=== PATIENT | female | born 1955 | race Caucasian/White ===

== ENCOUNTER 2019-10-01 15:53 | Emergency (ER) | payer BC, SELFPAY ==
[2019-10-01 15:59] VITALS: BMI 26.2
--- NOTE | 2019-10-01 16:13 | ECG_ITS ---
Measurements Intervals [place] Rate: 68 P: 61 DC: 158 QRS: 52 QRSD: 82 T: 77 QT: 375 QTc: 400 SINUS RHYTHM Compared to ECG 09/24/2015 01:10:27 Sinus bradycardia no longer present Electronically Signed On 10-01-2019 19:28:34 TELEPHONE DIRECTORY DISTRIBUTOR DRIVER by Devan Walker M.D. [id number]
[2019-10-01 16:44] LABS: Troponin(5th) Baseline 6 ng/mL (0-10)
== END 2019-10-01 21:19 | disposition left against medical advice (07) ==
LOC: ER 16:30
PROVIDERS: Family Medicine; Emergency Provider Emergency Medicine; Family Provider Family Medicine; PCP Nurse Practitioner Family
DX: Z53.21 Procedure and treatment not carried out due to patient leaving prior to being seen by health care provider (principal)
CPT/HCPCS: 36415; 84484; 93005; 99281

== ENCOUNTER 2020-05-05 07:42 | Outpatient (CLI) | payer MEDICARE, SELFPAY ==
--- NOTE | 2020-05-05 07:57 | CT_ITS ---
WS: [id number] CT CHEST, ABDOMEN, AND PELVIS TECHNIQUE: Contrast-enhanced CT of the chest, abdomen, and pelvis with coronal and sagittal reformatt ed images. CLINICAL INFORMATION: ruq abdominal pain, lung nodule COMPARISON: CT chest . CT abdomen pelvis . CT chest September 29, 2016 and DLP: 1740.[address] scans at [facility] use at least one of these dose optimization techniques: automat ed exposure control; mA and/or kV adjustment per patient size (includes targeted exams where dose is matched to clinical indication); or iterative reconstruction. CT CHEST: Moderate chronic emphysematous changes. No acute pulmonary infiltrates. No consolidation or pleural f luid. Tiny 3 mm pulmonary nodules in the right upper lobe laterally are unchanged. Noncalcified subpl eural opacity right lower lobe medially measuring 3 mm is unchanged. Normal caliber thoracic aorta. Coronary calcification. No mediastinal or hilar lymphadenopathy. No ax illary lymphadenopathy. Hypertrophic changes thoracic spine. CT ABDOMEN AND PELVIS: Prior postoperative changes cholecystectomy. Normal liver. Portal vein and splenic vein are patent. N ormal spleen. Adrenal glands are normal. Normal renal parenchymal enhancement. Small right renal cyst . No hydronephrosis. Normal GE junction. Normal caliber small and large bowel. No evidence of small o r large bowel obstruction. Normal appendix. No abdominal or pelvic lymphadenopathy. Mild disc bulging with disc space narrowing worse L4-L5 and L5-S1. No axillary lymphadenopathy. CT/CT chest abd pel w con* IMPRESSION: 1. A few Noncalcified 3 mm pulmonary nodules unchanged. 2. No mediastinal or hilar lymphadenopathy. 3. No acute pulmonary infiltrates. 4. Prior cholecystectomy. 5. No acute findings in the abdomen or pelvis. 6. No abdominal or pelvic lymphadenopathy.
[2020-05-05] MEDS: iohexol 300 mg/mL 50 mL Btl PO (09:10)
[2020-05-05] MEDS: iohexol 300 mg/mL 100 mL Btl IV (10:20)
== END 2020-05-05 07:43 | disposition home or self-care (01) ==
PROVIDERS: Family Provider Family Medicine; PCP Nurse Practitioner Family
DX: R10.11 Right upper quadrant pain (principal); Z72.0 Tobacco use; R91.8 Other nonspecific abnormal finding of lung field
CPT/HCPCS: 71260; 74177; Q9967

== ENCOUNTER 2020-06-10 14:19 | Outpatient (CLI) | payer MEDICARE, SELFPAY ==
--- NOTE | 2020-06-10 14:33 | XR_ITS ---
WS: [id number] LUMBAR SPINE: 3 VIEWS TECHNIQUE: AP, lateral and L5-S1 spot. HISTORY: LUMBAGO WITH SCIATICA LEFT SIDE COMPARISON: 12/13/2018 Mild increase in lumbar lordosis. Mild anterior wedging of L2. Moderate disc space narrowing at L3-4, L4-5 and L5-S1. Diffuse osteopenia. SI joints are symmetric bilaterally. No soft tissue abnormalities. Moderate calcification in the abdominal aorta. XR/XR lumbar spine 2-3V* [id number] IMPRESSION: 1. Stable anterior compression fracture of L1 with no progression. 2. Moderate degenerative disc space narrowing and desiccation from L3-4 to L5- S1.
== END 2020-06-10 14:20 | disposition home or self-care (01) ==
LOC: RADWPI 14:27
PROVIDERS: Family Provider Family Medicine; PCP Nurse Practitioner Family
DX: S32.010A Wedge compression fracture of first lumbar vertebra, initial encounter for closed fracture (principal); X58.XXXA Exposure to other specified factors, initial encounter
CPT/HCPCS: 72100

== ENCOUNTER 2020-10-08 14:11 | Outpatient (CLI) | payer MEDICARE, SELFPAY ==
--- NOTE | 2020-10-08 14:16 | CT_ITS ---
WS: [id number] LDCT LUNG CANCER SCREENING HISTORY: NICOTINE DEPENDENCE, CIGARETTES TECHNIQUE: Axial imaging performed from the apices to 1 cm below the costophrenic angles. Coronal and sagittal reformats are submitted with axial MIP series. All CT scans at [facility] use at least one of these dose optimization techniques: automated exposure control; mA and/or kV adjustment per patient size (includes targeted exams where dose is matched to clinical indication); or iterativ e reconstruction. DLP: 51.81 mGy.cm DIvol: 1.58 mGy COMPARISON: 05/05/2020 Diagnostic quality: Satisfactory Lung Nodules: Noncalcified 4 mm nodule RIGHT upper lobe, image 46 of series 3. There is a small clust er of nodules around this dominant nodule which are similar to 05/05/2020. There are additional smalle r micronodules. There are also a few scattered granulomata. Mild thickening and haziness in the perip sahara of both lungs from chronic emphysema. Lungs: Emphysema and hyperinflation. Prior granulomatous disease. Heart: Normal size heart. Moderate atherosclerotic disease within the [place] coronary arteries. Other findings: Mild atherosclerosis aorta. Prior cholecystectomy. CT/CT lung screening [id number] IMPRESSION: LUNG-RADS: 2-Benign Appearance or Behavior FOLLOW UP: 12 Month: Continue annual screening with LDCT OTHER FINDINGS (S MODIFIER): None.
--- NOTE | 2020-10-08 14:57 | XR_ITS ---
WS: [id number] SCREENING DEXA SCAN [employer] CLINICAL INFORMATION: OSTEOPOROSIS, HX OF TRAUMATIC VERTEBRAL FRACTURE COMPARISON: 08 27,015 FINDINGS: The L1-L4 bone mineral density measures 1.137 g/cm2. This corresponds to a T score score of -0.4 and Z score of 1.3. Left femoral neck bone mineral density measures 0.693 g/cm2. This corresponds to a T score of -2.5 an d Z score of -1.2. Right femoral neck bone mineral density measures 0.695 g/cm2. This corresponds to a T score -2.5of an d Z score of -1.2. Mean femoral neck bone mineral density measures 0.694 g/cm2. This corresponds to a T score of -2.5 an d Z score of -1.2. XR/XR DEXA axial skeleton* 79235 IMPRESSION: Osteoporosis. Spurious elevation of the bone mineral density of the lumbar spine due to endpl ate sclerosis. Patient's FRAX calculated 10 year probability for major osteoporotic fracture i s 37.2 % and osteoporotic hip fracture is 5.4%.
== END 2020-10-08 14:12 | disposition home or self-care (01) ==
LOC: RAD 14:13
PROVIDERS: PCP Family Medicine; Visit Provider Family Medicine
DX: Z12.2 Encounter for screening for malignant neoplasm of respiratory organs (principal); M81.0 Age-related osteoporosis without current pathological fracture; Z87.81 Personal history of (healed) traumatic fracture; I70.0 Atherosclerosis of aorta; Z90.49 Acquired absence of other specified parts of digestive tract
CPT/HCPCS: 71271; 77080

== ENCOUNTER 2020-11-20 08:05 | Outpatient (CLI) | payer MEDICARE, SELFPAY ==
[2020-11-20 08:25] VITALS: BMI 23.6
--- NOTE | 2020-11-20 08:29 | ECG_ITS ---
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 Interpretive Statements NAME OF STUDY: LEXISCAN SESTAMIBI STRESS TEST INDICATION: Chest Pain PROCEDURE: At the baseline, the blood pressure was 165/68 mmHg, oxygen saturation 98 with a heart rate of 54 beats per minute. The electrocardiogram showed sinus bradycardia, normal axis with nonspecific ST depression. The Lexiscan was infused over a period of 20 seconds. A total of 0.4 milligrams of Lexiscan was infused. The stress phase was continued for a total of 5 minutes. Heart rate at the end of the stress phase was 59 bpm, oxygen saturation 98% with a blood pressure of 162/71 mmHg. The EKG at the peak infusion revealed sinus bradycardia with no significant ST-T wave change. Sestamibi was injected 20 seconds after the Lexiscan infusion. Blood pressure at the end of the recovery phase was 158/70 mmHg, oxygen saturation 98% with a heart rate of 61 beats per minute. CONCLUSION: 1. No significant EKG changes with the LexiScan infusion. 2. No LexiScan induced chest pain or cardiac arrhythmia. 3. Normal blood pressure and heart rate response. 4. Sestamibi/sestamibi perfusion scan pending; see separate report. Electronically Signed On 11-24-2020 12:53:08 STITCHER STANDARD MACHINE by Ivelisse Montgomery M.D. [id number]
--- NOTE | 2020-11-20 08:30 | NMCV_ITS ---
NM epifanio perf SPECT r/s* [id number] Pam Ordonez Age: 65 Gender: F : 1955 Exam Date: 11/20/2020 09:05 Ordering Phys: Ivelisse Montgmoery MD ([email or web address]) Technologist: BUCKY Agosto Exam Location: [facility] Indications: Chest pain STRESS TEST Please see separate stress test report in [facility] for full findings IMAGE PROTOCOL Rest/Stress 1 Lexiscan Day Radiopharmaceutical Dose (mCi) Administration Site Administered by Rest: Tc-99m 10.5 IV Yeimi Skinny, SKI PATROLLER Sestamibi Stress:Tc-99m 32.6 IV Yeimi Skinny, SKI PATROLLER Sestamibi Rest: 11/20/2020 60 Discovery 630 Stress: 11/20/2020 45 Discovery 630 0.4mg Lexiscan. Images obtained in supine and prone position. SPECT RESULTS Technical Quality: Good Raw Data Analysis: Subdiaphragmatic activity Image Corrections: No attenuation or motion correction applied Summed Stress Score: 1 Summed Rest Score: 1 Summed Difference Score: 1 PERFUSION FINDINGS Small size perfusion abnormality of mild severity of apical inferior and apical del cid on rest and stress images. FUNCTIONAL RESULTS (calculated via Gated SPECT) Stress Image LV EF (%): 67 Stress EDV (mL):94 TID: 0.98 Stress ESV (mL):31 FUNCTIONAL FINDINGS: The left ventricle is normal in size. Transient Ischemia Dilatation of 0.98. There is normal left ventricular systolic function. The left ventricular ejection fraction is normal with a value of 67%. There is normal left ventricular wall thickening and no regional wall motion abnormality. Normal end-diastolic and end-systolic volumes. IMPRESSIONS 1. Myocardial perfusion imaging is normal. 2. Overall left ventricular systolic function is normal without regional wall motion abnormalities. 3. The left ventricular ejection fraction is normal with a value of 67%. 4. No coronary ischemia based on the study. Ivelisse Montgomery MD (Electronically Signed) Final Date: 20 November 2020 18:07 S
[2020-11-20 09:41] VITALS: BP 162/72; PULSE 63
[2020-11-20] MEDS: regadenoson 0.4 Mg/5 ml Syringe IVP (09:41)
== END 2020-11-20 08:06 | disposition home or self-care (01) ==
LOC: CDL 08:06
PROVIDERS: PCP Family Medicine; Visit Provider Internal Medicine Cardiovascular Disease
DX: R07.9 Chest pain, unspecified (principal); I25.10 Atherosclerotic heart disease of native coronary artery without angina pectoris
CPT/HCPCS: 78452; A9500; J2785

== ENCOUNTER 2020-12-05 12:54 | Outpatient (CLI) | payer MEDICARE, SELFPAY ==
--- NOTE | 2020-12-05 13:01 | MM_ITS ---
WS: [id number] BILATERAL DIGITAL SCREENING MAMMOGRAPHY WITH CAD CLINICAL INFORMATION: SCREENING HISTORY: Screening mammogram. No current complaints. COMPARISON: TECHNIQUE: Bilateral CC and MLO views. FINDINGS: Scattered fibroglandular densities bilaterally. No suspicious focal mass, asymmetry, calcifications, or architectural distortion. No evidence of malignancy. Punctate and lucent centered calcifications. MM/[place] [id number] IMPRESSION: BI-RADS: 2-Benign FOLLOW UP: 1 Year Follow-up Recommend return to annual screening mammography.
== END 2020-12-05 12:55 | disposition home or self-care (01) ==
LOC: RADSHAW 12:58
PROVIDERS: PCP Family Medicine; Visit Provider Family Medicine
DX: Z12.31 Encounter for screening mammogram for malignant neoplasm of breast (principal)
CPT/HCPCS: 77067

== ENCOUNTER 2021-03-31 09:12 | Outpatient (CLI) | payer MEDICARE, SELFPAY ==
--- NOTE | 2021-03-31 09:30 | MR_ITS ---
WS: [id number] MRI LUMBAR SPINE NONCONTRAST HISTORY: PARESTHESIA, BILATERAL LEGS; BACK PAIN, chronic back pain. COMPARISON: 12/04/2015 TECHNIQUE: Sagittal and axial multisequence imaging is submitted. Quality is compromised by motion. Increase in lumbar lordosis. Mild anterior wedging of L2. Degenerative disc disease throughout the jailene mbar spine. Most significant narrowing at L5-S1. No acute fracture or marrow edema. Conus terminates normally at L1-2 disc level. L1-L2: Mild annular disc bulging and facet arthritis. Mild bilateral foraminal stenosis. L2-L3: Moderate diffuse annular disc bulging and moderate facet joint arthritis. Mild central, bilate ral subarticular recess and foraminal stenosis. Slightly greater stenosis on the RIGHT. Moderate prog ression since the prior study. L3-L4: Diffuse annular disc bulging with mild ligamentum flavum disease and facet arthritis. Mild chapo tral, bilateral subarticular recess and RIGHT foraminal stenosis. Mild progression since the prior st udy. L4-L5: Diffuse asymmetric disc bulging greatest to the LEFT. Asymmetric ligamentum flavum hypertrophy , greater on the LEFT. Mild central stenosis. Moderate LEFT subarticular recess with moderate to dominguez re LEFT foraminal stenosis. Significant contact on the L4 and L5 nerve roots. Moderate progression of disease since the prior study. L5-S1: Diffuse annular disc bulging. There is a focal central disc protrusion with annular fissure di sc contacts the ventral thecal sac. No displacement of the nerve roots. Mild bilateral foraminal sten osis. Mild progression since the prior study. Moderate LEFT and mild RIGHT facet joint arthritis. MR/MR lumbar spine wo con* [id number] IMPRESSION: 1. Moderate progression of degenerative changes throughout the lumbar spine si nce 2016. 2. Moderate to severe LEFT foraminal stenosis at L4-5 with contact by disc and osteophyte upon the L4 and L5 nerve roots. Additional moderate LEFT subarticul ar recess stenosis. 3. Focal central disc protrusion with annular fissure L5-S1 contacts but does not displace the thecal sac at L5-S1. Mild foraminal stenosis. 4. Moderate LEFT facet joint arthritis at L5-S1. 5. Mild central, bilateral subarticular recess and foraminal stenosis at L2-3. 6. Mild central, bilateral subarticular recess and RIGHT foraminal stenosis at L3-4.
== END 2021-03-31 09:13 | disposition home or self-care (01) ==
PROVIDERS: PCP Family Medicine; Visit Provider Family Medicine
DX: R20.2 Paresthesia of skin (principal); M48.061 Spinal stenosis, lumbar region without neurogenic claudication; M47.817 Spondylosis without myelopathy or radiculopathy, lumbosacral region; M51.27 Other intervertebral disc displacement, lumbosacral region
CPT/HCPCS: 72148

== ENCOUNTER → 2021-04-07 15:11 | Outpatient (BNVA) | payer MEDICARE, SELFPAY | PROVIDERS: PCP Family Medicine; Referring Provider Family Medicine; Visit Provider Orthopaedic Surgery | DX: M47.896 Other spondylosis, lumbar region (principal); M54.5 Low back pain | CPT/HCPCS: 72110 ==

== ENCOUNTER → 2021-04-16 11:44 | Outpatient (BNVA) | payer MEDICARE, SELFPAY | PROVIDERS: PCP Family Medicine; Visit Provider Orthopaedic Surgery | DX: Z01.812 Encounter for preprocedural laboratory examination (principal); Z20.822 Contact with and (suspected) exposure to COVID-19 | CPT/HCPCS: 87635 ==

== ENCOUNTER → 2021-04-17 | Day surgery (SDC) | payer MEDICARE, SELFPAY ==
[2021-04-17 10:19] VITALS: BMI 23.4
--- NOTE | 2021-04-17 10:28 | ECG_ITS ---
[facility] Test Date: 2021-04-17 Pat Name: Pam Ordonez Department: Room: Gender: Female [employer]p [employer]: : 1955 Requested By: Enrique Kolb Order Number: [id number] Reading MD: MALDONADO KIRK Measurements Intervals [place] Rate: 61 P: 56 SC: 160 QRS: 44 QRSD: 79 T: 66 QT: 410 QTc: 413 Interpretive Statements SINUS RHYTHM Compared to ECG 10/01/2019 15:59:58 No significant changes Electronically Signed On 04-18-2021 20:32:24 CDT by MALDONADO KIRK [id number]
--- NOTE | 2021-04-17 11:41 | ANES.PREANE2 ---
Pre-Anesthetic Assessment Pre-Anesthetic Assessment: Height/Weight: Height 1.55 m Weight 56.245 kg Preop Diagnosis: Lumbar stenosis Proposed Procedure: Operation Date: 04/20/21 07:00 Proposed Procedures p MIS decompression L3/4 97255 L4/5 54543 L5/S1 72994 M48.062(Not Applicable) - Enrique Ross, DO Was Beta Christian taken within 24 hours: Yes Was Clonidine taken within 24 hours: N/A Social: Social History: Tobacco and No alcohol Exam: Pre-Anes Outpt Exam: alert, oriented x 3 and regular rate & rhythm Airway: Submandibular: WNL Cervical ROM: WNL MP: 2 Dentition: False Pulmonary: Pulmonary: COPD CV/HEM: CV/HEM: CAD (Stent) and HTN Metabolic: Metabolic: Hyperlipidemia Musc/skel: Musc/skel: Lower Back Pain Anesthetic Plan: ASA status: 3 Anesthesia: General Other: Problems with PONV and delayed awakening-?TIVA Risk of > 500 ml blood loss (7ml/kg in children): No PFSH Anesthesia PFSH: Medical History (Updated 04/17/21 @ 10:25 by Inga Chowdhury) ASHD (arteriosclerotic heart disease) Carotid stenosis, non-symptomatic COPD (chronic obstructive pulmonary disease) Dyslipidemia HTN (hypertension) Subclavian artery stenosis Surgical History (Updated 04/17/21 @ 10:25 by Inga Chowdhury) History of cholecystectomy Family History Mother CAD (coronary artery disease) Social History Smoking and tobacco status: current some day smoker (1 PACK A DAY) Quit status (tobacco): considering quitting Second hand smoke exposure: No Smoking risk assessment/counseling performed?: No Alcohol intake: never Data Anesthesia Cardiac Studies: No Data to Display
== END ==
PROVIDERS: PCP Family Medicine; Visit Provider Orthopaedic Surgery
DX: Z01.818 Encounter for other preprocedural examination (principal)
CPT/HCPCS: 93005

== ENCOUNTER → 2021-05-06 11:58 | Outpatient (BNVA) | payer MEDICARE, SELFPAY | PROVIDERS: PCP Family Medicine; Visit Provider Orthopaedic Surgery | DX: Z01.812 Encounter for preprocedural laboratory examination (principal); Z20.822 Contact with and (suspected) exposure to COVID-19 | CPT/HCPCS: 87635 ==

== ENCOUNTER 2021-05-11 07:29 | Day surgery (SDC) | payer MEDICARE, SELFPAY ==
[2021-05-08 11:40] VITALS: BMI 23.4
[2021-05-11] VITALS (9 sets, daily range): BP systolic 99–135; BP diastolic 55–68; PULSE 62–77; RESP 14–20; TEMP 36.1–36.7; O2SAT 93–100
--- NOTE | 2021-05-11 | SCC_ITS ---
Procedure Done: 1. Bilateral L3/4 laminectomy with partail facetectomies 2.Bilateral L4/5 laminectomy with partail facetectomies 3.Bilateral L5/S1 laminectomy with partail facetectomies 38.0 seconds of fluoroscopic guidance, for a cumulative dose of 7.76 mGy, was provided to Dr. Ross by the radiology department. C-arm images of the lumbar spine were saved for the patient's permanent record. [facility]
--- NOTE | 2021-05-11 | XR_ITS ---
WS: [id number] Exam: XR lumbar spine 1V [id number] Date/Time of Exam: 05/11/2021 12:00 AM Reason For Exam: lumbar decompression A series of 5 anterior-posterior C-arm intraoperative images of the lower lumbar spine are submitted for evaluation. Images depict a surgical port superimposing the L4 and L5 vertebral bodies on multiple images. No oth er significant finding on this limited study.
[2021-05-11] MEDS: sodium chloride 0.9% 1,000 ML 30 ML IV (07:54)
--- NOTE | 2021-05-11 08:35 | PM.HP ---
Providers/Chief Complaint Primary Care Provider: Raj Lakhani MD Chief Complaint: lumbar decompression History of Present Illness Pam Ordonez is a 65 year old female lower back pain. HPI: [] who complains of low back pain Onset: going on for years Duration: constant Characteristics: dull ache Severity: 4/10 Location: lower back Radiating symptoms: across the hips, and down the legs Aggravating factors: standing for long periods, bending over Alleviating factors: unsure hasn't tried anything Neuro deficits: patient states she has numbness, tingling, weakness patient denies incontinence of bowel/bladder, saddle anesthesia. Prior tx: had injects at the surgery center more than 10 years ago Associated symptoms: Denies abdominal pain, chills, fever(s), nausea or vomiting Review of Systems Narrative: General ROS: negative for weight changes, fever ENT ROS: negative for nasal congestion, drainage or bleeding, sore throat, dysphagia or ear pain Eyes: PERRL Hematological and Lymphatic ROS: negative for swollen glands or abnormal bleeding Endocrine ROS: negative for polyuria/polydpsia or new changes in weight Respiratory ROS: negative for cough, shortness of breath, or wheezing Cardiovascular ROS: negative for chest pain or dyspnea on exertion Gastrointestinal ROS: negative for reflux, abdominal pain, change in bowel habits, or black or bloody stools Musculoskeletal ROS: negative for back pain, neck pain, or joint pain or swelling except for current problem Neurological ROS: negative for TIA or stoke symptoms Skin: no rashes Medications/Allergies Home Medications Medication Instructions Recorded Confirmed Last Taken Type alendronate 70 mg tablet 70 mg PO .WEEKLY tab 10/03/19 05/11/21 05/10/21 08:00 History cholecalciferol (vitamin D3) 25 2,000 unit PO ONCE cap 10/03/19 05/11/21 05/10/21 History mcg (1,000 unit) capsule cyclobenzaprine 10 mg tablet 10 mg PO TID PRN 10/03/19 05/11/21 05/10/21 History atorvastatin 40 mg tablet 40 mg PO DAILY 10/21/20 05/11/21 05/10/21 History fluoxetine 40 mg capsule 40 mg PO DAILY 10/21/20 05/11/21 05/11/21 History 0530 gabapentin 300 mg capsule 300 mg PO TID cap 10/21/20 05/11/21 05/10/21 History nitroglycerin 0.4 mg sublingual 0.4 mg SUBLINGUAL Q5M PRN #25 tab 10/21/20 05/08/21 Unknown Rx tablet vitamin B complex 1 tab PO DAILY 10/21/20 05/11/21 05/10/21 History metoprolol succinate 25 mg 12.5 mg PO DAILY #45 tab 11/14/20 05/11/21 05/11/21 Rx tablet,extended release 24 hr 0530 aspirin 81 mg tablet,delayed 81 mg PO DAILY 11/26/20 05/11/21 05/06/21 History release biotin 1 tab PO DAILY 11/26/20 05/11/21 05/10/21 History amlodipine 10 mg tablet 10 mg PO DAILY #90 tab 12/11/20 05/11/21 05/10/21 Rx 0800 Allergies Allergy/AdvReac Type Severity Reaction Status Date / Time codeine Allergy Unknown Verified 05/08/21 11:36 Sulfa (Sulfonamide Allergy ADR-Nausea Verified 05/11/21 07:37 Antibiotics) tramadol [From Ultram] Allergy Unknown Verified 05/08/21 11:36 PFSH Acute PFSH: Medical History ASHD (arteriosclerotic heart disease) Carotid stenosis, non-symptomatic COPD (chronic obstructive pulmonary disease) Dyslipidemia HTN (hypertension) Subclavian artery stenosis Surgical History History of cholecystectomy Family History Mother CAD (coronary artery disease) Social History Smoking and tobacco status: current some day smoker (1 PACK A DAY) Quit status (tobacco): considering quitting Second hand smoke exposure: No Smoking risk assessment/counseling performed?: No Alcohol intake: never Vitals/I&O/Wt Last Vital Signs Temp 98.1 F 05/11/21 07:41 Pulse 65 05/11/21 07:41 Resp 18 05/11/21 07:41 BP 123/55 05/11/21 07:41 Pulse Ox 100 05/11/21 07:41 Physical Exam Narrative: EXAM NARRATIVE: CONSTITUTIONAL: The patient is a normal appearing [] in no apparent distress. GENERAL: Patient in no acute distress. CARDIAC: Regular rate and rhythm. CHEST: Normal inspiratory effort, normal respiratory rate. ABDOMEN: Soft and nontender. SKIN: Clear, warm and intact. NEURO?PSYCH: The patient is alert and oriented to person, place and time. Sensorv /SILT Motor StrengthShoulder abduction C5 5/5Wrist extension C6 5/5Elbow extension C7 5/5Hand Assistant Clinical Director C8 5/5Finger abduction T15/5 Radial/ Ulnar/ Median n intact LowerSensory (SILT)Motor StrengthHin flexion L2/3Ant/inner thigh 5/5Hip adduction L2/3 5/5Knee extension L4 Lat thigh, 5/5Toe dorsiflexion L5 5/5Ankle dorsiflexion L5/ [id number] flexion S1 5/5 DTRBleeps 2+Triceps 2+Brachioradialis 2+Patellar 2+Achilles 2+ MUSCULOSKELETAL: [] UPPEREXTREMITIES: The patient had full active ROM in fingers, wrist, elbow, and shoulder. The patient demonstrated ability to fully flex/extend/abduct/adduct fingers, make ok sign, cross 2nd/3rd digits, extend 1st digit fully.. Radial pulse 2+, CR<2 seconds. LOWER EXTREMITIES: Pt has full, active ROM of toes, ankle, knee, and hip. Dorsalis pedis/posterior tibialis pulses 2+, CR<2 seconds. SPINE: Skin warm, dry, intact. 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
--- NOTE | 2021-05-11 08:55 | P.ANESUD_ITS ---
Pre-Anesthetic Update Pre-Anesthetic Assessment: Date of Surgery/Procedure: 05/11/21 Preop Dianne gnosis: lumbar stenosis Proposed Procedure: Operation Date: 05/11/21 08:50 Proposed Procedures p MIS Spine Decompression 24785 [id number] L3/4 L4/5 L5/S1(Not Applicable) - Enrique Ross, DO Any changes to Pre-Anesthetic Assessment?: No Last Intake: Intake Last Liquid Date 05/10/21 Last Liquid Time 08:30 Last Solid Date 05/10/21 Last Solid Time 16:00 Vitals: Temperature 98.1 F 05/11/21 07:41 Temperature Source Temporal Artery S can 05/11/21 07:41 Pulse Rate 65 05/11/21 07:41 Respiratory Rate 18 05/11/21 07:41 Blood Pressure 123/55 05/11/21 07:41 Blood Pressure Daphnie n 77 05/11/21 07:41 Pulse Oximetry 100 05/11/21 07:41 Oxygen Delivery Me thod 05/11/21 07:47 Exam: Pre-Anes Outpt Exam: alert, oriented x 3, clear to auscultation bilaterally and regular rate & rhythm Cardiac Studies: No Data to Display
--- NOTE | 2021-05-11 11:38 | PM.OP ---
Operative Report Date of procedure: May 11, 2021 Pre-op Diagnosis: lumbar stenosis Post-op diagnosis: same Procedure Done: 1. Bilateral L3/4 laminectomy with partail facetectomies 2.Bilateral L4/5 laminectomy with partail facetectomies 3.Bilateral L5/S1 laminectomy with partail facetectomies Surgeon: Enrique Ross Anesthesia: General Estimated blood loss (mL): 5 Condition: stable Disposition: PACU Procedure: 1. Bilateral L3/4 laminectomy with partail facetectomies 2. Bilateral L4/5 laminectomy with partail facetectomies 3. Bilateral L5/S1 laminectomy with partail facetectomies Patient is brought to the operative suite. After undergoing anesthesia they are placed in the supine position. All areas of impingement are well padded. Patient is then prepped and draped in the normal sterile fashion. A skin incision is made over the L3/4 level. This is confirmed under c-arm guidance. A series of dilators are passed and the tubular retractor is docked on the L3 lamina. A bovie is used to clear the soft tissue off the lamina and the L 3/4 facet joint. A high speed sarai is then used to perform the laminectomy and take down the medial aspect of the L 3/4 facet joint. A kerrison rongeure was then used to take down the remaining lamina and smooth the edged of the laminectomy up to the point where the ligamentum flavum attaches. Attention was then brought to the medial aspect of the facet joint. The remaining medial aspect of the superior and inferior aspect of the facet joint were taken down with the kerrison from the pedicle of L3 to L 4. The facet joint had significant hypertrophy. Attention was then brought to the Ligamentum Flavum. The ligament was taken down from the lamina of L3 to L4 and out medially to the remaining facet joint. The ligament was thick. The dura was then exposed. The dura was in good repair. The L3 nerve was then traced with a curette out the L3/4 foramen and found to be adequately decompressed. The L4 nerve was traced with a curette around the L4 pedicle. The lateral recess was opened with a kerrison helping to further decompress the L4 nerve. The tubular retractor was then tilted to the contralateral side. The bovie was used to take down the soft tissue on the spinous process. The high speed sarai was used to take down the spinous process and then the contralateral lamina of L3. The kerrison rongeur was used to take down the remaining lamina to the point where the ligamentum flavum attached and the ligamentum flavum was taken down from L3 to L4. The kerrison rongeur was then used to reach across and take down the medial aspect of the contralateral L3/4 facet joint.The currete was used to trace the contralateral L3 nerve out the L3/4 foramen to make sure it was decompressed adequatesly and the L4 was traced around the L4 pedicle. The lateral recess was opened further with the kerrison to ensure the L4 is adequately decompressed. Wound is then irrigated copiously with saline and surgiflo is used to stop any bleeding. The tubular retractor is removed A skin incision is made over the L4/5 level. This is confirmed under c-arm guidance. A series of dilators are passed and the tubular retractor is docked on the L4 lamina. A bovie is used to clear the soft tissue off the lamina and the L 4/5 facet joint. A high speed sarai is then used to perform the laminectomy and take down the medial aspect of the L 4/5 facet joint. A kerrison rongeure was then used to take down the remaining lamina and smooth the edged of the laminectomy up to the point where the ligamentum flavum attaches. Attention was then brought to the medial aspect of the facet joint. The remaining medial aspect of the superior and inferior aspect of the facet joint were taken down with the kerrison from the pedicle of L4 to L 5. The facet joint had significant hypertrophy. Attention was then brought to the Ligamentum Flavum. The ligament was taken down from the lamina of L4 to L5 and out medially to the remaining facet joint. The ligament was thick. The dura was then exposed. The dura was in good repair. The L4 nerve was then traced with a curette out the L4/5 foramen and found to be adequately decompressed. The L5 nerve was traced with a curette around the L5 pedicle. The lateral recess was opened with a kerrison helping to further decompress the L5 nerve. The tubular retractor was then tilted to the contralateral side. The bovie was used to take down the soft tissue on the spinous process. The high speed sarai was used to take down the spinous process and then the contralateral lamina of L4. The kerrison rongeur was used to take down the remaining lamina to the point where the ligamentum flavum attached and the ligamentum flavum was taken down from L4 to L5. The kerrison rongeur was then used to reach across and take down the medial aspect of the contralateral L4/5 facet joint.The currete was used to trace the contralateral L4 nerve out the L4/5 foramen to make sure it was decompressed adequatesly and the L5 was traced around the L5 pedicle. The lateral recess was opened further with the kerrison to ensure the L5 is adequately decompressed. Wound is then irrigated copiously with saline and surgiflo is used to stop any bleeding. The tubular retractor is removed A skin incision is made over the L5/S1 level. This is confirmed under c-arm guidance. A series of dilators are passed and the tubular retractor is docked on the L5 lamina. A bovie is used to clear the soft tissue off the lamina and the L 5/S1 facet joint. A high speed sarai is then used to perform the laminectomy and take down the medial aspect of the L 5/S1 facet joint. A kerrison rongeure was then used to take down the remaining lamina and smooth the edged of the laminectomy up to the point where the ligamentum flavum attaches. Attention was then brought to the medial aspect of the facet joint. The remaining medial aspect of the superior and inferior aspect of the facet joint were taken down with the kerrison from the pedicle of L5 to S1. The facet joint had significant hypertrophy. Attention was then brought to the Ligamentum Flavum. The ligament was taken down from the lamina of L5 to S1 and out medially to the remaining facet joint. The ligament was thick. The dura was then exposed. The dura was in good repair. The L5 nerve was then traced with a curette out the L5/S1 foramen and found to be adequately decompressed. The S1 nerve was traced with a curette around the S1 pedicle. The lateral recess was opened with a kerrison helping to further decompress the S1 nerve. The tubular retractor was then tilted to the contralateral side. The bovie was used to take down the soft tissue on the spinous process. The high speed sarai was used to take down the spinous process and then the contralateral lamina of L5. The kerrison rongeur was used to take down the remaining lamina to the point where the ligamentum flavum attached and the ligamentum flavum was taken down from L5 to S1. The kerrison rongeur was then used to reach across and take down the medial aspect of the contralateral L5/S1 facet joint.The currete was used to trace the contralateral L5 nerve out the L5/S1 foramen to make sure it was decompressed adequatesly and the S1 was traced around the S1 pedicle. The lateral recess was opened further with the kerrison to ensure the L[] is adequately decompressed. Wound is then irrigated copiously with saline and surgiflo is used to stop any bleeding. The tubular retractor is removed and the wound is closed with vicryl and monocryl suture. Glue is then used to protect the wound. A sterile dressing is then placed. Patient was then placed in the supine position and transferred to the PACU in stable condition.
--- NOTE | 2021-05-11 15:40 | ANE.PACU2 ---
Inpatient post-anesthesia follow up: Airway intact: Yes Vital signs: Temperature 97.2 F Pulse Rate 65 Respiratory Rate 16 Blood Pressure 99/61 Pulse Oximetry 93 Oxygen Delivery Me thod Room Air Oxygen Flow Rate 8 Fraction of Inspir ed Oxygen Hydration adequate: Yes Nausea and vomiting: No Pain level: 3 Mental status: Baseline
== END 2021-05-11 12:13 | disposition home or self-care (01) ==
PROVIDERS: PCP Family Medicine; Visit Provider Orthopaedic Surgery
PROC: (CPT 63005; principal; 2021-05-11 08:40)
DX: M48.062 Spinal stenosis, lumbar region with neurogenic claudication (principal); Z79.82 Long term (current) use of aspirin; J44.9 Chronic obstructive pulmonary disease, unspecified; E78.5 Hyperlipidemia, unspecified; I10 Essential (primary) hypertension; F17.210 Nicotine dependence, cigarettes, uncomplicated
CPT/HCPCS: 63047; 63048 ×2; 72020; 76000; J0690; J1100; J1170; J2370; J2405; J2704; J2710; J3010; J3490; J7030

== ENCOUNTER 2021-08-28 11:58 | Outpatient (CLI) | payer MEDICARE, SELFPAY ==
--- NOTE | 2021-08-28 12:04 | XR_ITS ---
WS: [id number] Exam: XR chest 2V* [id number] Date/Time of Exam: 08/28/2021 12:09 PM Reason For Exam: HEMOPTYSIS Comparison 06/29/2018. The lungs are fully inflated and clear. Normal heart size. The mediastinum is not widened. Coronary a rtery stenting is noted. Spondylosis of the dorsal spine. The lungs are hyperinflated which may indic ate COPD. Bony structures are intact. XR/XR chest 2V* [id number] IMPRESSION: 1. No acute cardiopulmonary finding. 2. Pulmonary hyperinflation which may indicate obstructive lung disease.
== END 2021-08-28 11:59 | disposition home or self-care (01) ==
PROVIDERS: PCP Family Medicine; Visit Provider Family Medicine
DX: R04.2 Hemoptysis (principal)
CPT/HCPCS: 71046

== ENCOUNTER 2021-09-28 11:00 | Outpatient (CLI) | payer MEDICARE, SELFPAY | END 2021-09-28 11:01 | disposition home or self-care (01) | LOC: SLEEP 09-29 16:10 | PROVIDERS: PCP Family Medicine; Visit Provider Family Medicine | DX: R04.2 Hemoptysis (principal) | CPT/HCPCS: 94762 ==

== ENCOUNTER → 2021-10-06 15:16 | Outpatient (BNVA) | payer MEDICARE, SELFPAY | PROVIDERS: PCP Family Medicine; Visit Provider Physician Assistant | DX: Z47.89 Encounter for other orthopedic aftercare (principal); S32.029S Unspecified fracture of second lumbar vertebra, sequela; X58.XXXS Exposure to other specified factors, sequela; M47.816 Spondylosis without myelopathy or radiculopathy, lumbar region | CPT/HCPCS: 72110 ==

== ENCOUNTER 2021-10-14 11:35 | Outpatient (CLI) | payer MEDICARE, SELFPAY ==
--- NOTE | 2021-10-14 11:41 | CT_ITS ---
WS: [id number] LDCT LUNG CANCER SCREENING TECHNIQUE: Noncontrast CT of the chest with coronal and sagittal reformatted images. CLINICAL INFORMATION: HX OF TOBACCO USE COMPARISON: October 08, 2020 DLP: 72.4 DIvol: 1.[address] scans at [facility] use at least one of these dose optimization techniques: automat ed exposure control; mA and/or kV adjustment per patient size (includes targeted exams where dose is matched to clinical indication); or iterative reconstruction. FINDINGS: 4 mm and 3 mm nodules right upper lobe unchanged from the prior examinations. A few surroun ding micronodules unchanged. Calcified granuloma right lower lobe. Hyperinflation with chronic emphysematous changes. Normal caliber thoracic aorta. Aortic calcificatio n. Coronary calcification. No mediastinal or hilar lymphadenopathy. Calcified right hilar and subcari nal lymph nodes. No axillary lymphadenopathy. Adrenal glands are normal. Cholecystectomy clips. Hypertrophic changes thoracic spine. CT/CT lung screening [id number] IMPRESSION: LUNG-RADS: 2-Benign Appearance or Behavior FOLLOW UP: 12 Month: Continue annual screening with LDCT
== END 2021-10-14 11:36 | disposition home or self-care (01) ==
LOC: RAD 11:38
PROVIDERS: PCP Family Medicine; Visit Provider Family Medicine
DX: Z12.2 Encounter for screening for malignant neoplasm of respiratory organs (principal); Z87.891 Personal history of nicotine dependence
CPT/HCPCS: 71271

== ENCOUNTER 2021-10-28 12:31 | Outpatient (RCR) | payer MEDICARE, SELFPAY | END 2021-11-16 23:59 | disposition home or self-care (01) | LOC: SPT 12:31 | PROVIDERS: PCP Family Medicine; Referring Provider Orthopaedic Surgery; Visit Provider Orthopaedic Surgery | DX: M48.062 Spinal stenosis, lumbar region with neurogenic claudication (principal) | CPT/HCPCS: 97110; 97162 ==

== ENCOUNTER → 2021-11-24 15:42 | Outpatient (BNVA) | payer MEDICARE, SELFPAY | PROVIDERS: PCP Family Medicine; Visit Provider Physician Assistant | DX: Z47.89 Encounter for other orthopedic aftercare (principal); S32.020D Wedge compression fracture of second lumbar vertebra, subsequent encounter for fracture with routine healing; X58.XXXD Exposure to other specified factors, subsequent encounter; M47.816 Spondylosis without myelopathy or radiculopathy, lumbar region; M47.817 Spondylosis without myelopathy or radiculopathy, lumbosacral region | CPT/HCPCS: 72110 ==

== ENCOUNTER → 2021-12-24 10:31 | Outpatient (BNVA) | payer MEDICARE, SELFPAY | PROVIDERS: PCP Family Medicine; Visit Provider Physician Assistant | DX: M84.48XA Pathological fracture, other site, initial encounter for fracture (principal); M79.604 Pain in right leg; M79.605 Pain in left leg | CPT/HCPCS: 72110; 99214; 99999 ==

== ENCOUNTER 2021-12-31 13:40 | Outpatient (CLI) | payer MEDICARE, SELFPAY ==
--- NOTE | 2021-12-31 13:49 | MR_ITS ---
WS: [id number] MRI LUMBAR SPINE WITH CONTRAST TECHNIQUE: Sagittal T1, T2 and STIR imaging. Axial T1 and T2 imaging. Post gadolinium imaging was obt ained. CLINICAL INFORMATION: M54.50 - Low back pain, unspecified COMPARISON: MRI March 31, 2021 FINDINGS: Mild lumbar curve. No acute compression. Disc space narrowing worse L4-L5 and L5-S1. Prior postoperat froilan changes LEFT hemilaminectomy L3-L4, L4-L5, and L5-S1 L1-L2: Mild annular bulging. Mild facet arthropathy. Spinal canal and foramen are patent. L2-L3: Mild annular bulging with narrowing of the subarticular recess bilaterally. Mild central canal stenosis. Mild facet arthropathy. Mild bilateral foraminal narrowing with small bilateral foraminal protrusions L3-L4: Mild disc bulging with slight effacement of ventral thecal sac. LEFT hemilaminectomy with deco mpression of the thecal sac. Mild facet arthropathy. Mild bilateral foraminal narrowing. L4-L5: Prior postoperative changes LEFT hemilaminectomy. Mild central canal stenosis with slight impi ngement traversing LEFT greater than RIGHT L5 nerve roots appears improved. LEFT foraminotomy with no rmal postoperative enhancement. Mild facet arthropathy. L5-S1: Mild disc osteophyte complex with endplate ridging. Mild bilateral foraminal narrowing. Mild f acet arthropathy. Impingement on the LEFT S1 nerve root appears improved. Visualized pelvic bony structures: Normal. Paravertebral soft tissues: Normal. MR/MR lumbar spine wo/w con [id number] IMPRESSION: 1. Mild lumbar curve. No acute compression. No high-grade central canal stenos is. 2. Interval postoperative changes LEFT hemilaminectomies LEFT L3-L4 L4-L5 and L5-S1. 3. Mild central canal stenosis L4-L5 with slight impingement LEFT subarticular recess appears improved. Interval LEFT foraminotomy with postoperative enhance ment. Mild residual narrowing of the LEFT L4-L5 neural foramen. 4. Mild central canal stenosis stenosis L2-L3 with mild bilateral foraminal na rrowing with small bilateral foraminal protrusions. 5. Mild bilateral L3-L4 foraminal narrowing.
[2021-12-31] MEDS: gadobenate dimeglumine 20 mL vial IV (14:43)
== END 2021-12-31 13:41 | disposition home or self-care (01) ==
PROVIDERS: PCP Family Medicine; Visit Provider Physician Assistant
DX: M48.061 Spinal stenosis, lumbar region without neurogenic claudication (principal)
CPT/HCPCS: 72158; A9579

== ENCOUNTER → 2022-01-05 10:39 | Outpatient (BNVA) | payer MEDICARE, SELFPAY | PROVIDERS: PCP Family Medicine; Visit Provider Physician Assistant | DX: M51.37 Other intervertebral disc degeneration, lumbosacral region (principal); M48.062 Spinal stenosis, lumbar region with neurogenic claudication | CPT/HCPCS: 99214; 99999 ==

== ENCOUNTER → 2022-01-15 11:12 | Outpatient (BNVA) | payer MEDICARE, SELFPAY | PROVIDERS: PCP Family Medicine; Visit Provider Internal Medicine Cardiovascular Disease | DX: R07.9 Chest pain, unspecified (principal); Z01.810 Encounter for preprocedural cardiovascular examination; I25.10 Atherosclerotic heart disease of native coronary artery without angina pectoris; E78.5 Hyperlipidemia, unspecified; I65.23 Occlusion and stenosis of bilateral carotid arteries; J44.9 Chronic obstructive pulmonary disease, unspecified | CPT/HCPCS: 93005; 99214 ==

== ENCOUNTER 2022-03-29 09:00 | Inpatient (IN) | payer MEDICARE, SELFPAY ==
[2022-03-26 13:52] VITALS: BMI 23.0
[2022-03-29] VITALS (76 sets, daily range): BP systolic 67–135; BP diastolic 37–81; PULSE 54–73; RESP 13–28; TEMP 36.1–36.7; O2SAT 82–100; BMI 23.0
--- NOTE | 2022-03-29 | SCC_ITS ---
Procedure done: 1. L3- S1 instrumentation 2. Lumbopelvic instrumentation 3. L3 - pelvis fusion 4. revision L3/4 laminectomy with partial facetectomy 5. revision L4/5 Laminectomy with partial facetectomy 6. revison L5/S1 laminectomy with partial facetectomy 7. use of computer navigation/ stereotactic for spine 8. bone marrow aspirated from iliac crest on the right 19. use of allograft 10. Use of autograft 14 seconds of fluoroscopic guidance, for a cumulative dose of 21.0 mGy, was provided to Dr. Ross by the radiology department. C-arm images of the lumbar spine were saved for the patient's permanent record. [facility]
--- NOTE | 2022-03-29 | XR_ITS ---
WS: [id number] C-ARM RADIOGRAPHS LUMBAR SPINE; 4 IMAGES HISTORY: l4-pelvis fusion COMPARISON: None available. Intraoperative imaging during lumbosacral posterior fusion. Large laminectomy defects at the L4-5 lev el. XR/XR lumbar spine 2-3V* [id number] IMPRESSION: Intraoperative imaging during extensive posterior lumbosacral fusion.
--- NOTE | 2022-03-29 09:02 | PM.HP ---
Providers/Chief Complaint Primary Care Provider: Raj Lakhani MD Chief Complaint: l4-pel fus &decom w/cage l5/s1 [id number] History of Present Illness Pam Ordonez is a 66 year old female he underwent a lumbar decompression in April 2021 and she had significant improvement of her leg pain following that procedure.? Her pain in her legs is progressively intensified and now she reports about 50% low back pain 50% bilateral leg pain.? She reports frequent falling she feels her legs give out.? Patient states she continues to have pain and numbness to the lower back and down both legs.? She can only walk a short distance because of the weakness that she is experiencing.? She denies any fever chills or drainage from her incisional site.? She follows up after an MRI scan.? She has been through injections and physical therapy without any long-term relief in the past.? She is wanted to discuss more definitive treatment. An extensive review of the patient's past medical history, surgical history, allergies, medications, family history, social history, and review of systems was completed Review of Systems General: Reports: 10 or more systems reviewed and unremarkable except in HPI and below Const: Denies: fever(s) or chills Card: Denies: chest pain or dyspnea on exertion Resp: Denies: dyspnea or productive cough GI: Denies: abdominal pain, nausea or vomiting : Denies: difficulty voiding Musc: Reports: back pain, extremity pain and limited range of motion Skin/Breast: Denies: changes in skin color or dry skin Neuro: Reports: numbness in extremities, weakness in extremities and sensory changes Psych: Denies: anxiety Lalo/Lymph: Denies: easy bruising or easy bleeding Medications/Allergies Home Medications Medication Instructions Recorded Confirmed Last Taken Type alendronate 70 mg tablet 70 mg PO .WEEKLY tab 10/03/19 03/26/22 03/21/22 History cholecalciferol (vitamin D3) 25 2,000 unit PO ONCE cap 10/03/19 03/26/22 03/26/22 History mcg (1,000 unit) capsule atorvastatin 40 mg tablet (Lipitor) 40 mg PO DAILY 10/21/20 03/26/22 03/25/22 20:00 History fluoxetine 40 mg capsule 40 mg PO DAILY 10/21/20 03/26/22 03/26/22 History gabapentin 300 mg capsule 300 mg PO TID cap 10/21/20 03/26/22 03/26/22 History nitroglycerin 0.4 mg sublingual 0.4 mg SUBLINGUAL Q5M PRN #25 tab 10/21/20 03/26/22 Unknown Rx tablet (Nitrostat) aspirin 81 mg tablet,delayed 81 mg PO DAILY 11/26/20 03/26/22 03/25/22 History release biotin 1 tab PO DAILY 11/26/20 03/26/22 03/26/22 History amlodipine 10 mg tablet 10 mg PO DAILY #90 tab 12/11/20 03/26/22 03/26/22 07:00 Rx cyclobenzaprine 10 mg tablet 10 mg PO TID PRN #30 tab 06/16/21 03/26/22 03/25/22 20:00 Rx metoprolol succinate 25 mg 12.5 mg PO DAILY #45 tab 08/27/21 03/26/22 03/26/22 07:00 Rx tablet,extended release 24 hr isosorbide mononitrate 30 mg 30 mg PO DAILY 01/15/22 03/26/22 03/26/22 History tablet,extended release 24 hr Allergies Allergy/AdvReac Type Severity Reaction Status Date / Time hydrocodone Allergy Intermediate Altered Verified 01/05/22 10:42 mental status codeine Allergy Unknown Verified 01/05/22 10:42 Sulfa (Sulfonamide Allergy ADR-Nausea Verified 01/05/22 10:42 Antibiotics) tramadol [From Ultram] Allergy Unknown Verified 01/05/22 10:42 PFSH Acute PFSH: Medical History (Updated 01/17/22 @ 19:03 by Ivelisse Montgomery MD) ASHD (arteriosclerotic heart disease) Carotid stenosis, non-symptomatic COPD (chronic obstructive pulmonary disease) Dyslipidemia History of tumor HTN (hypertension) Subclavian artery stenosis Surgical History (Updated 01/17/22 @ 19:02 by Ivelisse Montgomery MD) History of History of cholecystectomy Family History Mother CAD (coronary artery disease) Social History Smoking and tobacco status: never smoked Quit status (tobacco): considering quitting Second hand smoke exposure: No Smoking risk assessment/counseling performed?: No Alcohol intake: never Physical Exam Narrative: CONSTITUTIONAL: The patient is a normal appearing [] in no apparent distress. GENERAL: Patient in no acute distress. CARDIAC: Regular rate and rhythm. CHEST: Normal inspiratory effort, normal respiratory rate. ABDOMEN: Soft and nontender. SKIN: Clear, warm and intact. NEURO?PSYCH: The patient is alert and oriented to person, place and time. Sensorv /SILT Motor StrengthShoulder abduction C5 5/5Wrist extension C6 5/5Elbow extension C7 5/5Hand Pad Extraction Tender C8 5/5Finger abduction T15/5 Radial/ Ulnar/ Median n intact LowerSensory (SILT)Motor StrengthHin flexion L2/3Ant/inner thigh 5/5Hip adduction L2/3 5/5Knee extension L4 Lat thigh, 5/5Toe dorsiflexion L5 5/5Ankle dorsiflexion L5/ D11Sdsjhnu flexion S1 5/5 DTRBleeps 2+Triceps 2+Brachioradialis 2+Patellar 2+Achilles 2+ MUSCULOSKELETAL: [] UPPEREXTREMITIES: The patient had full active ROM in fingers, wrist, elbow, and shoulder. The patient demonstrated ability to fully flex/extend/abduct/adduct fingers, make ok sign, cross 2nd/3rd digits, extend 1st digit fully.. Radial pulse 2+, CR<2 seconds. LOWER EXTREMITIES: Pt has full, active ROM of toes, ankle, knee, and hip. Dorsalis pedis/posterior tibialis pulses 2+, CR<2 seconds. SPINE: Skin warm, dry, intact. A&P Assessment and plan (1) Spinal stenosis, lumbar region, with neurogenic claudication: Status: Acute Attestations Medical Necessity Statement*: failed conservative tx Coding Level of Care Code Acute Director Of Social Services for g Fwd Diagnoses Spinal stenosis, lumbar region, with neurogenic claudication M48.062
--- NOTE | 2022-03-29 09:23 | ANES.PREANE2 ---
Pre-Anesthetic Assessment Height/Weight: Height 1.55 m Weight 55.338 kg Temp Pulse Resp BP Pulse Ox 97.3 F L 60 16 110/63 98 03/29/22 09:09 03/29/22 09:09 03/29/22 09:09 03/29/22 09:09 03/29/22 09:09 Preop Diagnosis: Lumbar stenosis w/Neurogenic claudicationn and DDD Lummbar spine Operation Date: 03/29/22 11:20 Proposed Procedures p Lumbar Laminectomy L4-PELVIS FUSION & DECOMPRESION W/CAGE L4-S1 [id number]/M48.062(Not Applicable) - Enrique Ross, DO Familial anesthetic complications: none Was Beta Christian taken within 24 hours: Yes Was Clonidine taken within 24 hours: N/A Last intake: 03/28/22 Social Tobacco Exam alert, oriented x 3, clear to auscultation bilaterally and regular rate & rhythm Airway Submandibular: within normal limits Cervical ROM: within normal limits Mallampati: Class II Dentition: false Pulmonary Chronic Obstructive Pulmonary Disease CV/HEM Coronary Artery Disease, Hypertension and Peripheral Vascular Disease (Carotid stenosis ) METS > 4 Stress test 11/2020 ONCLUSION: 1. No significant EKG changes with the LexiScan infusion. 2. No LexiScan induced chest pain or cardiac arrhythmia. 3. Normal blood pressure and heart rate response. 4. Sestamibi/sestamibi perfusion scan pending; see separate report. Electronically Signed On 11-24-2020 12:53:08 RESEARCH ASSISTANT by Ivelisse Montgomery M.D. [email or web address] Nuc Med study 12/07 IMPRESSIONS ?1. Myocardial perfusion imaging is normal. ?2. Overall left ventricular systolic function is normal without regional wall ?motion abnormalities. ?3. The left ventricular ejection fraction is normal with a value of 67%. ?4.? No coronary ischemia based on the study. None reported Hepatic None reported GI Gastroesophageal Reflux Disease Well controlled Metabolic None reported Musc/skel Lower Back Pain and Osteoarthritis/DJD Neuropsych Denies hx of stroke Anesthetic Plan ASA status: 3 Anesthesia: Anesthesia Evaluation and General Other: We discussed risk and benefits of general anesthesia including PONV, sore throat (sometimes severe), corneal abrasion, positioning and peripheral nerve injuries, life threatening allergic reaction, post operative ICU admission requiring prolonged intubation, aspiration, stroke, heart attack, , and rare incidences of recall. Patient consents to proceed with general anesthesia. GETA, arterial line Medications/Allergies Home Medications Medication Instructions Recorded Confirmed Last Taken Type alendronate 70 mg tablet (Fosamax) 70 mg PO .WEEKLY tab 10/03/19 03/26/22 03/28/22 History cholecalciferol (vitamin D3) 25 2,000 unit PO ONCE cap 10/03/19 03/26/22 03/28/22 20:00 History mcg (1,000 unit) capsule atorvastatin 40 mg tablet (Lipitor) 40 mg PO DAILY 10/21/20 03/29/22 03/28/22 20:00 History fluoxetine 40 mg capsule 40 mg PO DAILY 10/21/20 03/26/22 03/29/22 07:00 History gabapentin 300 mg capsule 300 mg PO TID cap 10/21/20 03/26/22 03/29/22 07:00 History nitroglycerin 0.4 mg sublingual 0.4 mg SUBLINGUAL Q5M PRN #25 tab 10/21/20 03/26/22 Unknown Rx tablet (Nitrostat) aspirin 81 mg tablet,delayed 81 mg PO DAILY 11/26/20 03/26/22 03/26/22 History release biotin 1 tab PO DAILY 11/26/20 03/29/22 03/29/22 06:00 History amlodipine 10 mg tablet 10 mg PO DAILY #90 tab 12/11/20 03/26/22 03/28/22 Rx cyclobenzaprine 10 mg tablet 10 mg PO TID PRN #30 tab 06/16/21 03/26/22 03/28/22 20:00 Rx metoprolol succinate 25 mg 12.5 mg PO DAILY #45 tab 08/27/21 03/26/22 03/29/22 07:00 Rx tablet,extended release 24 hr isosorbide mononitrate 30 mg 30 mg PO DAILY 01/15/22 03/26/22 03/29/22 07:00 History tablet,extended release 24 hr Allergies Allergy/AdvReac Type Severity Reaction Status Date / Time hydrocodone Allergy Intermediate Altered Verified 01/05/22 10:42 mental status codeine Allergy Unknown Verified 01/05/22 10:42 Sulfa (Sulfonamide Allergy ADR-Nausea Verified 01/05/22 10:42 Antibiotics) tramadol [From Ultram] Allergy Unknown Verified 01/05/22 10:42 [facility] Anesthesia Medical History ASHD (arteriosclerotic heart disease) Carotid stenosis, non-symptomatic COPD (chronic obstructive pulmonary disease) Dyslipidemia History of tumor HTN (hypertension) Subclavian artery stenosis Surgical History History of History of cholecystectomy Family History Mother CAD (coronary artery disease) Social History Smoking and tobacco status: never smoked Quit status (tobacco): considering quitting Second hand smoke exposure: No Smoking risk assessment/counseling performed?: No Alcohol intake: never Data Anesthesia Cardiac Studies: Sestamibi Stress Test (Cardiology) 11/20/20
[2022-03-29] MEDS: sodium chloride 0.9% 1,000 ML 30 ML IV ×2 (09:35→16:49)
[2022-03-29] MEDS: scopolamine 1.5 Patch 1 PATCH TRANSDERMA (09:35)
[2022-03-29] MEDS: ceFAZolin 2,000 MG in sodium chloride 0.9% (plus) 50 ML 100 MG IV ×2 (09:43→18:27)
[2022-03-29] MEDS: heparin, porcine 1,000 unit/mL INJ 10 mL 10000 UNIT IRRIGATION (10:30)
[2022-03-29] MEDS: vancomycin 1,000 MG SDV 1000 MG XX (10:30)
--- NOTE | 2022-03-29 13:51 | P.OP_ITS ---
Operative Report Date of procedure: March 29, 2022 Pre-op diagnosis: Preop Diagnosis Lumbar stenosis w/Neurogenic claudicationn and DDD Lummbar spine Post-op diagnosis: same Procedure done: 1. L3- S1 instrumentation 2. Lumbopelvic instrumentation 3. L3 - pelvis fusion 4. revision L3/4 laminectomy with partial facetectomy 5. revision L4/5 Laminectomy with partial facetectomy 6. revison L5/S1 laminectomy with partial facetectomy 7. use of computer navigation/ stereotactic for spine 8. bone marrow aspirated from iliac crest on the right 19. use of allograft 10. Use of autograft Surgeon: Enrique Ross Experience Specialist: Jean Mojica Procedure: 1. L3- S1 instrumentation 2. Lumbopelvic instrumentation 3. L3 - pelvis fusion 4. revision L3/4 laminectomy with partial facetectomy 5. revision L4/5 Laminectomy with partial facetectomy 6. revision L5/S1 laminectomy with partial facetectomy 7. use of computer navigation/ stereotactic for spine 8. bone marrow aspirated from iliac crest on the right 19. use of allograft 10. Use of autograft Patient is brought to the operative suite.? After undergoing anesthesia, the patient had neuro monitoring attached.? Patient was then placed in the prone position on the Cristobal table.? All areas of impingement were well-padded.? Patient was then prepped and draped in the normal sterile fashion.? Skin incision was then made over the L3 down to the sacrum.? Subperiosteal dissection was made out to the transverse processes of L3 and L5 as well as the sacral ala.? And dissection was made past the S1 foramen. The NuORDER bone marrow aspirate kit was used to aspirate bone marrow aspirate.? This was done by using the sharp probe to open up the bone.? Aspiration was performed and then the blunt probe was then used to dissect down to through the bone tunnel.? An aspirating well drawn back a millimeter approximately 20 cc of bone marrow aspirate was used.? Admixed with the allog raft and autograft bone that will be used. Was brought to placing the fiducial for the computer navigation.? 2 pins were placed into the right iliac wing.? These pins will later be removed at the end of the case.? The fiducial was turndown C-arm was brought in and information from serum was then loaded the computer in order to facilitate placing screws under computer navigation. The technique for placing the pedicle screws was to use a drill followed by the gearshift probe linked to computer navigation? Followed by the ball probe to feel the superior inferior medial lateral del cid of the pedicles.? Then placement of the screws under computer navigation.? Was done at each pedicle.? Screws were placed at L3 bilaterally, L4 bilaterally, L5 bilaterally, and into S1 bilaterally. Extension was placed on placing the iliac screws.? This was done using the sacral ala iliac technique.? This was done also under computer navigation.? The gearshift was passed through the sacrum through the ala and into the iliac wing across the iliosacral joint.? This was done bilaterally.? Gearshift was linked to the computer navigation.? Pedicle feeler was then used to make sure that the gearshift was in the columns of the iliac wings.? Next a tap was used again under computer navigation and then the 80 mm 8.5 screws were placed bilaterally.? And these were placed into the iliac wings. Attention was brought to performing the laminectomy of L3.? This was done using the high-speed bur Kerrisons and curettes.? Once the lamina was removed and then attention was brought to performing a partial facetectomy on the contralateral side.? This was done again using the high-speed bur curettes and Kerrisons.? The ligamentum flavum was taken down bilaterally where it could be however there was significant amount of scar tissue From L3 to L4.? Attention was then brought to the facet on the ipsilateral side.? The facet was taken down.? The L4 nerve was decompressed as it passed around the L4 pedicle.? Attention was brought to performing the laminectomy of L4.? This was done using the high-speed bur Kerrisons and curettes.? Once the lamina was removed and then attention was brought to performing a partial facetectomy on the contralateral side.? This was done again using the high-speed bur curettes and Kerrisons.? The ligamentum flavum was taken down bilaterally where it could be however there was significant amount of scar tissue From L4 to L5.? Attention was then brought to the facet on the ipsilateral side.? The facet was taken down.? The L5 nerve was decompressed as it passed around the L5 pedicle.? Attention was brought to performing the laminectomy of L5.? This was done using the high-speed bur Kerrisons and curettes.? Once the lamina was removed and then attention was brought to performing a partial facetectomy on the contralateral side.? This was done again using the high-speed bur curettes and Kerrisons.? The ligamentum flavum was taken down bilaterally where it could be however there was significant amount of scar tissue From L5 to S1.? Attention was then brought to the facet on the ipsilateral side.? The facet was taken down.? The S1 nerve was decompressed as it passed around the S1 pedicle.? Attention was then brought to attaching the rods to the screws placed in the L3 down to S1 as well as to the iliac screws.? Caps were torqued into position. Locking the construct in place. Wound was copiously irrigated and then attention was brought to decorticating the facets and transverse processes laterally.? Bone that was taken down from the lamina was used along with osteoamp fibers and sponges were packed into the lateral gutters along the facet joints.? This was done bilaterally. Wound was then closed in a layered fashion starting with the thoracolumbar fasci a.? 0-vicryl was used the sub cutaneous tissue was closed with 2-0 vicryl and skin with 4-0 monocryl.? Glue was then used to seal the skin and a steril dressing was applied.? Patient was then placed in the supine position. The endotracheal tube was removed and patient was transferred to the PACU in stable condition.
--- NOTE | 2022-03-29 13:54 | SUR.PHASEI ---
Pt ready to transfer to the floor at 1350. I was told the nurse was busy and couldn't take the call.
--- NOTE | 2022-03-29 14:36 | PM.MISC ---
Miscellaneous Note Purpose of Documentation: Arterial catheter inadvertently removed by patient Note: Arterial catheter inadvertently removed by patient in recoery. Pressure held, no hematoma, pressure dressing applied. MAP of 55 mmHg. Patient alert, oriented, knows day, date, place, situation. ~2 liters intraop. Additional albumin ordered in recovery.
--- NOTE | 2022-03-29 14:39 | SUR.PHASEI ---
ART line removed, intact, pressure held for 5 min, pressure dressing applied, Lt wrist
[2022-03-29] MEDS: albumin 12.5 GM/250 ML VIAL IV ×2 (14:43→15:30)
[2022-03-29] MEDS: fentaNYL 50 mcg/mL INJ 2mL IVP ×2 (14:57→16:47)
--- NOTE | 2022-03-29 15:21 | PM.MISC ---
Miscellaneous Note Purpose of Documentation: Hypotension Note: Patient continues to have soft BPs. Modest increase in MAP from 55 to 58 with 250 cc albumin. Will administer another 250 cc of albumin and reassess. Continues to have normal mentation oriented to date, day, president, situation, place.
[2022-03-29] MEDS: HYDROmorphone 1 mg/mL INJ 1 mL 0.2 MG IVP (15:34)
--- NOTE | 2022-03-29 16:10 | P.ANESPOST_ITS ---
Inpatient post-anesthesia follow up: Airway intact: Yes Vital signs: Temperature 97 F Pulse Rate 63 Respiratory Rate 20 Blood Pressure 92/43 Pulse Oximetry 97 Oxygen Delivery Me thod Nasal Cannula Oxygen Flow Rate 3 Fraction of Inspir ed Oxygen Hydration adequate: Yes Nausea and vomiting: No Pain level: 6 Mental status: Baseline Additional Comments: Patient received 2 liters crystalloid in OR and 500 cc albumin 5% in PACU. Alert and oriented to date, day, self, situation, president. Maps ranging 55 to 65 mmHg. I suspect residual vasoplegia from anesthetic. However given normal mentation decided to hold on further intervention with pressors. In order to closely monitor patient and ensure pain medications to not lead to unobserved hypotension AMS I requested admission to ICU. Discussed with Doctor Vandana and classified copy control clerk Beth. Hospitalist assignment pending.
[2022-03-29] MEDS: ketorolac 30 mg/mL INJ IVP (16:15)
--- NOTE | 2022-03-29 16:33 | P.CONIM_ITS ---
Providers/Reason For Consult Consulting Physician/Specialty*: Dr. Sethi/internal medicine Reason for Consult*: Hypotension Requesting Physician: Dr. Teran Attending Physician: Enriuqe Ross DO Primary Care Provider: Raj Lakhani MD History of Present Illness History of Present Illness Pam Ordonez is a 66 year old female with PMH of hypertension, dyslipidemia, COPD, tobacco abuse, mild AI, h/o CAD s/p YAHAIRA to left PDA (01/2013), former smoker, carotid stenosis (<15% JASWINDER and 16-40% stenosis of LICA) and 50% right s ubclavian stenosis noted on MRI. She is admitted under orthopedic service today and underwent L3-S1 laminectomy. Blood loss of 550 cc during the OR. Patient had 100 cc of blood in the Hemovac No baseline labs present. Patient was transitioned to ICU care because of low blood pressures postoperati vely. Hospital service was consulted for persistent low blood pressures. Patient was examined in the ICU. Family at bedside. States her pain was better controlled after getting IV morphine and she actually took a nap. Denies any nausea, vomiting, headache. States she took all her antihypertensives earlier at home prior to the surgery. Currently she is on Levophed of 4 with mean arterial pressure of 70. States she checks her blood pressure at home and usually numbers are less than 140/90 mmHg. Review of Systems General: Reports: 10 or more systems reviewed and unremarkable except in HPI and below Const: Denies: fever(s), chills, body aches, change in appetite, change in weight, malaise, night sweats, diaphoresis, change in sleep pattern, daytime sleepiness or snoring Eyes: Denies: change in vision, blurry vision, photophobia, eye discomfort or eye discharge ENMT: Denies: throat pain, enlarged tonsils, hoarseness, mouth pain, oral sores, dry mouth, tinnitus, nasal congestion or post nasal drip Card: Denies: chest pain, palpitations, irregular heart rhythm, edema, swelling of feet/ankles, lightheadedness, syncope, pre-syncope, dyspnea on exertion, orthopnea, leg pain with exertion or acrocyanosis Resp: Denies: dyspnea, productive cough, non-productive cough, wheezing, stridor, pain on inspiration, change in phlegm color, hemoptysis or chest con gestion GI: Denies: abdominal pain, nausea, vomiting, hematemesis, coffee ground emesis, dysphagia, heartburn, diarrhea, constipation, bloating, GI cramping, change in bowel habits, pain on defecation, hematochezia or melena : Denies: flank pain, dysuria, urinary frequency, urinary urgency, urinary hesitancy, nocturia or hematuria Musc: Denies: neck pain, back pain, extremity pain, joint pain, joint swell ing, joint redness, joint stiffness or limited range of motion Neuro: Denies: headache(s), numbness in extremities, weakness in extremities, sensory changes, lack of coordination, difficulty walking, frequent falls, dizziness, vertigo, confusion, Slurred speech present, difficulty communicating thoughts or seizure-like activity Psych: Denies: anxiety, depression, mood swings, panic attacks, hopelessness or irritability Endo: Denies: polyuria, polydipsia, tired all the time, cold intolerance, excessive sweating, flushing or heat intolerance Lalo/Lymph: Denies: easy bruising or easy bleeding All/Imm: Denies: tongue swelling, facial swelling or acute wheezing Medications/Allergies Home Medications Medication Instructions Recorded Confirmed Last Taken Type alendronate 70 mg tablet (Fosamax) 70 mg PO .WEEKLY tab 10/03/19 03/26/22 03/28/22 History cholecalciferol (vitamin D3) 25 2,000 unit PO ONCE cap 10/03/19 03/26/22 03/28/22 20:00 History mcg (1,000 unit) capsule atorvastatin 40 mg tablet (Lipitor) 40 mg PO DAILY 10/21/20 03/29/22 03/28/22 20:00 History fluoxetine 40 mg capsule 40 mg PO DAILY 10/21/20 03/26/22 03/29/22 07:00 History gabapentin 300 mg capsule 300 mg PO TID cap 10/21/20 03/26/22 03/29/22 07:00 History nitroglycerin 0.4 mg sublingual 0.4 mg SUBLINGUAL Q5M PRN #25 tab 10/21/20 03/26/22 Unknown Rx tablet (Nitrostat) aspirin 81 mg tablet,delayed 81 mg PO DAILY 11/26/20 03/26/22 03/26/22 History release biotin 1 tab PO DAILY 11/26/20 03/29/22 03/29/22 06:00 History amlodipine 10 mg tablet 10 mg PO DAILY #90 tab 12/11/20 03/26/22 03/28/22 Rx cyclobenzaprine 10 mg tablet 10 mg PO TID PRN #30 tab 06/16/21 03/26/22 03/28/22 20:00 Rx metoprolol succinate 25 mg 12.5 mg PO DAILY #45 tab 08/27/21 03/26/22 03/29/22 07:00 Rx tablet,extended release 24 hr isosorbide mononitrate 30 mg 30 mg PO DAILY 01/15/22 03/26/22 03/29/22 07:00 History tablet,extended release 24 hr Bone Growth Stimulator [id number] #1 ea 03/29/22 Unknown Rx Allergies Allergy/AdvReac Type Severity Reaction Status Date / Time hydrocodone Allergy Intermediate Altered Verified 01/05/22 10:42 mental status codeine Allergy Unknown Verified 01/05/22 10:42 Sulfa (Sulfonamide Allergy ADR-Nausea Verified 01/05/22 10:42 Antibiotics) tramadol [From Ultram] Allergy Unknown Verified 01/05/22 10:42 Current Medications Generic Name Dose Route Start Last Admin Trade Name Freq PRN Reason Stop Dose Admin Ketorolac Tromethamine 30 mg 03/29/22 13:20 03/29/22 16:15 Ketorolac 30 Mg/Ml Inj IVP 30 mg Q6H PRN Administration BREAKTHROUGH PAIN PFSH Acute PFSH: Medical History (Updated 03/29/22 @ 16:40 by Fede Sethi MD) Aortic heart valve narrowing with insufficiency ASHD (arteriosclerotic heart disease) Carotid stenosis, non-symptomatic COPD (chronic obstructive pulmonary disease) Dyslipidemia History of tumor HTN (hypertension) Hx of chest pain Subclavian artery stenosis Surgical History History of History of cholecystectomy Family History Mother CAD (coronary artery disease) Social History Smoking and tobacco status: never smoked Quit status (tobacco): considering quitting Second hand smoke exposure: No Smoking risk assessment/counseling performed?: No Alcohol intake: never Vitals/I&O/Wt Last Vital Signs Temp 97 F L 03/29/22 13:24 Pulse 63 03/29/22 15:51 Resp 20 H 03/29/22 15:51 BP 80/48 03/29/22 15:51 Pulse Ox 97 03/29/22 15:51 03/29/22 03/29/22 03/29/22 06:59 14:59 22:59 Intake Total 650 / 650 Output Total 750 / 750 Balance -100 / -100 Physical Exam Narrative: General: No acute distress, AO x3, laying comfortably in bed, surgical drain present HEENT: PERRLA, pupils bilaterally equal and reactive Chest: Normal vesicular breath sounds, no added sounds, equal good air entry bilaterally CVS: S1-S2 regular, no murmurs, no tachycardia, no gallops, no rubs Abdomen: Soft, nontender, no organomegaly, bowel sounds present Neuro: No focal deficits, no facial deformity, AO x3, Urinary Catheter Management: Zambrano: Cath Placed During This Visit: yes Urinary Catheter Date of Insertion: 03/29/22 Urinary Catheter Time of Insertion: 10:10 Data : 03/29/22 18:07 03/29/22 18:07 A&P Assessment and plan (1) Encounter for postoperative care: Check stat CBC, CMP, INR. Monitor hemoglobin and hematocrit. Status: Acute (2) Postoperative shock: Monitor for blood loss. Type and screen. Keep mean artery pressure over 65. Hold off on home antihypertensives for now. Levophed to be weaned off keeping mean artery pressure 65. Status: Acute (3) Status post laminectomy: Physical therapy, perioperative antibiotics, anticoagulation, diet as per s urgical team. Status: Acute (4) Carotid stenosis, non-symptomatic: Status: Acute Qualifiers: Laterality: bilateral Qualified Code(s): I65.23 - Occlusion and stenosis of bilateral carotid arteries (5) COPD (chronic obstructive pulmonary disease): Status: Acute (6) ASHD (arteriosclerotic heart disease): Post PCI to PDA in 2012. Follows up with cardiology as an outpatient. Lexiscan from 2020 showed normal myocardial perfusion. EF of 67%. Status: Acute Plan Analgesia: [place] 5 mg 1 tablet every 4 hours as needed, tramadol 50 mg every 8 hours as needed, gabapentin home dose 300 mg 3 times daily Glycemic control: Not needed Nutrition: As per primary team CODE STATUS: Full code PUD prophylaxis: Protonix DVT prophylaxis: As per primary team Discharge planning: As per primary team Continue care at ICU level Consult Attestations Medical Necessity Statement: Requires further hospitalization for postoperative shock, status postlaminectomy Critical Care Time: The high probability of a clinically significant, sudden or life threatening deterioration of the patient's [cardiac system(s) required my full and direct attention, intervention and personal management. The critical care time is as shown. This time is in addition to time spent performing any reported procedures but includes the following: [x] Data and vital sign review and interpretation [x] Patient assessment, examination and intervention [x] Documentation [x] Medication orders and management Critical Care Time (min): 60 Coding Level of Care Code Acute Mechanical Service Technician for Venancio Fwtomas Diagnoses Encounter for postoperative care Z48.89 Postoperative shock T81.10XA Status post laminectomy Z98.890 Carotid stenosis, non-symptomatic I65.23 Laterality: bilateral COPD (chronic obstructive pulmonary disease) J44.9 ASHD (arteriosclerotic heart disease) I25.10
[2022-03-29] MEDS: lactated ringers 1,000 ML 90 ML IV (16:50)
[2022-03-29] MEDS: morphine 4 mg/mL SDV 1 mL 2 MG IVP ×2 (17:05→20:42)
--- NOTE | 2022-03-29 17:38 | PC.NURSE ---
Pt to unit Pt brought to unit via bed by pacu nurse Starr. Pt complaining of pain 9/10 to back. Wound checked with pacu nurse; drainage noted to gauze and circled, hemovac in place, then abdominal binder over. Pt is alert and oriented. Zambrano is in place and draining. Pt's MAP 56 upon arrival with third liter bolus infusing. Pt O2 sat at 89% placed on 2L/NC, O2 up to 94. Pt given toradol IV while orders for levophed were obtained. Orders rec'd for levophed. Levophed started at 4mg/hr. BP recheck at 5min, MAP 70. Pt still reporting pain 8/10, IV morphine 2mg given. 10 min later, pt is sleeping, MAP now 75, sats in mid 90's, pt's Aston at bedside.
[2022-03-29 18:23] LABS: Basophils % 0.2 %; Eosinophils % 0.1 %; Hematocrit 30.9 % (37.0-47.0); Hemoglobin 9.8 g/dL (11.5-15.3); Lymphocytes # 0.7 10^3/uL (0.8-4.8); Lymphocytes % 4.1 %; Mean Corpuscular HGB Conc 31.7 g/dL (30.0-36.0); Mean Corpuscular Hemoglobin 30.4 pg (28.0-34.0); Mean Platelet Volume 10.9 fL (7.4-10.4); Monocytes # 0.2 10^3/uL (0.2-0.9); Monocytes % 0.9 %; Neutrophils # 15.97 10^3/uL (1.8-7.7); Nucleated Red Blood Cells % 0 %; Platelet Count 263 10^3/cmm (130-400); Red Blood Count 3.22 10^6/uL (4.1-5.3); Red Cell Distribution Width 13.8 % (12.1-15.1)
[2022-03-29 18:52] LABS: Alanine Aminotransferase 21 U/L (0-33); Albumin Level 4.2 g/dL (3.5-5.2); Alkaline Phosphatase 89 IU/L (35-105); Anion Gap 17.1 (5-19); Aspartate Amino Transferase 32 U/L (0-32); Blood Urea Nitrogen 9 mg/dL (8-23); Calcium 7.9 mg/dL (8.5-10.5); Carbon Dioxide 19 mmol/L (22-29); Chloride 109 mmol/L (98-107); Glomerular Filtration Rate 100.6 mL/min (90-130); Glucose 156 mg/dL (65-115); Osmolality Calculated 294 mOsm/kg (285-295); Potassium 4.1 mmol/L (3.5-5.1); Sodium 141 mmol/L (136-145); Total Bilirubin 0.3 mg/dL (0.15-1.2); Total Protein 6.2 g/dL (6.6-8.7)
[2022-03-29 20:27] LABS: INR 1.16 (0.8-1.2)
[2022-03-29] MEDS: gabapentin 300 mg Capsule PO (20:49)
[2022-03-30] VITALS (69 sets, daily range): BP systolic 94–147; BP diastolic 41–71; PULSE 63–78; RESP 15–32; TEMP 36.6–36.8; O2SAT 87–99
[2022-03-30] MEDS: ceFAZolin 2,000 MG in sodium chloride 0.9% (plus) 50 ML 100 MG IV ×2 (00:29→08:25)
[2022-03-30] MEDS: lactated ringers 1,000 ML 90 ML IV ×2 (03:06→18:47)
--- NOTE | 2022-03-30 04:51 | PC.NURSE ---
Pt's oxygen requirements have needed to be increased throughout the shift. Pt started at 2L NC and is now at 4L NC. Pt does not wear oxygen home. All other VSS. Will continue to monitor
[2022-03-30] MEDS: morphine 4 mg/mL SDV 1 mL 2 MG IVP (05:59)
--- NOTE | 2022-03-30 07:46 | PC.NURSE ---
Pt confused Pt pulled both of her IVs out and said that she doesn't remember doing that and she feels confused. pt was oriented to name and but thought she was at the hospital in [place]. She proceeded to say I like the black pictures on your gloves and other statements that did not make sense and describe things that were not in the room.
--- NOTE | 2022-03-30 07:51 | P.PN_ITS ---
Subjective Subjective: POD 1 Patient resting comfortably. Reports mild back pain. Leg pain has improved significantly. Denies any chest pain, shortness of breath, headaches. Vitals/I&O/Wt Last Vital Signs Temp 98.2 F 03/30/22 04:00 Pulse 74 03/30/22 06:27 Resp 31 H 03/30/22 06:00 BP 134/56 03/30/22 06:00 Pulse Ox 95 03/30/22 06:00 03/29/22 03/30/22 03/30/22 22:59 06:59 14:59 Intake Total 2247 / 2897 1326.268 / 4223.268 Output Total 780 / 1530 1315 / 2845 750 / 750 Balance 1467 / 1367 11.268 / 1378.268 -750 / -750 Weight last 48 hrs Weight 122 lb Physical Exam Narrative: Patient presents alert but confused to place. Good general appearance normal mood and affect. Mild tenderness around the incisional site with the incision appear to be clean and dry. No signs of erythema or drainage. Hemovac drain intact. No signs of infection. Patient denies any fevers or chills. 5/5 motor strength both lower extremities with negative straight leg raise bilaterally. Calves are supple no medial thigh tenderness. Pulses are 2+ at the dorsalis pedis and posterior tibial region. Good capillary refill throughout normal sensation light touch both lower extremities. Urinary Catheter Management: Zambrano: Cath Placed During This Visit: yes Reason for Continuing Indwelling Catheter: Accurate Measurement of Urinary Output in Critically Ill Patients Urinary Catheter Date of Insertion: 03/29/22 Urinary Catheter Time of Insertion: 10:10 Data : 03/29/22 18:07 03/29/22 18:07 A&P Assessment and plan (1) Status post lumbar spinal fusion: Communicated with the nurse to hold narcotics to help reduce the altered mental status. Tylenol only for pain until you are able to establish a baseline. We will hold the Hemovac and take it to gravity. Patient is able to open up the abdominal binder. Physical therapy to work with mobilization. Continue incentive spirometry for pulmonary toilet. Status: Acute Attestations Medical Necessity Statement*: defer to medical team Coding Level of Care Code Acute Maple Syrup Maker for Venancio Fwd Diagnoses Status post lumbar spinal fusion Z98.1
[2022-03-30] MEDS: docusate sodium 100 mg Capsule PO (08:14)
[2022-03-30] MEDS: aspirin 81 mg EC Tablet PO (08:14)
[2022-03-30] MEDS: fluoxetine 20 mg Capsule 40 MG PO (08:14)
[2022-03-30] MEDS: gabapentin 300 mg Capsule PO ×3 (08:14→21:06)
[2022-03-30] MEDS: atorvastatin 40 mg Tablet PO (08:15)
[2022-03-30] MEDS: ketorolac 30 mg/mL INJ IVP ×2 (08:33→14:41)
[2022-03-30 09:47] LABS: Basophils % 0.2 %; Eosinophils % 0.1 %; Hematocrit 25.5 % (37.0-47.0); Hemoglobin 8.5 g/dL (11.5-15.3); Lymphocytes # 2.4 10^3/uL (0.8-4.8); Lymphocytes % 17.3 %; Mean Corpuscular Hemoglobin 30.2 pg (28.0-34.0); Mean Platelet Volume 10.9 fL (7.4-10.4); Monocytes # 0.8 10^3/uL (0.2-0.9); Monocytes % 5.3 %; Neutrophils # 10.73 10^3/uL (1.8-7.7); Neutrophils % 76.6 %; Nucleated Red Blood Cells % 0 %; Platelet Count 207 10^3/cmm (130-400); Red Blood Count 2.81 10^6/uL (4.1-5.3); Red Cell Distribution Width 13.9 % (12.1-15.1)
[2022-03-30 09:50] LABS: Mean Corpuscular Volume 90.7 fl (81-99)
[2022-03-30 09:51] LABS: Mean Corpuscular HGB Conc 33.3 g/dL (30.0-36.0)
--- NOTE | 2022-03-30 11:47 | PC.NURSE ---
pt confused pt is alert and oriented to name, , day of week, president although Pt stated she changed the time on the wall clock above the sink and has been gargling salt water.
[2022-03-30] MEDS: cetylpyridinium Lozenge 1 EACH MUCOUS MEM (13:33)
--- NOTE | 2022-03-30 14:32 | P.PN_ITS ---
Subjective Subjective: Overnight patient had reported episodes of confusion and agitation. Today morning patient is awake and alert. Able to have complete conversation. Drain output of 320 cc. Blood pressure is better. Levophed turned off. Patient worked well with physical therapist but did have episode of hypoxia and low blood pressure. Currently on 4 L of oxygen supplementation saturating 98%. Vitals/I&O/Wt Last Vital Signs Temp 98.2 F 03/30/22 04:00 Pulse 70 03/30/22 14:00 Resp 21 H 03/30/22 14:00 BP 119/60 03/30/22 14:00 Pulse Ox 98 03/30/22 12:49 03/29/22 03/30/22 03/30/22 22:59 06:59 14:59 Intake Total 2247 / 2897 1654.768 / 4551.768 801.5 / 801.5 Output Total 780 / 1530 1315 / 2845 1950 / 1950 Balance 1467 / 1367 339.768 / 1706.768 -1148.5 / -1148.5 Weight last 48 hrs Weight 55.338 kg Physical Exam Narrative: General: No acute distress, AO x3, laying comfortably in bed, surgical drain present HEENT: PERRLA, pupils bilaterally equal and reactive Chest: Normal vesicular breath sounds, no added sounds, equal good air entry bilaterally CVS: S1-S2 regular, no murmurs, no tachycardia, no gallops, no rubs Abdomen: Soft, nontender, no organomegaly, bowel sounds present Neuro: No focal deficits, no facial deformity, AO x3, Urinary Catheter Management: Zambrano: Cath Placed During This Visit: yes Reason for Continuing Indwelling Catheter: Accurate Measurement of Urinary Output in Critically Ill Patients Urinary Catheter Date of Insertion: 03/29/22 Urinary Catheter Time of Insertion: 10:10 Data : 03/30/22 09:39 03/29/22 18:07 A&P Assessment and plan (1) Encounter for postoperative care: Monitor hemoglobin and hematocrit. Repeat hemoglobin in evening. Will transfuse if less than 8. Monitor for difficulty in breathing or difficulty swallowing. If patient has either we will check CT neck. Status: Acute (2) Postoperative shock: Most likely secondary to operative blood loss. Keep mean artery pressure over 65. Hold off on home antihypertensives for now. Levophed to be weaned off keeping mean artery pressure 65. Status: Acute (3) Postoperative anemia due to acute blood loss: Hemoglobin down to 8.5 today. Check iron panel. Start on IV iron accordingly. Repeat hemoglobin in evening. If below 8 will transfuse. Status: Acute (4) Status post laminectomy: Physical therapy, perioperative antibiotics, anticoagulation, diet as per surgical team. Status: Acute (5) COPD (chronic obstructive pulmonary disease): No acute exacerbation. Advair, Spiriva. Status: Acute (6) ASHD (arteriosclerotic heart disease): Post PCI to PDA in 2012. Follows up with cardiology as an outpatient. Lexiscan from 2020 showed normal myocardial perfusion. EF of 67%. Status: Acute (7) Status post lumbar spinal fusion: Status: Acute (8) Carotid stenosis, non-symptomatic: Status: Acute Qualifiers: Laterality: bilateral Qualified Code(s): I65.23 - Occlusion and stenosis of bilateral carotid arteries Plan Altered mental status/confusion: Resolved. Most likely secondary to narcotics. Frequent reorientation. Analgesia: Try to avoid narcotics. Toradol, Tylenol as needed. Glycemic control: Not needed Nutrition: As per primary team CODE STATUS: Full code PUD prophylaxis: Protonix DVT prophylaxis: As per primary team Discharge planning: As per primary team Can be transferred to floor depending on primary team. Attestations Medical Necessity Statement*: As per primary team. Monitor hemoglobin and vitals. Time Spent in Patient Care: Greater than 35 minutes Coding Level of Care Code Acute Security Patrol Officer for Chg Fwd Diagnoses Encounter for postoperative care Z48.89 Postoperative shock T81.10XA Status post laminectomy Z98.890 Carotid stenosis, non-symptomatic I65.23 Laterality: bilateral COPD (chronic obstructive pulmonary disease) J44.9 ASHD (arteriosclerotic heart disease) I25.10 Postoperative anemia due to acute blood loss D62 Status post lumbar spinal fusion Z98.1
--- NOTE | 2022-03-30 15:13 | PC.NURSE ---
Oxygen requirements At 0700 pt was on 3L NC O2 in the high 90s. Turned O2 down to 2.5 L @1100, 2L @1300, 1.5 L @1400. Pt is currently on 1.5L NC and O2 is at 94%
[2022-03-30] MEDS: acetaminophen 325 mg Tablet 650 MG PO (18:22)
--- NOTE | 2022-03-30 18:29 | PC.NURSE ---
Shift Summary Pt has been alert and oriented to self, location, and day of week but has had moments of confusion throughout the shift. Pt has been to the chair three times and walked once with PT and once with RN. Oxygen is down to 0.5L NC and O2 is currently 91% but drops to the high 80's when removed. Pts Aston has been at the bedside on and off throughout the shift and has made comments on her confusion and has been involved with her care.
[2022-03-30 18:47] LABS: Iron 18 ug/dL (37-145); Percent Saturation 8.5 % (20-50); Total Iron Binding Capacity 210 mcg/dl; Unsaturated Iron Binding 192 ug/dL (112-347)
[2022-03-30] MEDS: cyclobenzaprine 10 mg Tablet PO (18:47)
--- NOTE | 2022-03-30 21:11 | PC.NURSE ---
Patient's confusion has increased dramatically since shift change. Pt has tried to get out of bed three times (bed alarm reset each time), and is having severe hallucinations. Pt believes that she needs to go help her son and fight a fire that is in the room. Pt also believes that she has been cleaning throughout the night. At times pt is AetO to self and at other times to self and place. Pt is easy to reorient at times but then quickly goes back to being confused. Pt has removed her IV again. Pt is confused about the telemetry equipment attached to her and continues to try to removed it. Call was placed to Dr. Beauchamp by Apryl, pharmacist in charge owner, for this nurse. TORB to make pt a 1:1 with sitter and try this route first prior to using medicinal treatment. At this time, this nurse is sitting with pt to assist in reorientation and keep pt safe.
--- NOTE | 2022-03-30 22:32 | PC.NURSE ---
Pt continues to be confused and is becoming aggravated/angry at times when being redirected. Pt continues to be a 1:1 and is having visual hallucinations.
[2022-03-31] VITALS (21 sets, daily range): BP systolic 95–151; BP diastolic 47–91; PULSE 73–88; RESP 16–31; TEMP 36.2–38; O2SAT 87–97
[2022-03-31] MEDS: acetaminophen 325 mg Tablet 650 MG PO ×5 (00:14→22:38)
--- NOTE | 2022-03-31 00:43 | PC.NURSE ---
Pt is now becoming angry and hostile with staff. Pt is threatening to walk out of the hospital. Pt continues to have delusions and hallucinations. Pt is unaware of the situation taking place and it is becoming more difficult to orient pt and keep her in the bed. Call placed to hospitalist for medication - awaiting orders at this time
[2022-03-31] MEDS: haloperidol inj 5 mg/mL INJ 1 mL 1 MG IM (00:55)
[2022-03-31 04:42] LABS: Basophils % 0.2 %; Eosinophils # 0.1 10^3/uL (0.0-0.8); Eosinophils % 0.7 %; Hematocrit 25.4 % (37.0-47.0); Hemoglobin 8.5 g/dL (11.5-15.3); Lymphocytes # 2.2 10^3/uL (0.8-4.8); Lymphocytes % 20.8 %; Mean Corpuscular HGB Conc 33.5 g/dL (30.0-36.0); Mean Corpuscular Hemoglobin 30.4 pg (28.0-34.0); Mean Corpuscular Volume 90.7 fl (81-99); Monocytes # 0.7 10^3/uL (0.2-0.9); Monocytes % 6.5 %; Neutrophils # 7.55 10^3/uL (1.8-7.7); Neutrophils % 71.5 %; Nucleated Red Blood Cells % 0 %; Platelet Count 192 10^3/cmm (130-400); Red Cell Distribution Width 14.1 % (12.1-15.1); White Blood Count 10.6 10^3/uL (4.0-10.0)
[2022-03-31 04:56] LABS: Alanine Aminotransferase 19 U/L (0-33); Albumin Level 3.5 g/dL (3.5-5.2); Alkaline Phosphatase 85 IU/L (35-105); Anion Gap 12.8 (5-19); Aspartate Amino Transferase 43 U/L (0-32); Blood Urea Nitrogen 7 mg/dL (8-23); Calcium 8.3 mg/dL (8.5-10.5); Carbon Dioxide 25 mmol/L (22-29); Chloride 106 mmol/L (98-107); Glomerular Filtration Rate 100.6 mL/min (90-130); Glucose 96 mg/dL (65-115); Osmolality Calculated 288 mOsm/kg (285-295); Potassium 3.8 mmol/L (3.5-5.1); Sodium 140 mmol/L (136-145); Total Bilirubin 0.4 mg/dL (0.15-1.2); Total Protein 5.5 g/dL (6.6-8.7)
[2022-03-31] MEDS: lactated ringers 1,000 ML 90 ML IV ×2 (05:53→15:29)
--- NOTE | 2022-03-31 06:53 | PM.PN ---
Documented by User: Jean Mojica PA-C 03/31/22 06:57 Subjective Subjective: POD 2 Patient is alert answering questions appropriately this morning. She does report lightheadedness and dizziness when she is sitting up in a chair. Patient reporting leg pain is much improved. Nursing staff reported extreme confusion and hallucinations through the night. Vitals/I&O/Wt Last Vital Signs Temp 97.2 F L 03/31/22 04:00 Pulse 79 03/31/22 06:00 Resp 26 H 03/31/22 05:00 BP 141/69 03/31/22 06:00 Pulse Ox 95 03/31/22 06:00 03/30/22 03/30/22 03/31/22 14:59 22:59 06:59 Intake Total 801.5 / 801.5 640 / 1441.5 999 / 2440.5 Output Total 1950 / 1950 1020 / 2970 870 / 3840 Balance -1148.5 / -1148.5 -380 / -1528.5 129 / -1399.5 Weight last 48 hrs Weight 137 lb 11.2 oz Weight 122 lb Physical Exam Narrative: Patient presents alert and oriented this a.m. With a good general appearance normal mood and affect. Normal coordination normal stability. Mild tenderness around the incisional site with the incision appear to be healing nicely. Hemovac drain was discontinued. No signs of erythema or drainage. No signs of infection. Patient denies any fevers or chills. 5/5 motor strength both lower extremities with negative straight leg raise bilaterally. Calves are supple no medial thigh tenderness. Pulses are 2+ at the dorsalis pedis and posterior tibial region. Good capillary refill throughout normal sensation light touch both lower extremities. Urinary Catheter Management: Zambrano: Cath Placed During This Visit: yes Reason for Continuing Indwelling Catheter: Accurate Measurement of Urinary Output in Critically Ill Patients Urinary Catheter Date of Insertion: 03/29/22 Urinary Catheter Time of Insertion: 10:10 Data : 03/31/22 04:31 03/31/22 04:31 A&P Assessment and plan (1) Status post lumbar spinal fusion: Patient answering questions appropriately this morning although the nursing staff reported extreme confusion, sundowning and hallucination. Hemovac drain was discontinued. Encourage physical therapy to mobilize. Patient has not been tachycardic although does report dizziness and lightheadedness. We will watch closely may need 1 unit of blood transfused if symptoms continue. Status: Acute (2) Postoperative anemia due to acute blood loss: Status: Acute Attestations Medical Necessity Statement*: defer to medicine Coding Level of Care Code Acute Centerless Grinder Operator for Chg Fwd Diagnoses Status post lumbar spinal fusion Z98.1 Postoperative anemia due to acute blood loss D62 Documented by User: Enrique Ross DO 03/31/22 08:37 Physical Exam Urinary Catheter Management: Zambrano: Cath Placed During This Visit: yes Data : 03/31/22 04:31 03/31/22 04:31 A&P Assessment and plan (1) Status post lumbar spinal fusion: Patient answering questions appropriately this morning although the nursing staff reported extreme confusion, sundowning and hallucination. Hemovac drain was discontinued. Encourage physical therapy to mobilize. Patient has not been tachycardic although does report dizziness and lightheadedness. We will watch closely may need 1 unit of blood transfused if symptoms continue. OK to transfer to the floor if ok with hospitalist Status: Acute (2) Postoperative anemia due to acute blood loss: Status: Acute Coding Level of Care Code Acute Centerless Grinder Operator for Chg Fwd Diagnoses Status post lumbar spinal fusion Z98.1 Postoperative anemia due to acute blood loss D62
--- NOTE | 2022-03-31 07:24 | XRR_ITS ---
PROCEDURE INFORMATION: Exam: XR Chest Exam date and time: 03/31/2022 7:31 AM Age: 66 years old Clinical indication: Shortness of breath; Prior surgery; Surgery date: 3-7 days post-operative; Surgery type: Ls pine 03/29. Stents; Additional info: Post operative TECHNIQUE: Imaging protocol: Radiologic exam of the chest. Views: 1 view. COMPARISON: CR XR chest 2V* [id number] 08/28/2021 12:12 PM FINDINGS: Lungs: No focal airspace disease. Pleural spaces: Unremarkable. No pleural effusion. No pneumothorax. Heart/Mediastinum: Cardiomediastinal silhouette is within normal limits. Bones/joints: Unremarkable. XR/XR chest 1V portable [id number] IMPRESSION: No acute cardiopulmonary abnormality.
[2022-03-31 08:33] LABS: Procalcitonin 0.06 ng/mL (0-0.5)
[2022-03-31] MEDS: gabapentin 300 mg Capsule PO ×3 (08:34→20:22)
[2022-03-31] MEDS: atorvastatin 40 mg Tablet PO (08:34)
[2022-03-31] MEDS: aspirin 81 mg EC Tablet PO (08:34)
[2022-03-31] MEDS: fluoxetine 20 mg Capsule 40 MG PO (08:34)
[2022-03-31] MEDS: docusate sodium 100 mg Capsule PO ×2 (08:34→18:15)
--- NOTE | 2022-03-31 08:43 | USCV_ITS ---
José Luis Pam Age: 66 Gender: F : 1955 Exam Date: 03/31/2022 10:21 Ordering Phys: Fede Sethi MD Technologist: Sha Mckeon Exam Location: [facility] – [place] Indication: bed stasis R/O DVT PROCEDURES: The venous duplex Doppler examination of both lower extremities was performed in the standard fashion. The following venous structures were evaluated: common femoral vein, profunda vein, proximal portion of the greater saphenous vein, superficial femoral vein, and the popliteal vein. In addition, the posterior tibial and peroneal trunk were evaluated. FINDINGS: Normal 2-D Doppler and augmentation and compressibility throughout the lower extremity venous structures. Additional imaging through the proximal calf veins also reveals no thrombus. Limited evaluation of the greater saphenous vein is patent with no thrombus. CONCLUSIONS No DVT bilateral lower extremities. Dr. Renee Gentile DO (Electronically Signed) Final Date: 31 March 2022 12:43 S
[2022-03-31] MEDS: ketorolac 30 mg/mL INJ IVP (09:43)
--- NOTE | 2022-03-31 10:22 | PC.NURSE ---
Urine specimen given to Katja in lab.
[2022-03-31 10:33] LABS: Add Urine Microscopic? NO; Charge for UA Resulting for Rev
--- NOTE | 2022-03-31 10:34 | PC.CHAP ---
Pastoral Care Encounter/Spiritual Assessment Type of Contact [] Declined production supervisor off shift visit [] Patient/Family/Request visit [] Outpatient visit [] Follow-up visit [] Physician referral [] Code/Alert [x] Routine visit [] Staff referral [] Actively dying [] Patient sleeping [] Family support [] [] Out of room [] Palliative care [] [] Receiving care in room [] Pre-surgical visit [] Trauma [] Long length of stay [x] ICU visit [x] Other: sitter Relational/Emotional Strength [] Patient feels connected with others/family/visitors/staff [] Distress [] Loneliness/isolation [] Abandonment Spirituality of Patient [] Person of Tena [] Attends Tenriism of their Tena [] Believes in Prayer [] Reads Bible or Orthodoxy materials [] There are Spiritual issues to be addressed Change Analyst Interventions [x] Prayer [] Active listening [] Non-anxious presence [] Spiritual/emotional support [] Crisis/trauma care [] Spiritual counseling [] Bereavement support [] Provided bereavement packet [] Provided Bible/devotional materials [] Provided toy/stuffed animal, coloring book to patient or family member [] Provided Communion [] Anointing/Tomales [] Salvation [x] Completed spiritual assessment [] Other: Impact on Illness or Injury [] Angry [] Fearful [] Anxious [] Often cries [] Exhaustion [] Unable to work [] Unable to attend religious [] Unable to walk/stand [] Unable to read [] Unable to drive [] Unable to eat/drink [] Unable to sleep [] Unable to be with family [] Patient intubated [] Other: Summary Time spent with patient
[2022-03-31 10:42] LABS: Bilirubin Urine Neg (Negative); Blood Urine Neg (Negative); Glucose Urine UA Norm (Normal); Ketones Urine Negative (Negative); Leukocyte Esterase Urine Negative (Negative); Nitrate Urine Negative (Negative); Protein Urine Neg (Negative); Urine Appearance Clear (CLEAR); Urine Color Yellow (Yellow); Urobilinogen Urine Norm (Negative); pH Urine 7 (5-7)
--- NOTE | 2022-03-31 13:13 | P.PN_ITS ---
Subjective Subjective: No acute events overnight. Denies any N/v, headache. Did have episodes of confusion overnight. As per patient she had'nt slept overnight since in hospital. But slept better after haldol and feeling better. Sitter at bedside. She does report lightheadedness and dizziness when she is sitting up in a chair. Patient reporting leg pain is much improved. Nursing staff reported extreme confusion and hallucinations through the night. Surgical drain removed. Vitals/I&O/Wt Last Vital Signs Temp 98.3 F 03/31/22 07:00 Pulse 77 03/31/22 11:00 Resp 25 H 03/31/22 11:00 BP 139/63 03/31/22 11:00 Pulse Ox 93 03/31/22 11:00 03/30/22 03/31/22 03/31/22 22:59 06:59 14:59 Intake Total 640 / 1441.5 999 / 2440.5 60 / 60 Output Total 1020 / 2970 870 / 3840 1550 / 1550 Balance -380 / -1528.5 129 / -1399.5 -1490 / -1490 Weight last 48 hrs Weight 62.46 kg Weight 55.338 kg Physical Exam Narrative: General: No acute distress, AO x3, laying comfortably in bed, surgical drain removed today. HEENT: PERRLA, pupils bilaterally equal and reactive Chest: Normal vesicular breath sounds, no added sounds, equal good air entry bilaterally CVS: S1-S2 regular, no murmurs, no tachycardia, no gallops, no rubs Abdomen: Soft, nontender, no organomegaly, bowel sounds present Neuro: No focal deficits, no facial deformity, AO x3, Urinary Catheter Management: Zambrano: Cath Placed During This Visit: yes Reason for Continuing Indwelling Catheter: Accurate Measurement of Urinary Output in Critically Ill Patients Urinary Catheter Date of Insertion: 03/29/22 Urinary Catheter Time of Insertion: 10:10 Data : 03/31/22 04:31 03/31/22 04:31 A&P Assessment and plan (1) Encounter for postoperative care: Monitor hemoglobin and hematocrit. Stable for now. Repeat hemoglobin in evening. Will transfuse if less than 8. Status: Acute (2) Postoperative shock: Blood pressure better. Most likely secondary to operative blood loss. Keep mean artery pressure over 65. Will start home antihypertensive gradually if ortho negative. Status: Acute (3) Postoperative anemia due to acute blood loss: Hemoglobin Stable. Iron panel appreciated. Start on IV iron 200 mg QD x 5 days Status: Acute (4) Status post laminectomy: Physical therapy, perioperative antibiotics, anticoagulation, diet as per surgical team. Status: Acute (5) COPD (chronic obstructive pulmonary disease): No acute exacerbation. Advair, Spiriva. Status: Acute (6) ASHD (arteriosclerotic heart disease): Post PCI to PDA in 2012. Follows up with cardiology as an outpatient. Lexiscan from 2020 showed normal myocardial perfusion. EF of 67%. Status: Acute (7) Status post lumbar spinal fusion: Status: Acute (8) Carotid stenosis, non-symptomatic: Status: Acute Qualifiers: Laterality: bilateral Qualified Code(s): I65.23 - Occlusion and stenosis of bilateral carotid arteries Plan Altered mental status/confusion: Resolved. Most likely secondary to narcotics along with sundowning. Frequent reorientation. Analgesia: Try to avoid narcotics. Toradol, Tylenol as needed. Glycemic control: Not needed Nutrition: As per primary team CODE STATUS: Full code PUD prophylaxis: Protonix DVT prophylaxis: As per primary team Discharge planning: As per primary team Can be transferred to floor depending on primary team. Plan for day: Hold antihypertensive. Check orthostatic. Monitor CBC QD. Avoid narcotics and morphine. C/w IV fluids. OOBTC. PT Care discussed with RN and family at bedside. Attestations Medical Necessity Statement*: As per primary team Time Spent in Patient Care: Greater than 35 minutes Coding Level of Care Code Acute Dairy Manufacturing Technologist for Anneg Fwd Diagnoses Encounter for postoperative care Z48.89 Postoperative shock T81.10XA Postoperative anemia due to acute blood loss D62 Status post laminectomy Z98.890 COPD (chronic obstructive pulmonary disease) J44.9 ASHD (arteriosclerotic heart disease) I25.10 Status post lumbar spinal fusion Z98.1 Carotid stenosis, non-symptomatic I65.23 Laterality: bilateral
--- NOTE | 2022-03-31 13:45 | PC.NURSE ---
Report called to Mayuri. Waiting for iron from pharmacy and ICU nurse to come back to unit before pt able to be transferred.
[2022-03-31] MEDS: iron sucrose 200 MG in sodium chloride 0.9% (100 ml) 100 ML 220 MG IV (14:11)
--- NOTE | 2022-03-31 15:30 | PC.NURSE ---
Patient transferred up from ICU approx. 1400. Patient has clear lung sounds, bowel sounds and is alert and oriented x4. Patient had first dose of iron and has LR running.
[2022-04-01] VITALS: BP 126/72; PULSE 81; RESP 19; TEMP 37.5; O2SAT 90
[2022-04-01] MEDS: lactated ringers 1,000 ML 90 ML IV (01:54)
[2022-04-01 02:13] VITALS: BP 111/56; PULSE 79; RESP 17; TEMP 37.1; O2SAT 93
[2022-04-01] MEDS: acetaminophen 325 mg Tablet 650 MG PO ×3 (02:22→10:37)
[2022-04-01 02:55] LABS: Basophils % 0.3 %; Eosinophils # 0.1 10^3/uL (0.0-0.8); Eosinophils % 1.1 %; Hematocrit 26.3 % (37.0-47.0); Hemoglobin 8.8 g/dL (11.5-15.3); Lymphocytes # 1.9 10^3/uL (0.8-4.8); Mean Corpuscular HGB Conc 33.5 g/dL (30.0-36.0); Mean Corpuscular Volume 89.8 fl (81-99); Mean Platelet Volume 11.3 fL (7.4-10.4); Monocytes # 0.6 10^3/uL (0.2-0.9); Monocytes % 5.7 %; Neutrophils # 8.53 10^3/uL (1.8-7.7); Neutrophils % 75.6 %; Nucleated Red Blood Cells % 0 %; Platelet Count 201 10^3/cmm (130-400); Red Blood Count 2.93 10^6/uL (4.1-5.3); Red Cell Distribution Width 13.7 % (12.1-15.1); White Blood Count 11.3 10^3/uL (4.0-10.0)
[2022-04-01 03:16] LABS: Alanine Aminotransferase 18 U/L (0-33); Albumin Level 3.2 g/dL (3.5-5.2); Alkaline Phosphatase 91 IU/L (35-105); Aspartate Amino Transferase 39 U/L (0-32); Blood Urea Nitrogen 7 mg/dL (8-23); Calcium 8.3 mg/dL (8.5-10.5); Carbon Dioxide 23 mmol/L (22-29); Chloride 105 mmol/L (98-107); Globulin 2.6 g/dL (1.3-4.6); Glomerular Filtration Rate 124.2 mL/min (90-130); Glucose 103 mg/dL (65-115); Osmolality Calculated 286 mOsm/kg (285-295); Sodium 139 mmol/L (136-145); Total Bilirubin 0.7 mg/dL (0.15-1.2); Total Protein 5.8 g/dL (6.6-8.7)
[2022-04-01 03:19] LABS: Anion Gap 14.5 (5-19); Potassium 3.5 mmol/L (3.5-5.1)
--- NOTE | 2022-04-01 03:33 | PC.NURSE ---
IV IV leaking at site. Discontinued and pt would like to wait and see if she gets to go home today. No IV meds due until Iron infusion scheduled for the afternoon
[2022-04-01 06:00] VITALS: PULSE 78
--- NOTE | 2022-04-01 07:55 | P.PN_ITS ---
Subjective Subjective: POD 3 Patient sitting at the bedside anxious to go home. She denies any confusion through the night. States her back and leg pain has resolved. Denies any chest pain, shortness of breath or headaches. Vitals/I&O/Wt Last Vital Signs Temp 98.7 F 04/01/22 02:13 Pulse 78 04/01/22 06:00 Resp 17 04/01/22 02:13 BP 111/56 04/01/22 02:13 Pulse Ox 93 04/01/22 02:13 03/31/22 04/01/22 04/01/22 22:59 06:59 14:59 Intake Total 1274 / 1334 1477.5 / 2811.5 Output Total 800 / 4100 Balance 1274 / -1966 677.5 / -1288.5 Weight last 48 hrs Weight 123 lb 1.6 oz Weight 137 lb 11.2 oz Physical Exam Narrative: Patient presents alert and oriented x3 with a good general appearance normal mood and affect. Normal coordination normal stability. Mild tenderness around the incisional site with the incision appear to be in dry. No signs of erythema or drainage. No signs of infection. Patient denies any fe vers or chills. 5/5 motor strength both lower extremities with negative straight leg raise bilaterally. Calves are supple no medial thigh tenderness. Pulses are 2+ at the dorsalis pedis and posterior tibial region. Good capillary refill throughout normal sensation light touch both lower extremities. Urinary Catheter Management: Zambrano: Cath Placed During This Visit: yes Reason for Continuing Indwelling Catheter: Accurate Measurement of Urinary Output in Critically Ill Patients Urinary Catheter Date of Insertion: 03/29/22 Urinary Catheter Time of Insertion: 10:10 Data : 04/01/22 02:24 04/01/22 02:24 A&P Assessment and plan (1) Postoperative anemia due to acute blood loss: Discussed with the nurse discharge Ms. Ordonez as long as she is medically stable and cleared by medical team. She lost her IV through the night we will switch her to an iron orally. Discussed with the patient to continue walking program with no bending lifting or twisting. Discussed with the nurse to change her lumbar dressing with a Silverlon application. We will see Ms. Ordonez back in the office in 1 week's time for a wound check. She will call if she is having questions or concerns. Status: Acute (2) Status post lumbar spinal fusion: Status: Acute Attestations Medical Necessity Statement*: home today Coding Level of Care Code Acute Molding And Trim Installer for Chg Fwd Diagnoses Postoperative anemia due to acute blood loss D62 Status post lumbar spinal fusion Z98.1
[2022-04-01 08:21] VITALS: BP 127/49; PULSE 78; RESP 18; TEMP 36.6; O2SAT 90
[2022-04-01 09:12] VITALS: PULSE 78; RESP 16; O2SAT 92
[2022-04-01] MEDS: gabapentin 300 mg Capsule PO (09:12)
[2022-04-01] MEDS: docusate sodium 100 mg Capsule PO (09:12)
[2022-04-01] MEDS: fluoxetine 20 mg Capsule 40 MG PO (09:12)
[2022-04-01] MEDS: aspirin 81 mg EC Tablet PO (09:13)
[2022-04-01] MEDS: atorvastatin 40 mg Tablet PO (09:13)
[2022-04-01] MEDS: iron complex forte Capsule 1 EACH PO (09:13)
--- NOTE | 2022-04-01 09:20 | P.PN_ITS ---
Subjective Subjective: No acute events overnight. Patient doing better. Blood pressure well controlled. Denies any dizziness. Hemoglobin has remained stable. Seen with at bedside. Patient has been discharged by primary team. Vitals/I&O/Wt Last Vital Signs Temp 97.8 F 04/01/22 08:21 Pulse 78 04/01/22 09:12 Resp 16 04/01/22 09:12 BP 127/49 04/01/22 08:21 Pulse Ox 92 04/01/22 09:12 03/31/22 04/01/22 04/01/22 22:59 06:59 14:59 Intake Total 1274 / 1334 1477.5 / 2811.5 120 / 120 Output Total 800 / 4100 Balance 1274 / -1966 677.5 / -1288.5 120 / 120 Weight last 48 hrs Weight 55.837 kg Weight 62.46 kg Physical Exam Narrative: General: No acute distress, AO x3, laying comfortably in bed, surgical drain removed today. HEENT: PERRLA, pupils bilaterally equal and reactive Chest: Normal vesicular breath sounds, no added sounds, equal good air entry bilaterally CVS: S1-S2 regular, no murmurs, no tachycardia, no gallops, no rubs Abdomen: Soft, nontender, no organomegaly, bowel sounds present Neuro: No focal deficits, no facial deformity, AO x3, Urinary Catheter Management: Zambrano: Cath Placed During This Visit: yes Reason for Continuing Indwelling Catheter: Accurate Measurement of Urinary Output in Critically Ill Patients Urinary Catheter Date of Insertion: 03/29/22 Urinary Catheter Time of Insertion: 10:10 Data : 04/01/22 02:24 04/01/22 02:24 A&P Assessment and plan (1) Encounter for postoperative care: Monitor hemoglobin and hematocrit. Stable for now. Repeat hemoglobin in evening. Will transfuse if less than 8. Status: Acute (2) Postoperative shock: Blood pressure better. Most likely secondary to operative blood loss. Keep mean artery pressure over 65. Will start home antihypertensive gradually if ortho negative. Status: Acute (3) Postoperative anemia due to acute blood loss: Hemoglobin Stable. Iron panel appreciated. Start on IV iron 200 mg QD x 5 days Status: Acute (4) Status post laminectomy: Physical therapy, perioperative antibiotics, anticoagulation, diet as per surgical team. Status: Acute (5) COPD (chronic obstructive pulmonary disease): No acute exacerbation. Collette Rosas. Status: Acute (6) ASHD (arteriosclerotic heart disease): Post PCI to PDA in 2012. Follows up with cardiology as an outpatient. Lexiscan from 2020 showed normal myocardial perfusion. EF of 67%. Status: Acute (7) Status post lumbar spinal fusion: Status: Acute (8) Carotid stenosis, non-symptomatic: Status: Acute Qualifiers: Laterality: bilateral Qualified Code(s): I65.23 - Occlusion and stenosis of bilateral carotid arteries Plan Altered mental status/confusion: Resolved. Most likely secondary to narcotics along with sundowning. Frequent reorientation. Analgesia: Try to avoid narcotics. Toradol, Tylenol as needed. Glycemic control: Not needed Nutrition: As per primary team CODE STATUS: Full code PUD prophylaxis: Protonix DVT prophylaxis: As per primary team Plan for day: Patient is ready to be discharged from medicine standpoint as well. Blood pressure better. Patient should be discharged on amlodipine 5 mg, home dose of metoprolol. Patient is advised not to take Imdur for now. Patient is advised to check her blood pressure daily and maintain a blood pressure diary and follow-up with her primary care provider within next 2 weeks for further adjustment of antihypertensives. She is also advise to restart Imdur if systolic blood pressure persistently remains over 140 mmHg. Plan discussed in detail with patient and patient's at bedside. All the questions were answered. Care discussed with RN and family at bedside. Attestations Medical Necessity Statement*: As per primary team. Time Spent in Patient Care: Greater than 35 minutes Coding Level of Care Code Acute Business Banking Representative for g Fwd Diagnoses Encounter for postoperative care Z48.89 Postoperative shock T81.10XA Postoperative anemia due to acute blood loss D62 Status post laminectomy Z98.890 COPD (chronic obstructive pulmonary disease) J44.9 ASHD (arteriosclerotic heart disease) I25.10 Status post lumbar spinal fusion Z98.1 Carotid stenosis, non-symptomatic I65.23 Laterality: bilateral
--- NOTE | 2022-04-01 09:29 | PC.SOCIAL ---
Pg 2 IMM. Explained to pt Pg 2 IMM. No questions voiced. Provided pt a copy. Initialed, dated, & timed a copy & placed in chart.
--- NOTE | 2022-04-01 11:26 | PC.NURSE ---
Discussed follow up appointments, medications and activity as well as signs and symptoms of infection with patient and spouse. Verbalized understanding.
[2022-04-01 11:44] VITALS: PULSE 78; RESP 16; O2SAT 92
--- NOTE | 2022-04-03 10:13 | PM.DCS ---
Discharge Providers Date of Admission: 03/29/22 09:00 Date of Discharge: April 01, 2022 Attending Provider at Admission: Enrique Ross DO Attending Provider at Discharge: Enrique Ross DO Primary Care Provider: Raj Lakhani MD Diagnoses at Discharge Discharge Diagnosis (1) Encounter for postoperative care: Status: Acute (2) Postoperative shock: Status: Resolved (3) Postoperative anemia due to acute blood loss: Status: Acute (4) Status post laminectomy: (5) COPD (chronic obstructive pulmonary disease): Status: Acute (6) ASHD (arteriosclerotic heart disease): (7) Status post lumbar spinal fusion: Status: Acute (8) Carotid stenosis, non-symptomatic: Status: Acute Qualifiers: Laterality: bilateral Qualified Code(s): I65.23 - Occlusion and stenosis of bilateral carotid arteries Reason for Visit Reason for Visit: l4-pel fus &decom w/cage l5/s1 [id number] Hospital Course Hospital Course Placed in ICU postoperatively had some postop confusion. Physical Exam Urinary Catheter Management: Zambrano: Cath Placed During This Visit: yes Reason for Continuing Indwelling Catheter: Accurate Measurement of Urinary Output in Critically Ill Patients Urinary Catheter Date of Insertion: 03/29/22 Urinary Catheter Time of Insertion: 10:10 Discharge Data Studies Completed and Pending Completed Studies During Hospitalization Category Date Time Status XR chest 1V portable [id number] Routine Exams 03/31/22 07:24 Completed XR lumbar spine 2-3V* [id number] Routine Exams 03/29/22 [place] [id number] Urgent Ultrasound 03/31/22 08:43 Completed Radiology Impressions Lumbar Spine X-Ray 03/29/22 00:00 IMPRESSION: Intraoperative imaging during extensive posterior lumbosacral fusion. Chest X-Ray 03/31/22 07:24 IMPRESSION: No acute cardiopulmonary abnormality. Laboratory Results WBC 11.3 10^3/uL (4.0-10.0) H 04/01/22 02:24 RBC 2.93 10^6/uL (4.1-5.3) L 04/01/22 02:24 Hgb 8.8 g/dL (11.5-15.3) L 04/01/22 02:24 Hct 26.3 % (37.0-47.0) L 04/01/22 02:24 MCV 89.8 fl (81-99) 04/01/22 02:24 MCH 30.0 pg (28.0-34.0) 04/01/22 02:24 MCHC 33.5 g/dL (30.0-36.0) 04/01/22 02:24 RDW 13.7 % (12.1-15.1) 04/01/22 02:24 Plt Count 201 10^3/cmm (130-400) 04/01/22 02:24 MPV 11.3 fL (7.4-10.4) H 04/01/22 02:24 Neut % (Auto) 75.6 % 04/01/22 02:24 Lymph % (Auto) 17.0 % 04/01/22 02:24 [place] % (Auto) 5.7 % 04/01/22 02:24 Eos % (Auto) 1.1 % 04/01/22 02:24 Baso % (Auto) 0.3 % 04/01/22 02:24 Neut # (Auto) 8.53 10^3/uL (1.8-7.7) H 04/01/22 02:24 Lymph # (Auto) 1.9 10^3/uL (0.8-4.8) 04/01/22 02:24 [place] # (Auto) 0.6 10^3/uL (0.2-0.9) 04/01/22 02:24 Eos # (Auto) 0.1 10^3/uL (0.0-0.8) 04/01/22 02:24 Baso # (Auto) 0.0 10^3/uL (0.0-0.1) 04/01/22 02:24 Nucleated RBC % (auto) 0 % 04/01/22 02:24 Nucleated RBCs # 0.0 /100WBC 04/01/22 02:24 PT 15.10 SECONDS (12.1-14.9) H 03/29/22 18:07 INR 1.16 (0.8-1.2) 03/29/22 18:07 D-Dimer 1.30 ug/mIFEU (0-0.59) H 03/31/22 07:38 Sodium 139 mmol/L (136-145) 04/01/22 02:24 Potassium 3.5 mmol/L (3.5-5.1) 04/01/22 02:24 Chloride 105 mmol/L (98-107) 04/01/22 02:24 Carbon Dioxide 23 mmol/L (22-29) 04/01/22 02:24 Anion Gap 14.5 (5-19) 04/01/22 02:24 BUN 7 mg/dL (8-23) L 04/01/22 02:24 Creatinine 0.5 mg/dL (0.5-0.9) 04/01/22 02:24 GFR Calculation 124.2 mL/min (90-130) 04/01/22 02:24 Glucose 103 mg/dL (65-115) 04/01/22 02:24 Calculated Osmolality 286 mOsm/kg (285-295) 04/01/22 02:24 Calcium 8.3 mg/dL (8.5-10.5) L 04/01/22 02:24 Iron 18 ug/dL (37-145) L 03/30/22 18:14 TIBC 210 mcg/dl 03/30/22 18:14 % Saturation 8.5 % (20-50) L 03/30/22 18:14 Unsat Iron Binding 192 ug/dL (112-347) 03/30/22 18:14 Total Bilirubin 0.7 mg/dL (0.15-1.2) 04/01/22 02:24 Direct Bilirubin 0.20 mg/dL (0.00-0.30) 03/29/22 18:07 AST 39 U/L (0-32) H 04/01/22 02:24 ALT 18 U/L (0-33) 04/01/22 02:24 Alkaline Phosphatase 91 IU/L (35-105) 04/01/22 02:24 Total Protein 5.8 g/dL (6.6-8.7) L 04/01/22 02:24 Albumin 3.2 g/dL (3.5-5.2) L 04/01/22 02:24 Globulin 2.6 g/dL (1.3-4.6) 04/01/22 02:24 Procalcitonin 0.06 ng/mL (0-0.5) 03/31/22 04:31 Urine Color Yellow (Yellow) 03/31/22 10:00 Urine Appearance Clear (CLEAR) 03/31/22 10:00 Urine pH 7 (5-7) 03/31/22 10:00 Ur Specific [place] 1.000 (1.005-1.030) L 03/31/22 10:00 Urine Protein Neg (Negative) 03/31/22 10:00 Urine Glucose (UA) Norm (Normal) 03/31/22 10:00 Urine Ketones Negative (Negative) 03/31/22 10:00 Urine Blood Neg (Negative) 03/31/22 10:00 Urine Nitrate Negative (Negative) 03/31/22 10:00 Urine Bilirubin Neg (Negative) 03/31/22 10:00 Urine Urobilinogen Norm mg/dL (Negative) 03/31/22 10:00 Ur Leukocyte Esterase Negative (Negative) 03/31/22 10:00 Blood Type A Positive 03/29/22 09:30 Rho(D) Type Positive 03/29/22 09:30 Antibody Screen Negative 03/29/22 09:30 Vitals Last Vital Signs Temp 97.8 F 04/01/22 08:21 Pulse 78 04/01/22 11:44 Resp 16 04/01/22 11:44 BP 127/49 04/01/22 08:21 Pulse Ox 92 04/01/22 11:44 Discharge Plan Discharge Patient Disposition: Home Condition: Stable Prescriptions: New acetaminophen 325 mg Tablet 650 mg PO Q4H PRN (Reason: pain) Qty: 60 0RF Ferrex 150 Forte 150-25-1 mg-mcg-mg Capsule 1 cap PO BIDWM Qty: 60 0RF Continued alendronate [Fosamax] 70 mg tablet 70 mg PO .WEEKLY 0RF cholecalciferol (vitamin D3) 1,000 unit capsule 2,000 unit PO ONCE 0RF gabapentin 300 mg capsule 300 mg PO TID 0RF Rx Instructions: 2 at AM, 1 at NOON, 1 at PM fluoxetine 40 mg capsule 40 mg PO DAILY 0RF atorvastatin [Lipitor] 40 mg tablet 40 mg PO DAILY 0RF nitroglycerin [Nitrostat] 0.4 mg tablet, sublingual 0.4 mg SUBLINGUAL Q5M PRN (Reason: chest pain) Qty: 25 3RF aspirin 81 mg tablet,delayed release (DR/EC) 81 mg PO DAILY 0RF biotin 1 tab PO DAILY 0RF cyclobenzaprine 10 mg tablet 10 mg PO TID PRN (Reason: muscle spasm) Qty: 30 0RF Rx Instructions: take 1 tab tid prn muscle spasms metoprolol succinate 25 mg tablet extended release 24 hr 12.5 mg PO DAILY Qty: 45 3RF (DME) Bone Growth Stimulator E0748 See Rx Instructions .Route .MEDSUPPLY Qty: 1 0RF Rx Instructions: As directed Changed amlodipine 10 mg tablet 5 mg PO DAILY Qty: 90 2RF Discontinued isosorbide mononitrate 30 mg tablet extended release 24 hr 30 mg PO DAILY 0RF Discharge Orders: Discharge Order (Routine); Ordered 04/01/22 Ordered By: Jean Mojica Referrals: [facility] [Outside] Enrique Ross DO [Physician] - 04/08/22 9:45 am Raj Lakhani MD [Primary Care Provider] - 7-10 days Discharge Diet: Advance as tolerated Discharge Activity: Increase activity as tolerated Patient Instructions: Vitamin B/Iron/Vitamin C (By mouth), Anterior Posterior Spinal Fusion (DC), Opioid Safety Activity Restrictions/Additional Instructions: For now do not take Imdur. Dose of amlodipine has been decreased to 5 mg daily. Take metoprolol as before. Check your blood pressure daily at home and maintain a blood pressure diary and follow-up with her primary care provider within next 1 week for further adjustment of antihypertensives. Thank you for choosing [facility] for your care! The following is a list of instructions, from your provider, to follow upon your discharge to ensure you have the optimal recovery from your recent injury or surgery. Follow-up care is a porras part of your treatment and safety. Be sure to make and go to all appointments and call your doctor if you are having problems. If you do not already have a follow-up appointment made, call Dr. Ross's] office in the next 1-3 days to make follow up appointment for 1 weeks at [phone]. It is also a good idea to know your test results and keep a list of the medicines you take. Medications will be prescribed for you at your provider's discretion. These medications are to be used as instructed; if they are taken more often that prescribed they will not be refilled early and in most cases will not be refilled at all. > When a refill is needed, you should contact sorin esqueda 2-3 business days before your prescription runs out. Medications will NOT be refilled by men's furnishings salesperson providers after hours! > Many pain medications contain Tylenol (Acetaminophen). Do not consume more than 4,000 mg of Tylenol per day in total with any combination of medications. > Pain medications can cause constipation. Please use an over the counter stool softener as directed, while taking pain medications. Consult your local pharmacist with questions or recommendations on stool softeners. If constipation persists, contact our office or your primary care provider. > While under our care, you are not to receive pain medications or other controlled substances from any other provider unless our office is notified and approves. Any attempts to do so will result in refusal to prescribe any further pain medications and possible dismissal from our practice. ? Walking is essential for the healing process after surgery. We would like you to slowly advance your walking. This should be done on relatively flat clear ground (inside or out) or can be done on a treadmill. Remember this goal does not have to happen all at once, slowly increase your distance and duration. This can be broken into more more than one walk per day as tolerated. Patients who walk as directed after surgery rarely require Physical Therapy. In the unlikely event this issue arises your provider will direct hospital staff to make the appropriate arrangements. ? No lifting over 5 pounds {a gallon of milk) or bending/twisting until further notice. Each of these activities places an unnecessary amount of stress onto the body and can impede the delicate healing process. > Instead of bending at the waist, keep your back straight and bend at the knees. > Instead of twisting your torso, keep your back straight and turn your entire body with your feet. ? You may sleep in any position which makes you comfortable. Many patients find comfort sleeping in a reclining chair. It is not abnormal to have difficulty sleeping for the first several weeks following your surgery. We recommend trying Benadry! or Tylenol PM as directed to help with your sleeping difficulties. Both medications are over the counter and available without prescription. ? NO SMOKING!!! Smoking dramatically increases the probability of developing postoperative wound infections. ? Common complaints after lumbar and/or thoracic spine surgery include, but are not limited to: numbness and/or tingling in the legs, pain around the incision and surrounding tissues, muscle spasms, or stiffness of the middle to low back. Contact our office if these symptoms persist or if an acute change occurs. ? No driving for the first 3-5days, and not while taking narcotics until seen at your follow-up appointment and cleared. There are no restrictions for riding on short trips, however if you take a longer trip, arrangements should be made to make regular stops to get out of the vehicle and stretch . ? Swelling is an unfortunate event that will take place with any surgery and is the primary source of your postoperative discomfort. While walking and regular approved activities helps control inflammation, there are additional steps you can take to minimize swelling. > Place ice over the surgical site and surrounding tissue for twenty minutes, followed by applying a low/medium heat (heating pad) for an additional twenty minutes every 1-2 hours as needed for painrelief. > You may use of over the counter anti-inflammatory medications (Ibuprofen, Motrin, Aleve, Advil, etc) as directed on the package label. These types of medicines will significantly reduce the amount of discomfort you experience after surgery from swelling. It should be noted that if you have and allergy to any of these medications, or a history of ulcers or kidney disease you should consult you primary care provider prior to starting these medications. Discharge Attestations Time Spent in Discharge Care*: less than 30 min Quality Metrics Clinical Quality Measures [ No reported AMI, CVA or VTE this stay] Coding Level of Care Code Acute [facility] note Diagnoses Encounter for postoperative care Z48.89 Postoperative shock T81.10XA Postoperative anemia due to acute blood loss D62 Status post laminectomy Z98.890 COPD (chronic obstructive pulmonary disease) J44.9 ASHD (arteriosclerotic heart disease) I25.10 Status post lumbar spinal fusion Z98.1 Carotid stenosis, non-symptomatic I65.23 Laterality: bilateral
== END 2022-04-01 11:45 | disposition home health service (06) | DRG 454 ==
LOC: MEDSURG 13:36 → ICU 15:55 → MEDSURG 03-31 14:31
PROVIDERS: Anesthesiology; Student in an Organized Health Care Education/Training Program; Admitting Provider Orthopaedic Surgery; PCP Family Medicine; Visit Provider Orthopaedic Surgery
PROC: 0SG1071 Fusion of 2 or more Lumbar Vertebral Joints with Autologous Tissue Substitute, Posterior Approach, Posterior Column, Open Approach (ICD-10-PCS; CPT 22612; principal; 2022-03-29 11:20)
DX: M48.062 Spinal stenosis, lumbar region with neurogenic claudication (principal); D62 Acute posthemorrhagic anemia; T81.10XA Postprocedural shock unspecified, initial encounter; F05 Delirium due to known physiological condition; R29.6 Repeated falls; I25.10 Atherosclerotic heart disease of native coronary artery without angina pectoris; Z95.5 Presence of coronary angioplasty implant and graft; I65.23 Occlusion and stenosis of bilateral carotid arteries; J44.9 Chronic obstructive pulmonary disease, unspecified; E78.5 Hyperlipidemia, unspecified; I10 Essential (primary) hypertension; Z87.891 Personal history of nicotine dependence; I95.81 Postprocedural hypotension; Z98.1 Arthrodesis status; Z79.82 Long term (current) use of aspirin; R41.82 Altered mental status, unspecified; T40.605A Adverse effect of unspecified narcotics, initial encounter
CPT/HCPCS: 36415; 51702; 71045; 72100; 76000; 80048; 80053; 80076; 81003; 83540; 83550; 84145; 85014; 85018; 85025; 85378; 85610; 86850; 86900; 93970; 94640; 96372; 97116; 97161; 97530; A4570; C1713; J1100; J1170; J1630; J1644; J1756; J1885; J2270; J2370; J2405; J2704; J3010; J3370; J3490; J7030; P9041

== ENCOUNTER → 2022-04-08 09:44 | Outpatient (BNVA) | payer MEDICARE, SELFPAY | PROVIDERS: PCP Family Medicine; Visit Provider Orthopaedic Surgery | DX: Z47.89 Encounter for other orthopedic aftercare (principal); Z98.890 Other specified postprocedural states | CPT/HCPCS: 99024 ==

== ENCOUNTER → 2022-04-15 12:52 | Outpatient (BNVA) | payer MEDICARE, SELFPAY | PROVIDERS: PCP Family Medicine; Visit Provider Physician Assistant | DX: Z98.1 Arthrodesis status (principal); Z47.89 Encounter for other orthopedic aftercare | CPT/HCPCS: 72100; 99024 ==

== ENCOUNTER → 2022-05-11 13:17 | Outpatient (BNVA) | payer MEDICARE, SELFPAY | PROVIDERS: PCP Family Medicine; Visit Provider Physician Assistant | DX: Z47.89 Encounter for other orthopedic aftercare (principal); Z98.1 Arthrodesis status | CPT/HCPCS: 72100; 99024 ==

== ENCOUNTER 2022-05-17 10:58 | Outpatient (CLI) | payer MEDICARE, SELFPAY ==
--- NOTE | 2022-05-17 11:04 | MM_ITS ---
WS: [id number] VIEWS: MLO and CC views both breasts. 3D digital tomosynthesis is also included in this exam. Comparison made with prior exam of 02/14/2013, 05/27/2015, 09/29/2016, 04/27/2018, 12/05/2020.. Findings: There was no sign of mass, architectural distortion or suspicious calcification in either breast. Sc attered fibroglandular densities MM/[place] [id number] Impression: BI-RADS: 2-Benign FOLLOW-UP: 1 Year Follow-up This mammogram was also analyzed by the Computer Aided Detection System R2 Imag e Social Sciences Instructor.
== END 2022-05-17 10:59 | disposition home or self-care (01) ==
LOC: RAD 10:59
PROVIDERS: PCP Family Medicine; Visit Provider Family Medicine
DX: Z12.31 Encounter for screening mammogram for malignant neoplasm of breast (principal)
CPT/HCPCS: 77063; 77067

== ENCOUNTER → 2022-07-15 15:49 | Outpatient (BNVA) | payer MEDICARE, SELFPAY | PROVIDERS: PCP Family Medicine; Visit Provider Physician Assistant | DX: Z98.1 Arthrodesis status (principal); Z47.89 Encounter for other orthopedic aftercare | CPT/HCPCS: 72100; 99213 ==

== ENCOUNTER → 2022-09-21 15:10 | Outpatient (BNVA) | payer MEDICARE, SELFPAY | PROVIDERS: PCP Family Medicine; Visit Provider Physician Assistant | DX: Z98.1 Arthrodesis status; Z47.89 Encounter for other orthopedic aftercare | CPT/HCPCS: 72100; 99213 ==

== ENCOUNTER 2022-10-01 09:49 | Outpatient (CLI) | payer MEDICARE, MEDICAID, SELFPAY ==
--- NOTE | 2022-10-01 14:15 | CT_ITS ---
WS: [id number] LDCT LUNG CANCER SCREENING TECHNIQUE: Noncontrast CT of the chest with coronal and sagittal reformatted images. CLINICAL INFORMATION: cancer screeni COMPARISON: CT October 14, 2021 DLP: 81.17 mGy.cm DIvol: Mean CTDIvol: 1.60 (mGy) All CT scans at [facility] use at least one of these dose optimization techniques: automat ed exposure control; mA and/or kV adjustment per patient size (includes targeted exams where dose is matched to clinical indication); or iterative reconstruction. FINDINGS: A few tiny subcentimeter nodules right upper lobe unchanged from the prior examinations. A few surrou nding micronodules unchanged. Small subpleural nodule RIGHT lower lobe measuring 5 mm. This is unchan ged. 6 mm fibrotic opacity LEFT lower lobe along the diaphragm unchanged. Calcified granuloma right lower lobe.No mediastinal or hilar lymphadenopathy. Hyperinflation with chronic emphysematous changes. Normal caliber thoracic aorta. Aortic calcificatio n. Coronary calcification. Calcified right hilar and subcarinal lymph nodes. No axillary lymphadenopa thy. Adrenal glands are normal. Cholecystectomy clips. Hypertrophic changes thoracic spine. CT/CT lung screening [id number] IMPRESSION: LUNG-RADS: 2-Benign Appearance or Behavior FOLLOW UP: 12 Month: Continue annual screening with LDCT
== END 2022-10-01 09:50 | disposition home or self-care (01) ==
LOC: RAD 09:51
PROVIDERS: PCP Family Medicine; Visit Provider Family Medicine
DX: Z12.2 Encounter for screening for malignant neoplasm of respiratory organs (principal); F17.219 Nicotine dependence, cigarettes, with unspecified nicotine-induced disorders
CPT/HCPCS: 71271

== ENCOUNTER 2023-01-11 09:16 | Emergency (ER) | payer MEDICARE, MEDICAID, SELFPAY ==
[2023-01-11] VITALS (35 sets, daily range): BP systolic 142–181; BP diastolic 50–79; PULSE 67–79; RESP 16–39; TEMP 36.4; O2SAT 92–100
--- NOTE | 2023-01-11 09:45 | PC.PHAR ---
pt states she takes care of her own medications-pt states the dr irvind her imdur er 30mg daily (rx filled 10/18/22 90d/s) and amlodipine 10mg daily (rx filled 10/03/22 90d/s) about a week or two weeks ago-
--- NOTE | 2023-01-11 09:48 | ECG_ITS ---
[facility] Test Date: 2023-01-11 Pat Name: Pam Ordonez Department: Room: Gender: Female Education Intern: : 1955 Requested By: Nacho Chan Order Number: [id number] Tena MD: Grover Harley M.D. Measurements Intervals [place] Rate: 72 P: 58 HI: 155 QRS: 67 QRSD: 81 T: 73 QT: 418 QTc: 458 Interpretive Statements SINUS RHYTHM MINIMAL VOLTAGE CRITERIA FOR LVH, CONSIDER NORMAL VARIANT [MEETS CRITERIA IN ONE OF: R(aVL), S(V1), R(V5), R(V5/V6)+S(V1)] Compared to ECG 04/17/2021 10:49:52 No significant changes Electronically Signed On 01-11-2023 20:41:32 CDT by Grover Harley M.D. [id number] f
--- NOTE | 2023-01-11 10:11 | XR_ITS ---
WS: [id number] Exam: XR ribs LT mn 3V w CXR1V [id number] Date/Time of Exam: 01/11/2023 10:14 AM Reason For Exam: fall l rib pain No acute left rib fracture noted. The left lung is fully inflated and clear. No pleural or pulmonary reactive changes. The lungs are bilaterally clear. Normal cardiomediastinal silhouette for technique. XR/XR ribs LT mn 3V w CXR1V [id number] IMPRESSION: 1. No acute cardiopulmonary finding. 2. No acute left rib fracture or pneumothorax.
[2023-01-11] MEDS: ketorolac 30 mg/mL INJ IM (10:20)
--- NOTE | 2023-01-11 10:25 | ED_ITS ---
HPI - Fall General: Chief Complaint: Fall Stated Complaint: Chest Pains Time Seen by Provider: 01/11/23 09:31 Source: patient Mode of arrival: ambulatory History of Present Illness: 67-year-old female tripped while carrying some groceries landed on her chest on the grocery she has some pain in the left lower ribs worse with inspiration and palpation no hemoptysis. This occurred about 36 to 40 hours ago. Has not improved so she sought out care in the emergency room. She has not seen anyone else for this. MD complaint: fall Onset (ago): minute(s) Fall from: standing Fall witnessed: no Place fall occurred: home Loss of consciousness: None Associated symptoms-after fall: Denies abdominal pain, chest pain, confusion, difficulty walking, headache(s), hematuria, lightheadedness, neck pain, numbness, short of breath or weakness Review of Systems Const: Denies: fever(s), chills, body aches, change in appetite, fatigue or malaise ENMT: Denies: throat pain, ear or mastoid pain, nasal discharge or nasal congestion Card: Denies: chest pain or lightheadedness Resp: Denies: dyspnea, productive cough or non-productive cough GI: Denies: abdominal pain : Denies: hematuria Musc: Denies: neck pain Skin/Breast: Denies: rash or pruritus Neuro: Denies: headache(s), difficulty walking or confusion PFSH ED PFSH: Medical History Aortic heart valve narrowing with insufficiency ASHD (arteriosclerotic heart disease) Carotid stenosis, non-symptomatic COPD (chronic obstructive pulmonary disease) Dyslipidemia History of tumor HTN (hypertension) Hx of chest pain Postoperative anemia due to acute blood loss Subclavian artery stenosis Surgical History History of History of cholecystectomy Status post laminectomy Family History Mother CAD (coronary artery disease) Sister Chronic kidney disease (CKD) Brother Chronic kidney disease (CKD) Other Hypertension Lung disease Denies family history of Diabetes Clotting disorder Dementia Hyperlipidemia Psychiatric illness Anesthesia complication Bleeding disorder Cancer Stroke Social History (Reviewed 01/11/23 @ 12:10 by LIN Power Smoking and tobacco status: current every day smoker cigarettes [ Other cigarette details: current 1/2 PPD, previously 2PPD x 50yrs, 100 PY] Quit status (tobacco): considering quitting Second hand smoke exposure: No Alcohol intake: never Desire information about alcohol rehabilitation?: No Substance/Drug Use: never Desire information about substance/drug rehabilitation?: No Lives independently: Yes Marital status: Number of children: 4 Current occupational status: disabled Current gender identity: Female Physical Exam Const: GENERAL APPEARANCE: cooperative and comfortable ORIENTATION/CONSCIOUSNESS: Yes awake, Yes oriented to person, Yes oriented to place and Yes oriented to time HENMT: COMMON NORMALS: normocephalic, atraumatic and hearing grossly normal bilaterally HEAD & SCALP: normocephalic and atraumatic Chest: OTHER: Tender in the left anterior axillary line on the ribs. No crepitus no subcutaneous air Resp: COMMON NORMALS: normal respiratory effort, No retractions, No use of accessory muscles and clear to auscultation bilaterally AUSCULTATION: clear to auscultation bilaterally Cardio: COMMON NORMALS: regular rate, regular rhythm and No murmurs present (Cardio) RATE: regular rate RHYTHM: regular rhythm GI: COMMON NORMALS: Soft to palpation and No hepatosplenomegaly present AUSCULTATION: Yes normoactive bowel sounds PALPATION: Yes Soft to palpation, No Tenderness to palpation present (GI), No Guarding due to palpation present (GI) and Yes No hepatosplenomegaly present Extremity: COMMON NORMALS: normal to inspection, capillary refill normal, no clubbing, cyanosis or edema, no calf tenderness and no pedal edema Neuro: SENSORIUM/ORIENTATION: Yes oriented to person, Yes oriented to place and Yes oriented to time Skin: COMMON NORMALS: no rashes or lesions noted GENERAL SKIN EXAM: no rashes or lesions noted Course 2 Vital Signs: Vital signs: Vital Signs Temperature 97.6 F 01/11/23 09:17 Pulse Rate 72 01/11/23 11:42 Respiratory Rate 16 01/11/23 09:17 Blood Pressure 142/76 01/11/23 11:42 Pulse Oximetry 95 01/11/23 11:42 Oxygen Delivery Me thod Room Air 01/11/23 11:42 MDM - Fall Medical Decision Making Left rib tenderness with contusion but no overlying ecchymosis noted no fracture noted on x-ray. She has improvement with ketorolac. Use diclofenac as needed ice or heat follow-up with primary care return if has further problems. Medical Records I reviewed the patient's medical records. Lab Data I reviewed the patient's lab results. Radiology Impressions Ribs X-Ray 01/11/23 10:11 IMPRESSION: 1. No acute cardiopulmonary finding. 2. No acute left rib fracture or pneumothorax. Discharge Plan Discharge Patient Disposition: Home Clinical Impression: Contusion of rib on left side Condition: Stable Prescriptions: New diclofenac sodium 75 mg tablet,delayed release (DR/EC) 75 mg PO Q12H PRN (Reason: pain) Qty: 20 0RF No Action aspirin 81 mg tablet,delayed release (DR/EC) 81 mg PO QAM (DME) Bone Growth Stimulator E0748 See Rx Instructions .Route .MEDSUPPLY Qty: 1 0RF Rx Instructions: As directed gabapentin 300 mg capsule See Rx Instructions .ROUTE .COMPLEX Qty: 360 3RF Dose Instruction: TAKE ONE CAPSULE BY MOUTH EVERY MORNING AND AT NOON AND 2 CAPSULES AT BEDTIME Rx Instructions: TAKE ONE CAPSULE BY MOUTH EVERY MORNING AND AT NOON AND 2 CAPSULES AT BEDTIME cyclobenzaprine 10 mg tablet 10 mg PO TID PRN (Reason: muscle spasm) Qty: 30 0RF duloxetine [Cymbalta] 20 mg capsule,delayed release(DR/EC) 20 mg PO BID Qty: 60 0RF alendronate 35 mg tablet 35 mg PO Q7D Rx Instructions: on tuesday Nitrostat 0.4 mg Tablet, Sublingual 0.4 mg SUBLINGUAL Q5M PRN (Reason: Chest Pain) Rx Instructions: do not exceed 3 doses per episode biotin 2,500 mcg Capsule 2,500 mcg PO DAILY atorvastatin 80 mg tablet 80 mg PO BEDTIME Zyrtec 10 mg tablet 10 mg PO DAILY PRN (Reason: Allergy Symptoms) metoprolol succinate 25 mg tablet extended release 24 hr 12.5 mg PO QAM fluoxetine 20 mg capsule 60 mg PO QAM Flonase Allergy Relief 50 mcg/actuation spray,suspension 2 spray intranasal DAILY PRN (Reason: Allergy Symptoms) Rx Instructions: administer into each nostril Calcium + D 600 mg-5 mcg (200 unit) Tablet 1 tab PO QAM acetaminophen 325 mg Tablet 650 mg PO Q4H PRN (Reason: pain) Qty: 60 0RF Discharge Orders: Discharge ED (Routine); Ordered 01/11/23 Ordered By: Nacho Maldonado Referrals: Alejandro Child MD [Primary Care Provider] - Discharge Diet: Usual diet Discharge Activity: Resume usual activity Patient Instructions: Opioid Safety, Pain Management Activity Restrictions/Additional Instructions: You are seen today after a fall x-rays your ribs did not show any fractures. Pain is likely from bruising to where you hit them when you fell you can use the diclofenac as needed as well as ice or heat follow-up as needed Coding Level of Care Code ED [employer] for Venancio Alex
== END 2023-01-11 12:30 | disposition home or self-care (01) ==
PROVIDERS: Emergency Provider Family Medicine; PCP Family Medicine
DX: S20.212A Contusion of left front wall of thorax, initial encounter (principal); Z79.82 Long term (current) use of aspirin; F17.210 Nicotine dependence, cigarettes, uncomplicated; J44.9 Chronic obstructive pulmonary disease, unspecified; E78.5 Hyperlipidemia, unspecified; I10 Essential (primary) hypertension; W01.0XXA Fall on same level from slipping, tripping and stumbling without subsequent striking against object, initial encounter
CPT/HCPCS: 71101; 93005; 96372; 99284; J1885

== ENCOUNTER 2023-02-08 09:29 | Inpatient (IN) | payer MEDICARE, MEDICAID, SELFPAY ==
[2023-02-08] VITALS (23 sets, daily range): BP systolic 122–161; BP diastolic 50–77; PULSE 59–72; RESP 15–31; TEMP 36.4; O2SAT 93–98
[2023-02-08] MEDS: nitroglycerin 1 gm/inch oint Pkt 1 INCH TOPICAL (09:47)
--- NOTE | 2023-02-08 09:47 | XRR_ITS ---
PROCEDURE INFORMATION: Exam: XR Chest Exam date and time: 02/08/2023 10:06 AM Age: 67 years old Clinical indication: Cough and dyspnea; Prior surgery; Surgery date: 6+ months; Surgery type: Heart stints; Patient HX: Doctor sent patient because of an abnormal ekg; Additional info: Dyspnea/cough TECHNIQUE: Imaging protocol: Radiologic exam of the chest. Views: 1 view. COMPARISON: CR XR ribs LT mn 3V w CXR1V [id number] 01/11/2023 10:26 AM FINDINGS: Lungs: Unremarkable. No consolidation. Pleural spaces: Unremarkable. No pleural effusion. No pneumothorax. Heart/Mediastinum: Unremarkable. No cardiomegaly. Bones/joints: Unremarkable. Similar findings seen comparing to prior examination XR/XR chest 1V portable [id number] IMPRESSION: No acute findings.
--- NOTE | 2023-02-08 09:47 | ECG_ITS ---
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 Measurements Intervals [place] Rate: 66 P: 59 NV: 153 QRS: 60 QRSD: 80 T: 225 QT: 446 QTc: 470 Interpretive Statements SINUS RHYTHM ST DEVIATION AND MODERATE T-WAVE ABNORMALITY, CONSIDER LATERAL ISCHEMIA [-0.1+ mV T-WAVE IN I/aVL/V5/V6] ST DEVIATION AND MODERATE T-WAVE ABNORMALITY, CONSIDER INFERIOR ISCHEMIA [-0.1+ mV T-WAVE IN II/aVF] INTERPRETATION BASED ON A DEFAULT AGE OF 40 YEARS Compared to ECG 01/11/2023 09:48:54 T-wave abnormality now present Possible ischemia now present Electronically Signed On 02-09-2023 1:14:57 CDT by Devan Walker M.D. [email or web address]
--- NOTE | 2023-02-08 09:50 | ED_ITS ---
HPI - Chest Pain General: Chief Complaint: Chest Pain Stated Complaint: abnormal EKG Chest Pain Time Seen by Provider: 02/08/23 09:30 Source: patient Mode of arrival: ambulatory History of Present Illness: 67-year-old female with a known history of coronary disease previous angiogram with stenting. Presents emergency room complaining of chest pain. She been seen by her primary care doctor earlier today had some EKG changes as well as LVH with directed to the emergency room on arrival here she still is having chest discomfort she has EKG changes with ST depression and T wave inversion no clear ST elevation there are some question in V1 and V2 reviewed with Dr. Lin he did not feel it met criteria was likely secondary to her LVH. She denied any radiation of the pain. She does remark that she has had increasing chest pain over the last approximately week. She lives in a mobile home is proximately 50 feet in length when she walks from one end to the other she gets significant chest discomfort to the point that she has to stop sit and rest she will go away after 5 minutes sooner if she uses sublingual nitro. She was previously on Plavix but stopped after 1 year out from her angiography and stenting. MD complaint: chest pain Pertinent past history: coronary artery disease Onset (ago): day(s) Timing of current episode: episodic Onset: during exertion Pain location: substernal Pain radiation: none Severity: mild Quality: tightness, aching and heaviness Relieving factors: nitroglycerin Exacerbating factors: exertion Associated symptoms: Deny abdominal pain, diaphoresis, dyspnea, fever(s), leg edema, nausea, palpitations, sense of impending doom, syncope or vomiting Treatment prior to arrival: none Review of Systems Const: Denies: fever(s), chills, fatigue, malaise or diaphoresis ENMT: Denies: throat pain, ear or mastoid pain, nasal discharge or nasal congestion Card: Reports: chest pain; Denies: palpitations or syncope Resp: Denies: dyspnea GI: Denies: abdominal pain, nausea or vomiting : Denies: flank pain, difficulty voiding, dysuria, urinary frequency or urinary urgency Skin/Breast: Denies: rash or pruritus PFSH ED PFSH: Medical History Aortic heart valve narrowing with insufficiency ASHD (arteriosclerotic heart disease) Carotid stenosis, non-symptomatic COPD (chronic obstructive pulmonary disease) Dyslipidemia History of tumor HTN (hypertension) Hx of chest pain Postoperative anemia due to acute blood loss Subclavian artery stenosis Surgical History History of History of cholecystectomy Status post laminectomy Family History Mother CAD (coronary artery disease) Sister Chronic kidney disease (CKD) Brother Chronic kidney disease (CKD) Other Hypertension Lung disease Denies family history of Diabetes Clotting disorder Dementia Hyperlipidemia Psychiatric illness Anesthesia complication Bleeding disorder Cancer Stroke Social History Smoking and tobacco status: current every day smoker cigarettes [ Other cigarette details: current 1/2 PPD, previously 2PPD x 50yrs, 100 PY] Quit status (tobacco): considering quitting Second hand smoke exposure: No Alcohol intake: never Desire information about alcohol rehabilitation?: No Substance/Drug Use: never Desire information about substance/drug rehabilitation?: No Lives independently: Yes Marital status: Number of children: 4 Current occupational status: disabled Current gender identity: Female Physical Exam Const: GENERAL APPEARANCE: cooperative and comfortable ORIENTATION/CO NSCIOUSNESS: Yes awake, Yes oriented to person, Yes oriented to place and Yes oriented to time HENMT: COMMON NORMALS: normocephalic, atraumatic and hearing grossly normal bilaterally HEAD & SCALP: normocephalic and atraumatic Resp: COMMON NORMALS: normal respiratory effort, No retractions, No use of accessory muscles and clear to auscultation bilaterally AUSCULTATION: clear to auscultation bilaterally Cardio: COMMON NORMALS: regular rate, regular rhythm and No murmurs present (Cardio) RATE: regular rate RHYTHM: regular rhythm GI: COMMON NORMALS: Soft to palpation and No hepatosplenomegaly present AUSCULTATION: Yes normoactive bowel sounds PALPATION: Yes Soft to palpation, No Tenderness to palpation present (GI), No Guarding due to palpation present (GI) and Yes No hepatosplenomegaly present Extremity: COMMON NORMALS: normal to inspection, capillary refill normal, no clubbing, cyanosis or edema, no calf tenderness and no pedal edema Neuro: SENSORIUM/ORIENTATION: Yes oriented to person, Yes oriented to place and Yes oriented to time Skin: COMMON NORMALS: no rashes or lesions noted GENERAL SKIN EXAM: no ole hes or lesions noted Course Vital Signs: Vital signs: Vital Signs Temperature 97.6 F 02/08/23 09:36 Pulse Rate 65 02/08/23 10:30 Respiratory Rate 17 02/08/23 10:30 Blood Pressure 122/50 02/08/23 10:30 Pulse Oximetry 98 02/08/23 10:30 Oxygen Delivery Me thod Room Air 02/08/23 10:30 MDM - Chest Pain Medical Decision Making Unstable escalating angina. Patient has EKG changes inversion of the T waves and some ST depression. Per troponin is negative. She is pain-free now after apply application of topical nitro. She was given loading dose of Plavix heparin and started on a heparin drip we will continue on the topical nitro admit to hospitalist consult cardiology discussed results with the patient as well as anticipated plan Medical Records I reviewed the patient's medical records. Lab Data I reviewed the patient's lab results. 02/08/23 09:51 02/08/23 09:51 Radiology Impressions Chest X-Ray 02/08/23 09:47 IMPRESSION: No acute findings. Laboratory Results WBC 9.0 10^3/uL (4.0-10.0) 02/08/23 09:51 RBC 5.09 10^6/uL (4.1-5.3) 02/08/23 09:51 Hgb 14.8 g/dL (11.5-15.3) 02/08/23 09:51 Hct 46.8 % (37.0-47.0) 02/08/23 09:51 MCV 91.9 fl (81-99) 02/08/23 09:51 MCH 29.1 pg (28.0-34.0) 02/08/23 09:51 MCHC 31.6 g/dL (30.0-36.0) 02/08/23 09:51 RDW 14.6 % (12.1-15.1) 02/08/23 09:51 Plt Count 302 10^3/cmm (130-400) 02/08/23 09:51 MPV 11.1 fL (7.4-10.4) H 02/08/23 09:51 Neut % (Auto) 63.1 % 02/08/23 09:51 Lymph % (Auto) 27.8 % 02/08/23 09:51 [place] % (Auto) 5.8 % 02/08/23 09:51 Eos % (Auto) 2.4 % 02/08/23 09:51 Baso % (Auto) 0.6 % 02/08/23 09:51 Neut # (Auto) 5.71 10^3/uL (1.8-7.7) 02/08/23 09:51 Lymph # (Auto) 2.5 10^3/uL (0.8-4.8) 02/08/23 09:51 [place] # (Auto) 0.5 10^3/uL (0.2-0.9) 02/08/23 09:51 Eos # (Auto) 0.2 10^3/uL (0.0-0.8) 02/08/23 09:51 Baso # (Auto) 0.1 10^3/uL (0.0-0.1) 02/08/23 09:51 Nucleated RBC % (auto) 0 % 02/08/23 09:51 Nucleated RBCs # 0.0 /100WBC 02/08/23 09:51 D-Dimer 1.53 ug/mIFEU (0-0.59) H 02/08/23 09:51 Sodium 139 mmol/L (136-145) 02/08/23 09:51 Potassium 4.2 mmol/L (3.5-5.1) 02/08/23 09:51 Chloride 102 mmol/L (98-107) 02/08/23 09:51 Carbon Dioxide 24 mmol/L (22-29) 02/08/23 09:51 Anion Gap 17.2 (5-19) 02/08/23 09:51 BUN 14 mg/dL (8-23) 02/08/23 09:51 Creatinine 0.6 mg/dL (0.5-0.9) 02/08/23 09:51 GFR Calculation 100.3 mL/min (90-130) 02/08/23 09:51 Glucose 80 mg/dL (65-115) 02/08/23 09:51 Estimat Average Glucose 114 02/08/23 09:07 Hemoglobin A1c 5.6 % (4.0-6.0) 02/08/23 09:07 Calculated Osmolality 287 mOsm/kg (285-295) 02/08/23 09:51 Calcium 8.9 mg/dL (8.5-10.5) 02/08/23 09:51 Total Bilirubin 0.4 mg/dL (0.15-1.2) 02/08/23 09:51 AST 20 U/L (0-32) 02/08/23 09:51 ALT 16 U/L (0-33) 02/08/23 09:51 Alkaline Phosphatase 134 U/L (35-105) H 02/08/23 09:51 Troponin T Baseline 9 ng/L (0-10) 02/08/23 09:51 Total Protein 7.4 g/dL (6.6-8.7) 02/08/23 09:51 Albumin 4.4 g/dL (3.5-5.2) 02/08/23 09:51 Globulin 3.0 g/dL (1.3-4.6) 02/08/23 09:51 Discharge Plan Discharge Patient Disposition: Admitted As Inpatient Admit Provider: Bhanu Cordova Clinical Impression: Unstable angina pectoris, Carotid stenosis, non-symptomatic, HTN (hypertension ), ASHD (arteriosclerotic heart disease) Condition: Stable Coding Level of Care Code ED 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
[2023-02-08] MEDS: aspirin 81 mg Chew Tablet 324 MG PO (09:56)
[2023-02-08] MEDS: clopidogrel 300 mg Tablet 600 MG PO (09:57)
[2023-02-08] MEDS: heparin 5,000 unit/mL INJ 1 mL 3900 UNIT IVP (09:58)
--- NOTE | 2023-02-08 10:01 | PC.PHAR ---
pt states she takes care of her own medications-pt states the imdur er 30mg daily filled 10/18/22 90d/s was dced-pt states she no longer takes aspirin 81mg daily-pt states she thinks she is taking vitamin e daily-
[2023-02-08 10:10] LABS: Basophils # 0.1 10^3/uL (0.0-0.1); Basophils % 0.6 %; Eosinophils # 0.2 10^3/uL (0.0-0.8); Eosinophils % 2.4 %; Hematocrit 46.8 % (37.0-47.0); Hemoglobin 14.8 g/dL (11.5-15.3); Lymphocytes # 2.5 10^3/uL (0.8-4.8); Lymphocytes % 27.8 %; Mean Corpuscular HGB Conc 31.6 g/dL (30.0-36.0); Mean Corpuscular Hemoglobin 29.1 pg (28.0-34.0); Mean Corpuscular Volume 91.9 fl (81-99); Mean Platelet Volume 11.1 fL (7.4-10.4); Monocytes # 0.5 10^3/uL (0.2-0.9); Monocytes % 5.8 %; Neutrophils # 5.71 10^3/uL (1.8-7.7); Neutrophils % 63.1 %; Nucleated Red Blood Cells % 0 %; Platelet Count 302 10^3/cmm (130-400); Red Blood Count 5.09 10^6/uL (4.1-5.3); Red Cell Distribution Width 14.6 % (12.1-15.1)
[2023-02-08] MEDS: heparin drip 25,000 UNIT/500 ML PREMIX 15.75 UNIT IV (10:19)
[2023-02-08 10:24] LABS: Alanine Aminotransferase 16 U/L (0-33); Albumin Level 4.4 g/dL (3.5-5.2); Alkaline Phosphatase 134 U/L (35-105); Anion Gap 17.2 (5-19); Aspartate Amino Transferase 20 U/L (0-32); Blood Urea Nitrogen 14 mg/dL (8-23); Calcium 8.9 mg/dL (8.5-10.5); Carbon Dioxide 24 mmol/L (22-29); Chloride 102 mmol/L (98-107); Glomerular Filtration Rate 100.3 mL/min (90-130); Glucose 80 mg/dL (65-115); Osmolality Calculated 287 mOsm/kg (285-295); Potassium 4.2 mmol/L (3.5-5.1); Sodium 139 mmol/L (136-145); Total Bilirubin 0.4 mg/dL (0.15-1.2); Total Protein 7.4 g/dL (6.6-8.7)
[2023-02-08 10:25] LABS: Troponin(5th) Baseline 9 ng/L (0-10)
--- NOTE | 2023-02-08 11:06 | PM.HP ---
Providers/Chief Complaint Admitting Physician: Bhanu Cordova MD Primary Care Provider: Alejandro Child MD Chief Complaint: abnormal EKG Chest Pain History of Present Illness Pam Ordonez is a 67 year old female Presented to the hospital From PCP clinics after abnormal EKG findings chest pain and shortness of breath. Stating that she has been experiencing chest pain for quite some days, she was guarding for last 2 days she noticed some chest pain which would last for about 2 minutes, it was not associated with nausea or vomiting no recent fever or diarrhea. She is also endorsing shortness of breath on exertion she can walk 50 feet before getting short of breath. He does not use oxygen at baseline, she has history of 2 stents, established coronary disease. She is otherwise active takes care of her at home and gardening. Review of Systems Const: Denies: fever(s) Eyes: Denies: change in vision ENMT: Denies: throat pain Card: Reports: chest pain Resp: Reports: dyspnea GI: Denies: abdominal pain : Denies: flank pain Musc: Denies: neck pain Skin/Breast: Denies: rash Neuro: Denies: headache(s) Medications/Allergies Home Medications Medication Instructions Recorded Confirmed Last Taken Type Bone Growth Stimulator E0748 #1 ea 03/29/22 02/08/23 Unknown Rx acetaminophen 325 mg tablet 650 mg PO Q4H PRN pain #60 tabs 04/01/22 02/08/23 Unknown Rx cyclobenzaprine 10 mg tablet 10 mg PO TID PRN muscle spasm #30 12/08/22 02/08/23 02/08/23 Rx tabs gabapentin 300 mg capsule See Rx Instructions .Route 12/08/22 02/08/23 02/08/23 Rx .COMPLEX #360 caps alendronate 35 mg tablet 35 mg PO Q7D 01/11/23 02/08/23 Unknown History atorvastatin 80 mg tablet 80 mg PO BEDTIME 01/11/23 02/08/23 02/07/23 History biotin 2,500 mcg capsule 2,500 mcg PO QAM 01/11/23 02/08/23 02/08/23 History calcium carbonate 600 mg-vitamin 1 tab PO QAM 01/11/23 02/08/23 02/08/23 History D3 5 mcg (200 unit) tablet cetirizine 10 mg tablet (Zyrtec) 10 mg PO DAILY PRN Allergy Symptoms 01/11/23 02/08/23 Unknown History fluticasone propionate 50 2 spray intranasal DAILY PRN 01/11/23 02/08/23 Unknown History mcg/actuation nasal Allergy Symptoms spray,suspension (Flonase Allergy Relief) metoprolol succinate 25 mg 12.5 mg PO QAM 01/11/23 02/08/23 02/08/23 History tablet,extended release 24 hr nitroglycerin 0.4 mg sublingual 0.4 mg sublingual Q5M PRN Chest 01/11/23 02/08/23 Unknown History tablet (Nitrostat) Pain diclofenac sodium 75 mg 75 mg PO Q12H PRN pain #20 tabs 01/17/23 02/08/23 Unknown Rx tablet,delayed release duloxetine 20 mg capsule,delayed 20 mg PO BID #60 caps 02/01/23 02/08/23 02/08/23 Rx release (Cymbalta) fluoxetine 20 mg capsule 60 mg PO QAM #90 caps 02/01/23 02/08/23 02/08/23 Rx amlodipine 5 mg tablet 5 mg PO DAILY #30 tabs 02/08/23 02/08/23 Unknown Rx prednisolone acetate 1 % eye See Rx Instructions .Route .COMPLEX 02/08/23 02/08/23 Unknown History drops,suspension vitamin E 670 mg (1,000 unit) 670 mg PO DAILY 02/08/23 02/08/23 Unknown History capsule Allergies Allergy/AdvReac Type Severity Reaction Status Date / Time hydrocodone Allergy Intermediate Altered Verified 02/08/23 09:52 mental status codeine Allergy Unknown Verified 02/08/23 09:52 Sulfa (Sulfonamide Allergy ADR-Nausea Verified 02/08/23 09:52 Antibiotics) tramadol [From Ultram] Allergy ADR-Vomitin Verified 02/08/23 09:52 g PFSH Acute PFSH: Medical History Aortic heart valve narrowing with insufficiency ASHD (arteriosclerotic heart disease) Carotid stenosis, non-symptomatic COPD (chronic obstructive pulmonary disease) Dyslipidemia History of tumor HTN (hypertension) Hx of chest pain Postoperative anemia due to acute blood loss Subclavian artery stenosis Surgical History History of History of cholecystectomy Status post laminectomy Family History Mother CAD (coronary artery disease) Sister Chronic kidney disease (CKD) Brother Chronic kidney disease (CKD) Other Hypertension Lung disease Denies family history of Diabetes Clotting disorder Dementia Hyperlipidemia Psychiatric illness Anesthesia complication Bleeding disorder Cancer Stroke Social History Smoking and tobacco status: current every day smoker cigarettes [ Other cigarette details: current 1/2 PPD, previously 2PPD x 50yrs, 100 PY] Quit status (tobacco): considering quitting Second hand smoke exposure: No Alcohol intake: never Desire information about alcohol rehabilitation?: No Substance/Drug Use: never Desire information about substance/drug rehabilitation?: No Lives independently: Yes Marital status: Number of children: 4 Current occupational status: disabled Current gender identity: Female Vitals/I&O/Wt Last Vital Signs Temp 97.6 F 02/08/23 09:36 Pulse 65 02/08/23 10:30 Resp 17 02/08/23 10:30 BP 122/50 02/08/23 10:30 Pulse Ox 98 02/08/23 10:30 O2 Del Method Room Air 02/08/23 10:30 Weight last 48 hrs Weight 56.245 kg Physical Exam Narrative: Today she went to see Dr. Sheridan his awake and alert Currently has Nitropaste on her chest Chest pain-free Blood pressure stable T wave inversion evident on her EKG S1, S2 Abdomen soft Euvolemic Nonfocal neuro exam GCS 15 is at the bedside Data 02/08/23 09:51 02/08/23 09:51 A&P Assessment and plan (1) Unstable angina pectoris: (2) Aortic heart valve narrowing with insufficiency: (3) Dyslipidemia: (4) CAD (coronary artery disease): Plan Unstable angina Rule out PE high D-dimer noted We will request CTA chest Start therapeutic Lovenox Continue aspirin and Plavix She has been loaded with aspirin and Plavix in the ER Currently chest pain-free on Nitropaste T wave versions noted on EKG Serial troponin and EKGs for now N.p.o. after midnight Dr. Harley consulted from the ER Established history of coronary disease with previous history of [address] Thornton as per the patient Monitor blood pressure with Nitropaste First troponin 9 Kidney function is normal She is full code And cardiac diet for now Attestations Medical Necessity Statement*: Continue medical management Diagnoses Unstable angina pectoris I20.0 Aortic heart valve narrowing with insufficiency I35.2 Dyslipidemia E78.5 CAD (coronary artery disease) I25.10
--- NOTE | 2023-02-08 11:09 | USCV_ITS ---
Pam Ordonez Age: 67 Gender: F : 1955 Exam Date: 02/08/2023 14:18 Ordering Phys: Bhanu Cordova MD Technologist: Brian Reese Exam Location: [facility] [place] Indication: stemi BP: 168 / 90 HR: 65 Rhythm: Sinus Technical Quality: Adequate MEASUREMENTS (Male / Female) Normal Values 2D ECHO LVOT Diameter 2.0 cm LV Ejection Fraction MOD 2C 48.1 % LV Ejection Fraction 2C AL 49.2 % LA Diameter 2.9 cm LA Width 3.3 cm LA Height 4.0 cm RA Width 2.9 cm RA Height 3.9 cm Aorta at Sinotubular Diameter 2.1 cm IVC Diameter 1.8 cm M-MODE Aortic Annulus Diameter 2.2 cm LA Ao Ratio MM 1.2 MV E Point Septal Separation 2.1 cm DOPPLER AV Peak Velocity 172.3 cm/s LVOT Peak Velocity 143.0 cm/s AV Area Cont Eq vti 2.6 cm squared AV Area Cont Eq pk 2.6 cm squared MV Peak Velocity 141.0 cm/s MV Area PHT 3.4 cm squared Mitral E to A Ratio 0.5 MV E' Velocity 31.0 cm/s Mitral E to MV E' Ratio 12.1 Mitral E to LV E' Lateral Ratio 14.2 Mitral E to LV E' Septal Ratio 10.6 TR Peak Velocity 374.2 cm/s TR Peak Gradient 56.0 mmHg TR Mean Velocity 305.3 cm/s TR Mean Gradient 39.5 mmHg TR Velocity Time Integral 120.7 cm Right Atrial Pressure 3.0 mmHg Pulmonary Artery Systolic Pressu 59.0 mmHg PV Peak Velocity 110.0 cm/s RV Acceleration Time 0.1 s RV Ejection Time 0.3 s RV AcT/ET 0.4 FINDINGS Left Ventricle Left ventricle is normal in size. LV systolic function is mildly reduced with EF of 45 to 50%. Mild to moderate hypokinesis of inferiolateral wall seen. Right Ventricle Normal in size and function Right Atrium Normal in size Left Atrium Normal in size Mitral Valve Moderate mitral annular calcification. Mild mitral regurgitation. Aortic Valve Grossly normal. Mild aortic regurgitation. Tricuspid Valve Mild tricuspid regurgitation. Insufficient TR jet to calculate RVSP Pulmonic Valve Not well-visualized Pericardium Normal Aorta Normal in size IVC Appears to be normal CONCLUSIONS LV systolic function is mildly reduced with EF of 45 to 50%. Mild to moderate hypokinesis of inferolateral wall. Mild mitral regurgitation. Mild aortic regurgitation Mild tricuspid regurgitation Compared to prior echocardiogram from 2016, LV systolic function has decreased now. Grover Harley MD (Electronically Signed) Final Date: 09 Feb 2023 07:16 S
[2023-02-08 11:42] LABS: D Dimer 1.53 ug/mIFEU (0-0.59)
[2023-02-08 11:45] LABS: Estmated Average Glucose 114; Hemoglobin A1C 5.6 % (4.0-6.0)
--- NOTE | 2023-02-08 12:00 | CT_ITS ---
WS: [id number] CTA OF THE CHEST WITH PULMONARY EMBOLISM PROTOCOL TECHNIQUE: High-resolution contrast enhanced CTA of the chest with coronal and sagittal reformatted i mages with pulmonary embolism protocol. MIP images are also reviewed. CLINICAL INFORMATION: cp COMPARISON: CT lung October 01, 2022 DLP: 217.[address] scans at [facility] use at least one of these dose optimization techniques: automated e xposure control; mA and/or kV adjustment per patient size (includes targeted exams where dose is matc hed to clinical indication); or iterative reconstruction. FINDINGS:Proximal main pulmonary arteries are normal. No evidence of pulmonary embolus. Normal segmen bill and subsegmental pulmonary arteries. No filling defects. No acute pulmonary infiltrates. Moderate chronic emphysematous changes. A few tiny subcentimeter pulm onary nodules unchanged since the prior CT. Pleural nodularity LEFT lower lobe measuring 6 mm is unch anged. Hyperinflation with chronic emphysematous changes. Aortic calcification. Coronary calcification. Calc ified hilar and subcarinal lymph nodes. Cholecystectomy. Hypertrophic changes thoracic spine. Small R IGHT adrenal adenoma. LEFT adrenal gland is normal. Reflux into the hepatic veins can be seen with RI GHT heart dysfunction. Small esophageal hiatal hernia. CT/CT angio chest PE protcl [id number] IMPRESSION: 1. No evidence of pulmonary embolus. 2. Moderate chronic emphysematous changes. No acute pulmonary infiltrates. Hyp erinflation. 3. Contrast reflux into the hepatic veins can be seen with RIGHT heart dysfunc tion. 4. No acute findings.
--- NOTE | 2023-02-08 12:22 | PC.NURSE ---
to ct scan
[2023-02-08] MEDS: iohexol 350 mg/mL 500 mL Btl (per mL) IV (12:24)
[2023-02-08] MEDS: sodium chloride 0.9% 1,000 ML 100 ML IV ×2 (12:30→23:03)
[2023-02-08 12:59] LABS: Troponin 5 2HR 8.39 ng/L (0-10)
--- NOTE | 2023-02-08 13:01 | ECG_ITS ---
[facility] Test Date: 2023-02-08 Pat Name: Pam Ordonez Department: Room: 107 Gender: Female Dispatcher Service: : 1955 Requested By: Nacho Chan Order Number: [id number] Tena MD: Devan Walker M.D. Measurements Intervals [place] Rate: 63 P: 54 VT: 156 QRS: 51 QRSD: 81 T: 215 QT: 464 QTc: 478 Interpretive Statements SINUS RHYTHM ST DEVIATION AND MODERATE T-WAVE ABNORMALITY, CONSIDER LATERAL ISCHEMIA [-0.1+ mV T-WAVE IN I/aVL/V5/V6] ST DEVIATION AND MODERATE T-WAVE ABNORMALITY, CONSIDER INFERIOR ISCHEMIA [-0.1+ mV T-WAVE IN II/aVF] Compared to ECG 02/08/2023 09:38:17 No significant changes Electronically Signed On 02-09-2023 22:32:47 CDT by Devan Walker M.D. [id number]
[2023-02-08 13:27] LABS: Troponin 5 2HR Delta -0.61 ABS# (0-10)
[2023-02-08] MEDS: enoxaparin 60 mg/0.6 mL Syringe 55 MG SUBCUT (14:59)
[2023-02-08 16:36] LABS: Troponin 5 6HR 8.04 ng/L (0-10)
--- NOTE | 2023-02-08 16:59 | PM.CONSULT ---
Providers/Reason For Consult Consulting Physician/Specialty*: Grover Harley MD/ Cardiology Reason for Consult*: Unstable angina Requesting Physician: Dr Maldonado Attending Physician: Bhanu Cordova MD Primary Care Provider: Alejandro Child MD History of Present Illness History of Present Illness Pam Ordonez is a 67 year old female with past medical history of CAD with prior stents, hypertension, hyperlipidemia who presented to the hospital with several days of worsening exertional chest pain. Now she cannot walk any significant distance without having to stop. Also has dyspnea on exertion. EKG shows T wave inversions in inferior and lateral leads. This is not changed from before. Troponins have been negative so far. Review of Systems Const: Denies: fever(s) Eyes: Denies: change in vision ENMT: Denies: throat pain Card: Reports: chest pain Resp: Reports: dyspnea GI: Denies: abdominal pain : Denies: flank pain Musc: Denies: neck pain Skin/Breast: Denies: rash Neuro: Denies: headache(s) Medications/Allergies Home Medications Medication Instructions Recorded Confirmed Last Taken Type Bone Growth Stimulator E0748 #1 ea 03/29/22 02/08/23 Unknown Rx acetaminophen 325 mg tablet 650 mg PO Q4H PRN pain #60 tabs 04/01/22 02/08/23 Unknown Rx cyclobenzaprine 10 mg tablet 10 mg PO TID PRN muscle spasm #30 12/08/22 02/08/23 02/08/23 Rx tabs gabapentin 300 mg capsule See Rx Instructions .Route 12/08/22 02/08/23 02/08/23 Rx .COMPLEX #360 caps alendronate 35 mg tablet 35 mg PO Q7D 01/11/23 02/08/23 Unknown History atorvastatin 80 mg tablet 80 mg PO BEDTIME 01/11/23 02/08/23 02/07/23 History biotin 2,500 mcg capsule 2,500 mcg PO QAM 01/11/23 02/08/23 02/08/23 History calcium carbonate 600 mg-vitamin 1 tab PO QAM 01/11/23 02/08/23 02/08/23 History D3 5 mcg (200 unit) tablet cetirizine 10 mg tablet (Zyrtec) 10 mg PO DAILY PRN Allergy Symptoms 01/11/23 02/08/23 Unknown History fluticasone propionate 50 2 spray intranasal DAILY PRN 01/11/23 02/08/23 Unknown History mcg/actuation nasal Allergy Symptoms spray,suspension (Flonase Allergy Relief) metoprolol succinate 25 mg 12.5 mg PO QAM 01/11/23 02/08/23 02/08/23 History tablet,extended release 24 hr nitroglycerin 0.4 mg sublingual 0.4 mg sublingual Q5M PRN Chest 01/11/23 02/08/23 Unknown History tablet (Nitrostat) Pain diclofenac sodium 75 mg 75 mg PO Q12H PRN pain #20 tabs 01/17/23 02/08/23 Unknown Rx tablet,delayed release duloxetine 20 mg capsule,delayed 20 mg PO BID #60 caps 02/01/23 02/08/23 02/08/23 Rx release (Cymbalta) fluoxetine 20 mg capsule 60 mg PO QAM #90 caps 02/01/23 02/08/23 02/08/23 Rx amlodipine 5 mg tablet 5 mg PO DAILY #30 tabs 02/08/23 02/08/23 Unknown Rx prednisolone acetate 1 % eye See Rx Instructions .Route .COMPLEX 02/08/23 02/08/23 Unknown History drops,suspension vitamin E 670 mg (1,000 unit) 670 mg PO DAILY 02/08/23 02/08/23 Unknown History capsule Allergies Allergy/AdvReac Type Severity Reaction Status Date / Time hydrocodone Allergy Intermediate Altered Verified 02/08/23 09:52 mental status codeine Allergy Unknown Verified 02/08/23 09:52 Sulfa (Sulfonamide Allergy ADR-Nausea Verified 02/08/23 09:52 Antibiotics) tramadol [From Ultram] Allergy ADR-Vomitin Verified 02/08/23 09:52 g Current Medications Generic Name Dose Route Start Last Admin Trade Name Freq PRN Reason Stop Dose Admin Enoxaparin Sodium 55 mg 02/08/23 14:00 02/08/23 14:59 Enoxaparin 60 Mg/0.6 Ml Syringe SUBCUT 55 mg Q12H NEVAEH Administration Sodium Chloride 1,000 mls @ 100 mls/hr 02/08/23 11:02 02/08/23 12:30 Sodium Chloride 0.9% IV 100 mls/hr .Q10H NEVAEH Administration PFSH Acute PFSH: Medical History Aortic heart valve narrowing with insufficiency ASHD (arteriosclerotic heart disease) Carotid stenosis, non-symptomatic COPD (chronic obstructive pulmonary disease) Dyslipidemia History of tumor HTN (hypertension) Hx of chest pain Postoperative anemia due to acute blood loss Subclavian artery stenosis Surgical History History of History of cholecystectomy Status post laminectomy Family History Mother CAD (coronary artery disease) Sister Chronic kidney disease (CKD) Brother Chronic kidney disease (CKD) Other Hypertension Lung disease Denies family history of Diabetes Clotting disorder Dementia Hyperlipidemia Psychiatric illness Anesthesia complication Bleeding disorder Cancer Stroke Social History Smoking and tobacco status: current every day smoker cigarettes [ Other cigarette details: current 1/2 PPD, previously 2PPD x 50yrs, 100 PY] Quit status (tobacco): considering quitting Second hand smoke exposure: No Alcohol intake: never Desire information about alcohol rehabilitation?: No Substance/Drug Use: never Desire information about substance/drug rehabilitation?: No Lives independently: Yes Marital status: Number of children: 4 Current occupational status: disabled Current gender identity: Female Vitals/I&O/Wt Last Vital Signs Temp 97.6 F 02/08/23 09:36 Pulse 65 02/08/23 13:04 Resp 18 02/08/23 13:04 BP 122/50 02/08/23 10:30 Pulse Ox 98 02/08/23 13:04 O2 Del Method Room Air 02/08/23 13:04 02/08/23 02/08/23 02/08/23 06:59 14:59 22:59 Intake Total 480 / 480 Balance 480 / 480 Weight last 48 hrs Weight 124 lb Physical Exam Narrative: GENERAL: Patient is alert, awake and oriented x3. [] NECK: No jugular vein distension. [] HEENT: No cyanosis. No icterus. No pallor. [] HEART: Regular S1 and S2. No murmur, rub or gallop. [] LUNGS: Clear to auscultate bilaterally. [] CENTRAL NERVOUS SYSTEM: Grossly nonfocal. [] EXTREMITIES: Lower extremities with no edema Data 02/09/23 03:44 02/09/23 03:44 A&P Assessment and plan (1) Unstable angina pectoris: (2) CAD (coronary artery disease): (3) HTN (hypertension): (4) ASHD (arteriosclerotic heart disease): (5) Dyslipidemia: Plan Patient has worsening chest pain symptoms for the last several days. Symptoms are typical. Presentation consistent with unstable angina. Plan for coronary angiogram with possible percutaneous coronary intervention. N.p.o. past midnight. Risk and benefits of the procedure have been discussed with the patient. She understands the risks and wants to proceed. Continue aspirin and Plavix Continue anticoagulation. Order echocardiogram. Thank you for involving us with care of this patient. We will continue to follow. Please call with question Consult Attestations Medical Necessity Statement: Care expected to cross 2 midnights. Coding Level of Care Code Acute Code for [facility] Diagnoses Unstable angina pectoris I20.0 CAD (coronary artery disease) I25.10 HTN (hypertension) I10 ASHD (arteriosclerotic heart disease) I25.10 Dyslipidemia E78.5
--- NOTE | 2023-02-08 17:00 | PC.NURSE ---
Dr Walker in room and discuss to pt a chemical stress test tomorrow to rule out heart blockages due to his chest pains. Verified to pt that he can't have any caffeine for that. When the doctor left, Pt started to get upset and stated that he will not do the test and stated, I will leave. I have someone told me i can have a cup of coffee, now i can't. I reeducated the pt that i told him to hold any caffeine today at lunch time in case they are going to have a test that restrict to have any caffeine. Pt then stated, he did not understand what the bookbinder apprentice was talking and i clearly explained to pt and his dgtr at bedside about this test procedure. Notified hospitalist of his threat to leave, does not want to do the stress test, and want to speak to dr duran if he can have prescriptions, hospitalist stated he can sign AMA w/ no Rx. When in room and told the pt he can leave AMA and sign the papers, can't have requested Rx due to this, he said, I am not signing the paper. Can Dr Duran talk to me or i will harry him if he is not giving me prescriptions. Notified Dr Duran.
[2023-02-08 17:05] LABS: Troponin 5 6HR Delta -0.96 ng/L (0-12)
[2023-02-08] MEDS: acetaminophen 500 mg Tablet PO (20:54)
[2023-02-08] MEDS: metoprolol tartrate 25 mg Tablet PO (20:54)
[2023-02-08] MEDS: pneumococcal (23 valent) SDV 0.5 mL IM (21:05)
[2023-02-09] VITALS (68 sets, daily range): BP systolic 106–165; BP diastolic 53–88; PULSE 57–77; RESP 15–34; O2SAT 90–97
[2023-02-09] MEDS: diphenhydrAMINE 50 mg Capsule PO (04:05)
[2023-02-09] MEDS: aspirin 325 mg Tablet PO (04:05)
[2023-02-09] MEDS: sodium chloride 0.9% 1,000 ML 50 ML IV (04:06)
[2023-02-09 04:09] LABS: Basophils # 0.1 10^3/uL (0.0-0.1); Basophils % 0.6 %; Eosinophils # 0.2 10^3/uL (0.0-0.8); Eosinophils % 2.8 %; Hematocrit 41.2 % (37.0-47.0); Hemoglobin 12.8 g/dL (11.5-15.3); Lymphocytes # 2.2 10^3/uL (0.8-4.8); Lymphocytes % 27.3 %; Mean Corpuscular HGB Conc 31.1 g/dL (30.0-36.0); Mean Corpuscular Volume 93.4 fl (81-99); Mean Platelet Volume 11.2 fL (7.4-10.4); Monocytes # 0.6 10^3/uL (0.2-0.9); Neutrophils # 4.96 10^3/uL (1.8-7.7); Nucleated Red Blood Cells % 0 %; Platelet Count 245 10^3/cmm (130-400); Red Blood Count 4.41 10^6/uL (4.1-5.3); Red Cell Distribution Width 14.7 % (12.1-15.1)
[2023-02-09 04:31] LABS: Blood Urea Nitrogen 10 mg/dL (8-23); Calcium 8.4 mg/dL (8.5-10.5); Carbon Dioxide 19 mmol/L (22-29); Chloride 108 mmol/L (98-107); Glomerular Filtration Rate 123.8 mL/min (90-130); Glucose 87 mg/dL (65-115); Osmolality Calculated 282 mOsm/kg (285-295); Sodium 137 mmol/L (136-145)
--- NOTE | 2023-02-09 05:00 | XACV_ITS ---
Exam Room: [facility] Ht: 155 cm Wt: 56 kg BSA: 1.56 m2 Gender: Female : 1955 Any Known Allergies: Other Exam Priority: Routine Procedure(s): Procedure Description: Diagnostic procedure Procedure Description: PCI procedure Procedure Description: Left Heart Catheterization Procedure Description: Left ventriculography Procedure Description: PTCA Procedure Description: Coronary Angiography Diagnostic Cath Status: Urgent Diagnostic Findings * Left Main has no significant disease. * Left Anterior Descending has mild luminal irregularities. * Right Coronary Artery is a small sized vessel. * Left circumflex artery is a large sized vessel. Distal Circumflex/left PDA: significant 80% instent re-stenosis, RAMIRO: 3 flow. PCI Status: Urgent PCI Indication: Other Interventional Findings * PROCEDURE DETAIL: We engaged left main artery with XB 3.5 guide catheter. IV heparin was administered to maintain ACT above 250 S. 0.014 run-through guidewire was used to cross the left PDA/distal LCx in stent restenosis and was put on the distal vessel. We dilated the stenosis with 2.5 x 12 mm NC balloon. At this time final angiogram was performed that showed excellent stent expansion, RAMIRO-3 flow and no residual stenosis. Guidewire and guide catheter were removed. Patient left the Production Consultant in a stable condition. Conclusions 1. Severe in-stent restenosis of distal left circumflex artery/left PDA s/p revascularization with balloon angioplasty. 2. Moderate left ventricular systolic dysfunction. Ejection fraction of 35%. Recommendations * Dual antiplatelet therapy with aspirin and plavix. * High intensity statin therapy. * Outpatient cardiology follow up in 4 weeks. Interventional RX Recommendation: PCI w/o planned CABG Diagnostic RX Recommendation: PCI w/o planned CABG Anticoagulation: Heparin Ventriculography Ejection Fraction: 35.0 % Pressures Phase:Rest AO : 172 / 64 ( 103 ) @ 7:32:00 AM 145 / 86 ( 112 ) @ 7:37:00 AM 197 / 80 ( 123 ) @ 7:42:00 AM 191 / 69 ( 120 ) @ 7:42:00 AM 131 / 76 ( 88 ) @ 7:49:00 AM 137 / 82 ( 107 ) @ 7:52:00 AM LV : 163 / -1 / 7 @ 7:41:00 AM 186 / 9 / 29 @ 7:41:00 AM 181 / 8 / 27 @ 7:42:00 AM Valves Phase:DefaultPhase AV : 0.0 @ 7:06:07 AM 0.0 @ 7:06:07 AM AV Mean Gradient: 0.0 @ 7:06:07 AM 0.0 @ 7:06:07 AM Clinical Evaluation EBL: 5mL-10mL Procedural Details Procedure Consent Obtained. Admit Source: In Patient. Pre-Procedure Time Out. Identified patient by full name and date of as verbalized by the patient/guarantor. Identified patient by full name and date of as verbalized by the patient/guarantor. Does the consent match the physician's order: Yes. Accurate & Complete Informed Consent: Yes. Inpatient/Outpatient History & Physical on Chart: Yes. If H&P is completed, is and addenduem needed: No; If yes, is the addendum complete: N/A. Visualize and Verify Site with Patient/Guarantor: N/A. Relevant Radiology Images available: N/A. The risks, benefits, and alternatives of sedation and/or procedure were discussed by physician. The patient agrees to continue. Kim Poncen was relieved by Prema Lynn RN, CAMPUS EXECUTIVE DIRECTOR as monitoring person. Procedure started. [facility] Clinical Fraility Score: 3: Managing Well. Production Consultant Indications: New Onset Angina/Unstable angina. Chest Pain Symptom Assessment: Typical Angina Symptoms. Cardiovascular Instability: No. Correct patient, site and procedure confirmed by cath team. PERRLA. Strong, equal hand clock assembler bilaterally. Lungs clear x 5 lobes. IV Site on Arrival: 20 gauge in the left anticubital. IV Fluids: 0.9% NaCl at KVO. 500 mL infused prior to pathology laboratory aides teacher. Pre Procedural Pulses: bilateral dorsalis pedis was 3+. Pre Procedural Pulses: bilateral posterior tibial was 3+. Pre Procedural Pulses: right radial was 1+. Pre Procedural Pulses: left radial was 2+. Oxygen started at 2liters/min via nasal canula. right groin was prepped with chloroprep then draped in the usual sterile fashion. right radial was prepped with chloroprep then draped in the usual sterile fashion. Physician notified. Baseline sample Acquired. HR: 61 BPM. Patient's family in the pathology laboratory aides teacher waiting room. Dr. Harley will update at the completion of the procedure. Equipment: 6F - Radial. Cardiac Cath Pack. ACIST Manifold Kit Model BT 2000. Heparinized Saline (2 units/mL), 1000 mL bag. Baseline sample Acquired. HR: 59 BPM. Physician arrived. Physician scrubbed in. Immediate Pre-Procedure Time Out. Correct Patient: Yes; Correct Procedure: Yes; Correct Site: Yes; Correct Patient Position: Yes; Correct Supplies: Yes; Dried Flammable Prep: Yes; Blood Products Available: N/A. Lidocaine 1% infiltrated to the right radial. Unable to obtain radial access. attempting to gain access in the Femoral artery. Arterial access obtained with micropuncture set. An attempt to gain access to the right femoral artery was unsuccessful. Manual pressure was held as needed to stop the bleeding. Arterial access obtained with micropuncture set. A 5 cuban JL4 catheter in over the exchange J wire. Multiple views taken of left coronary artery. Catheter removed over the exchange J wire. A 5 cuban JR4 catheter in over the exchange J wire. Multiple views taken of right coronary artery. Catheter removed over the exchange J wire. A 5 cuban Angled Pig catheter in over the exchange J wire. EDP Sample taken: LV 163/-2,7; HR: 79 BPM; SpO2: Off%. LV gram performed in NOWAK @ 10 mL/second for a total of 30 mL. EDP Sample taken: LV 186/9,29; HR: 68 BPM; SpO2: 95%. Pullback taken: LV 181/8,27; AO 197/80(123); Mean: 0mmHg, Peak to Peak: 0mmHg, SEP: 6sec/min; HR: 65 BPM; SpO2: 97%. Catheter removed over the exchange J wire. Dr. Harley reviewing cineography. 6 cuban XB 3.5 guide catheter was inserted over the exchange J wire. Runthrough guidewire was advanced through the guide catheter to lesion in the distal Circ. Inflation number : 1 A MDT NC EUPHORA RX [id number] BALLOON was prepped and advanced across the Dist CX , then inflated to 18 NAVJOT for 0:30 seconds. Inflation number: 2 The MDT NC EUPHORA RX [id number] BALLOON was reinflated across the Dist CX, to 12 NAVJOT for 0:16 seconds. Inflation number: 3 The MDT NC EUPHORA RX 2.79P15IS BALLOON was reinflated across the Dist CX, to 12 NAVJOT for 0:17 seconds. Balloon out. Results checked. Wire out. Guide catheter out over the exchange J wire. A Right femoral angiogram was performed to determine safe placement of closure device. ACT drawn. Results 352 seconds. Therapeutic limits - pre-heparin administration 90-150 seconds and monitoring heparin during a vascular procedure >[address] Harley scrubbed out. A Suture was successful obtaining hemostatsis at the Right Femoral artery insertion site. Sheath(s) sutured into position with 2-0 silk and sterile 4x4's and Op-site applied over the site. No oozing or signs and symptoms of hematoma noted. Arterial sheath flushed and connected to tranducer and pressure bag with heparinized saline. Post Procedure: Pulses reassessed and unchanged. PERRLA. Strong, equal hand clock assembler bilaterally. No VTE prophylaxis required. Post-op diagnosis: Severe in-stent re-stenosis of the Distal left CX artery s/p POBA. Medication's Wasted: Lidocaine 1% = 1 mL. Medication's Wasted: Heparin = 3000 units. Medication's Wasted: Other = Versed 1 mg. Medication's Wasted: Other = Fentanyl 75 mcg. Total IV fluids: 67 mL. Complications: none. Estimated blood loss: 5mL-10mL. Responsiveness - Normal response to verbal stimuli; alert and oriented, PERRLA. Airway - Unaffected, no intervention required; spontaneous ventilation. Circulation: W/N/L, pulses unchanged. Nausea/Vomiting: No. Procedure completed. Patient transferred by bed to 1st floor. Vital chart was stopped. Access Site Site: Right Femoral artery Sheath Size: 6 Fr Hemostasis Method: Suture Hemostasis Success: Successful Procedure Medications Start: 6:19 AM Stop: 6:19 AM Medication: Versed Amount: 1 mg Route: I.V. Start: 6:19 AM Stop: 6:19 AM Medication: Fentanyl Amount: 50 mcg Route: I.V. Start: 6:22 AM Stop: 6:22 AM Medication: Versed Amount: 1 mg Route: I.V. Start: 6:31 AM Stop: 6:31 AM Medication: Fentanyl Amount: 50 mcg Route: I.V. Start: 6:48 AM Stop: 6:48 AM Medication: Heparin Amount: 5000 units Route: I.V. Start: 6:51 AM Stop: 6:51 AM Medication: Versed Amount: 1 mg Route: I.V. Start: 6:51 AM Stop: 6:51 AM Medication: Fentanyl Amount: 25 mcg Route: I.V. I, the attending physician, have reviewed and verified all procedure medications. Yes, all medications given per verbal order History/Risk Factors Hypertension: Yes Dyslipidemia: Yes Peripheral Arterial Disease (PAD): No Myocardial Infarction (NM): No Obesity: No Tobacco Use: Current/Recent(w/in 1 year) Prior Interventions PCI: Yes CABG: No Valve Surgery: No Date of PCI: 02/16/2015 Report Signatures Finalized by Grover Harley MD on 02/19/2023 01:31 PM
--- NOTE | 2023-02-09 06:17 | W.PM.OPSUD ---
Surgery/Procedure H&P Update DATE OF PROCEDURE: February 09, 2023 DATE H&P PERFORMED: 02/08/23 H&P UPDATE INFORMATION: I have reviewed H&P completed within last 30 days, I have examined patient prior to procedure and No changes to prior documentation PRIMARY INDICATION FOR PROCEDURE: Unstable angina PLANNED PROCEDURE: Unstable angina PATIENT REASSESSED PRIOR TO SEDATION, WITH NO CHANGE NOTED: Yes PHYSICAL EXAM: alert, oriented x 3, clear to auscultation bilaterally and regular rate & rhythm AIRWAY EVAL/ANESTHESIA PLAN: normal airway, ASA III, Local Anesthesia, Risks, benefits & alternatives of sedation and/or procedure discussed and Patient agrees to continue as planned ADDITIONAL INFORMATION: Moderate sedation
--- NOTE | 2023-02-09 07:08 | PM.PN ---
Subjective Subjective: Patient underwent coronary angiogram today that showed severe in-stent restenosis of distal left circumflex artery prior stent. She underwent successful revascularization with balloon angioplasty. Denies chest pain. Vitals/I&O/Wt Last Vital Signs Temp 97.6 F 02/08/23 09:36 Pulse 63 02/09/23 05:25 Resp 16 02/08/23 20:45 BP 122/50 02/08/23 10:30 Pulse Ox 96 02/08/23 20:45 O2 Del Method Room Air 02/08/23 20:45 02/08/23 02/09/23 02/09/23 22:59 06:59 14:59 Intake Total 1600 / 2080 713.95 / 2793.95 Balance 1600 / 0 713.95 / 2793.95 Weight last 48 hrs Weight 124 lb Physical Exam Narrative: GENERAL: Patient is alert, awake and oriented x3. [] NECK: No jugular vein distension. [] HEENT: No cyanosis. No icterus. No pallor. [] HEART: Regular S1 and S2. No murmur, rub or gallop. [] LUNGS: Clear to auscultate bilaterally. [] CENTRAL NERVOUS SYSTEM: Grossly nonfocal. [] EXTREMITIES: Lower extremities with no edema Data 02/09/23 03:44 02/09/23 03:44 A&P Assessment and plan (1) Unstable angina pectoris: (2) CAD (coronary artery disease): (3) HTN (hypertension): (4) ASHD (arteriosclerotic heart disease): (5) Dyslipidemia: Plan Patient underwent successful revascularization of distal left circumflex artery severe in-stent restenosis with balloon angioplasty. Continue aspirin and Plavix. Echocardiogram pending. Thank you for involving us with care of this patient. Patient will be ready for discharge tomorrow. Please call with question Attestations Medical Necessity Statement*: Care expected to cross 2 midnights. Coding Level of Care Code Acute Code for [facility]g Fwd Diagnoses Unstable angina pectoris I20.0 CAD (coronary artery disease) I25.10 HTN (hypertension) I10 ASHD (arteriosclerotic heart disease) I25.10 Dyslipidemia E78.5
--- NOTE | 2023-02-09 07:38 | PC.NURSE ---
patient arrived back on unit 0711
[2023-02-09] MEDS: sodium chloride 0.9% 1,000 ML 100 ML IV ×2 (07:50→11:07)
[2023-02-09] MEDS: lisinopril 5 mg Tablet PO (08:19)
[2023-02-09] MEDS: aspirin 81 mg EC Tablet PO (08:19)
[2023-02-09] MEDS: atorvastatin 40 mg Tablet 80 MG PO (08:20)
[2023-02-09] MEDS: clopidogrel 75 mg Tablet PO (08:20)
[2023-02-09] MEDS: metoprolol tartrate 25 mg Tablet PO ×2 (08:21→21:12)
--- NOTE | 2023-02-09 10:07 | PM.PN ---
Subjective Subjective: Patient underwent coronary angiogram today that showed severe in-stent restenosis of distal left circumflex artery prior stent.? She underwent successful revascularization with balloon angioplasty Patient hemodynamically stable No active chest pain at the bedside Vitals/I&O/Wt Last Vital Signs Temp 97.6 F 02/08/23 09:36 Pulse 60 02/09/23 09:45 Resp 17 02/09/23 09:45 BP 138/53 02/09/23 09:45 Pulse Ox 96 02/09/23 09:45 O2 Del Method Room Air 02/09/23 08:00 02/08/23 02/09/23 02/09/23 22:59 06:59 14:59 Intake Total 1599 / 0 713.95 / 2793.95 185 / 185 Balance 1599 / 0 713.95 / 2793.95 185 / 185 Weight last 48 hrs Weight 56.245 kg Physical Exam Narrative: Hemodynamically stable Euvolemic GCS 15 S1, S2 Abdomen soft Currently on room air Blood pressure stable No active chest pain at the bedside Data 02/09/23 03:44 02/09/23 03:44 A&P Assessment and plan (1) Unstable angina pectoris: (2) COPD (chronic obstructive pulmonary disease): (3) DDD (degenerative disc disease), lumbosacral: (4) CAD (coronary artery disease): Plan Status post balloon angioplasty of left circumflex No active chest pain Monitor for next 24 hours We will take appreciate after 6 hours of bedrest Currently patient is able to have cardiac diet Full code Hypertension: Blood pressure is on 120 systolic pLan to discharge her tomorrow morning No active nicotine craving, Attestations Medical Necessity Statement*: Discharge tomorrow Diagnoses Unstable angina pectoris I20.0 COPD (chronic obstructive pulmonary disease) J44.9 DDD (degenerative disc disease), lumbosacral M51.37 CAD (coronary artery disease) I25.10
--- NOTE | 2023-02-09 10:32 | PC.CHAP ---
Pastoral Care Encounter/Spiritual Assessment Type of Contact [] Declined crushed stone grader visit [] Patient/Family/Request visit [] Outpatient visit [] Follow-up visit [] Physician referral x [] Code/Alert [] Routine visit [] Staff referral [] Actively dying [] Patient sleeping [] Family support [] [] Out of room [] Palliative care [] x] Receiving care in room [] Pre-surgical visit [] Trauma [] Long length of stay [] ICU visit [] Other: Relational/Emotional Strength [] Patient feels connected with others/family/visitors/staff [] Distress [] Loneliness/isolation [] Abandonment Spirituality of Patient [] Person of Tena [] Attends Islam of their Tena [] Believes in Prayer [] Reads Bible or Zoroastrianism materials [] There are Spiritual issues to be addressed Civil Engineering Project Designer Interventions [] Prayer [] Active listening [] Non-anxious presence [] Spiritual/emotional support [] Crisis/trauma care [] Spiritual counseling [] Bereavement support [] Provided bereavement packet [] Provided Bible/devotional materials [] Provided toy/stuffed animal, coloring book to patient or family member [] Provided Communion [] Anointing/[place] [] Salvation [] Completed spiritual assessment [] Other: Impact on Illness or Injury [] Angry [] Fearful [] Anxious [] Often cries [] Exhaustion [] Unable to work [] Unable to attend restorationist [] Unable to walk/stand [] Unable to read [] Unable to drive [] Unable to eat/drink [] Unable to sleep [] Unable to be with family [] Patient intubated [] Other: Summary Time spent with patient
[2023-02-09 12:02] LABS: Partial Thromboplastin Time 36.1 SECONDS (23.9-36.7)
--- NOTE | 2023-02-09 13:29 | PC.NURSE ---
Patient and educated about process of removing Arterial sheath. Patient and verbalized understanding. BP set to take Q2min, suture removed. sheath pulled at 1257. pressure held for 20 minutes. Bandage and 2x2 gauze applied over arterial site. hematoma was able to be expressed. pea site hematoma left.
[2023-02-09] MEDS: morphine IR 15 mg Tablet PO (18:05)
[2023-02-09] MEDS: ondansetron 2 mg/ML SDV 2 mL 4 MG IVP (19:53)
[2023-02-10 04:06] VITALS: BP 120/67; PULSE 67; RESP 18
[2023-02-10 06:16] VITALS: PULSE 71
--- NOTE | 2023-02-10 07:33 | P.PN_ITS ---
Subjective Subjective: Patient is doing well. Denies chest pain Vitals/I&O/Wt Last Vital Signs Temp 97.6 F 02/08/23 09:36 Pulse 71 02/10/23 06:16 Resp 18 02/10/23 04:06 BP 120/67 02/10/23 04:06 Pulse Ox 90 02/09/23 23:26 O2 Del Method Room Air 02/09/23 20:00 02/09/23 02/10/23 02/10/23 22:59 06:59 14:59 Intake Total 1480 / 2473.333 Balance 1480 / 2473.333 Weight last 48 hrs Weight 124 lb Physical Exam Narrative: GENERAL: Patient is alert, awake and oriented x3. [] NECK: No jugular vein distension. [] HEENT: No cyanosis. No icterus. No pallor. [] HEART: Regular S1 and S2. No murmur, rub or gallop. [] LUNGS: Clear to auscultate bilaterally. [] CENTRAL NERVOUS SYSTEM: Grossly nonfocal. [] EXTREMITIES: Lower extremities with no edema Data 02/09/23 03:44 02/09/23 03:44 A&P Assessment and plan (1) Unstable angina pectoris: (2) CAD (coronary artery disease): (3) HTN (hypertension): (4) ASHD (arteriosclerotic heart disease): (5) Dyslipidemia: Plan Patient is overall doing well. Continue current medications including aspirin and Plavix. Patient is stable to be discharged from cardiology standpoint. Thank you for involving us with care of this patient. Please call with question Attestations Medical Necessity Statement*: Care expected to cross 2 midnights. Coding Level of Care Code Acute Code for [facility] Fwd Diagnoses Unstable angina pectoris I20.0 CAD (coronary artery disease) I25.10 HTN (hypertension) I10 ASHD (arteriosclerotic heart disease) I25.10 Dyslipidemia E78.5
[2023-02-10 08:00] VITALS: BP 114/57; PULSE 66; PULSE 69; RESP 16; RESP 17; TEMP 36.6; O2SAT 93
[2023-02-10] MEDS: lisinopril 5 mg Tablet PO (08:30)
[2023-02-10] MEDS: atorvastatin 40 mg Tablet 80 MG PO (08:30)
[2023-02-10] MEDS: clopidogrel 75 mg Tablet PO (08:30)
[2023-02-10] MEDS: aspirin 81 mg EC Tablet PO (08:31)
[2023-02-10] MEDS: metoprolol tartrate 25 mg Tablet PO (08:31)
--- NOTE | 2023-02-10 08:59 | PM.DCS ---
Discharge Providers Date of Admission: 02/08/23 11:02 Date of Discharge: February 10, 2023 Attending Provider at Admission: Bhanu Cordova MD Attending Provider at Discharge: Bhanu Cordova MD Primary Care Provider: Alejandro Child MD Diagnoses at Discharge Discharge Diagnosis (1) Unstable angina pectoris: Status: Acute (2) COPD (chronic obstructive pulmonary disease): Status: Acute (3) DDD (degenerative disc disease), lumbosacral: Status: Acute (4) CAD (coronary artery disease): Status: Acute Reason for Visit Reason for Visit: abnormal EKG Chest Pain Hospital Course Hospital Course 67-year female who presented to hospital with chief complaint of unstable angina, for her persistent chest pain she was put on nitro paste which seemed to relieve her chest pain, cardiology was consulted, status post angiogram 02/09, coronary angiogram showed severe in-stent restenosis of distal left circumflex artery prior stent.? She underwent successful revascularization with balloon angioplasty. Patient will be discharged home on dual antiplatelet therapy, atorvastatin, lisinopril, I have discontinued her metoprolol because of her bradycardia, also holding her amlodipine systolic blood pressure has been ranging between 114-100 30s millimeters mercury. Patient remained chest pain after his own angioplasty. Patient has been counseled to quit smoking, she is motivated however not ready to quit at this point Physical Exam Narrative: Awake and alert S1, S2 Hemodynamically stable Heart rate 66 Abdomen soft Euvolemic No active chest pain GCS 15 Discharge Data Studies Completed and Pending Completed Studies During Hospitalization Category Date Time Status CTA PE [CT angio chest PE protcl [id number]] Routine Cat Scan 02/08/23 12:00 Completed XR chest 1V portable [id number] Stat Exams 02/08/23 09:47 Completed CV. echo complete* [id number] Routine Ultrasound 02/08/23 11:09 Completed Pending at discharge Category Date Time Status PHARMACY SALES ASSISTANT request for service Routine Exams 02/09/23 05:00 Taken Radiology Impressions Chest X-Ray 02/08/23 09:47 IMPRESSION: No acute findings. Chest CTA 02/08/23 12:00 IMPRESSION: 1. No evidence of pulmonary embolus. 2. Moderate chronic emphysematous changes. No acute pulmonary infiltrates. Hyperinflation. 3. Contrast reflux into the hepatic veins can be seen with RIGHT heart dysfunction. 4. No acute findings. Laboratory Results WBC 8.0 10^3/uL (4.0-10.0) 02/09/23 03:44 RBC 4.41 10^6/uL (4.1-5.3) 02/09/23 03:44 Hgb 12.8 g/dL (11.5-15.3) 02/09/23 03:44 Hct 41.2 % (37.0-47.0) 02/09/23 03:44 MCV 93.4 fl (81-99) 02/09/23 03:44 MCH 29.0 pg (28.0-34.0) 02/09/23 03:44 MCHC 31.1 g/dL (30.0-36.0) 02/09/23 03:44 RDW 14.7 % (12.1-15.1) 02/09/23 03:44 Plt Count 245 10^3/cmm (130-400) 02/09/23 03:44 MPV 11.2 fL (7.4-10.4) H 02/09/23 03:44 Neut % (Auto) 62.0 % 02/09/23 03:44 Lymph % (Auto) 27.3 % 02/09/23 03:44 Forest % (Auto) 7.0 % 02/09/23 03:44 Eos % (Auto) 2.8 % 02/09/23 03:44 Baso % (Auto) 0.6 % 02/09/23 03:44 Neut # (Auto) 4.96 10^3/uL (1.8-7.7) 02/09/23 03:44 Lymph # (Auto) 2.2 10^3/uL (0.8-4.8) 02/09/23 03:44 Forest # (Auto) 0.6 10^3/uL (0.2-0.9) 02/09/23 03:44 Eos # (Auto) 0.2 10^3/uL (0.0-0.8) 02/09/23 03:44 Baso # (Auto) 0.1 10^3/uL (0.0-0.1) 02/09/23 03:44 Nucleated RBC % (auto) 0 % 02/09/23 03:44 Nucleated RBCs # 0.0 /100WBC 02/09/23 03:44 APTT 36.1 SECONDS (23.9-36.7) D 02/09/23 11:20 D-Dimer 1.53 ug/mIFEU (0-0.59) H 02/08/23 09:51 Sodium 137 mmol/L (136-145) 02/09/23 03:44 Potassium 4.0 mmol/L (3.5-5.1) 02/09/23 03:44 Chloride 108 mmol/L (98-107) H 02/09/23 03:44 Carbon Dioxide 19 mmol/L (22-29) L 02/09/23 03:44 Anion Gap 14.0 (5-19) 02/09/23 03:44 BUN 10 mg/dL (8-23) 02/09/23 03:44 Creatinine 0.5 mg/dL (0.5-0.9) 02/09/23 03:44 GFR Calculation 123.8 mL/min (90-130) 02/09/23 03:44 Glucose 87 mg/dL (65-115) 02/09/23 03:44 Estimat Average Glucose 114 02/08/23 09:07 Hemoglobin A1c 5.6 % (4.0-6.0) 02/08/23 09:07 Calculated Osmolality 282 mOsm/kg (285-295) L 02/09/23 03:44 Calcium 8.4 mg/dL (8.5-10.5) L 02/09/23 03:44 Magnesium 2.0 mg/dL (1.7-2.3) 02/09/23 03:44 Total Bilirubin 0.4 mg/dL (0.15-1.2) 02/08/23 09:51 AST 20 U/L (0-32) 02/08/23 09:51 ALT 16 U/L (0-33) 02/08/23 09:51 Alkaline Phosphatase 134 U/L (35-105) H 02/08/23 09:51 Troponin T Baseline 9 ng/L (0-10) 02/08/23 09:51 Troponin T 120 Minute 8.39 ng/L (0-10) 02/08/23 12:33 Delta Troponin T -0.61 ABS# (0-10) L 02/08/23 12:33 Troponin T Hi Sens 6Hr 8.04 ng/L (0-10) 02/08/23 16:04 Troponin T Hi Sens 6Hr Delta -0.96 ng/L (0-12) L 02/08/23 16:04 Total Protein 7.4 g/dL (6.6-8.7) 02/08/23 09:51 Albumin 4.4 g/dL (3.5-5.2) 02/08/23 09:51 Globulin 3.0 g/dL (1.3-4.6) 02/08/23 09:51 Vitals Last Vital Signs Temp 97.8 F 02/10/23 08:00 Pulse 66 02/10/23 08:00 Resp 16 02/10/23 08:00 BP 114/57 02/10/23 08:00 Pulse Ox 93 02/10/23 08:00 O2 Del Method Room Air 02/10/23 08:00 Discharge Plan Discharge Patient Disposition: Home Condition: Stable Prescriptions: New aspirin 81 mg Tablet,Delayed Release (Dr/Ec) 81 mg PO DAILY Qty: 90 4RF clopidogrel 75 mg Tablet 75 mg PO DAILY Qty: 90 4RF lisinopril 5 mg Tablet 10 mg PO DAILY Qty: 90 0RF Continued (DME) Bone Growth Stimulator E0748 See Rx Instructions .Route .MEDSUPPLY Qty: 1 0RF Rx Instructions: As directed gabapentin 300 mg capsule See Rx Instructions .ROUTE .COMPLEX Qty: 360 3RF Dose Instruction: TAKE ONE CAPSULE BY MOUTH EVERY MORNING AND AT NOON AND 2 CAPSULES AT BEDTIME Rx Instructions: TAKE ONE CAPSULE BY MOUTH EVERY MORNING AND AT NOON AND 2 CAPSULES AT BEDTIME duloxetine [Cymbalta] 20 mg capsule,delayed release(DR/EC) 20 mg PO BID Qty: 60 0RF fluoxetine 20 mg capsule 60 mg PO QAM Qty: 90 0RF cyclobenzaprine 10 mg tablet 10 mg PO TID PRN (Reason: muscle spasm) Qty: 30 0RF alendronate 35 mg tablet 35 mg PO Q7D Rx Instructions: on tuesday nitroglycerin [Nitrostat] 0.4 mg Tablet, Sublingual 0.4 mg SUBLINGUAL Q5M PRN (Reason: Chest Pain) Rx Instructions: do not exceed 3 doses per episode biotin 2,500 mcg Capsule 2,500 mcg PO QAM cetirizine [Zyrtec] 10 mg tablet 10 mg PO DAILY PRN (Reason: Allergy Symptoms) fluticasone propionate [Flonase Allergy Relief] 50 mcg/actuation spray,suspension 2 spray intranasal DAILY PRN (Reason: Allergy Symptoms) Rx Instructions: administer into each nostril calcium carbonate-vitamin D3 [Calcium + D] 600 mg-5 mcg (200 unit) Tablet 1 tab PO QAM acetaminophen 325 mg Tablet 650 mg PO Q4H PRN (Reason: pain) Qty: 60 0RF vitamin E 670 mg (1,000 unit) Capsule 670 mg PO DAILY prednisolone acetate 1 % drops,suspension See Rx Instructions .ROUTE .COMPLEX Rx Instructions: INSTILL 1 DROP INTO RIGHT EYE 4 TIMES DAILY STARTING AFTER PROCEDURED (not started as of 02/08/23) atorvastatin 80 mg tablet 80 mg PO BEDTIME Qty: 90 0RF Discontinued diclofenac sodium 75 mg tablet,delayed release (DR/EC) 75 mg PO Q12H PRN (Reason: pain) Qty: 20 0RF amlodipine 5 mg tablet 5 mg PO DAILY Qty: 30 0RF Rx Instructions: (rx filled 02/08/23 30d/s pt not started as of 02/08/23) metoprolol succinate 25 mg tablet extended release 24 hr 12.5 mg PO QAM Discharge Orders: Discharge Order (Routine); Ordered 02/10/23 Ordered By: Bhanu Cordova Referrals: Krista Gomez FNP [Nurse Practitioner] - 02/18/23 10:00 am Alejandro Child MD [Primary Care Provider] - 02/16/23 8:30 am Discharge Diet: Cardiac Discharge Activity: Increase activity as tolerated Patient Instructions: Lisinopril (By mouth) (Prinivil, Zestril), Aspirin (By mouth) (Rich Extra Strength, Rich Aspirin Children[facility],..., Clopidogrel (By mouth) (Plavix), Coronary Angioplasty (DC), Heart Catheterization (DC), Opioid Safety, Post Angiogram Home Care Instructions Discharge Attestations Time Spent in Discharge Care*: greater than 30 min Quality Metrics Clinical Quality Measures [ No reported AMI, CVA or VTE this stay] Coding Level of Care Code Acute Code for [facility] Fwd Diagnoses Unstable angina pectoris I20.0 COPD (chronic obstructive pulmonary disease) J44.9 DDD (degenerative disc disease), lumbosacral M51.37 CAD (coronary artery disease) I25.10
--- NOTE | 2023-02-10 11:03 | PC.NURSE ---
Patient given verbal and written discharge education, patient verbalized understanding. IV removed at 10:00, tolerated well. PAtient taken out to parking lot with belongings, left facility with at 10:07.
== END 2023-02-10 10:07 | disposition home or self-care (01) | DRG 251 ==
LOC: ER 10:27 → CSU 11:50
PROVIDERS: Internal Medicine; Admitting Provider Internal Medicine; Emergency Provider Family Medicine; PCP Family Medicine; Visit Provider Internal Medicine
PROC: 02703ZZ Dilation of Coronary Artery, One Artery, Percutaneous Approach (ICD-10-PCS; principal; 2023-02-09 06:00)
PROC: 02703ZZ Dilation of Coronary Artery, One Artery, Percutaneous Approach (ICD-10-PCS; 2023-02-09 06:00)
DX: T82.855A Stenosis of coronary artery stent, initial encounter (principal); I25.110 Atherosclerotic heart disease of native coronary artery with unstable angina pectoris; I50.22 Chronic systolic (congestive) heart failure; Y71.8 Miscellaneous cardiovascular devices associated with adverse incidents, not elsewhere classified; M51.37 Other intervertebral disc degeneration, lumbosacral region; J44.9 Chronic obstructive pulmonary disease, unspecified; E78.5 Hyperlipidemia, unspecified; I11.0 Hypertensive heart disease with heart failure; F17.210 Nicotine dependence, cigarettes, uncomplicated; I35.0 Nonrheumatic aortic (valve) stenosis
CPT/HCPCS: 36415; 71045; 71275; 80048; 80053; 83036; 83735; 84484; 85025; 85347; 85378; 85730; 90471; 90732; 92920; 93005; 93306; 93458; 96365; 96372; 96375; 96376; 99152; 99153; 99285; C1725; C1769; C1887; C1894; J1644; J1650; J2250; J2405; J3010; J3490; J7030; Q0163; Q9967

== ENCOUNTER → 2023-02-21 08:59 | Outpatient (BNVA) | payer MEDICARE, MEDICAID, SELFPAY | PROVIDERS: PCP Family Medicine; Visit Provider Nurse Practitioner Family | DX: I25.10 Atherosclerotic heart disease of native coronary artery without angina pectoris (principal); I10 Essential (primary) hypertension; F17.210 Nicotine dependence, cigarettes, uncomplicated; Z79.82 Long term (current) use of aspirin | CPT/HCPCS: 36415; 80048; 99214 ==

== ENCOUNTER → 2023-04-28 10:36 | Outpatient (BNVA) | payer MEDICARE, MEDICAID, SELFPAY | PROVIDERS: PCP Family Medicine; Visit Provider Physician Assistant | DX: M54.50 Low back pain, unspecified; M79.604 Pain in right leg; M79.605 Pain in left leg | CPT/HCPCS: 72100; 99213 ==

== ENCOUNTER → 2023-05-02 13:48 | Outpatient (BNVA) | payer MEDICARE, MEDICAID, SELFPAY | PROVIDERS: PCP Family Medicine; Visit Provider Internal Medicine Cardiovascular Disease | DX: I25.10 Atherosclerotic heart disease of native coronary artery without angina pectoris (principal); I35.2 Nonrheumatic aortic (valve) stenosis with insufficiency; E78.5 Hyperlipidemia, unspecified; I65.29 Occlusion and stenosis of unspecified carotid artery; J44.9 Chronic obstructive pulmonary disease, unspecified; I11.0 Hypertensive heart disease with heart failure; I50.9 Heart failure, unspecified; F17.210 Nicotine dependence, cigarettes, uncomplicated | CPT/HCPCS: 99214 ==

== ENCOUNTER → 2023-06-14 08:20 | Outpatient (BNVA) | payer MEDICARE, MEDICAID, SELFPAY | PROVIDERS: PCP Family Medicine; Visit Provider Physician Assistant | DX: Z98.1 Arthrodesis status (principal); M48.061 Spinal stenosis, lumbar region without neurogenic claudication; R26.0 Ataxic gait; M47.12 Other spondylosis with myelopathy, cervical region; M47.22 Other spondylosis with radiculopathy, cervical region | CPT/HCPCS: 72050; 72100; 99214 ==

== ENCOUNTER → 2023-08-29 09:55 | Outpatient (BNVA) | payer MEDICARE, MEDICAID, SELFPAY | PROVIDERS: PCP Family Medicine; Visit Provider Internal Medicine Cardiovascular Disease | DX: I25.118 Atherosclerotic heart disease of native coronary artery with other forms of angina pectoris (principal); I11.0 Hypertensive heart disease with heart failure; I50.42 Chronic combined systolic (congestive) and diastolic (congestive) heart failure; Z87.891 Personal history of nicotine dependence | CPT/HCPCS: 99214 ==

== ENCOUNTER → 2023-11-03 15:10 | Outpatient (BNVA) | payer OTHER, MEDICAID, SELFPAY | PROVIDERS: PCP Family Medicine; Visit Provider Family Medicine | DX: J44.1 Chronic obstructive pulmonary disease with (acute) exacerbation (principal); F17.219 Nicotine dependence, cigarettes, with unspecified nicotine-induced disorders; R06.02 Shortness of breath; R05.3 Chronic cough | CPT/HCPCS: 71046 ==

== ENCOUNTER 2023-11-22 12:41 | Outpatient (CLI) | payer OTHER, MEDICAID, SELFPAY ==
--- NOTE | 2023-11-22 13:15 | CT_ITS ---
WS: [id number] LDCT LUNG CANCER SCREENING TECHNIQUE: Noncontrast CT of the chest with coronal and sagittal reformatted images. CLINICAL INFORMATION: lung cancer screening COMPARISON: CT 10/01/2022 DLP: 42.81 mGy.cm DIvol: Mean CTDIvol: 0.80 (mGy) All CT scans at [facility] use at least one of these dose optimization techniques: automat ed exposure control; mA and/or kV adjustment per patient size (includes targeted exams where dose is matched to clinical indication); or iterative reconstruction. FINDINGS: New spiculated masslike opacity inferior to the RIGHT hilum abutting the posterior mediastinum measur ing approximately 4.1 x 3.6 cm suspicious for neoplasm. Recommend further evaluation with bronchoscop y and pulmonary consultation. This involves the RIGHT lower lobe bronchus. Surrounding spiculation. Aortic calcification. Normal caliber thoracic aorta. Coronary calcification. No mediastinal lymphaden opathy. No axillary lymphadenopathy. Cholecystectomy clips. Adrenal glands are normal. Normal GE junction. Hypertrophic changes thoracic s pine. Previously described subcentimeter nodules are similar in appearance more numerous in the RIGHT upper lobe. Stable subpleural opacities in both lower lobes. IMPRESSION: New spiculated RIGHT infrahilar opacity highly suspicious for neoplasm. Recommend pulmona ry consultation and further evaluation with bronchoscopy. CT/CT lung screening 11105 LUNG-RADS: 4XS-Suspicious with Significant Findings FOLLOW UP: See Report
== END 2023-11-22 12:42 | disposition home or self-care (01) ==
LOC: RAD 12:43
PROVIDERS: PCP Family Medicine; Visit Provider Family Medicine
DX: Z12.2 Encounter for screening for malignant neoplasm of respiratory organs (principal); F17.219 Nicotine dependence, cigarettes, with unspecified nicotine-induced disorders; R91.8 Other nonspecific abnormal finding of lung field
CPT/HCPCS: 71271

== ENCOUNTER → 2023-12-12 10:36 | Outpatient (BNVA) | payer MEDICARE, MEDICAID, SELFPAY | PROVIDERS: PCP Family Medicine; Referring Provider Family Medicine; Visit Provider Internal Medicine Pulmonary Disease | DX: R91.8 Other nonspecific abnormal finding of lung field (principal); Z71.6 Tobacco abuse counseling; J44.9 Chronic obstructive pulmonary disease, unspecified; Z87.891 Personal history of nicotine dependence | CPT/HCPCS: 99204 ==

== ENCOUNTER 2023-12-13 10:33 | Outpatient (CLI) | payer MEDICARE, MEDICAID, SELFPAY ==
--- NOTE | 2023-12-13 11:00 | PETR_ITS ---
PROCEDURE INFORMATION: Exam: PET/CT Skull Base to Mid-thigh Exam date and time: 12/13/2023 11:30 AM Age: 68 years old Clinical indication: Abnormal findings; Lung mass; Additional info: Lung mass, stat per Datar LABS AND CLINICAL REPORTS: Glucose: 103 mg/dl Treatment strategy for malignancy (PET staging): Initial Staging (PI) TECHNIQUE: Imaging protocol: Following at least four-hour fasting and following the injection of radiopharmaceutical, low dose CT images were obtained. Then, PET images were obtained. Attenuation corrected images were constructed using the CT scan. Fused images of PET and CT were reviewed. The standardized uptake values (SUV) reported below are maximum values within a region of interest, expressed in gm/ml. Exam includes orbital meatal line to mid-thigh. Radiopharmaceutical: 11.87 mCi F-18 FDG (Fluorodeoxyglucose), IV. Time of imaging post radiopharmaceutical administration: 1 hour Injection site: Right antecubital COMPARISON: CT chest 11/22/2023, CTA chest 02/08/2023, CT chest abdpel w/*[id number] 05/05/2020 10:07 AM FINDINGS: Brain: Visualized brain has normal physiologic uptake. Pharynx: No abnormal uptake. Larynx: No abnormal uptake. Lungs, pleura and trachea: A radiotracer avid medial right lower lobe/posterior right perihilar soft tissue density mass is noted measuring 3.9 x 3.1 cm on series 3, image 88, SUV max 12.9. A right middle lobe calcified granuloma is noted. Two adjacent solid 3 mm nodules in the anterior right upper lobe are noted on series 3, images 62 and 63 without elevated uptake. Mild bilateral centrilobular emphysematous changes are noted. Heart: Mitral annular calcification is noted. No abnormal uptake. Mediastinal space: No abnormal uptake. Liver: No abnormal uptake. Gallbladder and bile ducts: No abnormal uptake. Cholecystectomy clips are present. Pancreas: No abnormal uptake. Spleen: No abnormal uptake. Calcified granulomas in the spleen are noted. Adrenal glands: No abnormal uptake. Kidneys and ureters: Normal physiologic uptake. Stomach and bowel: No abnormal uptake. Vasculature: No abnormal uptake. Lymph nodes: No abnormal uptake. No lymphadenopathy in the head, neck, chest, abdomen, pelvis, and extremities. Benign-appearing small clustered calcified subcarinal lymph nodes are present. Bones/joints: No abnormal uptake in the visualized axial and appendicular skeleton. The bones appear demineralized. No acute fracture. Posterior metallic fusion in the lumbar and upper sacral spine is noted. Additional fixation screws traverse the bilateral sacroiliac joints. Soft tissues: There is benign-appearing, likely physiologic or inflammatory uptake in the left masseter muscle without evidence of a discrete underlying mass. METRICS: Mediastinal blood pool: SUV max 2.1 PET/PET skulltothigh INITIAL [id number] IMPRESSION: 1. A radiotracer avid right lower lobe/posterior right perihilar mass is noted (SUV max 12.9) compatible with malignancy. 2. No additional areas of radiotracer avid malignancy. 3. Two small right upper lobe nodules are noted which are not radiotracer avid. Assessment of small nodules can be limited by PET-CT. 4. Old granulomatous changes. 5. Additional nonurgent findings as detailed above.
== END 2023-12-13 10:34 | disposition home or self-care (01) ==
LOC: RAD 10:34
PROVIDERS: PCP Family Medicine; Visit Provider Family Medicine
DX: R91.8 Other nonspecific abnormal finding of lung field (principal)
CPT/HCPCS: 78815; A9552

== ENCOUNTER 2023-12-20 07:42 | Day surgery (SDC) | payer MEDICARE, MEDICAID, SELFPAY ==
[2023-12-20] VITALS (13 sets, daily range): BP systolic 115–158; BP diastolic 45–87; PULSE 68–85; RESP 14–18; TEMP 36.3–36.6; O2SAT 90–99
--- NOTE | 2023-12-20 07:54 | CT_ITS ---
WS: [id number] CT CHEST TECHNIQUE: Noncontrast CT of chest with coronal and sagittal reformatted images. CLINICAL INFORMATION: For right hilar mass biopsy COMPARISON: 11/22/2023 DLP: 229.[address] scans at [facility] use at least one of these dose optimization techniques: automated e xposure control; mA and/or kV adjustment per patient size (includes targeted exams where dose is matc hed to clinical indication); or iterative reconstruction. FINDINGS: Again seen is the posterior medial spiculated RIGHT infrahilar opacity involving the RIGHT lower lobe bronchus stable in appearance compared to previous. Findings suspicious for neoplasm. Associated adarsh rounding spiculation. Small amount of nodular surrounding infiltrate and nodular pleural thickening. Associated pleural nodule RIGHT lower lobe measuring 6.5 mm. Surrounding nodular infiltrate and pleur al nodularity suspicious for parenchymal invasion and local metastatic disease. This is slightly more conspicuous compared to 11/22/2023. Moderate to advanced chronic emphysematous changes. Few prominent nodes anterior mediastinal and para bronchial lymph nodes. Subpleural nodularity within both lungs. A few subcentimeter nodules in the up per lobes. No axillary lymphadenopathy. Adrenal glands are normal. Cholecystectomy clips. Small esophageal hiatal hernia. Hypertrophic change s thoracic spine. Aortic calcification. Coronary calcification. IMPRESSION: Images obtained for bronchoscopy guidance purposes
--- NOTE | 2023-12-20 08:17 | ECG_ITS ---
[facility] Test Date: 2023-12-20 Pat Name: Pam Ordonez Department: Room: Gender: Female Direct Care Counselor: : 1955 Requested By: Jessi Garcia Order Number: [id number] [place] MD: Grover Harley M.D. Measurements Intervals [place] Rate: 65 P: 63 AR: 150 QRS: 51 QRSD: 84 T: 68 QT: 420 QTc: 438 Interpretive Statements SINUS RHYTHM MODERATE VOLTAGE CRITERIA FOR LVH, CONSIDER NORMAL VARIANT [MEETS CRITERIA IN ONE OF: R(aVL), S(V1), R(V5), R(V5/V6)+S(V1)] Compared to ECG 02/08/2023 13:01:35 T-wave abnormality no longer present Possible ischemia no longer present Electronically Signed On 12-20-2023 11:46:03 CDT by Grover Harley M.D. [email or web address] ([email or web address]) [email or web address] va medical centerSyzen [email or web address] medical specialty [email or web address] - [id number]
--- NOTE | 2023-12-20 08:30 | W.PM.OPSUD ---
Surgery/Procedure H&P Update DATE OF PROCEDURE: December 20, 2023 DATE H&P PERFORMED: 12/12/23 H&P UPDATE INFORMATION: I have reviewed H&P completed within last 30 days, I have examined patient prior to procedure and Changes to prior documentation as noted here CHANGES TO PREVIOUS DOCUMENTATION: PETCT 12/13/23: 1. A radiotracer avid right lower lobe/posterior right perihilar mass is noted (SUV max 12.9) compatible with malignancy. 2. No additional areas of radiotracer avid malignancy. 3. Two small right upper lobe nodules are noted which are not radiotracer avid. Assessment of small nodules can be limited by PET-CT. 4. Old granulomatous changes. 5. Additional nonurgent findings as detailed above. PREOP DIAGNOSIS: suspected malignancy PRIMARY INDICATION FOR PROCEDURE: obtain tissue from right hilar mass to rule out malignancy PLANNED PROCEDURE: Operation Date: 12/20/23 09:00 Proposed Procedures p Ion Robotic Assisted Bronchoscopy ION/[id number], [id number], 14966, 92196, 76953, 03889, 53126, 41914, 53207, 61144, 93904, 13792, 19506, 19756(Not Applicable) - Rustam Sheth MD s [place](Not Applicable) - Rustam Sheth MD
--- NOTE | 2023-12-20 08:35 | P.ANESASSM_ITS ---
Pre-Anesthetic Assessment Height/Weight: Height 1.55 m Weight 54.431 kg Temp Pulse Resp BP Pulse Ox O2 Del Method 97.9 F 70 18 158/71 99 Room Air 12/20/23 08:09 12/20/23 08:09 12/20/23 08:09 12/20/23 08:09 12/20/23 08:09 12/20/23 08:09 Preop Diagnosis: suspected malignancy Operation Date: 12/20/23 09:00 Proposed Procedures p Ion Robotic Assisted Bronchoscopy ION/07211, 95570, 34900, 28963, 05568, 64809, 36494, 31743, 44291, 47749, 91105, 74875, 60846, 62415(Not Applicable) - Rustam Sheth MD s Ebus(Not Applicable) - Rustam Sheth MD Familial anesthetic complications: None Was Beta Christian taken within 24 hours: N/A Was Clonidine taken within 24 hours: N/A Last intake: Intake Last Liquid Date 12/19/23 Last Liquid Time 18:00 Last Solid Date 12/19/23 Last Solid Time 18:00 Social Tobacco and No alcohol Exam alert, oriented x 3, clear to auscultation bilaterally and regular rate & rhythm Airway Mallampati: Class I Dentition: false Pulmonary Chronic Obstructive Pulmonary Disease CV/HEM Coronary Artery Disease, Congestive Heart Failure and Hypertension EF 45% mild mvr and avr Anesthetic Plan ASA status: 3 Anesthesia: General Risk of > 500 ml blood loss (7ml/kg in children): No Medications/Allergies Home Medications Medication Instructions Recorded Confirmed Last Taken Type acetaminophen 325 mg tablet 650 mg (2 x 325 mg) PO Q4H PRN 04/01/22 12/15/23 5 Months Ago Rx pain #60 tabs ~07/16/23 alendronate 35 mg tablet 35 mg PO Q7D 01/11/23 12/15/23 12/11/23 History biotin 2,500 mcg capsule 2,500 mcg PO QAM 01/11/23 12/15/23 12/15/23 History cetirizine 10 mg tablet (Zyrtec) 10 mg PO DAILY PRN Allergy Symptoms 01/11/23 12/15/23 3 Months Ago History ~09/15/23 aspirin 81 mg tablet,delayed 81 mg PO DAILY #90 tabs 02/10/23 12/15/23 12/13/23 Rx release clopidogrel 75 mg tablet 75 mg PO DAILY #90 tabs 02/10/23 12/15/23 12/14/23 Rx cyclobenzaprine 10 mg tablet 10 mg PO TID PRN muscle spasm #30 02/10/23 12/15/23 1 Month Ago Rx tabs ~11/16/23 vitamins A,C,T-lsvs-inrbil 4,296 1 cap PO BID 05/02/23 12/15/23 12/15/23 History mcg-226 mg-90 mg capsule (ICaps AREDS) nitroglycerin 0.4 mg sublingual 0.4 mg sublingual Q5M PRN Chest 08/29/23 12/15/23 3 Months Ago Rx tablet (Nitrostat) Pain #30 tabs ~09/15/23 albuterol sulfate 90 mcg/actuation 1 inh inhalation QID PRN shortness 12/16/23 Unknown Rx aerosol inhaler of breath or wheezing #6.7 grams atorvastatin 80 mg tablet 80 mg PO BEDTIME #90 tabs 12/16/23 Unknown Rx duloxetine 20 mg capsule,delayed 20 mg PO BID #180 caps 12/16/23 Unknown Rx release (Cymbalta) fluoxetine 20 mg capsule See Rx Instructions .Route 12/16/23 Unknown Rx .COMPLEX #90 caps gabapentin 300 mg capsule See Rx Instructions .Route 12/16/23 Unknown Rx .COMPLEX #360 caps lisinopril 10 mg tablet 10 mg PO DAILY #90 tabs 12/16/23 Unknown Rx Allergies Allergy/AdvReac Type Severity Reaction Status Date / Time hydrocodone Allergy Intermediate Altered Verified 12/15/23 12:28 mental status codeine Allergy Unknown Verified 12/15/23 12:28 Sulfa (Sulfonamide Allergy ADR-Nausea Verified 12/15/23 12:28 Antibiotics) tramadol [From Ultram] Allergy ADR-Vomitin Verified 12/15/23 12:28 g [facility] Anesthesia Medical History (Updated 12/13/23 @ 20:36 by Rustam Sheth MD) COPD (chronic obstructive pulmonary disease) Chronic lower back pain CHF (congestive heart failure), NYHA class III Unstable angina pectoris CAD (coronary artery disease) Postoperative anemia due to acute blood loss Hx of chest pain Aortic heart valve narrowing with insufficiency History of tumor DDD (degenerative disc disease), lumbosacral ASHD (arteriosclerotic heart disease) HTN (hypertension) Dyslipidemia Subclavian artery stenosis Carotid stenosis, non-symptomatic Surgical History History of Status post laminectomy History of cholecystectomy Family History Mother CAD (coronary artery disease) Sister Chronic kidney disease (CKD) Brother Chronic kidney disease (CKD) Other Hypertension Lung disease Denies family history of Hyperlipidemia Social History Smoking and tobacco/nicotine status: current every day tobacco/nicotine user cigarettes Packs smoked per day: 2 Years cigarettes smoked: 55 [ Other cigarette details: Started at age 13] Quit status (tobacco/nicotine): considering quitting Second hand smoke exposure: No Alcohol intake: never Substance/Drug Use: never Lives independently: Yes Marital status: Number of children: 4 Current occupational status: disabled Current gender identity: Female Data Anesthesia Cardiac Studies: Echocardiogram 02/08/23 Sestamibi Stress Test (Cardiology) 11/20
[2023-12-20] MEDS: sodium chloride 0.9% 1,000 ML 30 ML IV (08:40)
[2023-12-20] MEDS: lidocaine 1% INJ 20 mL 10 ML XX (09:20)
[2023-12-20 09:50] LABS: Apprearance, Bronch Wash Turbid (CLEAR); Cyto Order Verification Order Verified; Total Cells Counted Bronch 200
[2023-12-20 09:51] LABS: Color, Bronc Wash Red
--- NOTE | 2023-12-20 10:59 | PM.OP ---
Operative Report Date of procedure: December 20, 2023 Pre-op diagnosis: Right hilar mass suspected lung malignancy Post-op diagnosis: Same Procedure done: Dx Bronchoscope w/BAL Dx Bronchoscopy w/Bronchial or Endobronchial biopsy(s), single or multiple sites Bronchoscopy w/ therapeutic aspiration of the tracheobronchial tree (clearance of airway secretions, removal of mucus plugs) EBUS Sampling >=3 nodes Surgeon: Rustam Sheth MD Brief History: Ms. Mirela Ordonez is a 68-year-old female with past medical history of COPD, CHF NYHA class III, hypertension, CAD, chronic smoker referred by Dr. Child for abnormal finding of lung. Patient reports that she is smoking less than 1 ppd currently with a hx of 2 ppd X 55 years, started at age 13. She complains of SOB with exertion. C/O pain that starts in her neck and runs down right arm X 3 weeks and legs going numb sometimes.some times has chest pains on and off ; she has 3 stents - last stent was placed in january 2023. she takes both aspirin and Clopidogrel. She is currently using symbicort and albuterol and says that helps. Most recently she has a low-dose CT 11/22/2023: Showed 4.1 x 3.6 cm masslike opacity right hilum abutting posterior mediastinum. Her PET CT scan 12/08/2023 showed radiotracer avid right lower lobe/posterior right perihilar mass noted SUV max 12.9 compatible with malignancy. 2 small right upper lobe nodules noted which are not radiotracer avid. She is scheduled for bronchoscopic inspection of airways, endobronchial ultrasound-guided biopsies of hilar/mediastinal lesions Procedure: Dx Bronchoscope w/BAL Dx Bronchoscopy w/Bronchial or Endobronchial biopsy(s), single or multiple sites Bronchoscopy w/ therapeutic aspiration of the tracheobronchial tree (clearance of airway secretions, removal of mucus plugs) EBUS Sampling >=3 nodes Indication:CT 11/22/2023: Showed 4.1 x 3.6 cm masslike opacity right hilum abutting posterior mediastinum. Anesthesia: General anesthesia. Local anesthesia: The venus in the right and left mainstem bronchi were anesthetized with 1% lidocaine, 3 mL. Description of the procedure: The procedure was explained to the patient and the consent was obtained. The patient was brought to the OR. The patient underwent induction for general anesthesia and endotracheal tube was placed. The bronchoscope was advanced through the ET tube. The distal trachea was visualized. There were copious amount of secretions which were suctioned right away. Tracheal mucosa appeared normal, no endotracheal lesion was seen. The venus was sharp. 1 mL each of 1% lidocaine was instilled in the trachea the right and left mainstem bronchi for local anesthesia. In a systematic manner bilateral bronchial tree was then examined. The bronchoscope was then introduced into the right mainstem bronchus. The right upper lobe, bronchus intermedius, right middle lobe, right lower lobe openings were all visualized with no evidence of endobronchial lesions except for superior segment of right lower lobe which is near completely occluded. There were mucoid secretions which were suctioned right away. The bronchoscope was advanced into the left mainstem bronchus. The left upper lobe, and lingula were examined up to the third subsegmental level and no abnormalities were identified. Mucosa of left upper lobe and lingula appeared normal with no endobronchial lesion. There were clear secretions which were suctioned right away. With the help of forceps took endobronchial biopsies were taken from the superior segment of right lower lobe. There was some evidence of bleeding which was controlled with cold saline. BAL was taken from the same area. Bronchoscope was retracted and Endobronchial Ultrasound (EBUS) was introduced. Identified a large hypoechoic mass in station 11 L, station 4L, station 7, station 11 R. Using hkef-sneckf-kehmqvnk were taken from all the stations; there was some evidence of bleeding which is controlled with instillation of cold saline. After making sure there is no active bleeding, bronchoscope retracted and procedure terminated. Samples: 1. 7 endobronchial biopsies from occluded superior segment of right lower lobe ostium. 2. Bronchoalveolar lavage was performed after wedging the bronchoscope at the entrance of occluded superior segment right lower lobe. 60 mL of saline was instilled, fluid return was 25 mL. Bronchoalveolar lavage specimen was sent for cell count and differential, gram stain and culture, cytology B. EBUS guided Fine-needle aspiration biopsies were taken from station station 11 L, station 4L, station 7 and station 11 R. 1. Total of 4 passes were made using needle aspiration from station 11 L; all the material was placed in formalin and sent for histopathology 2. Total of 4 passes were made using needle aspiration from station 4L; all the material was placed in formalin and sent for histopathology; 3. Total of 4 passes were made using needle aspiration from station 7; all the material was placed in formalin and sent for histopathology 4. Total of 7 passes were made using needle aspiration from station 11 R; all the material was placed in formalin and sent for histopathology Complications: None.The patient was extubated and brought to the PACU in stable condition. Disposition: Patient can be discharged home in stable condition. Pt and her are aware that I am going to call them to update final biopsy results once available.
--- NOTE | 2023-12-20 11:41 | XR_ITS ---
WS: [id number] Examination: XR chest 1V portable [id number] Reason for Exam: Post EBUS Date: December 20, 2023 Comparison: November 03, 2023 Findings: The heart is not grossly enlarged on this AP portable film. The mediastinum not widened. The suresh are enlarged. Focal hilar mass is noted. The lung markings are diffusely increased as compared to the previous study. No large effusions are i dentified. The lungs are hyperinflated. Impression: The lungs are hyperinflated with chronic change. The lung markings are increased. The right perihilar mass is again noted.
[2023-12-20 12:09] LABS: PATH Referral Yes
--- NOTE | 2023-12-20 12:55 | ANE.PACU2 ---
Inpatient post-anesthesia follow up: Airway intact: Yes Vital signs: Temperature 97.5 F Pulse Rate 70 Respiratory Rate 18 Blood Pressure 149/60 Pulse Oximetry 92 Oxygen Delivery Me thod Room Air Oxygen Flow Rate 2 Fraction of Inspir ed Oxygen Hydration adequate: Yes Nausea and vomiting: No Pain level: 1 Mental status: Baseline
== END 2023-12-20 12:55 | disposition home or self-care (01) ==
PROVIDERS: PCP Family Medicine; Visit Provider Internal Medicine Pulmonary Disease
PROC: BB4BZZZ Ultrasonography of Pleura (ICD-10-PCS; 2023-12-20 09:00)
DX: R91.8 Other nonspecific abnormal finding of lung field (principal); J44.9 Chronic obstructive pulmonary disease, unspecified; I11.0 Hypertensive heart disease with heart failure; I50.9 Heart failure, unspecified; I25.10 Atherosclerotic heart disease of native coronary artery without angina pectoris; F17.210 Nicotine dependence, cigarettes, uncomplicated; Z95.5 Presence of coronary angioplasty implant and graft; Z79.82 Long term (current) use of aspirin; E78.5 Hyperlipidemia, unspecified
CPT/HCPCS: 31624; 31625; 31645; 31653; 71045; 71250; 80503; 87070; 87205; 88112; 88305; 89050; 93005; J1100; J2405; J2704; J2710; J3010; J3490; J7030

== ENCOUNTER 2024-01-10 07:38 | Day surgery (SDC) | payer MEDICARE, MEDICAID, SELFPAY ==
[2024-01-10] VITALS (11 sets, daily range): BP systolic 109–141; BP diastolic 48–81; PULSE 61–92; RESP 16–18; TEMP 36.3–37.2; O2SAT 90–100; BMI 22.3
--- NOTE | 2024-01-10 07:50 | ECG_ITS ---
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 Measurements Intervals [place] Rate: 65 P: 64 [place]: 142 QRS: 48 QRSD: 85 T: 66 QT: 423 QTc: 443 Interpretive Statements SINUS RHYTHM MODERATE VOLTAGE CRITERIA FOR LVH, CONSIDER NORMAL VARIANT [MEETS CRITERIA IN ONE OF: R(aVL), S(V1), R(V5), R(V5/V6)+S(V1)] Compared to ECG 12/20/2023 08:25:11 No significant changes Electronically Signed On 01-10-2024 21:47:02 CDT by Devan Walker M.D. [email or web address]
[2024-01-10] MEDS: sodium chloride 0.9% 1,000 ML 30 ML IV (08:26)
--- NOTE | 2024-01-10 08:26 | SC_ITS ---
WS: [id number] C-ARM RADIOGRAPHS CHEST; 3 IMAGES HISTORY: ION COMPARISON: CT 12/20/2023 Intraprocedural imaging during bronchoscopy. Biopsy device is noted over the RIGHT hilum. IMPRESSION: Intraprocedural imaging during bronchoscopy.
[2024-01-10] MEDS: ipratropium-albuterol 3 mL Neb INHALATION (08:28)
--- NOTE | 2024-01-10 08:36 | W.PM.OPSUD ---
Surgery/Procedure H&P Update DATE OF PROCEDURE: January 10, 2024 DATE H&P PERFORMED: 01/02/24 H&P UPDATE INFORMATION: I have reviewed H&P completed within last 30 days CHANGES TO PREVIOUS DOCUMENTATION: none PREOP DIAGNOSIS: Suspected lung malignancy PRIMARY INDICATION FOR PROCEDURE: PET avid right hilar mass-suspicious for malignancy Initial biopsies 12/19/2022-suspicious cells-inadequate sample -Today we will repeat biopsies PLANNED PROCEDURE: Operation Date: 01/10/24 09:00 Proposed Procedures p Ion Robotic Assisted Bronchoscopy ION / [id number], 53773, 56460, 83308, 74771, 83533, 53723, 53771, 70968, 10241](Not Applicable) - Rustam Sheth MD s Ebus(Not Applicable) - Rustam Sheth MD
--- NOTE | 2024-01-10 08:47 | ANES.PREANE2 ---
Pre-Anesthetic Assessment Height/Weight: Height 1.55 m Weight 53.524 kg Temp Pulse Resp BP Pulse Ox O2 Del Method 98.9 F 61 18 141/74 97 Room Air 01/10/24 08:05 01/10/24 08:32 01/10/24 08:30 01/10/24 08:05 01/10/24 08:30 01/10/24 08:30 Preop Diagnosis: Suspected lung malignancy Operation Date: 01/10/24 09:00 Proposed Procedures p Ion Robotic Assisted Bronchoscopy ION / [id number], 51347, 14286, 32401, 41021, 41051, 09344, 98986, 62634, 50789](Not Applicable) - Rustam Sheth MD s Ebus(Not Applicable) - Rustam Sheth MD Familial anesthetic complications: > 8 hrs Was Beta Christian taken within 24 hours: N/A Was Clonidine taken within 24 hours: N/A Last intake: Intake Last Liquid Date 01/09/24 Last Liquid Time 20:30 Last Solid Date 01/09/24 Last Solid Time 17:30 Social No alcohol and No tobacco Exam alert, oriented x 3, clear to auscultation bilaterally and regular rate & rhythm Airway Mallampati: Class I Dentition: false Pulmonary Chronic Obstructive Pulmonary Disease CV/HEM Coronary Artery Disease (3 stents > 1 year ago, holding plavix), Congestive Heart Failure and Hypertension Echo CONCLUSIONS LV systolic function is mildly reduced with EF of 45 to 50%. Mild to moderate hypokinesis of inferolateral wall. Mild mitral regurgitation. Mild aortic regurgitation Mild tricuspid regurgitation Compared to prior echocardiogram from 2016, LV systolic function has decreased now Metabolic Hyperlipidemia Anesthetic Plan ASA status: 4 Anesthesia: General Risk of > 500 ml blood loss (7ml/kg in children): No Medications/Allergies Home Medications Medication Instructions Recorded Confirmed Last Taken Type acetaminophen 325 mg tablet 650 mg (2 x 325 mg) PO Q4H PRN 04/01/22 01/10/24 5 Months Ago Rx pain #60 tabs ~07/16/23 alendronate 35 mg tablet 35 mg PO Q7D 01/11/23 01/06/24 01/01/24 History biotin 2,500 mcg capsule 2,500 mcg PO QAM 01/11/23 01/10/24 01/09/24 History cetirizine 10 mg tablet (Zyrtec) 10 mg PO DAILY PRN Allergy Symptoms 01/11/23 01/10/24 01/09/24 History clopidogrel 75 mg tablet 75 mg PO DAILY #90 tabs 02/10/23 01/10/24 01/04/24 Rx cyclobenzaprine 10 mg tablet 10 mg PO TID PRN muscle spasm #30 02/10/23 01/10/24 01/09/24 Rx tabs nitroglycerin 0.4 mg sublingual 0.4 mg sublingual Q5M PRN Chest 08/29/23 01/06/24 3 Months Ago Rx tablet (Nitrostat) Pain #30 tabs ~09/15/23 albuterol sulfate 90 mcg/actuation 1 inh inhalation QID PRN shortness 12/16/23 01/10/24 01/09/24 Rx aerosol inhaler of breath or wheezing #6.7 grams atorvastatin 80 mg tablet 80 mg PO BEDTIME #90 tabs 12/16/23 01/10/24 01/09/24 Rx duloxetine 20 mg capsule,delayed 20 mg PO BID #180 caps 12/16/23 01/10/24 01/09/24 Rx release (Cymbalta) lisinopril 10 mg tablet 10 mg PO DAILY #90 tabs 12/16/23 01/10/24 01/09/24 Rx fluoxetine 20 mg capsule 60 mg PO DAILY 12/20/23 01/10/24 01/09/24 History gabapentin 300 mg capsule 600 mg PO BID 12/20/23 01/10/24 01/09/24 History umeclidinium 62.5 mcg/actuation 1 inh inhalation DAILY #30 ea 01/02/24 01/10/24 01/09/24 Rx blister powder for inhalation (Incruse Ellipta) Allergies Allergy/AdvReac Type Severity Reaction Status Date / Time hydrocodone Allergy Intermediate Altered Verified 01/06/24 08:30 mental status codeine Allergy Unknown Verified 01/06/24 08:30 Sulfa (Sulfonamide Allergy ADR-Nausea Verified 01/06/24 08:30 Antibiotics) tramadol [From Ultram] Allergy ADR-Vomitin Verified 01/06/24 08:30 g Current Medications Generic Name Dose Route Start Last Admin Trade Name Freq PRN Reason Stop Dose Admin Sodium Chloride 1,000 mls @ 30 mls/hr 01/10/24 07:45 01/10/24 08:26 Sodium Chloride 0.9% IV 01/11/24 07:44 30 mls/hr .Q24H NEVAEH Administration PFSH Anesthesia Medical History COPD (chronic obstructive pulmonary disease) Chronic lower back pain CHF (congestive heart failure), NYHA class III Unstable angina pectoris CAD (coronary artery disease) Postoperative anemia due to acute blood loss Hx of chest pain Aortic heart valve narrowing with insufficiency History of tumor DDD (degenerative disc disease), lumbosacral ASHD (arteriosclerotic heart disease) HTN (hypertension) Dyslipidemia Subclavian artery stenosis Carotid stenosis, non-symptomatic Surgical History History of Status post laminectomy History of cholecystectomy Family History Mother CAD (coronary artery disease) Sister Chronic kidney disease (CKD) Brother Chronic kidney disease (CKD) Other Hypertension Lung disease Denies family history of Hyperlipidemia Social History Smoking and tobacco/nicotine status: former use of tobacco/nicotine Second hand smoke exposure: No Alcohol intake: never Substance/Drug Use: never Lives independently: Yes Marital status: Number of children: 4 Current occupational status: disabled Current gender identity: Female Data Anesthesia Cardiac Studies: Echocardiogram 02/08/23 Sestamibi Stress Test (Cardiology) 11/20/20
[2024-01-10] MEDS: lidocaine 1% INJ 20 mL 10 ML XX (09:48)
[2024-01-10 10:49] LABS: Apprearance, Bronch Wash Cloudy (CLEAR); Cyto Order Verification No Order
[2024-01-10 10:50] LABS: Color, Bronc Wash Slight Pink; PATH Referral Yes
--- NOTE | 2024-01-10 11:17 | P.OP_ITS ---
Operative Report Date of procedure: January 10, 2024 Pre-op diagnosis: Suspected lung malignancy Post-op diagnosis: Suspected lung malignancy Procedure done: -Dx Bronchoscope w/Washings or airway inspection -Dx Bronchoscope w/BAL -Bronch with computer image guided Navigational Bronchoscopy -Bronchoscopy w/Transbronchial lung biopsy(s), single lobe using forceps -Bronchoscopy w/Transbronchial needle aspiration biopsy(s), tracheal, main stem, and/or lobar bronchus -Bronchoscopy w/ therapeutic aspiration of the tracheobronchial tree (clearance of airway secretions, removal of mucus plugs) -EBUS Sampling > 3 lymph nodes Surgeon: Rustam Sheth MD Brief History: Ms. Mirela Ordonez is a 68-year-old female with past medical history of COPD, CHF NYHA class III, hypertension, CAD, chronic smoker referred by Dr. Child for abnormal finding of lung. Patient reports that she is smoking less than 1 ppd currently with a hx of 2 ppd X 55 years, started at age 13. She complains of SOB with exertion. C/O pain that starts in her neck and runs down right arm X 3 weeks and legs going numb sometimes.some times has chest pains on and off ; she has 3 stents - last stent was placed in january 2023. she takes both aspirin and Clopidogrel. She is currently using symbicort and albuterol and says that helps. Most recently she has a low-dose CT 11/22/2023: Showed 4.1 x 3.6 cm masslike opacity right hilum abutting posterior mediastinum. Her PET CT scan 12/08/2023 showed radiotracer avid right lower lobe/posterior right perihilar mass noted SUV max 12.9 compatible with malignancy. 2 small right upper lobe nodules noted which are not radiotracer avid. On 12/20/2023 she underwent bronchoscopy evaluation-and found to have occlusion of superior segment of right lower lobe. Endobronchial forceps biopsy showed focally epithelial cell groups which are worrisome for possible underlying mal ignancy but insufficient for diagnosis. Large hilar mass was identified with endobronchial ultrasound and so we did not proceed with navigational bronchoscopy. She underwent endobronchial ultrasound guided biopsy of a posterior hilar mass on 12/21/2023 as well as lymph node station biopsies 11 L, station 4L, station 7, station 11 R hilar mass-were reported negative and no tumor seen. Bronchoalveolar lavage showed scattered atypical cells with no overt malignancy appreciated As the biopsies did not show definite malignancy; I have discussed with patient that given significant smoking history and very high PET activity on PET/CT-and suspicious cells for malignancy on BAL; I have informed patient and her that we may have to repeat the procedure, this time with a robotic assisted elyse igational bronchoscopic biopsy of right hilar mass as well as repeat endobronchial ultrasound-guided biopsy of lymph nodes. Discussed possible complications as well as management of pneumothorax and bleeding in detail during her clinic visit. She verbalized understanding and agreed to go ahead with the procedure. Today she comes for the same procedure. Procedure: -Dx Bronchoscope w/Washings or airway inspection -Dx Bronchoscope w/BAL -Bronch with computer image guided Navigational Bronchoscopy -Bronchoscopy w/Transbronchial lung biopsy(s), single lobe using forceps -Bronchoscopy w/Transbronchial needle aspiration biopsy(s), tracheal, main stem, and/or lobar bronchus -Bronchoscopy w/ therapeutic aspiration of the tracheobronchial tree (clearance of airway secretions, removal of mucus plugs) -EBUS Sampling > 3 lymph nodes ION ROBOTIC BRONCHOSCOPY NOTE Pre-procedure Verification: Prior to the procedure, the patient's identity was verified by full name, date of and medical record number. The patient's identity was verified on all pertinent medical records. Also prior to the procedure, a History and Physical was performed, and patient medications, allergies and sensitivities were reviewed. The patient's tolerance of previous anesthesia was reviewed. The risks and benefits of the procedure and the sedation options and risks were discussed with the patient. All questions were answered and informed consent was obtained. Planning: Using the Planpoint planning software, this patient?s preoperative CT was loaded onto the system and then target and pathway mapping was performed. This was all done prior to the start of the procedure and appropriate plan verified prior to induction. Anesthesia: General anesthesia was used. Please see anesthesiology documentation for full details. A modified LISSETTE/Jennifer Protocol was used for robotic bronchoscopy with rapid Intubation, recruitment maneuvers, Tidal Volume around 8-10mL/Kg E[place]ora Body Weight, and PEEP 10-15 as feasible. Time-Out: Prior to the start of the procedure, the patient's identification, proposed procedure, accurate signed consent, correctly labeled images and records, and need for prophylactic antibiotics were verified by the physician, the nurse, the anesthesiologist and the western philosophy professor in the procedure room. Procedural Details: After obtaining informed consent, The procedure was accomplished without diffic ulty. The patient tolerated the procedure well. Patient preparation: Patient was placed under general anesthesia. An 8.5 ETT was placed for bronchoscopy. Procedure: The bronchoscope was advanced through the ET tube. The distal trachea was visualized. There were copious amount of secretions which were suctioned right away. Tracheal mucosa appeared normal, no endotracheal lesion was seen. The venus was sharp. 1 mL each of 1% lidocaine was instilled in the trachea the right and left mainstem bronchi for local anesthesia. In a systematic manner bilateral bronchial tree was then examined. The bronchoscope was then introduced into the right mainstem bronchus. The right upper lobe, bronchus intermedius, right middle lobe, right lower lobe openings were all visualized with no evidence of endobronchial lesions except for superior segment of right lower lobe which is near completely occluded. There were mucoid secretions which were suctioned right away. The bronchoscope was advanced into the left mainstem bronchus. The left upper lobe, and lingula were examined up to the third subsegmental level and no abnormalities were identified. Mucosa of left upper lobe and lingula appeared normal with no endobronchial lesion. There were clear secretions which were suctioned right away. Therapeutic aspiration of the airways, initial encounter, was performed at the right bronchial tree. The therapeutic bronchoscope was then removed. We communicated with the anesthesia team to ensure proper ventilator settings for optimal peripheral bronchoscopy. FIRST LOBE: The Ion Shape Sensing Robotic Assisted Bronchoscope was brought into the field and the process of registration was carried out. The guide catheter was used for peripheral navigational bronchoscopy using the planned pathway into the superior segment of right lower lobe airway to access right hilar mass and was able to be wedged peripherally at a distance of 8 mm away from the target. We locked the catheter position in, and removed the vision probe. We introduced the radial EBUS probe and obtained an good concentric signal [id number] image location relative to the lesion in the same lobe. We confirmed our location with a fluoroscopic C-arm. We then removed the R-EBUS and introduced the biopsy tools starting with a 19 G ION bronchoscopic peripheral needle for Transbronchial Needle Aspirations (TBNA). The first pass was not sent for Rapid On Site Evaluation (DAWSON) as we do not have onsite pathology. We continued more biopsies in a cloud format. Transbronchial biopsies of right hilar mass lesion were using forceps. Transbronchial biopsy technique was selected because the sampling site was not visible endoscopically. The sampling device penetrated the full thickness of the bronchial wall to obtain the biopsy of lung tissue. 6 biopsy passes were performed, and the same number of biopsy samples were obtained. Finally, we used a 20 cc syringe filled with normal saline connected to the proximal portion of the ION catheter and slowly injected; 10 cc and aspirated the contents for a bronchial alveolar lavage of the superior segment of right lower lobe. The return was cloudy and blood tinged 13 cc . At this point and after confirming the absence of bleeding, we removed the channel. Minimal blood residue was cleared from the airway and the peripheral navigation portion of the procedure was concluded. Empiric cold saline was instilled through the catheter and tamponade held for 1-5 minutes. Next, we turned our attention to linear EBUS staging. An EBUS exam was performed: Identified a large hypoechoic mass in station 11 L, station 4L, station 7, station 11 R. Using 19G lower lobe [id number] were taken from all the stations; there was some evidence of bleeding which is controlled with instillation of cold saline. Rapid onsite path evaluation (DAWSON) was not utilized for this case. Following completion of all diagnostic and therapeutic procedures, hemostasis was verified. The scope was removed and procedure concluded. Samples: A. Right hilar mass 1. Total of 6 passes were made using needle aspiration ; we do not have onsite pathology and so all the material was placed in formalin for histopathology 2. Targeting the same area 6 passes were made using forceps ; we do not have onsite pathology and so all the material was placed in formalin for histopathology 3. Bronchoscope was wedged at the entrance of the medial segment of right lower lobe, 20 mL of saline was instilled and returned 13 mL of bronchoalveolar lavage . The fluid was mixed with blood and specks of tissue. Samples for cell count, cytology, cultures B. EBUS guided Fine-needle aspiration biopsies were taken from station station 11 L, station 4L, station 7 and station 11 R. 1. Total of 3 passes were made using needle aspiration from station 11 L; all the material was placed in formalin and sent for histopathology 2. Total of 3 passes were made using needle aspiration from station 4L; all the material was placed in formalin and sent for histopathology; 3. Total of 4 passes were made using needle aspiration from station 7; all the material was placed in formalin and sent for histopathology 4. Total of 3 passes were made using needle aspiration from station 11 R; all the material was placed in formalin and sent for histopathology Complications: None.The patient was extubated and brought to the PACU in stable condition. Disposition: Patient can be discharged home in stable condition. Pt and her are aware that I am going to call them to update final biopsy results once available. Related Problem List Diagnoses (1) Right lower lobe lung mass:
--- NOTE | 2024-01-10 11:29 | XRR_ITS ---
PROCEDURE INFORMATION: Exam: XR Chest Exam date and time: 01/10/2024 11:36 AM Age: 68 years old Clinical indication: Device placement; Other: Post ebus ion; Prior surgery; Surgery date: Post-operative (0-2 days); Surgery type: Post ebus/ion TECHNIQUE: Imaging protocol: Radiologic exam of the chest. Views: 1 view. COMPARISON: CR XR chest 1V portable [id number] 12/20/2023 10:57 AM FINDINGS: Lungs: Enlargement of the right pulmonary hilum is unchanged. Unchanged diffuse bilateral interstitial prominence. Otherwise, unremarkable. Pleural spaces: Unremarkable. No pleural effusion. No pneumothorax. Heart/Mediastinum: Unremarkable. No cardiomegaly. Bones/joints: Unchanged mild scoliosis with multilevel spondylosis. XR/XR chest 1V portable [id number] IMPRESSION: 1. Stable enlargement of the right pulmonary hilum. 2. Unchanged diffuse bilateral interstitial prominence.
--- NOTE | 2024-01-10 12:50 | ANE.PACU2 ---
Inpatient post-anesthesia follow up: Airway intact: Yes Vital signs: Temperature 98.0 F Pulse Rate 73 Respiratory Rate 18 Blood Pressure 119/81 Pulse Oximetry 92 Oxygen Delivery Me thod Room Air Oxygen Flow Rate Fraction of Inspir ed Oxygen Hydration adequate: Yes Nausea and vomiting: No Pain level: 1 Mental status: Baseline
[2024-01-10 15:23] LABS: Total Cells Counted Bronch 200
[2024-01-18 12:52] LABS: PD-L1 (Clone 22C3) by IHC BBPL See Report
== END 2024-01-10 12:54 | disposition home or self-care (01) ==
PROVIDERS: PCP Family Medicine; Visit Provider Internal Medicine Pulmonary Disease
PROC: 0BJ08ZZ Inspection of Tracheobronchial Tree, Via Natural or Artificial Opening Endoscopic (ICD-10-PCS; CPT 31622; principal; 2024-01-10 09:00)
PROC: BB4BZZZ Ultrasonography of Pleura (ICD-10-PCS; 2024-01-10 09:00)
DX: C34.91 Malignant neoplasm of unspecified part of right bronchus or lung (principal); J44.9 Chronic obstructive pulmonary disease, unspecified; I11.0 Hypertensive heart disease with heart failure; I50.9 Heart failure, unspecified; I25.10 Atherosclerotic heart disease of native coronary artery without angina pectoris; Z95.5 Presence of coronary angioplasty implant and graft; Z79.02 Long term (current) use of antithrombotics/antiplatelets; E78.5 Hyperlipidemia, unspecified; Z87.891 Personal history of nicotine dependence
CPT/HCPCS: 31624; 31627; 31628; 31629; 31653; 71045; 76000; 80503; 87070; 87205; 88305; 88341; 88342; 89050; 93005; 94640; J1100; J2405; J2704; J3010; J3490; J7030; J9999

== ENCOUNTER 2024-01-17 08:52 | Outpatient (CLI) | payer MEDICARE, MEDICAID, SELFPAY ==
[2024-01-17 09:17] VITALS: PULSE 66; RESP 18; O2SAT 99
[2024-01-17] MEDS: albuterol 2.5 mg/3 mL Neb INHALATION (09:17)
[2024-01-17 09:21] VITALS: PULSE 67
== END 2024-01-17 08:53 | disposition home or self-care (01) ==
LOC: RT 08:53
PROVIDERS: PCP Family Medicine; Visit Provider Internal Medicine Pulmonary Disease
DX: J44.9 Chronic obstructive pulmonary disease, unspecified (principal)
CPT/HCPCS: 94060; 94618; 94726; 94729

== ENCOUNTER → 2024-01-30 13:42 | Outpatient (BNVA) | payer MEDICARE, MEDICAID, SELFPAY | PROVIDERS: PCP Family Medicine; Visit Provider Internal Medicine Pulmonary Disease | DX: C34.01 Malignant neoplasm of right main bronchus (principal); F17.200 Nicotine dependence, unspecified, uncomplicated; Z71.6 Tobacco abuse counseling; J43.2 Centrilobular emphysema | CPT/HCPCS: 99214 ==

== ENCOUNTER 2024-01-31 11:39 | Day surgery (SDC) | payer MEDICARE, MEDICAID, SELFPAY ==
[2024-01-31] VITALS (7 sets, daily range): BP systolic 127–164; BP diastolic 46–65; PULSE 69–79; RESP 16–22; TEMP 36.4–36.8; O2SAT 95–100; BMI 22.3
--- NOTE | 2024-01-31 11:40 | XRR_ITS ---
PROCEDURE INFORMATION: Exam: XR Chest Exam date and time: 01/31/2024 1:55 PM Age: 68 years old Clinical indication: Device placement; Other: Postop mediport placement; Prior surgery; Surgery date: 6+ months; Surgery type: Cardiac stents port TECHNIQUE: Imaging protocol: Radiologic exam of the chest. Views: 1 view. COMPARISON: CR XR chest 1V portable [id number] 01/10/2024 11:36 AM FINDINGS: Tubes, catheters and devices: Interval placement of left subclavian port infusion catheter with tip in SVC. Lungs: Right hilar mass again noted. Mild diffuse coarsening of the pulmonary interstitium again seen. No acute pulmonary pathology. Pleural spaces: No pleural effusion. No pneumothorax. Heart/Mediastinum: Cardiac silhouette within normal limits. Bones/joints: Mild dextrocurvature of the spine. Intraperitoneal space: Right upper quadrant surgical clips noted. XR/XR chest 1V portable [id number] IMPRESSION: Interval placement left subclavian port infusion catheter. No acute pathology. Right hilar mass again noted.
--- NOTE | 2024-01-31 11:40 | SC_ITS ---
WS: [id number] C-ARM RADIOGRAPHS CHEST; 2 IMAGES HISTORY: Mediport placement COMPARISON: None available. Intraoperative imaging during LEFT subclavian Mediport placement. SC/C-arm FL for CVA [id number] IMPRESSION: Intraoperative imaging during LEFT subclavian Mediport placement.
--- NOTE | 2024-01-31 11:46 | W.PM.OPSUD ---
Surgery/Procedure H&P Update DATE OF PROCEDURE: January 31, 2024 DATE H&P PERFORMED: 01/23/24 H&P UPDATE INFORMATION: I have reviewed H&P completed within last 30 days, I have examined patient prior to procedure and No changes to prior documentation PLANNED PROCEDURE: Operation Date: 01/31/24 13:10 Proposed Procedures p Portacath Placement(Not Applicable) - Aristeo Duke DO
--- NOTE | 2024-01-31 12:11 | ANES.PREANE2 ---
Pre-Anesthetic Assessment Height/Weight: Height 1.55 m Weight 53.524 kg Temp Pulse Resp BP Pulse Ox O2 Del Method 97.6 F 79 17 164/64 97 Room Air 01/31/24 11:54 01/31/24 11:54 01/31/24 11:54 01/31/24 11:54 01/31/24 11:54 01/31/24 11:55 Operation Date: 01/31/24 13:10 Proposed Procedures p Portacath Placement(Not Applicable) - Aristeo Duke DO Last intake: Intake Last Liquid Date 01/30/24 Last Liquid Time 21:00 Last Solid Date 01/30/24 Last Solid Time 18:00 Social No tobacco Exam alert, oriented x 3 and regular rate & rhythm mild exp wheezes right lung Airway Submandibular: within normal limits Cervical ROM: within normal limits Mallampati: Class I Dentition: full Pulmonary None reported CV/HEM None reported None reported Hepatic None reported Metabolic None reported Musc/skel None reported Anesthetic Plan ASA status: 3 Anesthesia: MAC Risk of > 500 ml blood loss (7ml/kg in children): No Medications/Allergies Home Medications Medication Instructions Recorded Confirmed Last Taken Type acetaminophen 325 mg tablet 650 mg (2 x 325 mg) PO Q4H PRN 04/01/22 01/30/24 5 Months Ago Rx pain #60 tabs ~07/16/23 alendronate 35 mg tablet 35 mg PO Q7D 01/11/23 01/30/24 01/29/24 History biotin 2,500 mcg capsule 2,500 mcg PO QAM 01/11/23 01/30/24 01/30/24 History cetirizine 10 mg tablet (Zyrtec) 10 mg PO DAILY PRN Allergy Symptoms 01/11/23 01/30/24 01/30/24 History clopidogrel 75 mg tablet 75 mg PO DAILY #90 tabs 02/10/23 01/30/24 01/24/24 Rx cyclobenzaprine 10 mg tablet 10 mg PO TID PRN muscle spasm #30 02/10/23 01/30/24 01/30/24 Rx tabs nitroglycerin 0.4 mg sublingual 0.4 mg sublingual Q5M PRN Chest 08/29/23 01/30/24 3 Months Ago Rx tablet (Nitrostat) Pain #30 tabs ~09/15/23 albuterol sulfate 90 mcg/actuation 1 inh inhalation QID PRN shortness 12/16/23 01/30/24 01/30/24 Rx aerosol inhaler of breath or wheezing #6.7 grams atorvastatin 80 mg tablet 80 mg PO BEDTIME #90 tabs 12/16/23 01/30/24 01/30/24 Rx duloxetine 20 mg capsule,delayed 20 mg PO BID #180 caps 12/16/23 01/30/24 01/30/24 Rx release (Cymbalta) lisinopril 10 mg tablet 10 mg PO DAILY #90 tabs 12/16/23 01/30/24 01/30/24 Rx fluoxetine 20 mg capsule 60 mg PO DAILY 12/20/23 01/30/24 01/30/24 History gabapentin 300 mg capsule 600 mg PO BID 12/20/23 01/30/24 01/30/24 History umeclidinium 62.5 mcg/actuation 1 inh inhalation DAILY #30 ea 01/02/24 01/30/24 01/30/24 Rx blister powder for inhalation (Incruse Ellipta) Allergies Allergy/AdvReac Type Severity Reaction Status Date / Time hydrocodone Allergy Intermediate Altered Verified 01/31/24 11:46 mental status codeine Allergy Unknown Verified 01/31/24 11:46 Sulfa (Sulfonamide Allergy ADR-Nausea Verified 01/31/24 11:46 Antibiotics) tramadol [From Ultram] Allergy ADR-Vomitin Verified 01/31/24 11:46 g PFSH Anesthesia Medical History COPD (chronic obstructive pulmonary disease) Chronic lower back pain CHF (congestive heart failure), NYHA class III Unstable angina pectoris CAD (coronary artery disease) Postoperative anemia due to acute blood loss Hx of chest pain Aortic heart valve narrowing with insufficiency History of tumor DDD (degenerative disc disease), lumbosacral ASHD (arteriosclerotic heart disease) HTN (hypertension) Dyslipidemia Subclavian artery stenosis Carotid stenosis, non-symptomatic Surgical History History of Status post laminectomy History of cholecystectomy Family History Mother CAD (coronary artery disease) Sister Chronic kidney disease (CKD) Brother Chronic kidney disease (CKD) Other Hypertension Lung disease Denies family history of Hyperlipidemia Social History Smoking and tobacco/nicotine status: former use of tobacco/nicotine Second hand smoke exposure: No Alcohol intake: never Substance/Drug Use: never Lives independently: Yes Marital status: Number of children: 4 Current occupational status: disabled Current gender identity: Female Data Anesthesia Cardiac Studies: Echocardiogram 01/23/24 Sestamibi Stress Test (Cardiology) 11/20/20
[2024-01-31] MEDS: sodium chloride 0.9% 1,000 ML 30 ML IV (12:18)
[2024-01-31] MEDS: scopolamine 1.5 Patch 1 PATCH TRANSDERMA (12:29)
[2024-01-31] MEDS: ceFAZolin 2,000 MG in sodium chloride 0.9% (plus) 50 ML 100 MG IV (13:18)
[2024-01-31] MEDS: sodium chloride 0.9% 100 mL Bag XX (13:36)
[2024-01-31] MEDS: heparin, porcine 1,000 unit/mL INJ 10 mL 10000 UNIT IRRIGATION (13:37)
[2024-01-31] MEDS: lidocaine-epi 2% PF 1:200,000 20 mL SDV 10 ML XX (13:37)
--- NOTE | 2024-01-31 13:59 | PM.OP ---
Operative Report Date of procedure: January 31, 2024 Pre-op diagnosis: Left cancer Post-op diagnosis: same Procedure done: Mediport placement Intraoperative interpretation of fluoroscopy Implants: PowerPort Specimens removed/disposition: none Surgeon: Aristeo Duke DO Anesthesia: MAC and Local Estimated blood loss (mL): 5 Complications: None apparent Brief History: This is a very pleasant 68-year-old female presented my office requesting Mediport placement for chemotherapy access for lung cancer treatment. Risk and benefits were explained and documented. Procedure: They put another order I will do right now things the patient was taken to the operating room and placed supine on the operating room table. All bony prominences were padded. She was given IV sedation and monitored throughout the case by the anesthesia personnel. SCDs were placed and turned on. The arms were tucked to the side. Patient received Ancef 2 g preoperatively IV. The bilateral chest wall was prepped and draped in usual sterile fashion using chlorhexidine base prep. Sterile drapes were applied. We did procedure pause prior to beginning. An 18 gauge needle was placed in the left subclavian vein. Dark, nonpulsatile blood was aspirated. A guidewire was placed through the needle centrally toward the atrial/vena caval junction. Fluoroscopy visualized good placement. The needle was removed and the guidewire was clipped to the drape with a hemostat. Further local anesthetic was infiltrated in the soft tissues of the left chest wall and a #15 blade was used to make a horizontal skin incision. A subcutaneous Mediport pocket was created using Bovie cautery, dissecting down through the skin and subcutaneous tissues. Meticulous hemostasis was achieved. The Mediport was sutured in position using 3-0 vicryl suture x2 stitches. A #15 blade was used to make a small skin lucio around the guidewire insertion area. The Mediport tubing was tunneled through the subcutaneous tissues up to the needle insertion location. A dilator with a peel-away sheath was placed over the guidewire and placed centrally. After measuring the Mediport tubing was cut to length so that the tip would end at the atrial/vena caval junction. The inner cannula and the guidewire were removed, leaving the dilator sheath in place. The Mediport was flushed. The tip of the catheter was inserted through the peel-away sheath and the peel-away sheath removed in the standard fashion. The Mediport was accessed with a straight Villegas needle and dark, nonpulsatile blood was aspirated and flushed using heparinized saline to hep-lock the Mediport. Final fluoroscopy visualization showed no kink in the catheter and the tip of the Mediport tubing near the atrial/vena caval junction. There was no obvious pneumothorax. Both skin incisions were thoroughly irrigated and suctioned dry. Meticulous hemostasis noted. The dermis was approximated with 3-0 Vicryl in an interrupted fashion. Skin was closed with Dermabond. Patient was awakened from anesthesia and transferred via her cart to the recovery room in stable condition. All needle, sponge, and instrument counts were correct per the operating personnel x2 counts.
--- NOTE | 2024-01-31 14:14 | P.ANESPOST_ITS ---
Inpatient post-anesthesia follow up: Vital signs: Temperature 98.3 F Pulse Rate 71 Respiratory Rate 16 Blood Pressure 141/51 Pulse Oximetry 98 Oxygen Delivery Me thod Room Air Oxygen Flow Rate Fraction of Inspir ed Oxygen Hydration adequate: Yes Nausea and vomiting: No Pain level: con trolled Mental status: Baseline Additional Comments: no apparent anesthetic complications noted
== END 2024-01-31 14:55 | disposition home or self-care (01) ==
PROVIDERS: PCP Family Medicine; Visit Provider Surgery
PROC: (CPT 36561; principal; 2024-01-31 13:10)
DX: C34.01 Malignant neoplasm of right main bronchus (principal)
CPT/HCPCS: 36561; 71045; 77001; C1788; J0690; J1644; J2405; J2704; J7030

== ENCOUNTER 2024-02-01 12:07 | Emergency (ER) | payer MEDICARE, MEDICAID, SELFPAY ==
[2024-02-01 12:23] VITALS: BP 155/66; PULSE 68; RESP 18; TEMP 36.7; O2SAT 99
--- NOTE | 2024-02-01 12:29 | CT_ITS ---
WS: [id number] CT CHEST TECHNIQUE: Noncontrast CT of the chest with coronal and sagittal reformatted images. CLINICAL INFORMATION: Traumatic chest pain COMPARISON: None. DLP: 223.[address] scans at [facility] use at least one of these dose optimization techniques: automated e xposure control; mA and/or kV adjustment per patient size (includes targeted exams where dose is matc hed to clinical indication); or iterative reconstruction. FINDINGS: Again seen is the posterior medial spiculated RIGHT infrahilar mass involving the RIGHT lower lobe br onchus compatible with neoplasm. This is similar in appearance to the recent CTs. This measures appro ximately 5.4 x 2.4 x 6.6 cm Mild thoracic curve. Mild thoracic kyphosis. Hypertrophic changes thoracic spine. LEFT Port-A-Cath wi th tip in the distal SVC. Small amount normal postoperative air in the area of recent Port-A-Cath caitlin cement. Tiny nondisplaced LEFT lower rib fractures posteriorly involving the 10th and 11th ribs. No pneumotho rax. Trace fluid LEFT lower lobe with slight LEFT basilar atelectasis. Advanced chronic emphysematous changes. Aortic calcification. Coronary calcification. RIGHT hilar lym phadenopathy. Adrenal glands are normal. Cholecystectomy clips. CT/CT chest wo con [id number] IMPRESSION: 1. Small nondisplaced LEFT posterior 10th and 11th rib fractures with trace LE FT pleural effusion and slight atelectasis. No pneumothorax. 2. No other acute findings. 3. Similar-appearing large RIGHT infrahilar neoplasm. 4. Interval placement of LEFT Port-A-Cath Notified Pam Ortiz MD at 02/01/2024 1:32 PM.
--- NOTE | 2024-02-01 12:29 | ED_ITS ---
HPI - Back Pain/Injury General: Chief Complaint: Back Pain/Injury Stated Complaint: fall, lower back pain Time Seen by Provider: 02/01/24 12:26 History of Present Illness: 68-year-old female with history of COPD, CHF, coronary artery disease, hypertension and hyperlipidemia who presents the emergency room after she fell out of bed onto a night table. She is having pain in her left posterior lower ribs. She says it hurts to breathe. Otherwise not more short of breath than usual. No head injury. She is on Plavix. No loss of consciousness. No altered mental status. No other injuries. No focal motor deficits. Review of Systems Narrative: Constitutional symptoms: Negative except as documented in HPI. Skin symptoms: Negative except as documented in HPI. Eye symptoms: Negative except as documented in HPI. ENMT symptoms: Negative except as documented in HPI. Respiratory symptoms: Negative except as documented in HPI. Cardiovascular symptoms: Negative except as documented in HPI. Gastrointestinal symptoms: Negative except as documented in HPI. Genitourinary symptoms: Negative except as documented in HPI. Musculoskeletal symptoms: Negative except as documented in HPI. Neurologic symptoms: Negative except as documented in HPI. Psychiatric symptoms: Negative except as documented in HPI. Endocrine symptoms: Negative except as documented in HPI. PFS ED PFSH: Medical History COPD (chronic obstructive pulmonary disease) Chronic lower back pain CHF (congestive heart failure), NYHA class III Unstable angina pectoris CAD (coronary artery disease) Postoperative anemia due to acute blood loss Hx of chest pain Aortic heart valve narrowing with insufficiency History of tumor DDD (degenerative disc disease), lumbosacral ASHD (arteriosclerotic heart disease) HTN (hypertension) Dyslipidemia Subclavian artery stenosis Carotid stenosis, non-symptomatic Surgical History History of Status post laminectomy History of cholecystectomy Family History Mother CAD (coronary artery disease) Sister Chronic kidney disease (CKD) Brother Chronic kidney disease (CKD) Other Hypertension Lung disease Denies family history of Hyperlipidemia Social History Smoking and tobacco/nicotine status: former use of tobacco/nicotine Second hand smoke exposure: No Alcohol intake: never Substance/Drug Use: never Lives independently: Yes Marital status: Number of children: 4 Current occupational status: disabled Current gender identity: Female Physical Exam Narrative: EXAM NARRATIVE: General: Alert, no acute distress. Skin: Warm, dry. Head: Normocephalic, atraumatic. Neck: Supple, trachea midline. Eye: Extraocular movements are intact. Ears, nose, mouth and throat: mucosa moist. Cardiovascular: Regular, Normal peripheral perfusion. Respiratory: Lungs are clear to auscultation, respirations are non-labored, breath sounds are equal, Symmetrical chest wall expansion. Patient is very tender to palpation in her left posterior lower ribs. Gastrointestinal: Soft, Nontender, Non distended, Normal bowel sounds. Musculoskeletal: Normal ROM, no deformity. Neurological: Alert and oriented, No focal neurological deficit observed. Psychiatric: Cooperative, appropriate mood & affect. Course Vital Signs: Vital signs: Vital Signs Temperature 98.0 F 02/01/24 12:23 Pulse Rate 63 02/01/24 12:34 Respiratory Rate 18 02/01/24 12:34 Blood Pressure 155/66 02/01/24 12:34 Pulse Oximetry 100 02/01/24 12:34 Oxygen Delivery Me thod Room Air 02/01/24 12:34 MDM - Back Pain/Injury Medical Decision Making Medical decision making: Differential diagnosis including but not limited to and based on the above HPI, review of systems and physical exam: In this patient with traumatic left rib pain would have concern for rib fractures, pneumothorax, hemothorax, pulmonary contusion. CT of the chest without contrast was ordered to evaluate. Orders placed to evaluate differential diagnosis based on the above differential, HPI and physical exam CT of the chest without contrast: 2 nondisplaced posterior rib fractures. Ribs 10 and 11. No pneumothorax. I reviewed and interpreted these films personally. Also discussed the findings with the radiologist on-call. I reviewed the patient's medical record. Reexamination: Patient remained stable. No oxygen requirements no increased work of breathing. Still with quite a bit of pain. Assessment and plan: Rib fractures -Ibuprofen did not improve the patient's pain. She had a reaction with hydrocodone in the past but wants to try it again because of the severity of her pain. -Incentive spirometry - Discharged home - Discussed findings and plan with patient. Answered any questions. - All laboratory values were reviewed and interpreted personally by myself, the ER physician - All imaging was reviewed and interpreted personally by myself, the ER physician. - Evaluation and treatment of this problem were appropriate in the emergency setting Labs Radiology Impressions Chest CT 02/01/24 12:29 IMPRESSION: 1. Small nondisplaced LEFT posterior 10th and 11th rib fractures with trace LEFT pleural effusion and slight atelectasis. No pneumothorax. 2. No other acute findings. 3. Similar-appearing large RIGHT infrahilar neoplasm. 4. Interval placement of LEFT Port-A-Cath Notified Pam Ortiz MD at 02/01/2024 1:32 PM. All radiology interpretation(s) finalized by discharge Discharge Plan Discharge Patient Disposition: Home Clinical Impression: Multiple rib fractures Condition: Stable Prescriptions: New hydrocodone-acetaminophen 5-325 mg tablet 1 tab PO Q6H PRN (Reason: pain) Qty: 20 0RF diclofenac sodium 50 mg tablet,delayed release (DR/EC) 50 mg PO Q12H Qty: 20 0RF polyethylene glycol 3350 [Miralax] 17 gram/dose powder 17 g PO DAILY Qty: 510 0RF Rx Instructions: Take 1 scoop daily while taking pain medications. No Action nitroglycerin [Nitrostat] 0.4 mg tablet, sublingual 0.4 mg SUBLINGUAL Q5M PRN (Reason: Chest Pain) Qty: 30 6RF Rx Instructions: do not exceed 3 doses per episode Incruse Ellipta 62.5 mcg/actuation blister with device 1 inh inhalation DAILY Qty: 30 3RF duloxetine [Cymbalta] 20 mg capsule,delayed release(DR/EC) 20 mg PO BID Qty: 180 0RF albuterol sulfate 90 mcg/actuation HFA aerosol inhaler 1 inh inhalation QID PRN (Reason: shortness of breath or wheezing) Qty: 6.7 0RF atorvastatin 80 mg tablet 80 mg PO BEDTIME Qty: 90 0RF lisinopril 10 mg tablet 10 mg PO DAILY Qty: 90 3RF alendronate 35 mg tablet 35 mg PO Q7D Rx Instructions: on tuesday biotin 2,500 mcg Capsule 2,500 mcg PO QAM fluoxetine 20 mg capsule 60 mg PO DAILY gabapentin 300 mg capsule 300 mg PO QID oxycodone-acetaminophen 5-325 mg tablet 1 tab PO Q6H PRN (Reason: pain) Qty: 10 0RF acetaminophen 325 mg Tablet 650 mg PO Q4H PRN (Reason: pain) Qty: 60 0RF Hold Instructions: Resume on 02/03/24. clopidogrel 75 mg Tablet 75 mg PO DAILY Qty: 90 4RF Hold Instructions: Resume on 02/02/24. Aspir-81 81 mg Tablet,Delayed Release (Dr/Ec) 81 mg PO DAILY Discharge Orders: Discharge ED (Routine); Ordered 02/01/24 Ordered By: Pam Ortiz Referrals: Alejandro Child MD [Primary Care Provider] - 4-7 days Discharge Diet: Usual diet Discharge Activity: Increase activity as tolerated Patient Instructions: How to Use an Incentive Spirometer (ED), Rib Fracture (ED), Opioid Safety, Pain Management Activity Restrictions/Additional Instructions: Make sure you take deep breaths or use her incentive spirometer several times a day to prevent pneumonia. Thank you for choosing [facility] for your healthcare needs today. Please realize this is an emergency room and that we are providing you with a medical screening exam and this may not be complete and all inclusive of all the testing and or work up that you may need to determine your ailment or severity of your illness. You have been screened and evaluated and felt safe for discharge. Health conditions do change or evolve sometimes and as such it is important that you follow up with your Primary Doctor to be re checked, 3-5 days is a general good time frame for follow up. 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
[2024-02-01 12:34] VITALS: BP 155/66; PULSE 63; RESP 18; O2SAT 100
[2024-02-01] MEDS: HYDROcodone-acetaminophen 10-325 mg Tablet 1 TAB PO (14:04)
--- NOTE | 2024-02-01 14:05 | PC.NURSE ---
Pt states she has taken hydrocodone once in the past after surgery and it made her a little confused, wants to take it today despite this in the past. Pt's here with patient and will be driving home
[2024-02-01 14:33] VITALS: BP 155/66; PULSE 63; RESP 18; TEMP 36.7; O2SAT 100
== END 2024-02-01 14:13 | disposition home or self-care (01) ==
PROVIDERS: Emergency Provider Emergency Medicine; PCP Family Medicine
DX: S22.42XA Multiple fractures of ribs, left side, initial encounter for closed fracture (principal); Z79.02 Long term (current) use of antithrombotics/antiplatelets; Z79.82 Long term (current) use of aspirin; Z87.891 Personal history of nicotine dependence; J44.9 Chronic obstructive pulmonary disease, unspecified; I11.0 Hypertensive heart disease with heart failure; I50.9 Heart failure, unspecified; I25.10 Atherosclerotic heart disease of native coronary artery without angina pectoris; E78.5 Hyperlipidemia, unspecified; W06.XXXA Fall from bed, initial encounter
CPT/HCPCS: 71250; 99284

== ENCOUNTER 2024-02-16 13:44 | Oncology outpatient (recurring) (ONCR) | payer MEDICARE, MEDICAID, SELFPAY ==
[2024-01-18 16:40] LABS: Basophils # 0.1 10^3/uL (0.0-0.1); Basophils % 0.6 %; Eosinophils # 0.2 10^3/uL (0.0-0.8); Eosinophils % 2.3 %; Hematocrit 39.1 % (36-47); Lymphocytes # 2.4 10^3/uL (0.8-4.8); Lymphocytes % 26.5 %; Mean Corpuscular HGB Conc 31.7 g/dL (30-55); Mean Corpuscular Hemoglobin 28.2 pg (27-33); Mean Corpuscular Volume 88.9 fl (85-98); Mean Platelet Volume 10.1 fL (7.4-10.4); Monocytes # 0.5 10^3/uL (0.2-0.9); Monocytes % 5.8 %; Neutrophils # 5.81 10^3/uL (1.8-7.7); Neutrophils % 64.2 %; Nucleated Red Blood Cells % 0 %; Platelet Count 423 10^3/cmm (157-399); Red Cell Distribution Width 14.2 % (12.1-15.1); White Blood Count 9.04 10^3/uL (3.29-11.43)
[2024-01-18 16:51] LABS: Alanine Aminotransferase 9 U/L (0-33); Albumin Level 3.5 g/dL (3.5-5.2); Alkaline Phosphatase 131 U/L (35-105); Aspartate Amino Transferase 13 U/L (0-32); Blood Urea Nitrogen 11 mg/dL (8-23); Calcium 9.2 mg/dL (8.5-10.5); Carbon Dioxide 24 mmol/L (22-29); Chloride 102 mmol/L (98-107); Globulin 3.5 g/dL (1.3-4.6); Glucose 81 mg/dL (65-115); Osmolality Calculated 282 mOsm/kg (285-295); Sodium 137 mmol/L (136-145); Total Bilirubin 0.2 mg/dL (0.15-1.2)
[2024-01-18 16:54] LABS: Anion Gap 15.3 (5-19); Potassium 4.3 mmol/L (3.5-5.1)
--- NOTE | 2024-01-23 07:00 | USCV_ITS ---
Pam Ordonez Age: 68 Gender: F : 1955 Exam Date: 01/23/2024 07:06 Ordering Phys: Ryann Ramos MD Technologist: Exam Location: [facility] – [place] Indication: high risk meds BP: 120 / 70 HR: 105 Rhythm: Sinus Technical Quality: MEASUREMENTS (Male / Female) Normal Values 2D ECHO LV Diastolic Diameter PLAX 4.4 cm 4.2 - 5.9 / 3.9 - 5.3 cm IVS Diastolic Thickness 1.2 cm 0.6 - 1.0 / 0.6 - 0.9 cm IVS Systolic Thickness 1.5 cm LVPW Diastolic Thickness 1.4 cm 0.6 - 1.0 / 0.6 - 0.9 cm LVPW Systolic Thickness 1.5 cm LVOT Diameter 2.0 cm LV Ejection Fraction 2D Teich 67.1 % LV Ejection Fraction MOD 2C 52.9 % LV Ejection Fraction 2C AL 52.5 % LA Diameter 2.6 cm RA Systolic Volume 4C AL 21.2 ml RA Systolic Volume 4C MOD 19.1 ml Aorta at Sinotubular Diameter 2.0 cm IVC Diameter 0.7 cm M-MODE LA Ao Ratio MM 1.1 AV Cusp Separation MM 2.7 cm DOPPLER AV Peak Velocity 347.7 cm/s LVOT Peak Velocity 140.0 cm/s AV Area Cont Eq vti 3.0 cm squared AV Area Cont Eq pk 1.3 cm squared MV Peak Velocity 146.0 cm/s MV Area PHT 2.6 cm squared Mitral E to A Ratio 0.9 TV Peak Velocity 237.0 cm/s TR Peak Velocity 237.0 cm/s TR Peak Gradient 22.5 mmHg TV Peak E Velocity 128.0 cm/s Right Atrial Pressure 3.0 mmHg Pulmonary Artery Systolic Pressu 25.5 mmHg FINDINGS Left Ventricle Mild to moderate concentric left-ventricular hypertrophy. normal left ventricular size with a borderline low ejection fraction of 53%. Mild hypokinesia of the basal septal segment. Grade I/IV diastolic dysfunction (abnormal relaxation filling pattern), normal to mildly elevated filling pressures. Right Ventricle Normal right ventricular size and systolic function. Right Atrium Normal right atrial size. Left Atrium Mildly increased left atrial size. Mitral Valve Moderate mitral annular calcification. Moderate mitral valve regurgitation. Aortic Valve Moderate aortic valve regurgitation. Tricuspid Valve Trace tricuspid valve regurgitation. Pulmonic Valve No gross abnormalities noted Pericardium No pericardial effusion. Aorta Normal aortic annulus size. IVC Normal inferior vena cava. CONCLUSIONS Mild to moderate concentric left-ventricular hypertrophy. normal left ventricular size with a borderline low ejection fraction of 53%. Mild hypokinesia of the basal septal segment. Grade I/IV diastolic dysfunction (abnormal relaxation filling pattern), normal to mildly elevated filling pressures. Moderate mitral annular calcification. Moderate mitral valve regurgitation. Moderate aortic valve regurgitation. Mildly increased left atrial size. Trace tricuspid valve regurgitation. There is no pericardial effusion. There are no intracardiac masses. No previous study is available for comparison. Compared to the study from 02/08/2023, there is some improvement in the LV ejection fraction.(From 45-50% to 53%) Dr Devan Walker MD FAC (Electronically Signed) Final Date: 23 Jan 2024 09:43 S
--- NOTE | 2024-01-24 08:33 | N.ONRAD NP_ITS ---
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 Radiotherapy to date: Summary > No prior radiation therapy. Chief Complaint / History of Present Illness: 68 yo woman with long history of smoking. New increased cough. No hemoptysis or chest pain. CT 11/22/2023 new right infrahilar mass. Stable CLARENCE nodule previously seen. Bronch with bx 01/10/2024 station 7 positive for poorly differentiated adenocarcinoma. Other biopsies negative. PET/CT scan Right hilar infra hilar hypermetabolic mass with extension into mediastinum and narrowing RMSTB. No other evidence for metastatic disease elsewhere. Cough now better. Weight at 118 pounds stable x 2 to 3 years. Fair stable appetite. Living independently with her . Relatively sedentary life with stable energy level. Current Medications: acetaminophen 650 mg (2 x 325 mg) PO Q4H PRN, albuterol sulfate 90 mcg/actuation 1 inh inhalation QID PRN, alendronate 35 mg PO Q7D, atorvastatin 80 mg PO BEDTIME, biotin 2,500 mcg PO QAM, cetirizine (Zyrtec) 10 mg PO DAILY PRN, clopidogrel 75 mg PO DAILY, cyclobenzaprine 10 mg PO TID PRN, duloxetine (Cymbalta) 20 mg PO BID, fluoxetine 60 mg PO DAILY, gabapentin 600 mg PO BID, lisinopril 10 mg PO DAILY, nitroglycerin (Nitrostat) 0.4 mg sublingual Q5M PRN, umeclidinium 62.5 mcg/actuation (Incruse Ellipta) 1 inh inhalation DAILY Allergies: hydrocodone Allergy (Intermediate, Verified 01/18/24 15:17) Altered mental status, codeine Allergy (Verified 01/18/24 15:17) Unknown, Sulfa (Sulfonamide Antibiotics) Allergy (Verified 01/18/24 15:17) ADR-Nause, tramadol [From Ultram] Allergy (Verified 01/18/24 15:17) ADR-Vomiting Medical History: COPD (chronic obstructive pulmonary disease), Chronic lower back pain, CHF (congestive heart failure), NYHA class III, Unstable angina pectoris, CAD (coronary artery disease), Postoperative anemia due to acute blood loss, Hx of chest pain, Aortic heart valve narrowing with insufficiency, History of tumor, DDD (degenerative disc disease), lumbosacral, ASHD (arteriosclerotic heart disease), HTN (hypertension), Dyslipidemia, Subclavian artery stenosis, Carotid stenosis, non-symptomatic Surgical History: History of , Status post laminectomy, History of cholecystectomy Family History: Mother- CAD (coronary artery disease), Sister- Chronic kidney disease (CKD) Brother- Chronic kidney disease (CKD) Other, Hypertension, Lung disease, Denies family history of Hyperlipidemia No family history for malignancy. Social History: x 53 yrs. 2 children and 2 step children. 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 Enjoys puzzle books. Smoked age 14 to 68 up to 2 ppd quit at diagnosis. Smoking and tobacco/nicotine status: former use of tobacco/nicotine, Second hand smoke exposure: No, Alcohol intake: never, Substance/Drug Use: never, Lives independently: Yes Marital status: , Number of children: 4, Current occupational status: disabled , Current gender identity: Female Vital Signs: Performed on 01/23/2024 12:37 PM BMI - 22.334 kg/m2, Height - 61 in, Weight - 118.2 lbs, Temperature - 96.8 f, Pulse - 80 /min, Respiration - 16 /min, O2 Sat - 98 %, Pain - 0, Fatigue - 0 and BP - 116/ 65 mm(hg). Physical Exam: Thin, old appearing for age. Dentures in. No adenopathy. Lungs clear. Heart reg with LI. No clubbing or edema. Performance Status: 0 - 1 Imaging: See HPI Impression: St III(T3, N2 M0) adenocarcinoma of right infrahilar lung. Poor candidate for surgery. Best treated with chemo-immunotherapy with 60 to 66 Gy of chest radiation. Discussed in detail with patient and . Advised to quit smoking as patient recently has done so. Signed by: 01/24/2024 8:31:30 AM <<Signature on File>> Time spent with patient: CPT Code: CPT Code:
--- NOTE | 2024-02-10 09:30 | MR_ITS ---
WS: [id number] MRI HEAD WITH CONTRAST TECHNIQUE: Sagittal T1, T2 axial, T2 axial FLAIR, axial susceptibility weighted imaging, axial diffus ion weighted images, and coronal T2 images were obtained. Pre and post-T1 axial and post T1 coronal i mages. ADC and FSPGR images. CLINICAL INFORMATION: large cell carcinoma COMPARISON: MRI 2010 FINDINGS: No evidence of restricted diffusion to suggest acute ischemia. Ventricular system and basal cisterns are patent. 1.3 x 0.9 cm Pituitary cyst unchanged since 2010. Normal posterior fossa. Normal vascular flow voids at the skull base. No extra-axial fluid collection s. No evidence of mass or mass effect. Small vessel changes in the katerin. Paranasal sinuses and mastoi d air cells are well aerated. No hemosiderin on the susceptibility weighted images. Mild small vessel changes. Mild to moderate parenchymal volume loss. Normal optic chiasm and pituitary infundibulum. M ild symmetric atrophy temporal lobes and hippocampal formations. No abnormal intracranial enhancement. No enhancing intracranial metastatic lesions. Normal dural veno us sinuses. MR/MR head wo/w con [id number] IMPRESSION: 1. No evidence of enhancing intracranial metastatic disease. 2. Mild small vessel changes with mild to moderate parenchymal volume loss. 3. Small vessel changes in the katerin similar in appearance compared to 2010 4. Pituitary cyst is unchanged since 2010 described above.
[2024-02-10] MEDS: gadobenate dimeglumine 20 mL vial IV (09:55)
[2024-02-15 08:02] VITALS: BP 123/60; PULSE 67; RESP 16; TEMP 36.2; O2SAT 97
[2024-02-15 08:02] LABS: Basophils # 0.1 10^3/uL (0.0-0.1); Basophils % 0.6 %; Eosinophils # 0.2 10^3/uL (0.0-0.8); Hematocrit 36.1 % (36-47); Lymphocytes # 2.3 10^3/uL (0.8-4.8); Lymphocytes % 21.8 %; Mean Corpuscular HGB Conc 31.3 g/dL (30-55); Mean Corpuscular Hemoglobin 26.6 pg (27-33); Mean Corpuscular Volume 84.9 fl (85-98); Mean Platelet Volume 9.8 fL (7.4-10.4); Monocytes # 0.8 10^3/uL (0.2-0.9); Monocytes % 7.4 %; Neutrophils # 7.31 10^3/uL (1.8-7.7); Neutrophils % 67.9 %; Nucleated Red Blood Cells % 0 %; Platelet Count 456 10^3/cmm (157-399); Red Blood Count 4.25 10^6/uL (3.85-5.65); Red Cell Distribution Width 13.7 % (12.1-15.1); White Blood Count 10.74 10^3/uL (3.29-11.43)
[2024-02-15 08:04] VITALS: BMI 21.6
[2024-02-15 08:25] LABS: Alanine Aminotransferase 10 U/L (0-33); Albumin Level 3.4 g/dL (3.5-5.2); Alkaline Phosphatase 139 U/L (35-105); Anion Gap 14.3 (5-19); Aspartate Amino Transferase 14 U/L (0-32); Blood Urea Nitrogen 8 mg/dL (8-23); Calcium 8.9 mg/dL (8.5-10.5); Carbon Dioxide 23 mmol/L (22-29); Chloride 101 mmol/L (98-107); Creatinine Clr Calc Pharmacy 54.0049; Globulin 3.4 g/dL (1.3-4.6); Glucose 89 mg/dL (65-115); Osmolality Calculated 276 mOsm/kg (285-295); Potassium 4.3 mmol/L (3.5-5.1); Sodium 134 mmol/L (136-145); Total Bilirubin 0.4 mg/dL (0.15-1.2); Total Protein 6.8 g/dL (6.6-8.7)
[2024-02-15] MEDS: acetaminophen 325 mg Tablet 650 MG PO (10:04)
[2024-02-15] MEDS: sodium chloride 0.9% 250 ML 75 ML IV (10:06)
[2024-02-15] MEDS: palonosetron 0.25 mg/5 mL SDV IVP (10:09)
[2024-02-15] MEDS: famotidine 20 mg/2 mL INJ IVP (10:11)
[2024-02-15] MEDS: diphenhydrAMINE 50 mg/mL SDV 1mL 25 MG IVP (10:14)
[2024-02-15] MEDS: dexamethasone 20 MG in sodium chloride 0.9% 50 ML 188 MG IV (10:26)
[2024-02-15 11:06] VITALS: BP 149/68; PULSE 64; RESP 16; TEMP 36.7; O2SAT 97
[2024-02-15] MEDS: PACLitaxeL 70 MG in sodium chloride 0.9%(non-DEHP) 250 ML 261.670000000000016 MG IV (11:13)
[2024-02-15 11:29] VITALS: BP 162/70; PULSE 66; RESP 17; TEMP 36.7; O2SAT 97
[2024-02-15] MEDS: CARBOplatin 200 MG in sodium chloride 0.9% 500 ML 520 MG IV (12:23)
[2024-02-15 14:01] VITALS: BP 130/63; PULSE 72; RESP 18; TEMP 36.8; O2SAT 98
== END 2024-02-17 23:59 | disposition home or self-care (01) ==
PROVIDERS: Internal Medicine Hematology & Oncology; Nurse Practitioner Family; PCP Family Medicine; Visit Provider Radiology Radiation Oncology
DX: Z51.0 Encounter for antineoplastic radiation therapy (principal); C34.31 Malignant neoplasm of lower lobe, right bronchus or lung
CPT/HCPCS: 36415; 70553; 77300; 77301; 77334; 77338; 77386; 77470; 80053; 85025; 93306; 96367; 96375; 96413; 96417; 99204; 99205; 99215; A9577; J1100; J1200; J2469; J3490; J7040; J7050; J9045; J9267

== ENCOUNTER → 2024-02-17 11:35 | Outpatient (BNVA) | payer MEDICARE, MEDICAID, SELFPAY | PROVIDERS: PCP Family Medicine; Visit Provider Surgery | DX: Z95.828 Presence of other vascular implants and grafts (principal) | CPT/HCPCS: 99214 ==

== ENCOUNTER 2024-03-05 13:54 | Oncology outpatient (recurring) (ONCR) | payer MEDICARE, MEDICAID, SELFPAY ==
--- NOTE | 2024-02-21 14:14 | ONCRAD TMN_ITS ---
Radiation Oncology Weekly Treatment Management Patient: José Luis Austin MR#: [id number] : 1955> Attending Physician: Dr. Lawanda Ortiz Date of Service: 02/21/2024 Fractions: 5 out of 30 with chemotherapy on Tuesday Referring Physician(s) : Diagnosis: C34.91 - Malignant neoplasm of unspecified part of right bronchus or lung, Diagnosed 01/25/2024 (Active) Radiotherapy to date: Course: [facility] 2023, Treatment Site: [facility], Ref. ID: [id number], Energy: 6X, Dose/Fx (cGy): 200, #Fx: , Dose Correction (cGy): 0, Total Dose Delivered (cGy): 1,000, Start Date: 02/15/2024, Elapsed Days: 6 Reason for visit: The patient is being seen today as part of their regularly scheduled weekly on treatment visits to assess for acute toxicities from radiotherapy. Review of Systems: She noticed that she coughed rather hard the last day or 2 and each time she had greenish sputum which is streaked with blood Vital Signs: Performed on 02/21/2024 1:51 PM BMI - 21.654 kg/m2, Height - 61 in, Weight - 114.6 lbs, Temperature - 96.8 f, Pulse - 82 /min, Respiration - 18 /min, O2 Sat - 97 %, Pain - 0, Fatigue - 4 and BP - 140/ 48 mm(hg)(/low). Physical Exam: No changes on exam Imaging: Radiation therapy imaging related to accurate target localization (i.e. KV, MV and CBCT) was reviewed. Appropriate changes, if any, were made to ensure treatment accuracy. Plan: I reassured her that she does have any bleeding that should be stopping now with the radiation. She has not had any fever but I asked her to mention her green sputum to medical oncology tomorrow before her chemotherapy. Will otherwise continue with her treatments as planned. Signed by: Dr. Lawanda Ortiz 02/21/2024 2:12:57 PM
[2024-02-22 09:19] LABS: Basophils # 0.1 10^3/uL (0.0-0.1); Basophils % 0.8 %; Eosinophils # 0.2 10^3/uL (0.0-0.8); Eosinophils % 3.2 %; Hematocrit 32.8 % (36-47); Lymphocytes # 1.5 10^3/uL (0.8-4.8); Lymphocytes % 19.4 %; Mean Corpuscular HGB Conc 32.3 g/dL (30-55); Mean Corpuscular Hemoglobin 27.7 pg (27-33); Mean Corpuscular Volume 85.9 fl (85-98); Mean Platelet Volume 10.3 fL (7.4-10.4); Monocytes # 0.5 10^3/uL (0.2-0.9); Monocytes % 6.4 %; Neutrophils # 5.19 10^3/uL (1.8-7.7); Neutrophils % 69.4 %; Nucleated Red Blood Cells % 0 %; Platelet Count 444 10^3/cmm (157-399); Red Blood Count 3.82 10^6/uL (3.85-5.65); Red Cell Distribution Width 13.7 % (12.1-15.1); White Blood Count 7.48 10^3/uL (3.29-11.43)
[2024-02-22 09:25] LABS: Alanine Aminotransferase 9 U/L (0-33); Albumin Level 3.4 g/dL (3.5-5.2); Alkaline Phosphatase 116 U/L (35-105); Anion Gap 16.4 (5-19); Aspartate Amino Transferase 12 U/L (0-32); Blood Urea Nitrogen 10 mg/dL (8-23); Calcium 8.8 mg/dL (8.5-10.5); Carbon Dioxide 23 mmol/L (22-29); Chloride 101 mmol/L (98-107); Globulin 3.1 g/dL (1.3-4.6); Glomerular Filtration Rate 123.4 mL/min (90-130); Glucose 87 mg/dL (65-115); Osmolality Calculated 280 mOsm/kg (285-295); Potassium 4.4 mmol/L (3.5-5.1); Sodium 136 mmol/L (136-145); Total Bilirubin 0.2 mg/dL (0.15-1.2); Total Protein 6.5 g/dL (6.6-8.7)
[2024-02-22] MEDS: famotidine 20 mg/2 mL INJ IVP (11:05)
[2024-02-22] MEDS: sodium chloride 0.9% 250 ML 75 ML IV (11:05)
[2024-02-22] MEDS: diphenhydrAMINE 50 mg/mL SDV 1mL 25 MG IVP (11:08)
[2024-02-22] MEDS: palonosetron 0.25 mg/5 mL SDV IVP (11:11)
[2024-02-22] MEDS: acetaminophen 325 mg Tablet 650 MG PO (11:12)
[2024-02-22] MEDS: dexamethasone 20 MG in sodium chloride 0.9% 50 ML 188 MG IV (11:23)
[2024-02-22] MEDS: PACLitaxeL 70 MG in sodium chloride 0.9%(non-DEHP) 250 ML 261.670000000000016 MG IV (11:55)
[2024-02-22] MEDS: CARBOplatin 230 MG in sodium chloride 0.9% 500 ML 523 MG IV (13:16)
[2024-02-22 14:34] VITALS: BP 146/63; PULSE 74; RESP 16; TEMP 36; O2SAT 97
--- NOTE | 2024-02-28 14:18 | ONCRAD TMN_ITS ---
Radiation Oncology Weekly Treatment Management Patient: Pam Ordonez MR#: [id number] : 1955 Attending Physician: Dr. Lawanda Ortiz Date of Service: 02/28/2024 Fractions: 10 out of 30 along with chemotherapy Referring Physician(s) : Diagnosis: C34.91 - Malignant neoplasm of unspecified part of right bronchus or lung, Diagnosed 01/25/2024 (Active) Radiotherapy to date: Course: [facility] 2023, Treatment Site: [facility], Ref. ID: [id number], Energy: 6X, Dose/Fx (cGy): 200, #Fx: 10 / 30, Dose Correction (cGy): 0, Total Dose Delivered (cGy): 2,000, Start Date: 02/15/2024, Elapsed Days: 13 Reason for visit: The patient is being seen today as part of their regularly scheduled weekly on treatment visits to assess for acute toxicities from radiotherapy. Review of Systems: Patient is actually feeling well. She is in good spirits. Her sister is visiting this week. She has no respiratory issues. Her appetite is good. She has no trouble swallowing. Vital Signs: Performed on 02/28/2024 1:59 PM BMI - 22.183 kg/m2, Height - 61 in, Weight - 117.4 lbs, Temperature - 96.7 f, Pulse - 82 /min, Respiration - 17 /min, O2 Sat - 98 %, Pain - 0, Fatigue - 5 and BP - 138/ 61 mm(hg)(/low). Physical Exam: No changes on exam Imaging: Radiation therapy imaging related to accurate target localization (i.e. KV, MV and CBCT) was reviewed. Appropriate changes, if any, were made to ensure treatment accuracy. Plan: Will continue with her treatments as planned. She gets her chemotherapy tomorrow Signed by: Dr. Lawanda Ortiz 02/28/2024 2:17:12 PM
[2024-02-29 08:55] LABS: Basophils % 0.5 %; Eosinophils # 0.2 10^3/uL (0.0-0.8); Eosinophils % 2.9 %; Hematocrit 30.8 % (36-47); Lymphocytes # 1.1 10^3/uL (0.8-4.8); Lymphocytes % 18.8 %; Mean Corpuscular HGB Conc 31.5 g/dL (30-55); Mean Corpuscular Hemoglobin 27.3 pg (27-33); Mean Corpuscular Volume 86.8 fl (85-98); Mean Platelet Volume 9.9 fL (7.4-10.4); Monocytes # 0.5 10^3/uL (0.2-0.9); Monocytes % 8.8 %; Neutrophils # 4.04 10^3/uL (1.8-7.7); Neutrophils % 68.3 %; Nucleated Red Blood Cells % 0 %; Platelet Count 347 10^3/cmm (157-399); Red Blood Count 3.55 10^6/uL (3.85-5.65); White Blood Count 5.91 10^3/uL (3.29-11.43)
[2024-02-29 09:20] LABS: Alanine Aminotransferase 10 U/L (0-33); Albumin Level 3.6 g/dL (3.5-5.2); Alkaline Phosphatase 111 U/L (35-105); Anion Gap 14.5 (5-19); Aspartate Amino Transferase 12 U/L (0-32); Blood Urea Nitrogen 8 mg/dL (8-23); Calcium 8.7 mg/dL (8.5-10.5); Carbon Dioxide 23 mmol/L (22-29); Chloride 102 mmol/L (98-107); Creatinine Clr Calc Pharmacy 53.9062; Glomerular Filtration Rate 123.4 mL/min (90-130); Glucose 93 mg/dL (65-115); Osmolality Calculated 278 mOsm/kg (285-295); Potassium 4.5 mmol/L (3.5-5.1); Sodium 135 mmol/L (136-145); Total Bilirubin 0.2 mg/dL (0.15-1.2); Total Protein 6.6 g/dL (6.6-8.7)
[2024-02-29] MEDS: palonosetron 0.25 mg/5 mL SDV IVP (10:53)
[2024-02-29] MEDS: sodium chloride 0.9% 250 ML 75 ML IV (10:53)
[2024-02-29] MEDS: dexamethasone 20 MG in sodium chloride 0.9% 50 ML 188 MG IV (10:53)
[2024-02-29] MEDS: acetaminophen 325 mg Tablet 650 MG PO (10:53)
[2024-02-29] MEDS: diphenhydrAMINE 50 mg/mL SDV 1mL 25 MG IVP (10:59)
[2024-02-29] MEDS: famotidine 20 mg/2 mL INJ IVP (11:06)
[2024-02-29] MEDS: PACLitaxeL 80 MG in sodium chloride 0.9%(non-DEHP) 250 ML 263.329999999999984 MG IV (11:25)
[2024-02-29] MEDS: CARBOplatin 240 MG in sodium chloride 0.9% 500 ML 524 MG IV (12:39)
[2024-02-29 13:55] VITALS: BP 160/64; PULSE 75; RESP 16; TEMP 36.3; O2SAT 97
== END 2024-03-05 23:59 | disposition home or self-care (01) ==
PROVIDERS: Nurse Practitioner Family; PCP Family Medicine; Visit Provider Radiology Radiation Oncology
DX: C34.31 Malignant neoplasm of lower lobe, right bronchus or lung; Z51.0 Encounter for antineoplastic radiation therapy
CPT/HCPCS: 77336; 77386; 80053; 85025; 96367; 96375; 96413; 96417; 99024; 99214; J1100; J1200; J2469; J3490; J7040; J7050; J9045; J9267

== ENCOUNTER 2024-03-16 09:00 | Oncology outpatient (recurring) (ONCR) | payer MEDICARE, MEDICAID, SELFPAY ==
--- NOTE | 2024-03-06 14:25 | ONCRAD TMN_ITS ---
Radiation Oncology Weekly Treatment Management Patient: Pam Ordonez MR#: [id number] : 1955 Attending Physician: Dr. Lawanda Ortiz Date of Service: 03/06/2024 Fractions: 15 out of 30 Referring Physician(s) : Diagnosis: C34.91 - Malignant neoplasm of unspecified part of right bronchus or lung, Diagnosed 01/25/2024 (Active) Radiotherapy to date: Course: RT Lung 2023, Treatment Site: RT Lung, Ref. ID: PTV, Energy: 6X, Dose/Fx (cGy): 200, #Fx: 15 / 30, Dose Correction (cGy): 0, Total Dose Delivered (cGy): 3,000, Start Date: 02/15/2024, Elapsed Days: 20 Reason for visit: The patient is being seen today as part of their regularly scheduled weekly on treatment visits to assess for acute toxicities from radiotherapy. Review of Systems: Tuesday she woke up and had quite a bit of heartburn. She said she even threw up that morning. Yesterday after she left she called and said it was bothering her again. She started the Maalox and Pepcid and has had good relief. Vital Signs: Performed on 03/06/2024 1:52 PM BMI - 21.351 kg/m2, Height - 61 in, Weight - 113 lbs, Temperature - 96.8 f, Pulse - 84 /min, Respiration - 16 /min, O2 Sat - 97 %, Pain - 0, Fatigue - 4 and BP - 150/ 59 mm(hg)(high/low). Physical Exam: No changes on exam Imaging: Radiation therapy imaging related to accurate target localization (i.e. KV, MV and CBCT) was reviewed. Appropriate changes, if any, were made to ensure treatment accuracy. Plan: I reviewed with her that the esophagitis is caused by the treatment. We talked about how she will need to keep using the Maalox and the Pepcid for at least 2 weeks after completion of treatment. I also called in Carafate for her to use in addition if needed. Signed by: Dr. Lawanda Ortiz 03/06/2024 2:23:13 PM
[2024-03-07 08:51] VITALS: BP 124/65; PULSE 80; RESP 18; TEMP 36.6; O2SAT 95
[2024-03-07 09:13] LABS: Basophils % 1.1 %; Eosinophils # 0.1 10^3/uL (0.0-0.8); Hematocrit 30.4 % (36-47); Mean Corpuscular HGB Conc 31.9 g/dL (30-55); Mean Corpuscular Hemoglobin 27.5 pg (27-33); Mean Corpuscular Volume 86.1 fl (85-98); Mean Platelet Volume 9.7 fL (7.4-10.4); Monocytes # 0.4 10^3/uL (0.2-0.9); Monocytes % 9.8 %; Neutrophils # 2.17 10^3/uL (1.8-7.7); Neutrophils % 59.3 %; Nucleated Red Blood Cells % 0 %; Platelet Count 269 10^3/cmm (157-399); Red Blood Count 3.53 10^6/uL (3.85-5.65); Red Cell Distribution Width 14.9 % (12.1-15.1); White Blood Count 3.66 10^3/uL (3.29-11.43)
[2024-03-07 09:45] LABS: Alanine Aminotransferase 9 U/L (0-33); Albumin Level 3.5 g/dL (3.5-5.2); Alkaline Phosphatase 108 U/L (35-105); Aspartate Amino Transferase 11 U/L (0-32); Blood Urea Nitrogen 11 mg/dL (8-23); Calcium 8.5 mg/dL (8.5-10.5); Carbon Dioxide 24 mmol/L (22-29); Chloride 100 mmol/L (98-107); Creatinine Clr Calc Pharmacy 53.9062; Globulin 2.8 g/dL (1.3-4.6); Glomerular Filtration Rate 123.4 mL/min (90-130); Glucose 85 mg/dL (65-115); Osmolality Calculated 279 mOsm/kg (285-295); Sodium 135 mmol/L (136-145); Total Bilirubin 0.3 mg/dL (0.15-1.2); Total Protein 6.3 g/dL (6.6-8.7)
[2024-03-07] MEDS: sodium chloride 0.9% 250 ML 75 ML IV (10:42)
[2024-03-07] MEDS: acetaminophen 325 mg Tablet 650 MG PO (10:43)
[2024-03-07] MEDS: palonosetron 0.25 mg/5 mL SDV IVP (10:45)
[2024-03-07] MEDS: famotidine 20 mg/2 mL INJ IVP (10:47)
[2024-03-07] MEDS: diphenhydrAMINE 50 mg/mL SDV 1mL 25 MG IVP (10:51)
[2024-03-07] MEDS: dexamethasone 20 MG in sodium chloride 0.9% 50 ML 188 MG IV (10:57)
[2024-03-07] MEDS: PACLitaxeL 70 MG in sodium chloride 0.9%(non-DEHP) 250 ML 261.670000000000016 MG IV (11:51)
[2024-03-07] MEDS: CARBOplatin 230 MG in sodium chloride 0.9% 500 ML 523 MG IV (13:10)
[2024-03-07 14:33] VITALS: BP 131/66; PULSE 82; TEMP 36.8; O2SAT 96
--- NOTE | 2024-03-13 14:18 | ONCRAD TMN_ITS ---
Radiation Oncology Weekly Treatment Management Patient: José Luis Austin MR#: [id number] : 1955> Attending Physician: Dr. Lawanda Ortiz Date of Service: 03/13/2024 Fractions: 20 out of 30 chemotherapy tomorrow Referring Physician(s) : Diagnosis: C34.91 - Malignant neoplasm of unspecified part of right bronchus or lung, Diagnosed 01/25/2024 (Active) Radiotherapy to date: Course: RT Lung 2023, Treatment Site: RT Lung, Ref. ID: PTV, Energy: 6X, Dose/Fx (cGy): 200, #Fx: 20 / 30, Dose Correction (cGy): 0, Total Dose Delivered (cGy): 4,000, Start Date: 02/15/2024, Elapsed Days: 27 Reason for visit: The patient is being seen today as part of their regularly scheduled weekly on treatment visits to assess for acute toxicities from radiotherapy. Review of Systems: She still having esophagitis. She has been trying to get ice cream in. She still drinking water. She has lost an additional 3 pounds this week. She did not pick up operator the Carafate. Vital Signs: Performed on 03/13/2024 2:03 PM BMI - 20.936 kg/m2, Height - 61 in, Weight - 110.8 lbs, Temperature - 96.6 f, Pulse - 88 /min, Respiration - 18 /min, O2 Sat - 96 %, Pain - 0, Fatigue - 5 and BP - 115/ 55 mm(hg)(/low). Physical Exam: She is down 6 pounds in the last 2 weeks Imaging: Radiation therapy imaging related to accurate target localization (i.e. KV, MV and CBCT) was reviewed. Appropriate changes, if any, were made to ensure treatment accuracy. Plan: Will continue with her treatments plan. I have asked medical oncology to give her additional fluids tomorrow when she gets her chemotherapy. We have talked about some different things she can drink and she will add peanut butter to ice cream and put in a director of patient financial services. Will see if we can at least get her weight up with little bit or perhaps stable over the next 2 weeks. She also go ahead and pick up operator the Carafate to see if that will help as well. Will otherwise have to tough out these next 2-1/2 weeks that she finished treatment. Signed by: Dr. Lawanda Ortiz 03/13/2024 2:17:38 PM
[2024-03-14 08:35] LABS: Basophils % 0.8 %; Eosinophils # 0.1 10^3/uL (0.0-0.8); Eosinophils % 1.6 %; Hematocrit 29.8 % (36-47); Lymphocytes # 0.7 10^3/uL (0.8-4.8); Lymphocytes % 18.3 %; Mean Corpuscular HGB Conc 32.2 g/dL (30-55); Mean Corpuscular Hemoglobin 27.3 pg (27-33); Mean Corpuscular Volume 84.7 fl (85-98); Monocytes # 0.3 10^3/uL (0.2-0.9); Monocytes % 7.3 %; Neutrophils # 2.74 10^3/uL (1.8-7.7); Neutrophils % 71.5 %; Nucleated Red Blood Cells % 0 %; Platelet Count 140 10^3/cmm (157-399); Red Blood Count 3.52 10^6/uL (3.85-5.65); Red Cell Distribution Width 15.5 % (12.1-15.1); White Blood Count 3.83 10^3/uL (3.29-11.43)
[2024-03-14 08:52] LABS: Alanine Aminotransferase 9 U/L (0-33); Albumin Level 3.5 g/dL (3.5-5.2); Alkaline Phosphatase 107 U/L (35-105); Aspartate Amino Transferase 12 U/L (0-32); Blood Urea Nitrogen 12 mg/dL (8-23); Calcium 8.6 mg/dL (8.5-10.5); Carbon Dioxide 25 mmol/L (22-29); Chloride 101 mmol/L (98-107); Creatinine Clr Calc Pharmacy 53.9062; Globulin 2.6 g/dL (1.3-4.6); Glomerular Filtration Rate 123.4 mL/min (90-130); Glucose 88 mg/dL (65-115); Osmolality Calculated 281 mOsm/kg (285-295); Sodium 136 mmol/L (136-145); Total Bilirubin 0.2 mg/dL (0.15-1.2); Total Protein 6.1 g/dL (6.6-8.7)
[2024-03-14] MEDS: sodium chloride 0.9% 250 ML 75 ML IV (11:20)
[2024-03-14] MEDS: diphenhydrAMINE 50 mg/mL SDV 1mL 25 MG IVP (11:21)
[2024-03-14] MEDS: acetaminophen 325 mg Tablet 650 MG PO (11:21)
[2024-03-14] MEDS: famotidine 20 mg/2 mL INJ IVP (11:24)
[2024-03-14] MEDS: palonosetron 0.25 mg/5 mL SDV IVP (11:28)
[2024-03-14] MEDS: dexamethasone 20 MG in sodium chloride 0.9% 50 ML 188 MG IV (11:32)
[2024-03-14] MEDS: PACLitaxeL 70 MG in sodium chloride 0.9%(non-DEHP) 250 ML 261.670000000000016 MG IV (12:21)
[2024-03-14] MEDS: CARBOplatin 230 MG in sodium chloride 0.9% 500 ML 523 MG IV (13:42)
[2024-03-14 15:10] VITALS: BP 135/75; PULSE 84; RESP 16; TEMP 36.2; O2SAT 98
[2024-03-16] MEDS: sodium chloride 0.9% 1,000 ML 999 ML IV (09:12)
[2024-03-16] MEDS: dexamethasone 10 mg/mL INJ 12 MG IVP (09:13)
[2024-03-16] MEDS: ondansetron 2 mg/ML SDV 2 mL 8 MG IVP (09:22)
[2024-03-16 10:40] VITALS: BP 164/67; PULSE 76; RESP 16; TEMP 35.9; O2SAT 99
== END 2024-03-18 23:59 | disposition home or self-care (01) ==
PROVIDERS: Nurse Practitioner Family; PCP Family Medicine; Visit Provider Radiology Radiation Oncology
DX: C34.31 Malignant neoplasm of lower lobe, right bronchus or lung; Z51.0 Encounter for antineoplastic radiation therapy; Z53.9 Procedure and treatment not carried out, unspecified reason; Z79.899 Other long term (current) drug therapy
CPT/HCPCS: 72110; 77336; 77386; 80053; 85025; 96367; 96374; 96375; 96413; 96415; 96417; 99024; 99213; 99214; J1100; J1200; J2405; J2469; J3490; J7030; J7040; J7050; J9045; J9267

== ENCOUNTER 2024-03-30 08:45 | Outpatient (CLI) | payer MEDICARE, MEDICAID, SELFPAY ==
--- NOTE | 2024-03-30 08:45 | USCV_ITS ---
José Luis Pam Age: 68 Gender: F : 1955 Exam Date: 03/30/2024 08:55 Ordering Phys: Bhanu Kendall MD ([email or web address]) Technologist: ENRIQUE Exam Location: [facility] – [place] Indication: CHEST PAIN AND SHORTNESS OF BREATH BP: 142 / 67 HR: 78 Rhythm: Sinus Technical Quality: Adequate MEASUREMENTS (Male / Female) Normal Values 2D ECHO LV Diastolic Diameter PLAX 5.0 cm 4.2 - 5.9 / 3.9 - 5.3 cm IVS Diastolic Thickness 0.9 cm 0.6 - 1.0 / 0.6 - 0.9 cm IVS Systolic Thickness 1.6 cm LVPW Diastolic Thickness 1.7 cm 0.6 - 1.0 / 0.6 - 0.9 cm LVPW Systolic Thickness 2.0 cm LVOT Diameter 2.0 cm LV Ejection Fraction 2D Teich 54.3 % LV Ejection Fraction MOD 4C 57.1 % LV Ejection Fraction MOD 2C 60.7 % LV Ejection Fraction 2C AL 62.5 % LA Diameter 2.3 cm RA Systolic Volume 4C AL 18.7 ml RA Systolic Volume 4C MOD 18.1 ml LA Sys Volume AL 18.4 cm cubed LA Sys Volume Index AL 12.5 cm cubed/m squared Aorta at Sinotubular Diameter 2.2 cm IVC Diameter 1.0 cm M-MODE LA Ao Ratio MM 0.9 AV Cusp Separation MM 1.4 cm DOPPLER AV Peak Velocity 279.4 cm/s LVOT Peak Velocity 138.0 cm/s AV Area Cont Eq vti 2.9 cm squared AV Area Cont Eq pk 1.5 cm squared MV Peak Velocity 151.0 cm/s MV Area PHT 2.3 cm squared Mitral E to A Ratio 0.6 TR Peak Velocity 202.0 cm/s TR Peak Gradient 16.3 mmHg TR Mean Velocity 174.0 cm/s TR Mean Gradient 12.7 mmHg TR Velocity Time Integral 55.0 cm TV Peak E Velocity 54.0 cm/s Right Atrial Pressure 3.0 mmHg Pulmonary Artery Systolic Pressu 19.3 mmHg PV Peak Velocity 163.0 cm/s RV Ejection Time 0.3 s FINDINGS Left Ventricle Left ventricle is normal size. LV systolic function is normal with EF 55 to 60%. No regional wall motion abnormalities are seen. Grade 1 diastolic dysfunction Right Ventricle Normal in size and function Right Atrium Normal in size Left Atrium Normal in size Mitral Valve Moderate mitral annular calcification. Mild mitral regurgitation. Aortic Valve Structurally normal aortic valve. No significant stenosis. Moderate aortic regurgitation. Tricuspid Valve Trace tricuspid regurgitation. Insufficient TR jet to calculate RVSP Pulmonic Valve Not well visualized Pericardium Normal Aorta Normal in size IVC Appears to be normal CONCLUSIONS LV systolic function is normal with EF of 55-60% Grade 1 diastolic dysfunction Mild mitral regurgitation Moderate aortic regurgitation Trace tricuspid regurgitation Compared to prior echcardiogram from 01/2024, no significant changes are seen Grover Harley MD (Electronically Signed) Final Date: 30 March 2024 09:43 S
== END 2024-03-30 08:46 | disposition home or self-care (01) ==
PROVIDERS: PCP Family Medicine; Visit Provider Internal Medicine Cardiovascular Disease
DX: I50.30 Unspecified diastolic (congestive) heart failure (principal); I35.1 Nonrheumatic aortic (valve) insufficiency; R07.9 Chest pain, unspecified; R06.02 Shortness of breath
CPT/HCPCS: 93306

== ENCOUNTER 2024-03-30 17:20 | Emergency (ER) | payer MEDICARE, MEDICAID, SELFPAY ==
[2024-03-30] VITALS (9 sets, daily range): BP systolic 127–149; BP diastolic 56–121; PULSE 77–95; RESP 16–24; TEMP 36.4; O2SAT 90–100; BMI 20.4
--- NOTE | 2024-03-30 17:49 | XRR_ITS ---
PROCEDURE INFORMATION: Exam: XR Chest Exam date and time: 03/30/2024 6:21 PM Age: 68 years old Clinical indication: Shortness of breath and other: Epigastric trouble; Additional info: Epigastric pain TECHNIQUE: Imaging protocol: Radiologic exam of the chest. Views: 1 view. COMPARISON: CT chest [facility] [id number] 02/01/2024 12:58 PM FINDINGS: Lungs: No new focal consolidation. Right infrahilar mass as characterized on prior CT. Pleural spaces: No pleural effusion. No pneumothorax. Heart/Mediastinum: No cardiomegaly. Bones/joints: No acute findings. XR/XR chest 1V portable [id number] IMPRESSION: No acute findings.
--- NOTE | 2024-03-30 17:53 | ECG_ITS ---
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 Measurements Intervals [place] Rate: 80 P: 53 [place]: 135 QRS: 69 QRSD: 89 T: 248 QT: 456 QTc: 528 Interpretive Statements SINUS RHYTHM WITH OCCASIONAL VENTRICULAR PREMATURE COMPLEXES WITH OCCASIONAL SUPRAVENTRICULAR PREMATURE COMPLEXES LEFT VENTRICULAR HYPERTROPHY AND ST-T CHANGE [VOLTAGE CRITERIA PLUS ST/T ABNORMALITY] Compared to ECG 01/10/2024 08:26:28 Ventricular premature complex(es) now present ST (T wave) deviation now present Electronically Signed On 03-30-2024 20:02:35 CDT by Devan Walker M.D. [email or web address]
--- NOTE | 2024-03-30 17:56 | ED_ITS ---
HPI - General Adult 2 General: Chief complaint: General Medical Stated complaint: poss dehydration, leg pain Time Seen by Provider: 03/30/24 17:38 Source: patient Mode of arrival: ambulatory Limitations: no limitations History of Present Illness: Patient is a 68-year-old female who presents to the emergency department complaining of worsening weakness onset today after completing chemotherapy. She recently finished her last round of chemotherapy, and has since finished radiation as well. She is due to start immunotherapy soon. Primarily her main complaints is some worsening of her chronic nausea and diarrhea, and states that she has lost appetite and is unable to keep anything down. She denies any fever, however is noting that she is having worsening of epigastric pain consistent with where radiation is performed. She denies any history of acid reflux. She is not reporting any chest pain or shortness of breath. She does have a Port-A-Cath present to left chest. She takes gabapentin for her chronic neuropathy, which she states has been an issue since undergoing a couple of back procedures a few years ago. She also states that she feels dehydrated and thinks that this may be causing worsening of her symptoms. She has no other concerning historical factors to note at this time. MD complaint: Worsening weakness, just finished chemotherapy and radiation for lung ca Onset (ago): day(s) Pain Consistency: constant Associated symptoms: Reports nausea and vomiting; Deny chest pain, diaphoresis, dyspnea, headache(s), rash or palpitations Review of Systems 2 General: Reports: 10 or more systems reviewed and unremarkable except in HPI and below Const: Reports: change in appetite; Denies: fever(s), chills, change in weight or diaphoresis ENMT: Denies: throat pain or hoarseness Card: Denies: chest pain, palpitations or lightheadedness Resp: Denies: dyspnea, productive cough or wheezing GI: Reports: abdominal pain (Epigastric burning), nausea, vomiting and diarrhea; Denies: constipation, bloating, change in stool character or hematochezia : Denies: flank pain, difficulty voiding, dysuria, urinary frequency or urinary urgency Musc: Reports: muscle weakness; Denies: neck pain or back pain Skin/Breast: Denies: rash or new lesions Neuro: Reports: numbness in extremities; Denies: headache(s) or dizziness PFS ED 2 PFSH: Medical History Port-A-Cath in place COPD (chronic obstructive pulmonary disease) Chronic lower back pain CHF (congestive heart failure), NYHA class III Unstable angina pectoris CAD (coronary artery disease) Postoperative anemia due to acute blood loss Hx of chest pain Aortic heart valve narrowing with insufficiency History of tumor DDD (degenerative disc disease), lumbosacral ASHD (arteriosclerotic heart disease) HTN (hypertension) Dyslipidemia Subclavian artery stenosis Carotid stenosis, non-symptomatic Surgical History History of Status post laminectomy History of cholecystectomy Family History Mother CAD (coronary artery disease) Sister Chronic kidney disease (CKD) Brother Chronic kidney disease (CKD) Other Hypertension Lung disease Denies family history of Hyperlipidemia Social History Smoking and tobacco/nicotine status: former use of tobacco/nicotine Quit status (tobacco/nicotine): has quit using Year quit tobacco: 2023 Former quit date comment: overall tobacco use 50+ years Second hand smoke exposure: No Alcohol intake: never Substance/Drug Use: never Lives independently: Yes Marital status: Number of children: 4 Current occupational status: disabled Current gender identity: Female Physical Exam 2 Const: COMMON NORMALS: no acute distress, patient oriented x3 and no limitations GENERAL APPEARANCE: cooperative, comfortable and appears older than stated age ORIENTATION/CONSCIOUSNESS: Yes awake, Yes oriented to person, Yes oriented to place and Yes oriented to time HENMT: COMMON NORMALS: normocephalic, atraumatic and hearing grossly normal bilaterally HEAD & SCALP: normocephalic and atraumatic OTHER: Dry oral mucosa Eye: COMMON NORMALS: Equal, round and reactive pupils present, EOMs intact bilaterally and conjunctivae normal CONJUNCTIVA: Yes conjunctivae normal P UPIL: Yes Equal, round and reactive pupils present Neck/C-Spine: COMMON NORMALS: full ROM, supple and no JVD Chest: COMMONS NORMALS: normal palpation of entire chest wall OTHER: Port-A-Cath present to left anterior chest wall Resp: COMMON NORMALS: normal respiratory effort, No retractions, No use of accessory muscles and clear to auscultation bilaterally AUSCULTATION: clear to auscultation bilaterally Cardio: COMMON NORMALS: no JVD, regular rate, regular rhythm, No clicks present (Cardio) and No rub (Cardio) RATE: regular rate RHYTHM: regular rhythm HEART SOUNDS: Murmur heart sound present systolic GI: COMMON NORMALS: Normal to inspection, nondistended, normoactive bowel sounds present and Soft to palpation AUSCULTATION: Yes normoactive bowel sounds PALPATION: Yes Soft to palpation RECTAL EXAM: deferred OTHER: Mild diffuse tenderness to palpation Extremity: COMMON NORMALS: normal to inspection, full ROM and capillary refill normal NARRATIVE EXTREMITY EXAM: Equal strength bilaterally to lower extremities, no focal sensory deficit Neuro: COMMON NORMALS: patient oriented x3, moves all extremities, no focal motor deficits and no sensory deficits noted SENSORIUM/ORIENTATION: Yes oriented to person, Yes oriented to place and Yes oriented to time Psych: COMMON NORMALS: mental status grossly normal and Normal thought process present THOUGHT PROCESS: Normal thought process present Skin: COMMON NORMALS: no rashes or lesions noted GENERAL SKIN EXAM: no rashes or lesions noted Course 2 Vital Signs: Vital signs: Vital Signs Temperature 97.5 F L 03/30/24 17:25 Pulse Rate 82 03/30/24 20:00 Respiratory Rate 16 03/30/24 20:28 Blood Pressure 135/64 03/30/24 20:28 Pulse Oximetry 98 03/30/24 20:28 Oxygen Delivery Me thod Room Air 03/30/24 17:25 MDM - General Adult Medical Decision Making Patient presented for general weakness and worsening nausea and diarrhea, as she finished chemotherapy and radiation today. Also is noting some epigastric pain, states that this has worsened throughout the course of her radiation therapy. Her physical examination ultimately was unremarkable, there was a Port-A-Cath placement present on her left anterior chest wall. Additionally there were some signs of dehydration. At first I spoke with patient's oncologist, Prema Rebolledo, who states that patient has had similar incidences of the epigastric pain and gastrointestinal symptoms, and to treat with fluids, get labs, and that the patient can follow-up on Tuesday with them if everything checks out okay here at the emergency department. Initially I did obtain an EKG due to the patient's epigastric pain, and this did show some concerning signs of new ventricular premature complexes with occasional supraventricular premature complexes, new when compared to previous EKG in December of this year. There was additionally some evidence of potentially subendocardial ST wave depression, and this EKG and EKG for comparison from December was sent to environmental consultant Dr. Walker who reviewed the EKGs and further recommended cardioprotective chewable ASA, loading dose of Plavix, and to obtain serial troponins and that he would see the patient in the hospital if admitted. Patient's troponin found to be negative, she did have evidence of chronic anemia that her hemoglobin appears improved from prior. In addition her potassium did appear to be low at 3.0, which can certainly explain her weakness in addition to clinical signs and labs of dehydration. I did speak with hospitalist, Dr. Cordova, who states that he will review the EKGs and call back. Upon further investigation the patient did undergo an echocardiogram today, but did show normal left ventricular functionality and multiple chronic findings that were unchanged from prior echocardiogram in January. In addition, an EKG obtained soon after the initial with the concerning findings, did appear baseline with her prior EKG back in December. Because of these findings, Dr. Cordova believes that patient can be discharged home as the EKG findings likely due to some left ventricular hypertrophy, however because of her normal echocardiogram today, she can be treated as outpatient. In addition I did recheck her after given GI cocktail and after administration of fluids, and she states she feels 100% better and that she is ready for discharge home. She was also given potassium here in the emergency department, and she is to follow-up as planned with primary care/oncology early next week for recheck of this in addition to her other labs. She already is prescribed Zofran and famotidine at home to treat her nausea and acid reflux, respectively, and there is no need to make any altercations to this. This case was discussed and assisted by supervising ED physician, Dr. Maldonado, who is aware of patient's case. I did have a thorough conversation with the patient in regards to reasons to return, such that if she develops any shortness of breath or worsening of the chest/epigastric pain, to return to the emergency department immediately for reevaluation. Otherwise she will be discharged home, and additionally her repeat troponin is also normal. Lab Data 03/30/24 17:41 03/30/24 17:41 Radiology Impressions Chest X-Ray 03/30/24 17:49 IMPRESSION: No acute findings. Laboratory Results WBC 2.14 10^3/uL (3.29-11.43) L 03/30/24 17:41 RBC 3.36 10^6/uL (3.85-5.65) L 03/30/24 17:41 Hgb 9.20 g/dL (11.27-16.99) L 03/30/24 17:41 Hct 28.5 % (36-47) L 03/30/24 17:41 MCV 84.8 fl (85-98) L 03/30/24 17:41 MCH 27.4 pg (27-33) 03/30/24 17:41 MCHC 32.3 g/dL (30-55) 03/30/24 17:41 RDW 18.5 % (12.1-15.1) H 03/30/24 17:41 Plt Count 197 10^3/cmm (157-399) 03/30/24 17:41 MPV 10.8 fL (7.4-10.4) H 03/30/24 17:41 Neut % (Auto) 47.6 % 03/30/24 17:41 Lymph % (Auto) 30.8 % 03/30/24 17:41 Tucker % (Auto) 20.6 % 03/30/24 17:41 Eos % (Auto) 0.5 % 03/30/24 17:41 Baso % (Auto) 0.5 % 03/30/24 17:41 Neut # (Auto) 1.02 10^3/uL (1.8-7.7) L 03/30/24 17:41 Lymph # (Auto) 0.7 10^3/uL (0.8-4.8) L 03/30/24 17:41 Tucker # (Auto) 0.4 10^3/uL (0.2-0.9) 03/30/24 17:41 Eos # (Auto) 0.0 10^3/uL (0.0-0.8) 03/30/24 17:41 Baso # (Auto) 0.0 10^3/uL (0.0-0.1) 03/30/24 17:41 Nucleated RBC % (auto) 0 % 03/30/24 17:41 Nucleated RBCs # 0.0 /100WBC 03/30/24 17:41 Sodium 137 mmol/L (136-145) 03/30/24 17:41 Potassium 3.0 mmol/L (3.5-5.1) L 03/30/24 17:41 Chloride 102 mmol/L (98-107) 03/30/24 17:41 Carbon Dioxide 20 mmol/L (22-29) L 03/30/24 17:41 Anion Gap 18.0 (5-19) 03/30/24 17:41 BUN 12 mg/dL (8-23) 03/30/24 17:41 Creatinine 0.5 mg/dL (0.5-0.9) 03/30/24 17:41 GFR Calculation 123.4 mL/min (90-130) 03/30/24 17:41 Glucose 77 mg/dL (65-115) 03/30/24 17:41 Calculated Osmolality 283 mOsm/kg (285-295) L 03/30/24 17:41 Calcium 9.0 mg/dL (8.5-10.5) 03/30/24 17:41 Total Bilirubin 0.2 mg/dL (0.15-1.2) 03/30/24 17:41 AST 15 U/L (0-32) 03/30/24 17:41 ALT 11 U/L (0-33) 03/30/24 17:41 Alkaline Phosphatase 103 U/L (35-105) 03/30/24 17:41 Troponin T Baseline 14 ng/L (0-10) H 03/30/24 17:41 Troponin T 120 Minute 14.64 ng/L (0-10) H 03/30/24 19:40 Delta Troponin T 0.64 ABS# (0-10) 03/30/24 19:40 Total Protein 6.5 g/dL (6.6-8.7) L 03/30/24 17:41 Albumin 3.6 g/dL (3.5-5.2) 03/30/24 17:41 Globulin 2.9 g/dL (1.3-4.6) 03/30/24 17:41 Lipase 13 U/L (13-60) 03/30/24 17:41 All radiology interpretation(s) finalized by discharge Discharge Plan Discharge Patient Disposition: Home Clinical Impression: Hypokalemia, Dehydration, Left ventricular hypertrophy Gastroesophageal reflux disease Qualifiers: Esophagitis presence: esophagitis presence not specified Qualified Code(s): K 21.9 - Gastro-esophageal reflux disease without esophagitis Condition: Stable Prescriptions: No Action nitroglycerin [Nitrostat] 0.4 mg tablet, sublingual 0.4 mg SUBLINGUAL Q5M PRN (Reason: Chest Pain) Qty: 30 6RF Rx Instructions: do not exceed 3 doses per episode Incruse Ellipta 62.5 mcg/actuation blister with device 1 inh inhalation DAILY Qty: 30 3RF prochlorperazine maleate 10 mg tablet 10 mg PO Q6H PRN (Reason: mild nausea and vomiting) Qty: 30 3RF lorazepam 1 mg tablet 0.5 - 1 mg PO Q6H PRN (Reason: severe nausea) Qty: 30 3RF albuterol sulfate 90 mcg/actuation HFA aerosol inhaler 1 inh inhalation QID PRN (Reason: shortness of breath or wheezing) Qty: 6.7 0RF atorvastatin 80 mg tablet 80 mg PO BEDTIME Qty: 90 0RF lisinopril 10 mg tablet 10 mg PO DAILY Qty: 90 3RF hydrocodone-acetaminophen 5-325 mg tablet 1 tab PO Q6H PRN (Reason: pain) 30 Days Qty: 120 0RF duloxetine [Cymbalta] 20 mg capsule,delayed release(DR/EC) 20 mg PO BID Qty: 180 0RF clopidogrel 75 mg tablet 75 mg PO DAILY Qty: 90 1RF Hold Instructions: Resume on 02/02/24. sucralfate [Carafate] 100 mg/mL suspension 10 ml PO QID Qty: 400 2RF Rx Instructions: swish in mouth and swallow; use after food/drink famotidine 20 mg tablet 20 mg PO BID PRN (Reason: heartburn) Qty: 180 0RF prochlorperazine maleate [Compazine] 10 mg tablet 10 mg PO Q8H PRN (Reason: nausea and vomiting) Qty: 30 0RF gabapentin 300 mg capsule 300 mg PO QID Qty: 60 0RF alendronate 35 mg tablet 35 mg PO Q7D Rx Instructions: on tuesday biotin 2,500 mcg Capsule 2,500 mcg PO QAM fluoxetine 20 mg capsule 60 mg PO DAILY acetaminophen 325 mg Tablet 650 mg PO Q4H PRN (Reason: pain) Qty: 60 0RF Hold Instructions: Resume on 02/03/24. Aspir-81 81 mg Tablet,Delayed Release (Dr/Ec) 81 mg PO DAILY diclofenac sodium 50 mg tablet,delayed release (DR/EC) 50 mg PO Q12H Qty: 20 0RF Miralax 17 gram/dose powder 17 g PO DAILY Qty: 510 0RF Rx Instructions: Take 1 scoop daily while taking pain medications. Discharge Orders: Discharge ED (Routine); Ordered 03/30/24 Ordered By: Carson Churchill Referrals: Alejandro Child MD [Primary Care Provider] - Discharge Diet: As Directed Discharge Activity: Increase activity as tolerated Patient Instructions: Dehydration (ED), Hypokalemia (ED), GERD (Gastroesophageal Reflux Disease) (ED), Chemo Induced Nausea and Vomiting (ED) Activity Restrictions/Additional Instructions: Increase your fluid intake as well as your boost/Gatorade intake at home as discussed. Take your Zofran already prescribed, as well as your famotidine for gastroesophageal reflux. Please call your oncologist next Tuesday to schedule an appointment as discussed. Continue your other medications at home as already prescribed. Please return if you develop any new or concerning symptoms. Follow-up with primary care. Coding Level of Care Code ED Independent Sales Representative for Venancio Alex
[2024-03-30 17:57] LABS: Basophils % 0.5 %; Eosinophils % 0.5 %; Hematocrit 28.5 % (36-47); Lymphocytes # 0.7 10^3/uL (0.8-4.8); Lymphocytes % 30.8 %; Mean Corpuscular HGB Conc 32.3 g/dL (30-55); Mean Corpuscular Hemoglobin 27.4 pg (27-33); Mean Corpuscular Volume 84.8 fl (85-98); Mean Platelet Volume 10.8 fL (7.4-10.4); Monocytes # 0.4 10^3/uL (0.2-0.9); Monocytes % 20.6 %; Neutrophils # 1.02 10^3/uL (1.8-7.7); Neutrophils % 47.6 %; Nucleated Red Blood Cells % 0 %; Platelet Count 197 10^3/cmm (157-399); Red Blood Count 3.36 10^6/uL (3.85-5.65); Red Cell Distribution Width 18.5 % (12.1-15.1); White Blood Count 2.14 10^3/uL (3.29-11.43)
[2024-03-30] MEDS: aspirin 81 mg Chew Tablet 324 MG PO (18:20)
[2024-03-30] MEDS: ondansetron 2 mg/ML SDV 2 mL 4 MG IVP (18:20)
[2024-03-30] MEDS: clopidogrel 300 mg Tablet PO (18:20)
[2024-03-30 18:21] LABS: Alanine Aminotransferase 11 U/L (0-33); Albumin Level 3.6 g/dL (3.5-5.2); Alkaline Phosphatase 103 U/L (35-105); Aspartate Amino Transferase 15 U/L (0-32); Blood Urea Nitrogen 12 mg/dL (8-23); Carbon Dioxide 20 mmol/L (22-29); Chloride 102 mmol/L (98-107); Creatinine Clr Calc Pharmacy 52.7172; Globulin 2.9 g/dL (1.3-4.6); Glomerular Filtration Rate 123.4 mL/min (90-130); Glucose 77 mg/dL (65-115); Lipase 13 U/L (13-60); Osmolality Calculated 283 mOsm/kg (285-295); Sodium 137 mmol/L (136-145); Total Bilirubin 0.2 mg/dL (0.15-1.2); Total Protein 6.5 g/dL (6.6-8.7)
[2024-03-30] MEDS: sodium chloride 0.9% 1,000 ML 999 ML IV (18:21)
[2024-03-30] MEDS: lidocaine 2% viscous 15 ML, aluminum-mag hydrox-simethicon 30 ML, sucralfate oral liq 1 GM PO (18:31)
[2024-03-30] MEDS: potassium chloride ER 20 mEq Tablet 40 MEQ PO (18:32)
--- NOTE | 2024-03-30 18:32 | ECG_ITS ---
[facility] Test Date: 2024-03-30 Pat Name: Pam Ordonez Department: Room: Gender: Female Velvet Cutter: : 1955 Requested By: Carson Gonzalez Order Number: [id number] Tena MD: Devan Walker M.D. Measurements Intervals [place] Rate: 77 P: 70 VT: 156 QRS: 71 QRSD: 88 T: 248 QT: 477 QTc: 541 Interpretive Statements SINUS RHYTHM LEFT VENTRICULAR HYPERTROPHY AND ST-T CHANGE [VOLTAGE CRITERIA PLUS ST/T ABNORMALITY] Compared to ECG 03/30/2024 17:53:19 Ventricular premature complex(es) no longer present ST (T wave) deviation still present Electronically Signed On 03-30-2024 20:02:06 CDT by Devan Walker M.D. [id number]
[2024-03-30 18:39] LABS: Troponin(5th) Baseline 14 ng/L (0-10)
[2024-03-30 20:17] LABS: Troponin 5 2HR 14.64 ng/L (0-10); Troponin 5 2HR Delta 0.64 ABS# (0-10)
== END 2024-03-30 20:29 | disposition home or self-care (01) ==
PROVIDERS: Emergency Provider Physician Assistant; PCP Family Medicine
DX: K21.9 Gastro-esophageal reflux disease without esophagitis (principal); E87.6 Hypokalemia; E86.0 Dehydration; Z79.02 Long term (current) use of antithrombotics/antiplatelets; Z79.82 Long term (current) use of aspirin; Z87.891 Personal history of nicotine dependence; J44.9 Chronic obstructive pulmonary disease, unspecified; I25.10 Atherosclerotic heart disease of native coronary artery without angina pectoris; E78.5 Hyperlipidemia, unspecified; I11.0 Hypertensive heart disease with heart failure; I50.9 Heart failure, unspecified
CPT/HCPCS: 71045; 80053; 83690; 84484; 85025; 93005; 96361; 96374; 96375; 99285; J1642; J2405; J7030

== ENCOUNTER 2024-04-12 13:46 | Oncology outpatient (recurring) (ONCR) | payer MEDICARE, MEDICAID, SELFPAY ==
[2024-03-19] MEDS: sodium chloride 0.9% 1,000 ML 999 ML IV (14:34)
--- NOTE | 2024-03-20 14:19 | ONCRAD TMN_ITS ---
Radiation Oncology Weekly Treatment Management Patient: Pam Ordonez MR#: [id number] : 1955 Attending Physician: Dr. Lawanda Ortiz Date of Service: 03/20/2024 Fractions: 25 out of 30 Referring Physician(s) : Diagnosis: C34.91 - Malignant neoplasm of unspecified part of right bronchus or lung, Diagnosed 01/25/2024 (Active) Radiotherapy to date: Course: RT Lung 2023, Treatment Site: RT Lung, Ref. ID: PTV, Energy: 6X, Dose/Fx (cGy): 200, #Fx: 25 / 30, Dose Correction (cGy): 0, Total Dose Delivered (cGy): 5,000, Start Date: 02/15/2024, Elapsed Days: 34 Reason for visit: The patient is being seen today as part of their regularly scheduled weekly on treatment visits to assess for acute toxicities from radiotherapy. Review of Systems: Patient is feeling better today yesterday she had spent all night throwing up and skipped her treatment. We added Compazine yesterday and this controlled her nausea. Vital Signs: Performed on 03/20/2024 2:05 PM BMI - 20.784 kg/m2, Height - 61 in, Weight - 110 lbs, Temperature - 96.4 f, Pulse - 87 /min, Respiration - 16 /min, O2 Sat - 98 %, Pain - 0, Fatigue - 2 and BP - 128/ 62 mm(hg)(/low). Physical Exam: No changes on exam Imaging: Radiation therapy imaging related to accurate target localization (i.e. KV, MV and CBCT) was reviewed. Appropriate changes, if any, were made to ensure treatment accuracy. Plan: Will continue with her treatments as planned. She gets her last chemotherapy tomorrow Signed by: Dr. Lawanda Ortiz 03/20/2024 2:18:44 PM
[2024-03-21 09:26] LABS: Basophils % 0.9 %; Eosinophils % 0.9 %; Hematocrit 27.3 % (36-47); Lymphocytes # 0.5 10^3/uL (0.8-4.8); Lymphocytes % 19.7 %; Mean Corpuscular Hemoglobin 27.6 pg (27-33); Mean Corpuscular Volume 83.7 fl (85-98); Mean Platelet Volume 10.9 fL (7.4-10.4); Monocytes # 0.1 10^3/uL (0.2-0.9); Neutrophils # 1.68 10^3/uL (1.8-7.7); Neutrophils % 71.6 %; Nucleated Red Blood Cells % 0 %; Platelet Count 84 10^3/cmm (157-399); Red Blood Count 3.26 10^6/uL (3.85-5.65); Red Cell Distribution Width 16.4 % (12.1-15.1); White Blood Count 2.34 10^3/uL (3.29-11.43)
[2024-03-21 09:50] LABS: Alanine Aminotransferase 9 U/L (0-33); Albumin Level 3.3 g/dL (3.5-5.2); Alkaline Phosphatase 96 U/L (35-105); Anion Gap 15.3 (5-19); Aspartate Amino Transferase 13 U/L (0-32); Blood Urea Nitrogen 10 mg/dL (8-23); Calcium 8.5 mg/dL (8.5-10.5); Carbon Dioxide 22 mmol/L (22-29); Chloride 103 mmol/L (98-107); Globulin 2.5 g/dL (1.3-4.6); Glomerular Filtration Rate 123.4 mL/min (90-130); Glucose 126 mg/dL (65-115); Osmolality Calculated 285 mOsm/kg (285-295); Potassium 3.3 mmol/L (3.5-5.1); Sodium 137 mmol/L (136-145); Total Bilirubin 0.3 mg/dL (0.15-1.2); Total Protein 5.8 g/dL (6.6-8.7)
[2024-03-21] MEDS: acetaminophen 325 mg Tablet 650 MG PO (11:10)
[2024-03-21] MEDS: sodium chloride 0.9% 250 ML 75 ML IV (11:10)
[2024-03-21] MEDS: famotidine 20 mg/2 mL INJ IVP (11:11)
[2024-03-21] MEDS: palonosetron 0.25 mg/5 mL SDV IVP (11:13)
[2024-03-21] MEDS: diphenhydrAMINE 50 mg/mL SDV 1mL 25 MG IVP (11:15)
[2024-03-21] MEDS: dexamethasone 20 MG in sodium chloride 0.9% 50 ML 188 MG IV (11:17)
[2024-03-21] MEDS: PACLitaxeL 70 MG in sodium chloride 0.9%(non-DEHP) 250 ML 261.67 MG IV (11:57)
[2024-03-21] MEDS: CARBOplatin 220 MG in sodium chloride 0.9% 500 ML 522 MG IV (13:01)
[2024-03-21 14:05] VITALS: BP 149/59; PULSE 82; TEMP 36.2; O2SAT 98
--- NOTE | 2024-03-27 14:22 | ONCRAD TMN_ITS ---
Radiation Oncology Weekly Treatment Management Patient: José Luis Austin MR#: [id number] : 1955> Attending Physician: Montez Saavedra Date of Service: 03/27/2024 Referring Physician(s) : Ryann Ramos MD Diagnosis: C34.91 - Malignant neoplasm of unspecified part of right bronchus or lung, Diagnosed 01/25/2024 (Active) Radiotherapy to date: Course: RT Lung 2023, Treatment Site: RT Lung, Ref. ID: PTV, Energy: 6X, Dose/Fx (cGy): 200, #Fx: , Dose Correction (cGy): 0, Total Dose Delivered (cGy): 5,800, Start Date: 02/15/2024, Elapsed Days: 41 Reason for visit: The patient is being seen today as part of their regularly scheduled weekly on treatment visits to assess for acute toxicities from radiotherapy. Review of Systems: Patient completes combined chemoradiation therapy tomorrow for right infrahilar mass. She is lost 11 pounds since starting treatment. She states she is feeling better regarding sore throat where she can increase her calorie intake. Long discussion regarding calorie intake was had and patient appears to understand. She states she is have restaging CT on 04/03/2024. She also states she is breathing much better. She has not smoked since diagnosis but is in a home where her smokes but she states she gets out of the room when that happens. Labs show total protein 5.8 and an albumin of 3.3 which are both low as well as platelet count last week of 84,000. There was no evidence of hemoptysis in the recent past. Vital Signs: Performed on 03/27/2024 1:45 PM BMI - 20.312 kg/m2, Height - 61 in, Weight - 107.5 lbs, Temperature - 96.3 f, Pulse - 92 /min, Respiration - 18 /min, O2 Sat - 98 %, Pain - 0, Fatigue - 7 and BP - 125/ 65 mm(hg). Physical Exam: AAO x3. Skin intact. Lungs are clear to auscultation. No intercostal retractions noted. Negative Homans sign. Imaging: Radiation therapy imaging related to accurate target localization (i.e. KV, MV and CBCT) was reviewed. Appropriate changes, if any, were made to ensure treatment accuracy. Plan: Continue XRT with expected graduation of 03/28/2024. Patient is expected to return to clinic in 1 month or sooner if need be. Patient states she is scheduled for reimaging on 04/03/2024. Signed by: Montez Saavedra 03/27/2024 2:21:15 PM
--- NOTE | 2024-03-28 16:03 | N.ONRD TS_ITS ---
Radiation Oncology Treatment Summary Patient: José Luis>Geovanna MR#: [id number] : 1955> Age: 68> Sex: Female Dictated by: Montez Saavedra DO/ZANDER/DAVID Date of Service: 03/28/2024 Referring Physician(s) : Ryann Ramos MD Diagnosis: C34.91 - Malignant neoplasm of unspecified part of right bronchus or lung, Diagnosed 01/25/2024 (Active) Radiotherapy to Date: Course: RT Lung 2023, Treatment Site: RT Lung, Ref. ID: PTV, Energy: 6X, Dose/Fx (cGy): 200, #Fx: 30 / 30, Dose Correction (cGy): 0, Total Dose Delivered (cGy): 6,000, Start Date: 02/15/2024, End Date: 03/28/2024, Elapsed Days: 42 Clinical Summary: The patient tolerated RT well. She did lose 11# during XRT she states she was feeling better toward the end of treatment and can increase her calorie intake. Breathing is much better even though she is gone to the ER in the past. She remains a non-smoker but is around secondary events with her . She states she gets out of the room when he does smoke. Plan: End of treatment today. Continue on the above medication until the skin reaction resolves. Follow up in two weeks to check weight. Patient states she will have her reimaging on 04/03/2024. Signed by: Montez Saavedra>03/28/2024 4:01:51 PM <<Signature on File>>
--- NOTE | 2024-04-12 12:15 | CT_ITS ---
WS: [id number] CT chest w con* [id number] HISTORY: 2 weeks post chemoradiation TECHNIQUE: Axial imaging performed through the thorax. Coronal and sagittal reformats are submitted. All CT scans at [facility] use at least one of these dose optimization techniques: automated exposure control; mA and/or kV adjustment per patient size (includes targeted exams where dose is mat ched to clinical indication); or iterative reconstruction. CONTRAST: Omnipaque 350; 100 mL IV. DLP: 216.73 mGy.cm COMPARISON: 02/01/2024, 02/08/2023, PET/CT 12/13/2023 Lungs and central airway: Neoplastic mass centered at the RIGHT hilum posterior to the hilar structur es is reidentified. This is a hypoechoic mass with mild peripheral enhancement measuring 3.4 x 2.4 cm and extends over a length of 3.9 cm. There has been a decrease in size as compared to 02/01/2024. Centrilobular emphysema. There are a few scattered micronodules. No new or enlarging mass. No pneumon ia. Pleura: Normal. No pleural effusion. Heart and pericardium: Normal size heart with no pericardial effusion. Mediastinum and suresh: Small hyperdense lymph node at the RIGHT hilum measures 1.0 cm. Smaller hilar l ymph nodes measuring up to 11 mm. AP window lymph node 0.8 mm with no increase in size. Vessels: Mild atherosclerosis aorta. Pulmonary hypertension. Pulmonary arteries are dilated. Chest wall and lower neck: LEFT subclavian Mediport. Upper abdomen: Subcentimeter RIGHT adrenal nodule. This nodule has been present on prior CTs but bett er seen today due to the slice selection and contrast. Prior cholecystectomy. Osseous structures: Several partially healed fractures are noted in the posterior inferior LEFT ribs with adjacent pleural thickening. Fractures were described on 02/01/2024. CT/CT chest w con* [id number] IMPRESSION: 1. Moderate decrease in size of the RIGHT hilar neoplasm which extends into th e RIGHT lower lobe. Mass now measures 3.4 x 2.4 x 3.9 cm. Anticipate continued serial chest CT evaluations. Chest CT evaluation with IV contrast recommended. 2. Small mediastinal and hilar lymph nodes. No interval progression of mediast inal or hilar lymph nodes. No positive lymph nodes were noted on a prior PET/CT . 3. Centrilobular emphysema. No new or increasing size of any pulmonary nodules . 4. Pulmonary hypertension. 5. Subcentimeter RIGHT adrenal nodule. This nodule has been present on prior s tudies but better seen today due to IV contrast. Most consistent with a benign adenoma.
[2024-04-12] MEDS: iohexol 350 mg/mL 500 mL Btl (per mL) IV (12:23)
--- NOTE | 2024-04-16 11:30 | ONCRAD EPV_ITS ---
Radiation Oncology Established Patient Visit Patient: Pam Ordonez [id number] : 1955 Age: 68 Sex: Female Dictated by: Dr. Lawanda Ortiz Date of Service: 04/12/2024 Referring Physician(s) : Diagnosis: C34.91 - Malignant neoplasm of unspecified part of right bronchus or lung, Diagnosed 01/25/2024 (Active) Radiotherapy to Date: Course: RT Lung 2023, Treatment Site: RT Lung, Ref. ID: [id number] Energy: 6X, Dose/Fx (cGy): 200, #Fx: 30 / 30, Dose Correction (cGy): 0, Total Dose Delivered (cGy): 6,000, Start Date: 02/15/2024, End Date: 03/28/2024, Elapsed Days: 42 Current History: Patient returns for her first check. She said that her weight got down to 204 pounds but she actually has gained 6 pounds back. Her swallowing is markedly improved. She is requesting refills on her diclofenac. I will send those electronically. She is going to be starting her immunotherapy next week. Current Medications: Allergies: Current Complaints / Review of Systems: . Vital Signs: Performed on 04/12/2024 1:54 PM BMI - 19.802 kg/m2, Height - 61 in, Weight - 104.8 lbs, Temperature - 96.8 f, Pulse - 92 /min, Respiration - 18 /min, O2 Sat - 98 %, Pain - 0, Fatigue - 6 and BP - 157/ 72 mm(hg)(high/). Physical Exam: General: Alert and oriented x 3. No acute distress. HEENT: Normocephalic, atraumatic. Extraocular Movements Intact: Pupils Equal, Round, Reactive to Light Sclerae anicteric. . LUNGS respiratory rate is regular nonlabored HEART: Regular rate and rhythm ABDOMEN: Soft, nontender, nondistended . NEUROLOGIC: Alert and oriented x 3. Gait and speech within normal limits Performance Status: 100 Lab: None pending. Pathology: Primary, c34.91 - malignant neoplasm of unspecified part of right bronchus or lung, Diagnosed 01/25/2024 (active) . Imaging: See HPI Impression: Non-small cell carcinoma of the lung now a month out from completion of treatment Plan: Patient has recovered from her combined modality treatment. She will be starting her immunotherapy next week. Will see her back on a as needed basis over the next year as she gets her immunotherapy. Signed by: 04/16/2024 11:29:26 AM <<Signature on File>> Time spent with patient: 20 CPT Code: CPT Code:
== END 2024-04-18 23:59 | disposition home or self-care (01) ==
PROVIDERS: Nurse Practitioner Family; PCP Family Medicine; Visit Provider Nurse Practitioner Family
DX: Z53.9 Procedure and treatment not carried out, unspecified reason; C34.31 Malignant neoplasm of lower lobe, right bronchus or lung; J43.2 Centrilobular emphysema; I27.20 Pulmonary hypertension, unspecified; E27.8 Other specified disorders of adrenal gland
CPT/HCPCS: 71260; 77336; 77386; 80053; 85025; 96360; 96367; 96375; 96413; 96417; 99024; 99214; J1100; J1200; J2469; J3490; J7030; J7040; J7050; J9045; J9267; Q9967

== ENCOUNTER 2024-04-25 14:32 | Emergency (ER) | payer MEDICARE, MEDICAID, SELFPAY ==
--- NOTE | 2024-04-25 14:30 | ECG_ITS ---
[facility] Test Date: 2024-04-25 Pat Name: Pam Ordonez Department: Room: Gender: Female Mrp Controller: : 1955 Requested By: Gisel Harman Order Number: [id number] Tena MD: Grover Harley M.D. Measurements Intervals [place] Rate: 92 P: 70 OH: 145 QRS: 69 QRSD: 78 T: 79 QT: 377 QTc: 468 Interpretive Statements SINUS RHYTHM MODERATE VOLTAGE CRITERIA FOR LVH, CONSIDER NORMAL VARIANT [MEETS CRITERIA IN ONE OF: R(aVL), S(V1), R(V5), R(V5/V6)+S(V1)] Compared to ECG 03/30/2024 18:32:28 ST (T wave) deviation no longer present Electronically Signed On 04-25-2024 16:11:46 CDT by Grover Harley M.D. [id number]
[2024-04-25 14:38] VITALS: BP 119/69; PULSE 91; RESP 18; TEMP 36.8; O2SAT 98
--- NOTE | 2024-04-25 14:57 | XR_ITS ---
WS: [id number] PORTABLE CHEST HISTORY: Shortness of breath COMPARISON: 03/30/2024 LEFT subclavian Port-A-Cath. Lungs are clear and well expanded. No pleural effusion or pneumothorax. Cardiac size: Normal. Mediastinum/Aorta: Mild atherosclerosis aorta. No mediastinal widening. Osteopenia. Prior cholecystectomy. XR/XR chest 1V portable [id number] IMPRESSION: No acute cardiopulmonary disease.
[2024-04-25 16:05] VITALS: BP 142/60; PULSE 91; RESP 18; O2SAT 97
[2024-04-25 16:11] LABS: Basophils % 0.3 %; Eosinophils # 0.2 10^3/uL (0.0-0.8); Eosinophils % 1.5 %; Hematocrit 39.8 % (36-47); Lymphocytes # 0.7 10^3/uL (0.8-4.8); Lymphocytes % 6.2 %; Mean Corpuscular HGB Conc 31.7 g/dL (30-55); Mean Corpuscular Hemoglobin 29.2 pg (27-33); Mean Corpuscular Volume 92.1 fl (85-98); Mean Platelet Volume 10.1 fL (7.4-10.4); Monocytes # 0.8 10^3/uL (0.2-0.9); Monocytes % 7.1 %; Neutrophils # 9.74 10^3/uL (1.8-7.7); Neutrophils % 84.4 %; Nucleated Red Blood Cells % 0 %; Platelet Count 432 10^3/cmm (157-399); Red Blood Count 4.32 10^6/uL (3.85-5.65); Red Cell Distribution Width 23.6 % (12.1-15.1); White Blood Count 11.54 10^3/uL (3.29-11.43)
--- NOTE | 2024-04-25 16:12 | W.ED.CHESTPA ---
HPI - Chest Pain General: Chief Complaint: Chest Pain Stated Complaint: Chest pain, SOB Time Seen by Provider: 04/25/24 14:55 History of Present Illness: 68-year-old female with a history of lung cancer and COPD who just completed chemotherapy and radiation and is now going to maintenance chemotherapy who presents the emergency room with pleuritic chest pain. This started earlier this morning. Probably about 8 hours ago. Hurts worse with breathing. Is a burning type pain. She took nitroglycerin which did not relieve her pain. No fevers. No new cough. No new shortness of breath. No lower extremity swelling. No calf pain. She is not hypoxemic nor is she tachycardic on presentation. Review of Systems Narrative: Constitutional symptoms: Negative except as documented in HPI. Skin symptoms: Negative except as documented in HPI. Eye symptoms: Negative except as documented in HPI. ENMT symptoms: Negative except as documented in HPI. Respiratory symptoms: Negative except as documented in HPI. Cardiovascular symptoms: Negative except as documented in HPI. Gastrointestinal symptoms: Negative except as documented in HPI. Genitourinary symptoms: Negative except as documented in HPI. Musculoskeletal symptoms: Negative except as documented in HPI. Neurologic symptoms: Negative except as documented in HPI. Psychiatric symptoms: Negative except as documented in HPI. Endocrine symptoms: Negative except as documented in HPI. [facility] ED PFSH: Medical History (Updated 04/25/24 @ 16:55 by Pam Ortiz MD) Non-small cell lung cancer Port-A-Cath in place COPD (chronic obstructive pulmonary disease) Chronic lower back pain CHF (congestive heart failure), NYHA class III Unstable angina pectoris CAD (coronary artery disease) Postoperative anemia due to acute blood loss Hx of chest pain Aortic heart valve narrowing with insufficiency DDD (degenerative disc disease), lumbosacral ASHD (arteriosclerotic heart disease) HTN (hypertension) Dyslipidemia Subclavian artery stenosis Carotid stenosis, non-symptomatic Surgical History History of Status post laminectomy History of cholecystectomy Family History Mother CAD (coronary artery disease) Sister Chronic kidney disease (CKD) Brother Chronic kidney disease (CKD) Other Hypertension Lung disease Denies family history of Hyperlipidemia Social History (Reviewed 04/19/24 @ 12:53 by Darin Luque Smoking and tobacco/nicotine status: former use of tobacco/nicotine Quit status (tobacco/nicotine): has quit using Year quit tobacco: 2023 Former quit date comment: overall tobacco use 50+ years Second hand smoke exposure: No Alcohol intake: never Substance/Drug Use: never Lives independently: Yes Marital status: Number of children: 4 Current occupational status: disabled Current gender identity: Female Physical Exam Narrative: EXAM NARRATIVE: General: Alert, no acute distress. Skin: Warm, dry. Head: Normocephalic, atraumatic. Neck: Supple, trachea midline. Eye: Extraocular movements are intact. Ears, nose, mouth and throat: mucosa moist. Cardiovascular: Regular, Normal peripheral perfusion. Respiratory: Lungs are clear to auscultation, respirations are non-labored, breath sounds are equal, Symmetrical chest wall expansion. Gastrointestinal: Soft, Nontender, Non distended Musculoskeletal: Normal ROM, no deformity. Neurological: Alert and oriented, No focal neurological deficit observed. Psychiatric: Cooperative, appropriate mood & affect. Course Vital Signs: Vital signs: Vital Signs Temperature 98.3 F 04/25/24 14:38 Pulse Rate 91 04/25/24 16:05 Respiratory Rate 18 04/25/24 16:05 Blood Pressure 142/60 04/25/24 16:05 Pulse Oximetry 97 04/25/24 16:05 Oxygen Delivery Me thod Room Air 04/25/24 16:05 MDM - Chest Pain Medical Decision Making Differential diagnosis for patient with shortness of breath includes but is not limited to and based on the above HPI, review of systems and physical exam: Pneumonia. Bronchitis. Asthma or COPD with acute exacerbation. Acute coronary syndrome / [place]. Pulmonary embolism. Anxiety. Congestive heart failure. Viral infections including influenza and Covid-19. Atrial fibrillation. Anxiety. Pleural effusion. Pneumothorax. Workup: Lab work, chest X-ray and EKG ordered to evaluate, rule in and rule out above pathologies EKG: Time 1430. Rate 92. Normal sinus rhythm, No ST-T changes, no ectopy, normal AR & QRS intervals, This was reviewed and interpreted by myself the ER physician at 1435 Lab Review: Laboratory results were reviewed and interpreted by myself the emergency room physician. Lab work is unremarkable. Mild leukocytosis. Hemoglobin is 12.6. No renal failure. Cardiac markers negative. Chest x-ray: No acute process. No infiltrate. No pneumothorax. This was reviewed and interpreted by myself the ER physician. I reviewed the patient's medical record. Reexamination: Patient remained stable. No increased work of breathing. No altered mental status. No focal motor deficits. Assessment and plan: Noncardiac chest pain. Pleuritic. -IV steroids prior to discharge and steroids at home. We discussed following with her primary care provider - Discharged home - Discussed plan with patient. Answered any questions. - Evaluation and treatment of this problem were appropriate in the emergency setting. Lab Data 04/25/24 15:37 04/25/24 15:37 Radiology Impressions Chest X-Ray 04/25/24 14:57 IMPRESSION: No acute cardiopulmonary disease. Laboratory Results WBC 11.54 10^3/uL (3.29-11.43) H 04/25/24 15:37 RBC 4.32 10^6/uL (3.85-5.65) 04/25/24 15:37 Hgb 12.60 g/dL (11.27-16.99) 04/25/24 15:37 Hct 39.8 % (36-47) 04/25/24 15:37 MCV 92.1 fl (85-98) 04/25/24 15:37 MCH 29.2 pg (27-33) 04/25/24 15:37 MCHC 31.7 g/dL (30-55) 04/25/24 15:37 RDW 23.6 % (12.1-15.1) H 04/25/24 15:37 Plt Count 432 10^3/cmm (157-399) H 04/25/24 15:37 MPV 10.1 fL (7.4-10.4) 04/25/24 15:37 Neut % (Auto) 84.4 % 04/25/24 15:37 Lymph % (Auto) 6.2 % 04/25/24 15:37 Calloway % (Auto) 7.1 % 04/25/24 15:37 Eos % (Auto) 1.5 % 04/25/24 15:37 Baso % (Auto) 0.3 % 04/25/24 15:37 Neut # (Auto) 9.74 10^3/uL (1.8-7.7) H 04/25/24 15:37 Lymph # (Auto) 0.7 10^3/uL (0.8-4.8) L 04/25/24 15:37 Calloway # (Auto) 0.8 10^3/uL (0.2-0.9) 04/25/24 15:37 Eos # (Auto) 0.2 10^3/uL (0.0-0.8) 04/25/24 15:37 Baso # (Auto) 0.0 10^3/uL (0.0-0.1) 04/25/24 15:37 Nucleated RBC % (auto) 0 % 04/25/24 15:37 Nucleated RBCs # 0.0 /100WBC 04/25/24 15:37 Sodium 135 mmol/L (136-145) L 04/25/24 15:37 Potassium 4.5 mmol/L (3.5-5.1) 04/25/24 15:37 Chloride 100 mmol/L (98-107) 04/25/24 15:37 Carbon Dioxide 21 mmol/L (22-29) L 04/25/24 15:37 Anion Gap 18.5 (5-19) 04/25/24 15:37 BUN 8 mg/dL (8-23) 04/25/24 15:37 Creatinine 0.7 mg/dL (0.5-0.9) 04/25/24 15:37 GFR Calculation 83.7 mL/min (90-130) L 04/25/24 15:37 Glucose 101 mg/dL (65-115) 04/25/24 15:37 Calculated Osmolality 278 mOsm/kg (285-295) L 04/25/24 15:37 Lactic Acid 1.1 mmol/L (0.5-2.2) 04/25/24 15:37 Calcium 9.6 mg/dL (8.5-10.5) 04/25/24 15:37 Total Bilirubin 0.5 mg/dL (0.15-1.2) 04/25/24 15:37 AST 15 U/L (0-32) 04/25/24 15:37 ALT 9 U/L (0-33) 04/25/24 15:37 Alkaline Phosphatase 128 U/L (35-105) H 04/25/24 15:37 Troponin T Baseline 7 ng/L (0-10) 04/25/24 15:37 C-Reactive Protein 16.3 mg/L (0.0-4.9) H 04/25/24 15:37 NT-Pro-B Natriuret Pep 861 pg/mL (0-125) H 04/25/24 15:37 Total Protein 7.2 g/dL (6.6-8.7) 04/25/24 15:37 Albumin 4.4 g/dL (3.5-5.2) 04/25/24 15:37 Globulin 2.8 g/dL (1.3-4.6) 04/25/24 15:37 All radiology interpretation(s) finalized by discharge Discharge Plan Discharge Patient Disposition: Home Clinical Impression: Chest pain Condition: Stable Prescriptions: New Zithromax Z-Dominik 250 mg tablet See Rx Instructions .ROUTE .COMPLEX Qty: 6 0RF Rx Instructions: For 250 mg dose pack: take 500 mg today (day 1), then 250 mg for 4 days (days 2-5) dexamethasone 6 mg tablet 6 mg PO DAILY 5 Days Qty: 5 0RF No Action nitroglycerin [Nitrostat] 0.4 mg tablet, sublingual 0.4 mg SUBLINGUAL Q5M PRN (Reason: Chest Pain) Qty: 30 6RF Rx Instructions: do not exceed 3 doses per episode prochlorperazine maleate 10 mg tablet 10 mg PO Q6H PRN (Reason: mild nausea and vomiting) Qty: 30 3RF lorazepam 1 mg tablet 0.5 - 1 mg PO Q6H PRN (Reason: severe nausea) Qty: 30 3RF famotidine 20 mg tablet 20 mg PO DAILY docusate sodium 100 mg capsule 100 mg PO BID [id number]-[id number] complex Tablet PO pantoprazole 40 mg tablet,delayed release (DR/EC) 40 mg PO DAILY Qty: 60 1RF lisinopril 10 mg tablet 10 mg PO DAILY Qty: 90 3RF hydrocodone-acetaminophen 5-325 mg tablet 1 tab PO Q6H PRN (Reason: pain) 30 Days Qty: 120 0RF duloxetine [Cymbalta] 20 mg capsule,delayed release(DR/EC) 20 mg PO BID Qty: 180 0RF clopidogrel 75 mg tablet 75 mg PO DAILY Qty: 90 1RF Hold Instructions: Resume on 02/02/24. famotidine 20 mg tablet 20 mg PO BID PRN (Reason: heartburn) Qty: 180 0RF prochlorperazine maleate [Compazine] 10 mg tablet 10 mg PO Q8H PRN (Reason: nausea and vomiting) Qty: 30 0RF gabapentin 300 mg capsule 300 mg PO QID Qty: 60 0RF atorvastatin 80 mg tablet 80 mg PO BEDTIME Qty: 90 3RF albuterol sulfate 90 mcg/actuation HFA aerosol inhaler See Rx Instructions .ROUTE .COMPLEX Qty: 6.7 0RF Dose Instruction: INHALE 1 PUFF FOUR TIMES DAILY NEEDED FOR SHORTNESS OF BREATH OR WHEEZING Rx Instructions: INHALE 1 PUFF FOUR TIMES DAILY NEEDED FOR SHORTNESS OF BREATH OR WHEEZING diclofenac sodium 50 mg tablet,delayed release (DR/EC) 50 mg PO Q12H Qty: 60 3RF biotin 2,500 mcg Capsule 2,500 mcg PO QAM fluoxetine 20 mg capsule 60 mg PO DAILY acetaminophen 325 mg Tablet 650 mg PO Q4H PRN (Reason: pain) Qty: 60 0RF Hold Instructions: Resume on 02/03/24. Aspir-81 81 mg Tablet,Delayed Release (Dr/Ec) 81 mg PO DAILY Miralax 17 gram/dose powder 17 g PO DAILY Qty: 510 0RF Rx Instructions: Take 1 scoop daily while taking pain medications. Discharge Orders: Discharge ED (Routine); Ordered 04/25/24 Ordered By: Pam Ortiz Referrals: Alejandro Child MD [Primary Care Provider] - Discharge Diet: Usual diet Discharge Activity: Increase activity as tolerated Patient Instructions: Noncardiac Chest Pain (ED) Activity Restrictions/Additional Instructions: Thank you for choosing [facility] for your healthcare needs today. Please realize this is an emergency room and that we are providing you with a medical screening exam and this may not be complete and all inclusive of all the testing and or work up that you may need to determine your ailment or severity of your illness. You have been screened and evaluated and felt safe for discharge. Health conditions do change or evolve sometimes and as such it is important that you follow up with your Primary Doctor to be re checked, 3-5 days is a general good time frame for follow up. You are always welcome to return to the ED for re assessment if your symptoms are worsening or you have new concerns Coding Level of Care Code ED Chemist Intern for Venancio Alex
[2024-04-25 16:33] LABS: Lactic Sepsis W/Reflex 1.1 mmol/L (0.5-2.2)
[2024-04-25 16:34] LABS: Troponin(5th) Baseline 7 ng/L (0-10)
[2024-04-25 16:44] LABS: Alanine Aminotransferase 9 U/L (0-33); Albumin Level 4.4 g/dL (3.5-5.2); Alkaline Phosphatase 128 U/L (35-105); Anion Gap 18.5 (5-19); Aspartate Amino Transferase 15 U/L (0-32); Blood Urea Nitrogen 8 mg/dL (8-23); C Reactive Protein 16.3 mg/L (0.0-4.9); Calcium 9.6 mg/dL (8.5-10.5); Carbon Dioxide 21 mmol/L (22-29); Chloride 100 mmol/L (98-107); Creatinine Clr Calc Pharmacy 51.9248; Globulin 2.8 g/dL (1.3-4.6); Glomerular Filtration Rate 83.7 mL/min (90-130); Glucose 101 mg/dL (65-115); NT Pro B Type Natriuretic Pept 861 pg/mL (0-125); Osmolality Calculated 278 mOsm/kg (285-295); Potassium 4.5 mmol/L (3.5-5.1); Sodium 135 mmol/L (136-145); Total Bilirubin 0.5 mg/dL (0.15-1.2); Total Protein 7.2 g/dL (6.6-8.7)
[2024-04-25] MEDS: dexamethasone 10 mg/mL INJ IM (17:08)
[2024-04-25 17:14] VITALS: BP 149/75; O2SAT 96
== END 2024-04-25 17:15 | disposition home or self-care (01) ==
PROVIDERS: Emergency Provider Emergency Medicine; PCP Family Medicine
DX: R07.9 Chest pain, unspecified (principal); Z79.02 Long term (current) use of antithrombotics/antiplatelets; Z79.82 Long term (current) use of aspirin; Z87.891 Personal history of nicotine dependence; Z85.118 Personal history of other malignant neoplasm of bronchus and lung; J44.9 Chronic obstructive pulmonary disease, unspecified; I11.0 Hypertensive heart disease with heart failure; I50.9 Heart failure, unspecified; I25.10 Atherosclerotic heart disease of native coronary artery without angina pectoris; E78.5 Hyperlipidemia, unspecified
CPT/HCPCS: 36415; 71045; 80053; 83605; 83880; 84484; 85025; 86140; 87040; 93005; 96372; 99285; J1100

== ENCOUNTER 2024-05-02 08:00 | Oncology outpatient (recurring) (ONCR) | payer MEDICARE, MEDICAID, SELFPAY ==
[2024-04-19 11:40] LABS: Basophils % 0.6 %; Eosinophils # 0.2 10^3/uL (0.0-0.8); Eosinophils % 2.3 %; Hematocrit 32.7 % (36-47); Lymphocytes # 1.1 10^3/uL (0.8-4.8); Mean Corpuscular HGB Conc 31.5 g/dL (30-55); Mean Corpuscular Hemoglobin 28.5 pg (27-33); Mean Corpuscular Volume 90.3 fl (85-98); Mean Platelet Volume 9.8 fL (7.4-10.4); Monocytes # 0.6 10^3/uL (0.2-0.9); Monocytes % 9.1 %; Neutrophils # 4.65 10^3/uL (1.8-7.7); Neutrophils % 70.4 %; Nucleated Red Blood Cells % 0 %; Platelet Count 378 10^3/cmm (157-399); Red Blood Count 3.62 10^6/uL (3.85-5.65); Red Cell Distribution Width 23.4 % (12.1-15.1)
[2024-04-19 12:02] LABS: Alanine Aminotransferase 12 U/L (0-33); Albumin Level 3.7 g/dL (3.5-5.2); Alkaline Phosphatase 103 U/L (35-105); Anion Gap 15.2 (5-19); Aspartate Amino Transferase 15 U/L (0-32); Blood Urea Nitrogen 11 mg/dL (8-23); Calcium 8.9 mg/dL (8.5-10.5); Carbon Dioxide 23 mmol/L (22-29); Chloride 103 mmol/L (98-107); Globulin 2.9 g/dL (1.3-4.6); Glucose 83 mg/dL (65-115); Osmolality Calculated 283 mOsm/kg (285-295); Potassium 4.2 mmol/L (3.5-5.1); Sodium 137 mmol/L (136-145); Total Bilirubin 0.4 mg/dL (0.15-1.2); Total Protein 6.6 g/dL (6.6-8.7)
[2024-04-26 15:25] LABS: Thyroid Stimulating Hormone 0.64 uIU/mL (0.27-4.20)
[2024-04-26 15:43] LABS: Hepatitis A Antibody IgM Non-Reactive (Nonreactive); Hepatitis B Core AB, Total Non-Reactive (Nonreactive); Hepatitis B Surface AB < 3.5 (11.5-1000); Hepatitis B Surface Antigen Non-Reactive (Nonreactive); Hepatitis C Virus Antibody Non-Reactive (Nonreactive)
[2024-05-02 08:25] LABS: Basophils % 0.5 %; Eosinophils # 0.4 10^3/uL (0.0-0.8); Hematocrit 34.2 % (36-47); Lymphocytes % 16.2 %; Mean Corpuscular HGB Conc 31.6 g/dL (30-55); Mean Corpuscular Volume 91.9 fl (85-98); Mean Platelet Volume 9.5 fL (7.4-10.4); Monocytes # 0.7 10^3/uL (0.2-0.9); Monocytes % 12.2 %; Neutrophils # 3.71 10^3/uL (1.8-7.7); Neutrophils % 63.1 %; Nucleated Red Blood Cells % 0 %; Platelet Count 340 10^3/cmm (157-399); Red Blood Count 3.72 10^6/uL (3.85-5.65); Red Cell Distribution Width 22.1 % (12.1-15.1); White Blood Count 5.88 10^3/uL (3.29-11.43)
[2024-05-02 08:48] LABS: Alanine Aminotransferase 9 U/L (0-33); Albumin Level 3.5 g/dL (3.5-5.2); Alkaline Phosphatase 87 U/L (35-105); Anion Gap 15.9 (5-19); Aspartate Amino Transferase 12 U/L (0-32); Blood Urea Nitrogen 14 mg/dL (8-23); Calcium 8.6 mg/dL (8.5-10.5); Carbon Dioxide 21 mmol/L (22-29); Chloride 104 mmol/L (98-107); Creatinine Clr Calc Pharmacy 52.2219; Globulin 2.8 g/dL (1.3-4.6); Glucose 76 mg/dL (65-115); Osmolality Calculated 283 mOsm/kg (285-295); Potassium 3.9 mmol/L (3.5-5.1); Sodium 137 mmol/L (136-145); Total Bilirubin 0.2 mg/dL (0.15-1.2); Total Protein 6.3 g/dL (6.6-8.7)
[2024-05-02] MEDS: durvalumab 1,500 MG in sodium chloride 0.9% 250 ML 280 MG IV (10:14)
[2024-05-02] MEDS: sodium chloride 0.9% 250 ML 75 ML IV (10:16)
[2024-05-02 11:25] VITALS: BP 163/72; PULSE 68; RESP 18; TEMP 36.2; O2SAT 97
== END 2024-05-02 23:59 | disposition home or self-care (01) ==
PROVIDERS: Internal Medicine Medical Oncology; Nurse Practitioner Family; PCP Family Medicine; Visit Provider Nurse Practitioner Family
DX: C34.31 Malignant neoplasm of lower lobe, right bronchus or lung; Z79.899 Other long term (current) drug therapy; Z53.9 Procedure and treatment not carried out, unspecified reason; Z51.12 Encounter for antineoplastic immunotherapy
CPT/HCPCS: 36591; 80053; 84443; 85025; 86705; 86706; 86709; 86803; 87340; 96365; 99214; 99215; A4222; J7050; J9173

== ENCOUNTER 2024-05-16 12:42 | Oncology outpatient (recurring) (ONCR) | payer MEDICARE, MEDICAID, SELFPAY ==
[2024-05-16 13:58] LABS: Basophils % 0.4 %; Eosinophils # 0.2 10^3/uL (0.0-0.8); Eosinophils % 3.3 %; Hematocrit 34.4 % (36-47); Lymphocytes # 0.9 10^3/uL (0.8-4.8); Lymphocytes % 12.9 %; Mean Corpuscular HGB Conc 31.1 g/dL (30-55); Mean Corpuscular Hemoglobin 28.6 pg (27-33); Mean Platelet Volume 10.7 fL (7.4-10.4); Monocytes # 0.5 10^3/uL (0.2-0.9); Monocytes % 6.4 %; Neutrophils # 5.52 10^3/uL (1.8-7.7); Neutrophils % 76.6 %; Nucleated Red Blood Cells % 0 %; Platelet Count 299 10^3/cmm (157-399); Red Blood Count 3.74 10^6/uL (3.85-5.65); Red Cell Distribution Width 19.9 % (12.1-15.1); White Blood Count 7.21 10^3/uL (3.29-11.43)
[2024-05-16 14:30] LABS: Alanine Aminotransferase 8 U/L (0-33); Albumin Level 3.6 g/dL (3.5-5.2); Alkaline Phosphatase 115 U/L (35-105); Anion Gap 13.7 (5-19); Aspartate Amino Transferase 14 U/L (0-32); Blood Urea Nitrogen 12 mg/dL (8-23); Calcium 8.3 mg/dL (8.5-10.5); Carbon Dioxide 22 mmol/L (22-29); Chloride 104 mmol/L (98-107); Globulin 2.4 g/dL (1.3-4.6); Glucose 113 mg/dL (65-115); Osmolality Calculated 283 mOsm/kg (285-295); Potassium 3.7 mmol/L (3.5-5.1); Sodium 136 mmol/L (136-145); Thyroid Stimulating Hormone 1.22 uIU/mL (0.27-4.20); Total Bilirubin 0.2 mg/dL (0.15-1.2)
== END 2024-05-19 23:59 | disposition home or self-care (01) ==
PROVIDERS: Internal Medicine Medical Oncology; PCP Family Medicine; Visit Provider Nurse Practitioner Family
DX: C80.1 Malignant (primary) neoplasm, unspecified; C34.31 Malignant neoplasm of lower lobe, right bronchus or lung
CPT/HCPCS: 36591; 80053; 84443; 85025

== ENCOUNTER 2024-05-30 09:11 | Oncology outpatient (recurring) (ONCR) | payer MEDICARE, MEDICAID, SELFPAY ==
[2024-05-30 10:05] LABS: Basophils % 0.4 %; Eosinophils # 0.3 10^3/uL (0.0-0.8); Eosinophils % 3.7 %; Hematocrit 35.6 % (36-47); Lymphocytes # 0.9 10^3/uL (0.8-4.8); Lymphocytes % 12.7 %; Mean Corpuscular HGB Conc 31.2 g/dL (30-55); Mean Corpuscular Hemoglobin 28.8 pg (27-33); Mean Corpuscular Volume 92.2 fl (85-98); Mean Platelet Volume 10.2 fL (7.4-10.4); Monocytes # 0.5 10^3/uL (0.2-0.9); Monocytes % 7.5 %; Neutrophils # 5.28 10^3/uL (1.8-7.7); Neutrophils % 75.3 %; Nucleated Red Blood Cells % 0 %; Platelet Count 263 10^3/cmm (157-399); Red Blood Count 3.86 10^6/uL (3.85-5.65); Red Cell Distribution Width 17.8 % (12.1-15.1); White Blood Count 7.02 10^3/uL (3.29-11.43)
[2024-05-30 10:30] LABS: Alanine Aminotransferase 8 U/L (0-33); Albumin Level 3.6 g/dL (3.5-5.2); Alkaline Phosphatase 110 U/L (35-105); Anion Gap 12.7 (5-19); Aspartate Amino Transferase 13 U/L (0-32); Blood Urea Nitrogen 20 mg/dL (8-23); Calcium 8.5 mg/dL (8.5-10.5); Carbon Dioxide 25 mmol/L (22-29); Chloride 105 mmol/L (98-107); Globulin 2.6 g/dL (1.3-4.6); Glomerular Filtration Rate 83.7 mL/min (90-130); Glucose 86 mg/dL (65-115); Osmolality Calculated 288 mOsm/kg (285-295); Potassium 4.7 mmol/L (3.5-5.1); Sodium 138 mmol/L (136-145); Thyroid Stimulating Hormone 1.65 uIU/mL (0.27-4.20); Total Bilirubin 0.2 mg/dL (0.15-1.2); Total Protein 6.2 g/dL (6.6-8.7)
[2024-05-30] MEDS: durvalumab 1,500 MG in sodium chloride 0.9% 250 ML 280 MG IV (12:13)
[2024-05-30 13:54] VITALS: BP 159/71; PULSE 71; RESP 16; TEMP 36.6; O2SAT 98
== END 2024-05-30 23:59 | disposition home or self-care (01) ==
PROVIDERS: Nurse Practitioner Family; PCP Family Medicine; Visit Provider Nurse Practitioner Family
DX: C34.31 Malignant neoplasm of lower lobe, right bronchus or lung; Z79.52 Long term (current) use of systemic steroids; Z79.633 Long term (current) use of mitotic inhibitor; Z87.891 Personal history of nicotine dependence; Z51.12 Encounter for antineoplastic immunotherapy; C80.1 Malignant (primary) neoplasm, unspecified; R53.83 Other fatigue
CPT/HCPCS: 80053; 84443; 85025; 96413; 99214; A4222; J7050; J9173

== ENCOUNTER 2024-06-27 07:48 | Oncology outpatient (recurring) (ONCR) | payer MEDICARE, MEDICAID, SELFPAY ==
[2024-06-27 08:15] LABS: Basophils % 0.5 %; Eosinophils # 0.4 10^3/uL (0.0-0.8); Eosinophils % 6.6 %; Hematocrit 37.1 % (36-47); Lymphocytes % 14.9 %; Mean Corpuscular HGB Conc 31.5 g/dL (30-55); Mean Corpuscular Hemoglobin 29.4 pg (27-33); Mean Corpuscular Volume 93.2 fl (85-98); Monocytes # 0.5 10^3/uL (0.2-0.9); Monocytes % 8.5 %; Neutrophils % 69.2 %; Nucleated Red Blood Cells % 0 %; Platelet Count 313 10^3/cmm (157-399); Red Blood Count 3.98 10^6/uL (3.85-5.65); Red Cell Distribution Width 14.6 % (12.1-15.1); White Blood Count 6.36 10^3/uL (3.29-11.43)
[2024-06-27 08:33] LABS: Alanine Aminotransferase 11 U/L (0-33); Albumin Level 3.7 g/dL (3.5-5.2); Alkaline Phosphatase 132 U/L (35-105); Anion Gap 10.3 (5-19); Aspartate Amino Transferase 17 U/L (0-32); Blood Urea Nitrogen 12 mg/dL (8-23); Calcium 8.4 mg/dL (8.5-10.5); Carbon Dioxide 25 mmol/L (22-29); Chloride 102 mmol/L (98-107); Globulin 2.8 g/dL (1.3-4.6); Glucose 84 mg/dL (65-115); Osmolality Calculated 275 mOsm/kg (285-295); Potassium 4.3 mmol/L (3.5-5.1); Sodium 133 mmol/L (136-145); Thyroid Stimulating Hormone 2.76 uIU/mL (0.27-4.20); Total Bilirubin 0.2 mg/dL (0.15-1.2); Total Protein 6.5 g/dL (6.6-8.7)
[2024-06-27] MEDS: durvalumab 1,500 MG in sodium chloride 0.9% 250 ML 280 MG IV (09:54)
== END 2024-06-27 23:59 | disposition home or self-care (01) ==
PROVIDERS: PCP Family Medicine; Visit Provider Nurse Practitioner Family
DX: C34.31 Malignant neoplasm of lower lobe, right bronchus or lung; Z79.899 Other long term (current) drug therapy; Z87.891 Personal history of nicotine dependence; Z51.12 Encounter for antineoplastic immunotherapy; Z95.828 Presence of other vascular implants and grafts; Z92.3 Personal history of irradiation; L08.9 Local infection of the skin and subcutaneous tissue, unspecified
CPT/HCPCS: 80053; 84443; 85025; 96413; 99214; A4222; J7050; J9173

== ENCOUNTER 2024-07-25 12:54 | Oncology outpatient (recurring) (ONCR) | payer MEDICARE, MEDICAID, SELFPAY ==
[2024-07-25 13:09] LABS: Basophils % 0.3 %; Eosinophils # 0.2 10^3/uL (0.0-0.8); Eosinophils % 2.2 %; Hematocrit 37.6 % (36-47); Lymphocytes # 1.1 10^3/uL (0.8-4.8); Lymphocytes % 12.9 %; Mean Corpuscular HGB Conc 31.6 g/dL (30-55); Mean Corpuscular Hemoglobin 27.4 pg (27-33); Mean Corpuscular Volume 86.6 fl (85-98); Mean Platelet Volume 10.4 fL (7.4-10.4); Monocytes # 0.5 10^3/uL (0.2-0.9); Monocytes % 6.3 %; Neutrophils # 6.69 10^3/uL (1.8-7.7); Nucleated Red Blood Cells % 0 %; Platelet Count 350 10^3/cmm (157-399); Red Blood Count 4.34 10^6/uL (3.85-5.65); Red Cell Distribution Width 14.2 % (12.1-15.1); White Blood Count 8.59 10^3/uL (3.29-11.43)
[2024-07-25 13:36] LABS: Alanine Aminotransferase 10 U/L (0-33); Albumin Level 3.8 g/dL (3.5-5.2); Alkaline Phosphatase 146 U/L (35-105); Anion Gap 20.3 (5-19); Aspartate Amino Transferase 17 U/L (0-32); Blood Urea Nitrogen 19 mg/dL (8-23); Calcium 8.4 mg/dL (8.5-10.5); Carbon Dioxide 20 mmol/L (22-29); Chloride 100 mmol/L (98-107); Globulin 2.7 g/dL (1.3-4.6); Glomerular Filtration Rate 71.8 mL/min (90-130); Glucose 61 mg/dL (65-115); Osmolality Calculated 282 mOsm/kg (285-295); Potassium 4.3 mmol/L (3.5-5.1); Sodium 136 mmol/L (136-145); Thyroid Stimulating Hormone 0.87 uIU/mL (0.27-4.20); Total Bilirubin 0.3 mg/dL (0.15-1.2); Total Protein 6.5 g/dL (6.6-8.7)
[2024-07-25] MEDS: durvalumab 1,500 MG in sodium chloride 0.9% 250 ML 280 MG IV (14:41)
[2024-07-25 15:51] VITALS: BP 126/87; PULSE 76; RESP 16; TEMP 37; O2SAT 95
== END 2024-07-25 23:59 | disposition home or self-care (01) ==
LOC: ONCMED 12:55
PROVIDERS: Nurse Practitioner; PCP Family Medicine; Visit Provider Nurse Practitioner Family
DX: C80.1 Malignant (primary) neoplasm, unspecified; Z51.12 Encounter for antineoplastic immunotherapy; C34.31 Malignant neoplasm of lower lobe, right bronchus or lung
CPT/HCPCS: 80053; 84443; 85025; 96413; A4222; J7050; J9173

== ENCOUNTER 2024-07-26 09:07 | Oncology outpatient (recurring) (ONCR) | payer MEDICARE, MEDICAID, SELFPAY | END 2024-08-18 23:59 | disposition home or self-care (01) | LOC: ONCMED 08-10 15:52 → RAD 08-14 00:01 → ONCMED 08-14 08:09 | PROVIDERS: PCP Family Medicine; Visit Provider Nurse Practitioner Family | DX: C34.31 Malignant neoplasm of lower lobe, right bronchus or lung; Z79.899 Other long term (current) drug therapy; Z79.52 Long term (current) use of systemic steroids; Z79.633 Long term (current) use of mitotic inhibitor; Z87.891 Personal history of nicotine dependence; R53.83 Other fatigue; C80.1 Malignant (primary) neoplasm, unspecified | CPT/HCPCS: 99213 ==

== ENCOUNTER 2024-08-22 09:12 | Oncology outpatient (recurring) (ONCR) | payer MEDICARE, MEDICAID, SELFPAY ==
[2024-08-22 09:36] LABS: Basophils % 0.4 %; Eosinophils # 0.3 10^3/uL (0.0-0.8); Eosinophils % 2.5 %; Hematocrit 36.5 % (36-47); Lymphocytes # 0.6 10^3/uL (0.8-4.8); Lymphocytes % 6.3 %; Mean Corpuscular HGB Conc 31.8 g/dL (30-55); Mean Corpuscular Hemoglobin 26.8 pg (27-33); Mean Corpuscular Volume 84.3 fl (85-98); Mean Platelet Volume 9.7 fL (7.4-10.4); Monocytes # 0.8 10^3/uL (0.2-0.9); Monocytes % 7.6 %; Neutrophils # 8.35 10^3/uL (1.8-7.7); Neutrophils % 82.8 %; Nucleated Red Blood Cells % 0 %; Platelet Count 389 10^3/cmm (157-399); Red Blood Count 4.33 10^6/uL (3.85-5.65); Red Cell Distribution Width 14.9 % (12.1-15.1); White Blood Count 10.09 10^3/uL (3.29-11.43)
[2024-08-22 10:04] LABS: Alanine Aminotransferase 8 U/L (0-33); Albumin Level 3.5 g/dL (3.5-5.2); Alkaline Phosphatase 120 U/L (35-105); Aspartate Amino Transferase 16 U/L (0-32); Blood Urea Nitrogen 18 mg/dL (8-23); Calcium 8.1 mg/dL (8.5-10.5); Carbon Dioxide 24 mmol/L (22-29); Chloride 101 mmol/L (98-107); Creatinine Clr Calc Pharmacy 51.3303; Globulin 2.5 g/dL (1.3-4.6); Glomerular Filtration Rate 83.7 mL/min (90-130); Glucose 88 mg/dL (65-115); Lactate Dehydrogenase 221 U/L (135-214); Magnesium 2.1 mg/dL (1.7-2.3); Osmolality Calculated 285 mOsm/kg (285-295); Sodium 137 mmol/L (136-145); Total Bilirubin 0.4 mg/dL (0.15-1.2)
[2024-08-22] MEDS: durvalumab 1,500 MG in sodium chloride 0.9% 250 ML 280 MG IV (11:07)
[2024-08-22 12:20] VITALS: BP 119/68; PULSE 80; RESP 18; TEMP 36.6; O2SAT 96
--- NOTE | 2024-08-22 16:05 | CTR_ITS ---
PROCEDURE INFORMATION: Exam: CT Chest With Contrast; Diagnostic Exam date and time: 08/22/2024 4:27 PM Age: 68 years old Clinical indication: Condition or disease; Lung condition and disease; Cancer of the lung; Bilateral; Unspecified; Prior surgery; Surgery date: 6+ months; Surgery type: Port, back x 2, RT side desmoid tumor; Additional info: Dr. Nicole Lindo is requesting this be done the week of 08/15 TECHNIQUE: Imaging protocol: Diagnostic computed tomography of the chest with contrast. Radiation optimization: All CT scans at this facility use at least one of these dose optimization techniques: automated exposure control; mA and/or kV adjustment per patient size (includes targeted exams where dose is matched to clinical indication); or iterative reconstruction. Contrast material: OMNI 350; Contrast volume: 100 ml; Contrast route: INTRAVENOUS (IV); COMPARISON: CT chest w con* [id number] 04/12/2024 12:18 PM RADIATION DOSE METRICS: Total DLP (mGy-cm): 309.91 FINDINGS: Tubes, catheters and devices: Left port with tip in the SVC. Lungs: Subsegmental atelectasis in the right base. Pleural spaces: No pleural effusion. No pneumothorax. Heart: No pericardial effusion. Coronary arteries: Coronary arterial calcifications are seen. Mediastinal space: A right hilar mass has decreased in size measuring 1.9 x 2.6 cm Lymph nodes: New partially necrotic right paraesophageal lymph node measuring 2.1 x 1.7 cm. New partially necrotic precarinal lymph node measuring 1.7 x 2.2 cm. Vasculature: No thoracic aortic aneurysm. No thoracic aortic dissection. Diaphragm: No hiatal hernia. Bones/joints: Minimal superior endplate depression at T8 that is new from 04/12/2024 but appears subacute to chronic. Old left-sided rib fractures. Nondisplaced, non segmental fracture involving the anterior right 7th rib. Soft tissues: No significant subcutaneous soft tissue swelling. PROCEDURE INFORMATION: Exam: CT Abdomen With Contrast Exam date and time: 08/22/2024 4:27 PM Age: 68 years old Clinical indication: Condition or disease; Lung condition and disease; Cancer of the lung; Bilateral; Unspecified; Prior surgery; Surgery date: 6+ months; Surgery type: Port, back x 2, RT side desmoid tumor; Additional info: Dr. Nicole Lindo is requesting this be done the week of 08/15 TECHNIQUE: Imaging protocol: Computed tomography of the abdomen with contrast. Radiation optimization: All CT scans at this facility use at least one of these dose optimization techniques: automated exposure control; mA and/or kV adjustment per patient size (includes targeted exams where dose is matched to clinical indication); or iterative reconstruction. Contrast material: OMNI 350; Contrast volume: 100 ml; Contrast route: INTRAVENOUS (IV); COMPARISON: PT PET skull to thigh INIT [id number] 12/13/2023 11:30 AM RADIATION DOSE METRICS: Total DLP (mGy-cm): 309.91 FINDINGS: Liver: The liver is unremarkable. Gallbladder and biliary ducts: The gallbladder has been removed. Pancreas: The pancreas is unremarkable. Spleen: The spleen is unremarkable. Adrenal glands: Benign adrenal adenoma on the right measuring 1.3 cm Kidneys: A subcentimeter right renal hypodensity is too small to accurately characterize and requires no follow-up. No hydronephrosis. Stomach and bowel: The visualized large and small bowel are unremarkable. Appendix: The appendix is not included on the current study. Intraperitoneal space: No free intraperitoneal air. Vasculature: No abdominal aortic aneurysm. Lymph nodes: No retroperitoneal lymphadenopathy. Bones/joints: Chronic appearing compression fracture of L2. Lumbar hardware is incompletely visualized. No acute fracture is seen. Soft tissues: No significant subcutaneous soft tissue swelling. CT/CT chest abd w con*[id number] IMPRESSION: 1. Decrease in size of the known right hilar mass. 2. Worsening necrotic appearing mediastinal lymphadenopathy. 3. Nondisplaced, non segmental fracture involving the anterior right 7th rib. IMPRESSION: No evidence of metastatic disease in the abdomen/pelvis. COMMENTS: Consistent with the [employer]'s Incidental Findings Committee white paper (J Am Liliam Radiol 2018): Any incidental renal lesion less than 1 cm or classified as too small to characterize, or any incidental cystic renal lesion characterized as simple-appearing, is likely benign. No follow-up imaging is recommended for these lesions per consensus recommendations based on imaging criteria.
[2024-08-22] MEDS: iohexol 350 mg/mL 500 mL Btl (per mL) PO (16:23)
[2024-08-22] MEDS: iohexol 350 mg/mL 500 mL Btl (per mL) IV (16:38)
== END 2024-08-22 23:59 | disposition home or self-care (01) ==
PROVIDERS: PCP Family Medicine; Visit Provider Internal Medicine
DX: Z53.9 Procedure and treatment not carried out, unspecified reason; Z51.12 Encounter for antineoplastic immunotherapy; C34.31 Malignant neoplasm of lower lobe, right bronchus or lung; C80.1 Malignant (primary) neoplasm, unspecified; F32.9 Major depressive disorder, single episode, unspecified; Z79.899 Other long term (current) drug therapy
CPT/HCPCS: 71260; 74160; 80053; 83615; 83735; 84443; 85025; 96413; 99214; A4222; J7050; J9173

== ENCOUNTER 2024-09-18 08:00 | Oncology outpatient (recurring) (ONCR) | payer MEDICARE, SELFPAY ==
[2024-09-18 08:03] LABS: Basophils % 0.5 %; Eosinophils # 0.2 10^3/uL (0.0-0.8); Eosinophils % 2.3 %; Hematocrit 33.8 % (36-47); Lymphocytes # 1.3 10^3/uL (0.8-4.8); Lymphocytes % 14.7 %; Mean Corpuscular HGB Conc 31.7 g/dL (30-55); Mean Corpuscular Hemoglobin 26.4 pg (27-33); Mean Corpuscular Volume 83.5 fl (85-98); Mean Platelet Volume 9.9 fL (7.4-10.4); Monocytes # 0.8 10^3/uL (0.2-0.9); Monocytes % 8.9 %; Neutrophils # 6.25 10^3/uL (1.8-7.7); Neutrophils % 73.2 %; Nucleated Red Blood Cells % 0 %; Platelet Count 387 10^3/cmm (157-399); Red Blood Count 4.05 10^6/uL (3.85-5.65); Red Cell Distribution Width 15.8 % (12.1-15.1); White Blood Count 8.53 10^3/uL (3.29-11.43)
[2024-09-18 08:30] LABS: Alanine Aminotransferase 8 U/L (0-33); Albumin Level 3.4 g/dL (3.5-5.2); Alkaline Phosphatase 127 U/L (35-105); Anion Gap 15.4 (5-19); Aspartate Amino Transferase 12 U/L (0-32); Blood Urea Nitrogen 14 mg/dL (8-23); Calcium 8.9 mg/dL (8.5-10.5); Carbon Dioxide 23 mmol/L (22-29); Chloride 102 mmol/L (98-107); Creatinine Clr Calc Pharmacy 50.3191; Globulin 2.8 g/dL (1.3-4.6); Glomerular Filtration Rate 83.5 mL/min (90-130); Glucose 98 mg/dL (65-115); Osmolality Calculated 282 mOsm/kg (285-295); Potassium 4.4 mmol/L (3.5-5.1); Sodium 136 mmol/L (136-145); Thyroid Stimulating Hormone 2.68 uIU/mL (0.27-4.20); Total Bilirubin 0.3 mg/dL (0.15-1.2); Total Protein 6.2 g/dL (6.6-8.7)
[2024-09-18] MEDS: durvalumab 1,500 MG in sodium chloride 0.9% 250 ML 280 MG IV (09:24)
[2024-09-18 10:30] VITALS: BP 122/78; PULSE 78; RESP 18; TEMP 36.6; O2SAT 98
== END 2024-09-18 23:59 | disposition home or self-care (01) ==
PROVIDERS: PCP Family Medicine; Visit Provider Internal Medicine Medical Oncology
DX: C80.1 Malignant (primary) neoplasm, unspecified (principal); C34.31 Malignant neoplasm of lower lobe, right bronchus or lung; Z79.899 Other long term (current) drug therapy; Z79.52 Long term (current) use of systemic steroids; Z79.633 Long term (current) use of mitotic inhibitor; Z87.891 Personal history of nicotine dependence; R53.83 Other fatigue; Z53.9 Procedure and treatment not carried out, unspecified reason; Z51.12 Encounter for antineoplastic immunotherapy
CPT/HCPCS: 80053; 84443; 85025; 96413; 99214; A4222; J7050; J9173

== ENCOUNTER 2024-10-16 07:57 | Oncology outpatient (recurring) (ONCR) | payer MEDICARE, SELFPAY ==
[2024-10-16 08:19] LABS: Basophils # 0.1 10^3/uL (0.0-0.1); Basophils % 0.5 %; Eosinophils # 0.5 10^3/uL (0.0-0.8); Eosinophils % 5.5 %; Hematocrit 32.5 % (36-47); Lymphocytes # 1.1 10^3/uL (0.8-4.8); Lymphocytes % 11.7 %; Mean Corpuscular HGB Conc 31.1 g/dL (30-55); Mean Corpuscular Hemoglobin 26.1 pg (27-33); Mean Platelet Volume 10.2 fL (7.4-10.4); Monocytes # 0.7 10^3/uL (0.2-0.9); Monocytes % 7.4 %; Neutrophils # 7.15 10^3/uL (1.8-7.7); Neutrophils % 74.6 %; Nucleated Red Blood Cells % 0 %; Platelet Count 375 10^3/cmm (157-399); Red Blood Count 3.87 10^6/uL (3.85-5.65); Red Cell Distribution Width 16.3 % (12.1-15.1); White Blood Count 9.59 10^3/uL (3.29-11.43)
[2024-10-16 08:43] LABS: Alanine Aminotransferase 10 U/L (0-33); Albumin Level 3.4 g/dL (3.5-5.2); Alkaline Phosphatase 128 U/L (35-105); Anion Gap 15.4 (5-19); Aspartate Amino Transferase 15 U/L (0-32); Blood Urea Nitrogen 13 mg/dL (8-23); Calcium 8.7 mg/dL (8.5-10.5); Carbon Dioxide 23 mmol/L (22-29); Chloride 101 mmol/L (98-107); Globulin 2.7 g/dL (1.3-4.6); Glomerular Filtration Rate 99.7 mL/min (90-130); Glucose 87 mg/dL (65-115); Osmolality Calculated 279 mOsm/kg (285-295); Potassium 4.4 mmol/L (3.5-5.1); Sodium 135 mmol/L (136-145); Total Bilirubin 0.3 mg/dL (0.15-1.2); Total Protein 6.1 g/dL (6.6-8.7)
[2024-10-16] MEDS: durvalumab 1,500 MG in sodium chloride 0.9% 250 ML 280 MG IV (10:33)
[2024-10-16 11:42] VITALS: BP 173/74; PULSE 74; RESP 16; TEMP 36.4; O2SAT 98
== END 2024-10-16 23:59 | disposition home or self-care (01) ==
PROVIDERS: PCP Family Medicine; Visit Provider Internal Medicine Medical Oncology
DX: Z51.12 Encounter for antineoplastic immunotherapy; C34.31 Malignant neoplasm of lower lobe, right bronchus or lung; F32.9 Major depressive disorder, single episode, unspecified; Z79.899 Other long term (current) drug therapy; Z87.891 Personal history of nicotine dependence; Z92.3 Personal history of irradiation; R59.1 Generalized enlarged lymph nodes; D64.9 Anemia, unspecified
CPT/HCPCS: 80053; 84443; 85025; 96413; J7050; J9173

== ENCOUNTER 2024-11-13 08:01 | Oncology outpatient (recurring) (ONCR) | payer MEDICARE, SELFPAY ==
[2024-11-13 08:29] LABS: Basophils % 0.3 %; Eosinophils # 0.3 10^3/uL (0.0-0.8); Eosinophils % 3.6 %; Hematocrit 33.4 % (36-47); Lymphocytes # 1.3 10^3/uL (0.8-4.8); Mean Corpuscular HGB Conc 30.8 g/dL (30-55); Mean Corpuscular Hemoglobin 25.2 pg (27-33); Mean Corpuscular Volume 81.7 fl (85-98); Mean Platelet Volume 10.3 fL (7.4-10.4); Monocytes # 0.7 10^3/uL (0.2-0.9); Monocytes % 7.7 %; Neutrophils # 6.68 10^3/uL (1.8-7.7); Nucleated Red Blood Cells % 0 %; Platelet Count 426 10^3/cmm (157-399); Red Blood Count 4.09 10^6/uL (3.85-5.65); Red Cell Distribution Width 15.6 % (12.1-15.1); White Blood Count 9.05 10^3/uL (3.29-11.43)
[2024-11-13 08:58] LABS: Alanine Aminotransferase 10 U/L (0-33); Albumin Level 3.4 g/dL (3.5-5.2); Alkaline Phosphatase 114 U/L (35-105); Anion Gap 12.1 (5-19); Aspartate Amino Transferase 13 U/L (0-32); Blood Urea Nitrogen 17 mg/dL (8-23); Calcium 8.6 mg/dL (8.5-10.5); Carbon Dioxide 23 mmol/L (22-29); Chloride 103 mmol/L (98-107); Ferritin 48 ng/mL (15-150); Globulin 2.7 g/dL (1.3-4.6); Glomerular Filtration Rate 99.7 mL/min (90-130); Glucose 85 mg/dL (65-115); Iron 21 ug/dL (37-145); Osmolality Calculated 279 mOsm/kg (285-295); Percent Saturation 8.3 % (20-50); Potassium 4.1 mmol/L (3.5-5.1); Sodium 134 mmol/L (136-145); Thyroid Stimulating Hormone 2.84 uIU/mL (0.27-4.20); Total Bilirubin 0.3 mg/dL (0.15-1.2); Total Iron Binding Capacity 251 mcg/dl; Total Protein 6.1 g/dL (6.6-8.7); Unsaturated Iron Binding 230 ug/dL (112-347)
[2024-11-13] MEDS: durvalumab 1,500 MG in sodium chloride 0.9% 250 ML 280 MG IV (11:44)
[2024-11-13 13:35] VITALS: BP 176/72; PULSE 76; RESP 16; TEMP 36.7; O2SAT 96
== END 2024-11-13 23:59 | disposition home or self-care (01) ==
PROVIDERS: PCP Family Medicine; Visit Provider Internal Medicine Medical Oncology
DX: Z51.12 Encounter for antineoplastic immunotherapy (principal); C34.31 Malignant neoplasm of lower lobe, right bronchus or lung; D50.9 Iron deficiency anemia, unspecified; R53.83 Other fatigue; Z87.891 Personal history of nicotine dependence; Z92.3 Personal history of irradiation; Z79.899 Other long term (current) drug therapy
CPT/HCPCS: 80053; 82728; 83540; 83550; 84443; 85025; 96413; 99214; A4222; J7050; J9173

== ENCOUNTER 2024-11-15 11:36 | Emergency (ER) | payer MEDICARE, SELFPAY ==
--- NOTE | 2024-11-15 11:40 | XR_ITS ---
WS: [id number] Portable AP upright chest, 11/15/2024 Clinical Data: chest pain Comparison: Portable chest, 04/25/2024 Findings: No nodules, masses or effusions are seen. The heart is normal. The pulmonary vascularity is not increased. No pneumonia or pneumothorax is seen. The diaphragms are flattened. The aortic arch and descending thoracic aorta show calcification and minimal tortuosity. There is an infusion catheter entering from the left and ending in the superior vena cava. There are clips in the right upper quadrant from a cholecystectomy. There are pedicle screws from a posterior lumbar fusion. XR/XR chest 1V portable [id number] Impression: Atherosclerosis and hyperinflation.
--- NOTE | 2024-11-15 11:41 | ECG_ITS ---
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 Measurements Intervals [place] Rate: 82 P: -8 LA: 124 QRS: 1 QRSD: 86 T: -25 QT: 427 QTc: 501 Interpretive Statements SINUS RHYTHM VOLTAGE CRITERIA FOR LVH [MEETS CRITERIA IN ONE OF: R(aVL), S(V1), R(V5), R(V5/V6)+S(V1)] MINIMAL ST DEPRESSION [0.025+ mV ST DEPRESSION] Compared to ECG 04/25/2024 14:30:34 ST (T wave) deviation now present Electronically Signed On 11-17-2024 07:52:35 MANUFACTURER AGENT by Grover Harley M.D. [email or web address]
[2024-11-15 11:45] VITALS: BP 118/60; PULSE 78; TEMP 36.4; O2SAT 97; BMI 17.5
[2024-11-15 12:02] LABS: Basophils % 0.4 %; Eosinophils # 0.1 10^3/uL (0.0-0.8); Lymphocytes # 1.2 10^3/uL (0.8-4.8); Mean Corpuscular HGB Conc 31.4 g/dL (30-55); Mean Corpuscular Hemoglobin 25.6 pg (27-33); Mean Corpuscular Volume 81.5 fl (85-98); Mean Platelet Volume 9.7 fL (7.4-10.4); Monocytes # 0.6 10^3/uL (0.2-0.9); Monocytes % 6.4 %; Neutrophils # 7.02 10^3/uL (1.8-7.7); Neutrophils % 78.8 %; Nucleated Red Blood Cells % 0 %; Platelet Count 448 10^3/cmm (157-399); Red Blood Count 4.54 10^6/uL (3.85-5.65); Red Cell Distribution Width 15.7 % (12.1-15.1); White Blood Count 8.92 10^3/uL (3.29-11.43)
[2024-11-15 12:20] LABS: Troponin(5th) Baseline 23 ng/L (0-10)
[2024-11-15 12:25] LABS: Alanine Aminotransferase 11 U/L (0-33); Albumin Level 3.9 g/dL (3.5-5.2); Alkaline Phosphatase 133 U/L (35-105); Anion Gap 18.4 (5-19); Aspartate Amino Transferase 16 U/L (0-32); Blood Urea Nitrogen 11 mg/dL (8-23); Calcium 9.2 mg/dL (8.5-10.5); Carbon Dioxide 20 mmol/L (22-29); Chloride 98 mmol/L (98-107); Creatinine Clr Calc Pharmacy 49.0729; Glomerular Filtration Rate 99.7 mL/min (90-130); Glucose 100 mg/dL (65-115); Osmolality Calculated 275 mOsm/kg (285-295); Potassium 3.4 mmol/L (3.5-5.1); Sodium 133 mmol/L (136-145); Total Bilirubin 0.4 mg/dL (0.15-1.2); Total Protein 6.9 g/dL (6.6-8.7)
--- NOTE | 2024-11-15 12:48 | W.ED.GENADLT ---
HPI - General Adult General: Chief complaint: General Medical Stated complaint: chest pain Time Seen by Provider: 11/15/24 12:33 History of Present Illness: 69-year-old female with a history of lung cancer presents to the emergency room with generalized malaise she has some abdominal discomfort. She is intermittently having shortness of breath and chest pain. Chest pain is random. She has had some loose stools. Appetites been poor. She has not had any hematochezia or melena. No hematemesis or coffee-ground emesis. Associated symptoms: Deny chest pain, dyspnea or rash Related Data Home Medications ?Medication ?Instructions ?Recorded ?Confirmed biotin 2,500 mcg capsule 2,500 mcg PO QAM 01/11/23 11/15/24 aspirin 81 mg tablet,delayed 81 mg PO DAILY 02/01/24 11/15/24 release diclofenac sodium 1 % topical gel 4 g topical QID PRN joint pain 11/15/24 11/15/24 (Voltaren Arthritis Pain) Previous Rx's ?Medication ?Instructions ?Recorded acetaminophen 325 mg tablet 650 mg (2 x 325 mg) PO Q4H PRN 04/01/22 Held on 01/31/24. pain #60 tabs Instructions: Resume on 02/03/24. lisinopril 10 mg tablet 10 mg PO DAILY #90 tabs 12/16/23 lorazepam 1 mg tablet 0.5 - 1 mg (0.5 - 1 x 1 mg) PO Q6H 02/14/24 PRN severe nausea #30 tabs prochlorperazine maleate 10 mg 10 mg PO Q8H PRN nausea and 03/19/24 tablet (Compazine) vomiting #30 tabs gabapentin 300 mg capsule 300 mg PO QID #60 caps 03/27/24 atorvastatin 80 mg tablet 80 mg PO BEDTIME #90 tabs 04/20/24 fluoxetine 20 mg capsule 60 mg (3 x 20 mg) PO DAILY #90 caps 08/03/24 diclofenac sodium 50 mg 50 mg PO Q12H #60 tabs 08/13/24 tablet,delayed release duloxetine 20 mg capsule,delayed 20 mg PO BID #180 caps 08/20/24 release (Cymbalta) clopidogrel 75 mg tablet 75 mg PO DAILY #90 tabs 09/06/24 pantoprazole 40 mg tablet,delayed 40 mg PO DAILY #90 tabs 09/11/24 release nitroglycerin 0.4 mg sublingual 0.4 mg sublingual Q5M PRN Chest 10/05/24 tablet (Nitrostat) Pain #30 tabs famotidine 20 mg tablet 20 mg PO DAILY #90 tabs 11/09/24 ciprofloxacin HCl 500 mg tablet 500 mg PO Q12H #14 tabs 11/15/24 (Cipro) hydrocodone 5 mg-acetaminophen 325 1 tab PO Q6H PRN pain #30 tabs 11/15/24 mg tablet metronidazole 500 mg tablet 500 mg PO BID 7 days #14 tabs 11/15/24 promethazine 25 mg tablet 25 mg PO Q6H PRN nausea and 11/15/24 vomiting #20 tabs Allergies Allergy/AdvReac Type Severity Reaction Status Date / Time codeine Allergy Unknown Verified 11/15/24 11:49 hydrocodone Allergy ADR-Agitate Verified 11/15/24 11:49 d Sulfa (Sulfonamide Allergy ADR-Nausea Verified 11/15/24 11:49 Antibiotics) tramadol (From [facility]) Allergy ADR-Vomitin Verified 11/15/24 11:49 g Review of Systems Const: Denies: fever(s) or chills Card: Denies: chest pain Resp: Denies: dyspnea GI: Denies: abdominal pain : Denies: dysuria, urinary frequency or urinary urgency Musc: Denies: neck pain or back pain Skin/Breast: Denies: rash PFSH ED PFSH: Medical History Non-small cell lung cancer Port-A-Cath in place COPD (chronic obstructive pulmonary disease) Chronic lower back pain CHF (congestive heart failure), NYHA class III Unstable angina pectoris CAD (coronary artery disease) Postoperative anemia due to acute blood loss Hx of chest pain Aortic heart valve narrowing with insufficiency DDD (degenerative disc disease), lumbosacral ASHD (arteriosclerotic heart disease) HTN (hypertension) Dyslipidemia Subclavian artery stenosis Carotid stenosis, non-symptomatic Surgical History History of Status post laminectomy History of cholecystectomy Family History Mother CAD (coronary artery disease) Sister Chronic kidney disease (CKD) Brother Chronic kidney disease (CKD) Other Hypertension Lung disease Denies family history of Hyperlipidemia Social History Smoking and tobacco/nicotine status: former use of tobacco/nicotine Quit status (tobacco/nicotine): has quit using Year quit tobacco: 2023 Former quit date comment: overall tobacco use 50+ years Second hand smoke exposure: No Alcohol intake: never Substance/Drug Use: never Lives independently: Yes Marital status: Number of children: 4 Current occupational status: disabled Current gender identity: Female Physical Exam Const: GENERAL APPEARANCE: cooperative ORIENTATION/CONSCIOUSNESS: Yes awake, Yes oriented to person, Yes oriented to place and Yes oriented to time HENMT: COMMON NORMALS: normocephalic, atraumatic and hearing grossly normal bilaterally HEAD & SCALP: normocephalic and atraumatic Resp: COMMON NORMALS: normal respiratory effort, No retractions, No use of accessory muscles and clear to auscultation bilaterally AUSCULTATION: clear to auscultation bilaterally Cardio: COMMON NORMALS: regular rate, regular rhythm and No murmurs present (Cardio) RATE: regular rate RHYTHM: regular rhythm GI: AUSCULTATION: Yes normoactive bowel sounds PALPATION: Yes Tenderness to palpation present (GI) (General lower abdominal) and No Guarding due to palpation present (GI) Extremity: COMMON NORMALS: normal to inspection, capillary refill normal, no clubbing, cyanosis or edema, no calf tenderness and no pedal edema Neuro: SENSORIUM/ORIENTATION: Yes oriented to person, Yes oriented to place and Yes oriented to time Skin: COMMON NORMALS: no rashes or lesions noted GENERAL SKIN EXAM: no rashes or lesions noted Course Vital Signs: Vital signs: Vital Signs Temperature 97.5 F L 11/15/24 11:45 Pulse Rate 78 11/15/24 17:00 Respiratory Rate 18 11/15/24 16:26 Blood Pressure 155/68 11/15/24 17:00 Pulse Oximetry 98 11/15/24 17:00 Oxygen Delivery Me thod Room Air 11/15/24 11:45 [facility] - General Adult Medical Decision Making Patient initially presented with right-sided abdominal pain. She does have a history of lung cancer cardiac enzymes are negative EKG did not show any acute changes. She has no leukocytosis or anemia. CT shows a apparent sigmoid colitis. Patient sitting up states she feels much better she is not having any further chest pain still with some mild abdominal discomfort but does not describe it as pain. Will start her on Cipro and Flagyl also gave her hydrocodone promethazine to use as needed have her follow-up with her primary care doctor return if has worsening of symptoms Medical Records I reviewed the patient's medical records. Lab Data I reviewed the patient's lab results. 11/15/24 11:54 11/15/24 11:54 Radiology Impressions Chest X-Ray 11/15/24 11:40 Impression: Atherosclerosis and hyperinflation. Abdomen/Pelvis CT 11/15/24 13:02 IMPRESSION: 1. Submucosal enhancement involving the sigmoid colon suspicious for mild infectious or inflammatory colitis 2. Mild rectal constipation. 3. No evidence of high-grade small large bowel obstruction. 4. Small esophageal hiatal hernia. 5. Fatty liver. 6. Tiny amount of hazy infiltrate in the RIGHT middle lobe partially visualized 7. No other acute findings. Laboratory Results WBC 8.92 10^3/uL (3.29-11.43) 11/15/24 11:54 RBC 4.54 10^6/uL (3.85-5.65) 11/15/24 11:54 Hgb 11.60 g/dL (11.27-16.99) 11/15/24 11:54 Hct 37.0 % (36-47) 11/15/24 11:54 MCV 81.5 fl (85-98) L 11/15/24 11:54 MCH 25.6 pg (27-33) L 11/15/24 11:54 MCHC 31.4 g/dL (30-55) 11/15/24 11:54 RDW 15.7 % (12.1-15.1) H 11/15/24 11:54 Plt Count 448 10^3/cmm (157-399) H 11/15/24 11:54 MPV 9.7 fL (7.4-10.4) 11/15/24 11:54 Neut % (Auto) 78.8 % 11/15/24 11:54 Lymph % (Auto) 13.0 % 11/15/24 11:54 [place] % (Auto) 6.4 % 11/15/24 11:54 Eos % (Auto) 1.0 % 11/15/24 11:54 Baso % (Auto) 0.4 % 11/15/24 11:54 Neut # (Auto) 7.02 10^3/uL (1.8-7.7) 11/15/24 11:54 Lymph # (Auto) 1.2 10^3/uL (0.8-4.8) 11/15/24 11:54 [place] # (Auto) 0.6 10^3/uL (0.2-0.9) 11/15/24 11:54 Eos # (Auto) 0.1 10^3/uL (0.0-0.8) 11/15/24 11:54 Baso # (Auto) 0.0 10^3/uL (0.0-0.1) 11/15/24 11:54 Nucleated RBC % (auto) 0 % 11/15/24 11:54 Nucleated RBCs # 0.0 /100WBC 11/15/24 11:54 Sodium 133 mmol/L (136-145) L 11/15/24 11:54 Potassium 3.4 mmol/L (3.5-5.1) L 11/15/24 11:54 Chloride 98 mmol/L (98-107) 11/15/24 11:54 Carbon Dioxide 20 mmol/L (22-29) L 11/15/24 11:54 Anion Gap 18.4 (5-19) 11/15/24 11:54 BUN 11 mg/dL (8-23) 11/15/24 11:54 Creatinine 0.6 mg/dL (0.5-0.9) 11/15/24 11:54 GFR Calculation 99.7 mL/min (90-130) 11/15/24 11:54 Glucose 100 mg/dL (65-115) 11/15/24 11:54 Calculated Osmolality 275 mOsm/kg (285-295) L 11/15/24 11:54 Calcium 9.2 mg/dL (8.5-10.5) 11/15/24 11:54 Total Bilirubin 0.4 mg/dL (0.15-1.2) 11/15/24 11:54 AST 16 U/L (0-32) 11/15/24 11:54 ALT 11 U/L (0-33) 11/15/24 11:54 Alkaline Phosphatase 133 U/L (35-105) H 11/15/24 11:54 Troponin T Baseline 23 ng/L (0-10) H 11/15/24 11:54 Troponin T 120 Minute 22.13 ng/L (0-10) H 11/15/24 13:54 Delta Troponin T -0.87 ABS# (0-10) L 11/15/24 13:54 Total Protein 6.9 g/dL (6.6-8.7) 11/15/24 11:54 Albumin 3.9 g/dL (3.5-5.2) 11/15/24 11:54 Globulin 3.0 g/dL (1.3-4.6) 11/15/24 11:54 All radiology interpretation(s) finalized by discharge Discharge Plan Discharge Patient Disposition: Home Clinical Impression: Colitis, Primary adenocarcinoma of lower lobe of right lung, COPD (chronic obstructive pulmonary disease) Condition: Stable Prescriptions: New ciprofloxacin HCl [Cipro] 500 mg tablet 500 mg PO Q12H Qty: 14 0RF metronidazole 500 mg tablet 500 mg PO BID 7 Days Qty: 14 0RF hydrocodone-acetaminophen 5-325 mg tablet 1 tab PO Q6H PRN (Reason: pain) Qty: 30 0RF promethazine 25 mg tablet 25 mg PO Q6H PRN (Reason: nausea and vomiting) Qty: 20 0RF No Action lorazepam 1 mg tablet 0.5 - 1 mg PO Q6H PRN (Reason: severe nausea) Qty: 30 3RF lisinopril 10 mg tablet 10 mg PO DAILY Qty: 90 3RF prochlorperazine maleate [Compazine] 10 mg tablet 10 mg PO Q8H PRN (Reason: nausea and vomiting) Qty: 30 0RF gabapentin 300 mg capsule 300 mg PO QID Qty: 60 0RF atorvastatin 80 mg tablet 80 mg PO BEDTIME Qty: 90 3RF fluoxetine 20 mg capsule 60 mg PO DAILY Qty: 90 1RF diclofenac sodium 50 mg tablet,delayed release (DR/EC) 50 mg PO Q12H Qty: 60 3RF duloxetine [Cymbalta] 20 mg capsule,delayed release(DR/EC) 20 mg PO BID Qty: 180 0RF clopidogrel 75 mg tablet 75 mg PO DAILY Qty: 90 1RF pantoprazole 40 mg tablet,delayed release (DR/EC) 40 mg PO DAILY Qty: 90 1RF nitroglycerin [Nitrostat] 0.4 mg tablet, sublingual 0.4 mg SUBLINGUAL Q5M PRN (Reason: Chest Pain) Qty: 30 6RF Rx Instructions: do not exceed 3 doses per episode famotidine 20 mg tablet 20 mg PO DAILY Qty: 90 0RF biotin 2,500 mcg Capsule 2,500 mcg PO QAM diclofenac sodium [Voltaren Arthritis Pain] 1 % gel 4 g topical QID PRN (Reason: joint pain) acetaminophen 325 mg Tablet 650 mg PO Q4H PRN (Reason: pain) Qty: 60 0RF aspirin [Aspir-81] 81 mg Tablet,Delayed Release (Dr/Ec) 81 mg PO DAILY Discharge Orders: Discharge ED (Routine); Ordered 11/15/24 Ordered By: Nacho Maldonado Referrals: Alejandro Child MD [Primary Care Provider] - Discharge Diet: As Directed Discharge Activity: Increase activity as tolerated Patient Instructions: Diverticulitis Diet (ED), Colitis (ED), Opioid Safety, Pain Management Activity Restrictions/Additional Instructions: Thank you for choosing [facility] for your healthcare needs today. It is very important that you follow up as instructed or that you return to the Emergency Department should you have concerns or if your condition changes or worsens in any way. You were seen in the emergency room with complaints of diarrhea and abdominal pain as well as some chest pain. Suspect that the chest pain is due to your lung cancer. On the CT of your abdomen there is a segment of your sigmoid colon that shows evidence of colitis recommend you start oral antibiotics for this for 1 week. You were given hydrocodone for pain and promethazine for nausea and vomiting. Print Language: Cook Islander Coding Level of Care Code ED Cigar Packer for Venancio Alex
--- NOTE | 2024-11-15 13:02 | CT_ITS ---
WS: [id number] CT ABDOMEN PELVIS TECHNIQUE: Contrast-enhanced CT of the abdomen and pelvis with coronal and sagittal reformatted images. CLINICAL INFORMATION: abd pain, history of lung cancer COMPARISON: 08/22/2024 DLP: 274.[address] scans at [facility] use at least one of these dose optimization techniques: automated exposure control; mA and/or kV adjustment per patient size (includes targeted exams where dose is matched to clinical indication); or iterative reconstruction. FINDINGS: Mild submucosal enhancement involving the sigmoid colon suspicious for infectious or inflammatory colitis. This slightly extends into the LEFT descending colon. Fatty liver. Cholecystectomy clips. Splenic granulomas. Small esophageal hernia. Normal pancreatic parenchymal enhancement. Celiac and SMA are patent. Aortic calcification. Normal caliber abdominal aorta. Small RIGHT adrenal nodule likely adenoma measuring 10 mm. LEFT adrenal gland is normal. Normal renal parenchymal enhancement. No hydronephrosis. Small RIGHT renal cyst. Rectal constipation. Sigmoid colon is decompressed. No evidence of high-grade small or large bowel obstruction. No lymphadenopathy in the abdomen or pelvis. Extensive postoperative changes lumbar spine with pedicle screw fixation L3-S1. Bilateral sacroiliac fixation screws. Mild compression L2. This is unchanged from previous. CT/CT abdomen pelvis w con* [id number] IMPRESSION: 1. Submucosal enhancement involving the sigmoid colon suspicious for mild infe ctious or inflammatory colitis 2. Mild rectal constipation. 3. No evidence of high-grade small large bowel obstruction. 4. Small esophageal hiatal hernia. 5. Fatty liver. 6. Tiny amount of hazy infiltrate in the RIGHT middle lobe partially visualize d 7. No other acute findings.
--- NOTE | 2024-11-15 13:41 | ECG_ITS ---
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 Measurements Intervals [place] Rate: 73 P: 61 LA: 143 QRS: 61 QRSD: 90 T: 78 QT: 461 QTc: 510 Interpretive Statements SINUS RHYTHM LEFT VENTRICULAR HYPERTROPHY AND ST-T CHANGE [VOLTAGE CRITERIA PLUS ST/T ABNORMALITY] Compared to ECG 11/15/2024 11:41:32 No significant changes Electronically Signed On 11-17-2024 08:20:41 NURSING CLERK by Grover Harley M.D. [email or web address] [id number]
[2024-11-15 13:49] VITALS: BP 151/73; PULSE 75; O2SAT 96
[2024-11-15 14:23] LABS: Troponin 5 2HR 22.13 ng/L (0-10)
[2024-11-15 14:34] LABS: Troponin 5 2HR Delta -0.87 ABS# (0-10)
[2024-11-15] MEDS: iohexol 350 mg/mL 500 mL Btl (per mL) IV (15:01)
[2024-11-15 15:07] VITALS: BP 166/82; PULSE 80; O2SAT 98
[2024-11-15 16:26] VITALS: BP 163/98; PULSE 85; RESP 18; O2SAT 98
[2024-11-15 17:00] VITALS: BP 155/68; PULSE 78; O2SAT 98
== END 2024-11-15 17:01 | disposition home or self-care (01) ==
PROVIDERS: Emergency Provider Family Medicine; PCP Family Medicine
DX: K52.9 Noninfective gastroenteritis and colitis, unspecified (principal); C34.31 Malignant neoplasm of lower lobe, right bronchus or lung; J44.9 Chronic obstructive pulmonary disease, unspecified; Z79.02 Long term (current) use of antithrombotics/antiplatelets; Z79.82 Long term (current) use of aspirin; Z87.891 Personal history of nicotine dependence; E78.5 Hyperlipidemia, unspecified; I11.0 Hypertensive heart disease with heart failure; I50.9 Heart failure, unspecified; I25.110 Atherosclerotic heart disease of native coronary artery with unstable angina pectoris
CPT/HCPCS: 36415; 71045; 74177; 80053; 84484; 85025; 93005; 99285

== ENCOUNTER 2024-12-07 14:10 | Emergency (ER) | payer MEDICARE, SELFPAY ==
[2024-12-07] VITALS (7 sets, daily range): BP systolic 109–147; BP diastolic 55–75; PULSE 74–86; RESP 18; TEMP 36.6; O2SAT 95–100; BMI 16.8
--- NOTE | 2024-12-07 14:24 | XRR_ITS ---
PROCEDURE INFORMATION: Exam: XR Chest Exam date and time: 12/07/2024 3:27 PM Age: 69 years old Clinical indication: Pain; Angina pectoris; Additional info: Chest pain TECHNIQUE: Imaging protocol: Radiologic exam of the chest. Views: 1 view. COMPARISON: CR XR chest 1V portable [id number] 11/15/2024 11:53 AM FINDINGS: Tubes, catheters and devices: Stable left Mediport catheter. Lungs: Unremarkable. No consolidation. Pleural spaces: Unremarkable. No pleural effusion. No pneumothorax. Heart/Mediastinum: Unremarkable. No cardiomegaly. Bones/joints: Dextroscoliosis. Organs: Stable cholecystectomy. Other findings: Stable postoperative changes over the lumbar spine with metallic fixation and metallic artifact. XR/XR chest 1V portable [id number] IMPRESSION: 1. Stable left Mediport catheter. 2. No acute findings.
--- NOTE | 2024-12-07 14:34 | ECG_ITS ---
[facility] [employer] Test Date: 2024-12-07 Pat Name: Pam Ordonez Department: Room: Gender: Female Patient Manager: : 1955 Requested By: Eve Howell Order Number: [id number] Tena MD: Grover Harley M.D. Measurements Intervals [place] Rate: 82 P: 74 IN: 135 QRS: 72 QRSD: 90 T: 89 QT: 406 QTc: 475 Interpretive Statements SINUS RHYTHM LEFT VENTRICULAR HYPERTROPHY AND ST-T CHANGE [VOLTAGE CRITERIA PLUS ST/T ABNORMALITY] Compared to ECG 11/15/2024 13:26:46 No significant changes Electronically Signed On 12-08-2024 07:40:18 CDT by Grover Harley M.D. [id number]
[2024-12-07 15:41] LABS: Basophils % 0.4 %; Eosinophils # 0.2 10^3/uL (0.0-0.8); Eosinophils % 2.3 %; Hematocrit 33.2 % (36-47); Lymphocytes % 13.7 %; Mean Corpuscular HGB Conc 30.4 g/dL (30-55); Mean Corpuscular Hemoglobin 24.3 pg (27-33); Mean Platelet Volume 10.1 fL (7.4-10.4); Monocytes # 0.5 10^3/uL (0.2-0.9); Monocytes % 7.1 %; Neutrophils # 5.39 10^3/uL (1.8-7.7); Neutrophils % 76.2 %; Nucleated Red Blood Cells % 0 %; Platelet Count 504 10^3/cmm (157-399); Red Blood Count 4.15 10^6/uL (3.85-5.65); Red Cell Distribution Width 15.9 % (12.1-15.1); White Blood Count 7.07 10^3/uL (3.29-11.43)
--- NOTE | 2024-12-07 15:55 | W.ED.WEAKNES ---
HPI - Weakness General: Chief complaint: Weakness Stated complaint: weakness - burning sensation in sternum Time Seen by Provider: 12/07/24 15:32 Source: patient and family Mode of arrival: wheelchair Limitations: no limitations History of Present Illness: Patient is a 69-year-old female with a history of primary adenocarcinoma of lower lobe of right lung here for complaints of trouble swallowing. Patient states she has been having trouble swallowing over the past 3 weeks or so. Patient did undergo chemo and radiation therapy for her malignancy-finished a few months ago now doing immunotherapy. Recent PET scan performed earlier this month showing recurrent/residual disease. She has been referred to pulmonology in [place] and has a biopsy of a new concerning lesion scheduled for next Tuesday. Patient feels like food is getting stuck in her throat-mainly meats, even when she pur?es them. She is able to swallow liquids fairly well. Patient is not on any medications to help with symptoms. She believes she has been scheduled for a barium swallow test but unsure of when. She feels burning in her sternum. Nothing that she describes as chest pain. She has no new complaints of shortness of breath. Feels like she is getting weak from not eating enough. MD Complaint: generalized weakness Onset (ago): week(s) Duration: constant Location: generalized Migration: none Severity: mild Relieving factors: none Exacerbating factors: other (not being able to eat) Associated symptoms: Reports no associated symptoms and vomiting (with certain foods); Denies chills, dysuria, fever(s), headache(s) or syncope Review of Systems Const: Denies: fever(s), chills, body aches, fatigue or malaise ENMT: Denies: odynophagia Card: Denies: palpitations, irregular heart rhythm, edema, lightheadedness, syncope or pre-syncope GI: Reports: vomiting (with certain foods); Denies: abdominal pain or change in bowel habits : Denies: flank pain, difficulty voiding, dysuria, urinary frequency, urinary urgency or urinary hesitancy Musc: Denies: neck pain, back pain, extremity pain, extremity swelling or joint swelling Skin/Breast: Denies: rash Neuro: Denies: headache(s) or dizziness PFSH ED PFSH: Medical History Non-small cell lung cancer Port-A-Cath in place COPD (chronic obstructive pulmonary disease) Chronic lower back pain CHF (congestive heart failure), NYHA class III Unstable angina pectoris CAD (coronary artery disease) Postoperative anemia due to acute blood loss Hx of chest pain Aortic heart valve narrowing with insufficiency DDD (degenerative disc disease), lumbosacral ASHD (arteriosclerotic heart disease) HTN (hypertension) Dyslipidemia Subclavian artery stenosis Carotid stenosis, non-symptomatic Surgical History History of Status post laminectomy History of cholecystectomy Family History Mother CAD (coronary artery disease) Sister Chronic kidney disease (CKD) Brother Chronic kidney disease (CKD) Other Hypertension Lung disease Denies family history of Hyperlipidemia Social History Smoking and tobacco/nicotine status: former use of tobacco/nicotine Quit status (tobacco/nicotine): has quit using Year quit tobacco: 2023 Former quit date comment: overall tobacco use 50+ years Second hand smoke exposure: No Alcohol intake: never Substance/Drug Use: never Lives independently: Yes Marital status: Number of children: 4 Current occupational status: disabled Current gender identity: Female Physical Exam Const: COMMON NORMALS: no acute distress, patient oriented x3, no limitations, alert and well nourished GENERAL APPEARANCE: cooperative and appears older than stated age ORIENTATION/CONSCIOUSNESS: Yes awake, Yes oriented to person, Yes oriented to place and Yes oriented to time Eye: COMMON NORMALS: no scleral icterus Chest: COMMONS NORMALS: normal inspection of the chest and normal palpation of entire chest wall Resp: COMMON NORMALS: normal respiratory effort and clear to auscultation bilaterally AUSCULTATION: clear to auscultation bilaterally Cardio: COMMON NORMALS: regular rate and regular rhythm RATE: regular rate RHYTHM: regular rhythm GI: COMMON NORMALS: Normal to inspection, nondistended, normoactive bowel sounds present, Soft to palpation, non-tender, No hepatosplenomegaly present and no masses PALPATION: Yes Soft to palpation and Yes No hepatosplenomegaly present Neuro: COMMON NORMALS: patient oriented x3 SENSORIUM/ORIENTATION: Yes alert, Yes oriented to person, Yes oriented to place and Yes oriented to time Course Vital Signs: Vital signs: Vital Signs Temperature 97.8 F 12/07/24 14:26 Pulse Rate 86 12/07/24 14:26 Respiratory Rate 18 12/07/24 14:26 Blood Pressure 109/61 12/07/24 14:26 Pulse Oximetry 96 12/07/24 14:26 Oxygen Delivery Me thod Room Air 12/07/24 14:26 MDM - Weakness Medical Decision Making I highly suspect patient's symptoms are secondary to radiation esophagitis/gastritis. She was able to drink a GI cocktail here and feels significantly improved following this. I will write her prescriptions for viscous lidocaine, Carafate, and Protonix. I will place case management referral to get her set up with general surgery for evaluation for barium swallow and EGD. Discussed dietary modifications with patient and recommending her to start drinking Ensure/Boost shakes to help with her caloric intake. She can continue to follow-up with her oncology team as well. Return precautions given. Medical Records I reviewed the patient's medical records. Lab Data I reviewed the patient's lab results. 12/07/24 15:19 12/07/24 15:19 Laboratory Results WBC 7.07 10^3/uL (3.29-11.43) 12/07/24 15:19 RBC 4.15 10^6/uL (3.85-5.65) 12/07/24 15:19 Hgb 10.10 g/dL (11.27-16.99) L 12/07/24 15:19 Hct 33.2 % (36-47) L 12/07/24 15:19 MCV 80.0 fl (85-98) L 12/07/24 15:19 MCH 24.3 pg (27-33) L 12/07/24 15:19 MCHC 30.4 g/dL (30-55) 12/07/24 15:19 RDW 15.9 % (12.1-15.1) H 12/07/24 15:19 Plt Count 504 10^3/cmm (157-399) H 12/07/24 15:19 MPV 10.1 fL (7.4-10.4) 12/07/24 15:19 Neut % (Auto) 76.2 % 12/07/24 15:19 Lymph % (Auto) 13.7 % 12/07/24 15:19 [place] % (Auto) 7.1 % 12/07/24 15:19 Eos % (Auto) 2.3 % 12/07/24 15:19 Baso % (Auto) 0.4 % 12/07/24 15:19 Neut # (Auto) 5.39 10^3/uL (1.8-7.7) 12/07/24 15:19 Lymph # (Auto) 1.0 10^3/uL (0.8-4.8) 12/07/24 15:19 [place] # (Auto) 0.5 10^3/uL (0.2-0.9) 12/07/24 15:19 Eos # (Auto) 0.2 10^3/uL (0.0-0.8) 12/07/24 15:19 Baso # (Auto) 0.0 10^3/uL (0.0-0.1) 12/07/24 15:19 Nucleated RBC % (auto) 0 % 12/07/24 15:19 Nucleated RBCs # 0.0 /100WBC 12/07/24 15:19 Sodium 135 mmol/L (136-145) L 12/07/24 15:19 Potassium 3.8 mmol/L (3.5-5.1) 12/07/24 15:19 Chloride 100 mmol/L (98-107) 12/07/24 15:19 Carbon Dioxide 23 mmol/L (22-29) 12/07/24 15:19 Anion Gap 15.8 (5-19) 12/07/24 15:19 BUN 8 mg/dL (8-23) 12/07/24 15:19 Creatinine 0.6 mg/dL (0.5-0.9) 12/07/24 15:19 GFR Calculation 99.7 mL/min (90-130) 12/07/24 15:19 Glucose 130 mg/dL (65-115) H 12/07/24 15:19 Calculated Osmolality 280 mOsm/kg (285-295) L 12/07/24 15:19 Calcium 8.5 mg/dL (8.5-10.5) 12/07/24 15:19 Total Bilirubin 0.2 mg/dL (0.15-1.2) 12/07/24 15:19 AST 12 U/L (0-32) 12/07/24 15:19 ALT 7 U/L (0-33) 12/07/24 15:19 Alkaline Phosphatase 110 U/L (35-105) H 12/07/24 15:19 Troponin T Baseline 24 ng/L (0-10) H 12/07/24 15:19 Total Protein 5.9 g/dL (6.6-8.7) L 12/07/24 15:19 Albumin 3.4 g/dL (3.5-5.2) L 12/07/24 15:19 Globulin 2.5 g/dL (1.3-4.6) 12/07/24 15:19 XR interpretation done by ED provider, pending radiology final review Discharge Plan Discharge Patient Disposition: Home Clinical Impression: Radiation-induced esophagitis Condition: Stable Prescriptions: New lidocaine HCl [Lidocaine Viscous] 2 % solution 15 ml MUCOUS MEM QID Qty: 100 0RF Rx Instructions: Mix with water and swallow. sucralfate [Carafate] 1 gram tablet 1 g PO TID 14 Days Qty: 42 0RF No Action ferrous gluconate 324 mg (37.5 mg iron) tablet 324 mg PO BID Qty: 60 0RF lisinopril 10 mg tablet 10 mg PO DAILY Qty: 90 3RF gabapentin 300 mg capsule 300 mg PO QID Qty: 60 0RF atorvastatin 80 mg tablet 80 mg PO BEDTIME Qty: 90 3RF fluoxetine 20 mg capsule 60 mg PO DAILY Qty: 90 1RF diclofenac sodium 50 mg tablet,delayed release (DR/EC) 50 mg PO Q12H Qty: 60 3RF clopidogrel 75 mg tablet 75 mg PO DAILY Qty: 90 1RF pantoprazole 40 mg tablet,delayed release (DR/EC) 40 mg PO DAILY Qty: 90 1RF nitroglycerin [Nitrostat] 0.4 mg tablet, sublingual 0.4 mg SUBLINGUAL Q5M PRN (Reason: Chest Pain) Qty: 30 6RF Rx Instructions: do not exceed 3 doses per episode famotidine 20 mg tablet 20 mg PO DAILY Qty: 90 0RF duloxetine [Cymbalta] 20 mg capsule,delayed release(DR/EC) 20 mg PO BID Qty: 180 0RF biotin 2,500 mcg Capsule 2,500 mcg PO QAM diclofenac sodium [Voltaren Arthritis Pain] 1 % gel 4 g topical QID PRN (Reason: joint pain) promethazine 25 mg tablet 25 mg PO Q6H PRN (Reason: nausea and vomiting) Qty: 20 0RF acetaminophen [Tylenol] 325 mg Tablet 650 mg PO QID PRN (Reason: Fever Or Pain) Discharge Orders: Discharge ED (Routine); Ordered 12/07/24 Ordered By: Eve Howell Referrals: Alejandro Child MD [Primary Care Provider] - Patient Instructions: Esophagitis (ED) Activity Restrictions/Additional Instructions: Dietary modification (bland, pureed, or soft foods, soups) to help a patient maintain adequate caloric and liquid intake. Eating more frequent, smaller meals and avoiding foods that are very hot or very cold may also be useful. Avoidance of smoking, alcohol, coffee, spicy or acidic foods or liquids, chips, crackers, and fatty and indigestible foods can be helpful. It was recommended to drink between meals and to eat six smaller meals per day, consisting of semisolid food, soup, high-calorie supplements, purees, puddings, milk, etc. In addition, ingestion of hot or cold foods should be avoided if possible; instead, foods and liquids should be at room temperature. According to your medication list, you are taking famotidine and pantoprazole. MAKE SURE YOU CONTINUE TO TAKE THESE MEDICATIONS THEY WILL HELP WITH SYMPTOMS. 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 Related Data Home Medications ?Medication ?Instructions ?Recorded ?Confirmed biotin 2,500 mcg capsule 2,500 mcg PO QAM 01/11/23 12/07/24 diclofenac sodium 1 % topical gel 4 g topical QID PRN joint pain 11/15/24 12/07/24 (Voltaren Arthritis Pain) acetaminophen 325 mg tablet 650 mg PO QID PRN Fever Or Pain 12/07/24 12/07/24 (Tylenol) Previous Rx's ?Medication ?Instructions ?Recorded lisinopril 10 mg tablet 10 mg PO DAILY #90 tabs 12/16/23 gabapentin 300 mg capsule 300 mg PO QID #60 caps 03/27/24 atorvastatin 80 mg tablet 80 mg PO BEDTIME #90 tabs 04/20/24 fluoxetine 20 mg capsule 60 mg (3 x 20 mg) PO DAILY #90 caps 11/15/24 diclofenac sodium 50 mg 50 mg PO Q12H #60 tabs 08/13/24 tablet,delayed release clopidogrel 75 mg tablet 75 mg PO DAILY #90 tabs 09/06/24 pantoprazole 40 mg tablet,delayed 40 mg PO DAILY #90 tabs 09/11/24 release nitroglycerin 0.4 mg sublingual 0.4 mg sublingual Q5M PRN Chest 10/05/24 tablet (Nitrostat) Pain #30 tabs famotidine 20 mg tablet 20 mg PO DAILY #90 tabs 11/09/24 promethazine 25 mg tablet 25 mg PO Q6H PRN nausea and 11/15/24 vomiting #20 tabs duloxetine 20 mg capsule,delayed 20 mg PO BID #180 caps 11/19/24 release (Cymbalta) ferrous gluconate 324 mg (37.5 mg 324 mg PO BID #60 tabs 11/27/24 iron) tablet lidocaine HCl 2 % mucosal solution 15 ml mucous membrane QID #100 mL 12/07/24 (Lidocaine Viscous) sucralfate 1 gram tablet (Carafate) 1 g PO TID 2 weeks #42 tabs 12/07/24 Allergies Allergy/AdvReac Type Severity Reaction Status Date / Time codeine Allergy Unknown Verified 11/27/24 08:14 hydrocodone Allergy ADR-Agitate Verified 11/27/24 08:14 d Sulfa (Sulfonamide Allergy ADR-Nausea Verified 11/27/24 08:14 Antibiotics) tramadol (From Ultram) Allergy ADR-Vomitin Verified 11/27/24 08:14 g
[2024-12-07 16:03] LABS: Alanine Aminotransferase 7 U/L (0-33); Albumin Level 3.4 g/dL (3.5-5.2); Alkaline Phosphatase 110 U/L (35-105); Anion Gap 15.8 (5-19); Aspartate Amino Transferase 12 U/L (0-32); Blood Urea Nitrogen 8 mg/dL (8-23); Calcium 8.5 mg/dL (8.5-10.5); Carbon Dioxide 23 mmol/L (22-29); Chloride 100 mmol/L (98-107); Creatinine Clr Calc Pharmacy 48.2913; Globulin 2.5 g/dL (1.3-4.6); Glomerular Filtration Rate 99.7 mL/min (90-130); Glucose 130 mg/dL (65-115); Osmolality Calculated 280 mOsm/kg (285-295); Potassium 3.8 mmol/L (3.5-5.1); Sodium 135 mmol/L (136-145); Total Bilirubin 0.2 mg/dL (0.15-1.2); Total Protein 5.9 g/dL (6.6-8.7)
[2024-12-07 16:06] LABS: Troponin(5th) Baseline 24 ng/L (0-10)
[2024-12-07] MEDS: lidocaine 2% viscous 15 ML, aluminum-mag hydrox-simethicon 30 ML, sucralfate oral liq 1 GM PO (16:29)
--- NOTE | 2024-12-07 16:39 | ECG_ITS ---
[facility] [place] [facility] Date: 2024-12-07 Pat Name: Pam Ordonez Department: Room: Gender: Female Laboratory Chief: : 1955 Requested By: Eve Howell Order Number: [id number] Tena MD: Grover Harley M.D. Measurements Intervals [place] Rate: 71 P: 60 KS: 140 QRS: 67 QRSD: 81 T: 85 QT: 430 QTc: 470 Interpretive Statements SINUS RHYTHM VOLTAGE CRITERIA FOR LVH [MEETS CRITERIA IN ONE OF: R(aVL), S(V1), R(V5), R(V5/V6)+S(V1)] NONSPECIFIC T-WAVE ABNORMALITY Compared to ECG 12/07/2024 14:34:41 T-wave abnormality now present ST (T wave) deviation no longer present Electronically Signed On 12-08-2024 07:46:10 CDT by Grover Harley M.D. [email or web address] [id number]
--- NOTE | 2024-12-11 08:41 | DCPLANNER ---
Message sent to General Surgery
== END 2024-12-07 17:52 | disposition home or self-care (01) ==
PROVIDERS: Emergency Provider Physician Assistant; PCP Family Medicine
DX: K20.80 Other esophagitis without bleeding (principal); C34.31 Malignant neoplasm of lower lobe, right bronchus or lung; J44.9 Chronic obstructive pulmonary disease, unspecified; E78.5 Hyperlipidemia, unspecified; I11.0 Hypertensive heart disease with heart failure; I50.9 Heart failure, unspecified; I25.110 Atherosclerotic heart disease of native coronary artery with unstable angina pectoris
CPT/HCPCS: 36415; 71045; 80053; 84484; 85025; 93005; 99285; J9999

== ENCOUNTER 2024-12-17 11:00 | Oncology outpatient (recurring) (ONCR) | payer MEDICARE, SELFPAY ==
--- NOTE | 2024-11-23 13:30 | PETR_ITS ---
PROCEDURE INFORMATION: Exam: PET/CT Skull Base to Mid-thigh Exam date and time: 11/23/2024 2:23 PM Age: 69 years old Clinical indication: Restaging of lung cancer with the primary tumor in the right lower lobe: ; Prior surgery; Surgery date: 6+ months; Surgery type: Port, spine x2, LABS AND CLINICAL REPORTS: Glucose: 174 mg/dl Treatment strategy for malignancy (PET staging): Restaging (PS) TECHNIQUE: Imaging protocol: Following at least four-hour fasting and following the injection of radiopharmaceutical, low dose CT images were obtained. Then, PET images were obtained. Attenuation corrected images were constructed using the CT scan. Fused images of PET and CT were reviewed. The standardized uptake values (SUV) reported below are maximum values within a region of interest, expressed in gm/ml. Exam includes orbital meatal line to mid-thigh. SUV normalization method: BodyWeight Radiopharmaceutical: 10.43 mCi F-18 FDG (Fluorodeoxyglucose), IV. Time of imaging post radiopharmaceutical administration: 45 minutes Injection site: right ac COMPARISON: PT PET skull to thigh INIT 12/13/2023, CT chest abdomen pelvis 08/22/2024, CT chest 04/12/2024 FINDINGS: Tubes, catheters and devices: Port catheter placed via the left subclavian vein terminates in the superior vena cava. Brain: Lower than expected uptake not exceeding 2.8 SUV. Pharynx: No abnormal uptake. Larynx: No abnormal uptake. Lungs, pleura and trachea: No abnormal uptake. Primary tumor in the perihilar right lower lobe decreased in anterior-posterior thickness from 2 cm on 12/13/2023 and 1.6 cm on 08/22/2024 to 1 cm and completely resolved in previously present abnormal uptake compatible with complete metabolic response to treatment. There is trace amount of bilateral pleural effusion. There is persistent moderate centrilobular emphysema. Heart: No abnormal uptake. There is no cardiomegaly. Severe coronary artery calcification is present. There is no pericardial effusion. Mediastinal space: No abnormal uptake. Liver: No abnormal uptake. Maximum uptake is 1.8 SUV. Gallbladder and biliary ducts: No abnormal uptake. Status post cholecystectomy. Pancreas: No abnormal uptake. Spleen: No abnormal uptake. No splenomegaly. Adrenal glands: No abnormal uptake. No nodules. Kidneys and ureters: Normal physiologic uptake. No hydronephrosis. Stomach and bowel: No abnormal uptake. Vasculature: No abnormal uptake. Lymph nodes: There is upper and mid mediastinal metastatic lymphadenopathy new since 12/13/2023. The largest about 3.8 x 3.5 cm subcarinal tumor measures 4 SUV in the maximal peripheral uptake with central hypo metabolism suggestive of necrotic changes, increased in size from 2.6 x 2.1 cm on 08/22/2024. The 2nd largest tumor anteriorly to the right mainstem bronchus measures 3.4 x 2.7 cm with a peripheral rim of increased uptake of 4.5 SUV and hypometabolic center suggestive of necrotic changes, increased from 2 x 1.8 cm on 08/22/2024. Right paratracheal lymph node with a short axis of 1 cm measures 4.8 SUV, increased in short axis from 0.6 cm on 08/22/2024. There is mildly increased uptake of 3.8 SUV within normal size right hilar lymph node on axial image 91. No FDG avid lymphadenopathy in the neck, abdomen, pelvis, and extremities. Skeleton: No abnormal uptake in the visualized axial and appendicular skeleton. Stable postsurgical findings in the lumbar spine after L4 and L5 posterior laminectomy with L3-S1 fusion with bilateral transpedicular internal fixation. Stable mild chronic compression in the upper endplate of L2. Soft tissues: Diffusely increased benign muscular uptake in the back, intercostal muscles, the diaphragm, and in the muscles of the upper extremities. PET/PET skull to thigh SUBS [id number] IMPRESSION: In comparison with the initial staging PET-CT on 12/13/2023 there is complete response in the primary tumor in the right lower lobe. Mediastinal metastatic lymphadenopathy is new since 12/13/2023 and increased in size since 08/22/2024 with significant central necrotic changes within the largest nodes and maximal uptake of 4.8 SUV. No FDG avid abnormality outside of the chest to suggest distant metastatic disease. Diffusely abnormal benign muscular uptake including upper extremity muscles and respiratory muscles for clinical correlation with dyspnea.
[2024-11-27 08:05] LABS: Basophils % 0.5 %; Eosinophils # 0.4 10^3/uL (0.0-0.8); Eosinophils % 5.1 %; Hematocrit 31.6 % (36-47); Lymphocytes # 1.3 10^3/uL (0.8-4.8); Lymphocytes % 16.1 %; Mean Corpuscular HGB Conc 30.7 g/dL (30-55); Mean Corpuscular Hemoglobin 24.6 pg (27-33); Mean Corpuscular Volume 80.2 fl (85-98); Mean Platelet Volume 10.2 fL (7.4-10.4); Monocytes # 0.8 10^3/uL (0.2-0.9); Monocytes % 9.5 %; Neutrophils # 5.38 10^3/uL (1.8-7.7); Neutrophils % 68.4 %; Nucleated Red Blood Cells % 0 %; Platelet Count 492 10^3/cmm (157-399); Red Blood Count 3.94 10^6/uL (3.85-5.65); Red Cell Distribution Width 15.4 % (12.1-15.1); White Blood Count 7.87 10^3/uL (3.29-11.43)
[2024-11-27 08:33] LABS: Alanine Aminotransferase 8 U/L (0-33); Alkaline Phosphatase 106 U/L (35-105); Aspartate Amino Transferase 11 U/L (0-32); Blood Urea Nitrogen 9 mg/dL (8-23); Calcium 8.4 mg/dL (8.5-10.5); Carbon Dioxide 22 mmol/L (22-29); Chloride 104 mmol/L (98-107); Glomerular Filtration Rate 99.7 mL/min (90-130); Glucose 81 mg/dL (65-115); Osmolality Calculated 282 mOsm/kg (285-295); Sodium 137 mmol/L (136-145); Total Bilirubin 0.2 mg/dL (0.15-1.2)
[2024-12-11 09:12] LABS: Basophils # 0.1 10^3/uL (0.0-0.1); Basophils % 0.6 %; Eosinophils # 0.2 10^3/uL (0.0-0.8); Eosinophils % 2.6 %; Hematocrit 33.2 % (36-47); Lymphocytes # 1.2 10^3/uL (0.8-4.8); Lymphocytes % 14.8 %; Mean Corpuscular HGB Conc 30.7 g/dL (30-55); Mean Corpuscular Hemoglobin 24.3 pg (27-33); Mean Platelet Volume 9.8 fL (7.4-10.4); Monocytes # 0.7 10^3/uL (0.2-0.9); Monocytes % 8.4 %; Neutrophils # 5.81 10^3/uL (1.8-7.7); Neutrophils % 73.2 %; Nucleated Red Blood Cells % 0 %; Platelet Count 474 10^3/cmm (157-399); Red Cell Distribution Width 15.9 % (12.1-15.1); White Blood Count 7.95 10^3/uL (3.29-11.43)
[2024-12-11 09:39] LABS: Alanine Aminotransferase 6 U/L (0-33); Albumin Level 3.3 g/dL (3.5-5.2); Alkaline Phosphatase 104 U/L (35-105); Anion Gap 15.6 (5-19); Aspartate Amino Transferase 12 U/L (0-32); Blood Urea Nitrogen 11 mg/dL (8-23); Calcium 8.6 mg/dL (8.5-10.5); Carbon Dioxide 22 mmol/L (22-29); Chloride 101 mmol/L (98-107); Globulin 3.1 g/dL (1.3-4.6); Glomerular Filtration Rate 99.7 mL/min (90-130); Glucose 99 mg/dL (65-115); Osmolality Calculated 279 mOsm/kg (285-295); Potassium 3.6 mmol/L (3.5-5.1); Sodium 135 mmol/L (136-145); Thyroid Stimulating Hormone 1.47 uIU/mL (0.27-4.20); Total Bilirubin 0.3 mg/dL (0.15-1.2); Total Protein 6.4 g/dL (6.6-8.7)
== END 2024-12-17 23:59 | disposition home or self-care (01) ==
LOC: RAD 12-18 00:01 → ONCMED 12-18 10:46
PROVIDERS: Internal Medicine Medical Oncology; PCP Family Medicine; Visit Provider Nurse Practitioner Family
DX: Z53.9 Procedure and treatment not carried out, unspecified reason (principal)
CPT/HCPCS: 78815; 80053; 84443; 85025; 99214; A9552

== ENCOUNTER → 2024-12-25 14:39 | Outpatient (BNVA) | payer MEDICARE, MEDICAID, SELFPAY | PROVIDERS: PCP Family Medicine; Referring Provider Family Medicine; Visit Provider Surgery | DX: R13.10 Dysphagia, unspecified (principal) | CPT/HCPCS: 99205 ==

== ENCOUNTER 2024-12-28 10:28 | Outpatient (CLI) | payer MEDICARE, SELFPAY ==
--- NOTE | 2024-12-28 10:38 | CTR_ITS ---
PROCEDURE INFORMATION: Exam: CT Chest With Contrast; Diagnostic Exam date and time: 12/28/2024 11:00 AM Age: 69 years old Clinical indication: Other: Lung CA; Cough and shortness of breath; Additional info: Lung cancer; Compare to previous TECHNIQUE: Imaging protocol: Diagnostic computed tomography of the chest with contrast. Radiation optimization: All CT scans at this facility use at least one of these dose optimization techniques: automated exposure control; mA and/or kV adjustment per patient size (includes targeted exams where dose is matched to clinical indication); or iterative reconstruction. Contrast material: OMNI 350; Contrast volume: 100 ml; Contrast route: INTRAVENOUS (IV); COMPARISON: PT PET skull to thigh SUBS [id number] 11/23/2024 2:23 PM RADIATION DOSE METRICS: Total DLP (mGy-cm): 397.08 FINDINGS: Tubes, catheters and devices: Left subclavian infusion port unchanged. Lungs: Increased bulky mediastinal lymphadenopathy with persistent mass effect and mild proximal narrowing of the right mainstem bronchus. Increased right lower lobe bronchial thickening along with inspissated secretions distally. Severe apical predominant centrilobular pulmonary emphysema. No new pulmonary opacity. Pleural spaces: Increased small right pleural effusion. Heart: Unremarkable. No cardiomegaly. No pericardial effusion. Coronary arteries: Coronary artery calcifications are present. Lymph nodes: Largest mediastinal lymph node measures 3.9 x 4.4 cm. Right paratracheal, right peribronchial, and right paraesophageal nodes are all likewise enlarged. Vasculature: Aortic atherosclerotic disease is seen without evidence of aneurysm. Bones/joints: Unremarkable. No acute fracture. Soft tissues: Unremarkable. COMMENTS: The presence of pulmonary emphysema on CT is an independent risk factor for lung cancer. In the absence of a history or active diagnosis of lung cancer, it is recommended that this patient with emphysema be evaluated for enrollment in a low dose CT lung cancer screening program. PROCEDURE INFORMATION: Exam: CT Abdomen And Pelvis With Contrast Exam date and time: 12/28/2024 11:00 AM Age: 69 years old Clinical indication: Other: Lung CA; Cough and shortness of breath; Additional info: Lung cancer; Compare to previous TECHNIQUE: Imaging protocol: Computed tomography of the abdomen and pelvis with contrast. Radiation optimization: All CT scans at this facility use at least one of these dose optimization techniques: automated exposure control; mA and/or kV adjustment per patient size (includes targeted exams where dose is matched to clinical indication); or iterative reconstruction. Contrast material: OMNI 350; Contrast volume: 100 ml; Contrast route: INTRAVENOUS (IV); COMPARISON: PT PET skull to thigh SUBS [id number] 11/23/2024 2:23 PM RADIATION DOSE METRICS: Total DLP (mGy-cm): 397.08 FINDINGS: Liver: Normal. No mass. Gallbladder and biliary ducts: Status post cholecystectomy. No evidence of significant biliary obstruction. Pancreas: Normal. No ductal dilation. Spleen: Normal. No splenomegaly. Adrenal glands: Stable 10 mm right adrenal nodule not shown to be FDG avid on prior study, most consistent with an adenoma. Kidneys and ureters: 10 mm right upper pole renal cyst. Stomach and bowel: Unremarkable. No obstruction. No mucosal thickening. Appendix: No evidence of appendicitis. Intraperitoneal space: No evidence of metastatic disease to the abdomen or acute abdominal or pelvic process. Vasculature: Aortoiliac atherosclerotic disease is seen without evidence of aneurysm. Lymph nodes: Unremarkable. No enlarged lymph nodes. Urinary bladder: Unremarkable as visualized. Reproductive: Unremarkable as visualized. Bones/joints: Stable instrumented postoperative changes from posterior spinal fusion L3-S2. Soft tissues: Unremarkable. CT/CT chest abdpel w/*[id number] IMPRESSION: 1. Increased bulky mediastinal lymphadenopathy with persistent mass effect and mild proximal narrowing of the right mainstem bronchus. 2. Increased right lower lobe bronchial thickening along with inspissated secretions distally. 3. Increased small right pleural effusion. 4. Severe apical predominant centrilobular pulmonary emphysema. IMPRESSION: No evidence of metastatic disease to the abdomen or acute abdominal or pelvic process. COMMENTS: Consistent with the [employer]'s Incidental Findings Committee white paper (J Am Liliam Radiol 2018): Any incidental renal lesion less than 1 cm or classified as too small to characterize, or any incidental cystic renal lesion characterized as simple-appearing, is likely benign. No follow-up imaging is recommended for these lesions per consensus recommendations based on imaging criteria.
[2024-12-28] MEDS: iohexol 350 mg/mL 500 mL Btl (per mL) IV (11:02)
== END 2024-12-28 10:29 | disposition home or self-care (01) ==
LOC: RAD 10:34
PROVIDERS: PCP Family Medicine; Visit Provider Internal Medicine Medical Oncology
DX: C34.31 Malignant neoplasm of lower lobe, right bronchus or lung (principal); Z96.89 Presence of other specified functional implants; J98.4 Other disorders of lung; J43.2 Centrilobular emphysema; J90 Pleural effusion, not elsewhere classified; I25.10 Atherosclerotic heart disease of native coronary artery without angina pectoris; R59.0 Localized enlarged lymph nodes; I70.0 Atherosclerosis of aorta; Z90.49 Acquired absence of other specified parts of digestive tract; E27.8 Other specified disorders of adrenal gland; N28.1 Cyst of kidney, acquired; I70.8 Atherosclerosis of other arteries; Z98.890 Other specified postprocedural states
CPT/HCPCS: 71260; 74177

== ENCOUNTER 2025-01-14 14:29 | Oncology outpatient (recurring) (ONCR) | payer MEDICARE, SELFPAY ==
[2024-12-24 09:13] LABS: Basophils # 0.1 10^3/uL (0.0-0.1); Basophils % 0.6 %; Eosinophils # 0.2 10^3/uL (0.0-0.8); Eosinophils % 1.9 %; Hematocrit 34.6 % (36-47); Lymphocytes % 13.4 %; Mean Corpuscular HGB Conc 30.3 g/dL (30-55); Mean Corpuscular Hemoglobin 23.8 pg (27-33); Mean Corpuscular Volume 78.5 fl (85-98); Mean Platelet Volume 9.9 fL (7.4-10.4); Monocytes # 0.6 10^3/uL (0.2-0.9); Monocytes % 7.7 %; Neutrophils # 5.89 10^3/uL (1.8-7.7); Nucleated Red Blood Cells % 0 %; Platelet Count 480 10^3/cmm (157-399); Red Blood Count 4.41 10^6/uL (3.85-5.65); Red Cell Distribution Width 16.4 % (12.1-15.1); White Blood Count 7.76 10^3/uL (3.29-11.43)
[2024-12-24 09:34] LABS: Alanine Aminotransferase 9 U/L (0-33); Albumin Level 3.4 g/dL (3.5-5.2); Alkaline Phosphatase 96 U/L (35-105); Anion Gap 14.4 (5-19); Aspartate Amino Transferase 14 U/L (0-32); Blood Urea Nitrogen 9 mg/dL (8-23); Calcium 8.7 mg/dL (8.5-10.5); Carbon Dioxide 24 mmol/L (22-29); Chloride 99 mmol/L (98-107); Creatinine Clr Calc Pharmacy 42.0227; Globulin 3.2 g/dL (1.3-4.6); Glomerular Filtration Rate 123.1 mL/min (90-130); Glucose 106 mg/dL (65-115); Osmolality Calculated 277 mOsm/kg (285-295); Potassium 3.4 mmol/L (3.5-5.1); Sodium 134 mmol/L (136-145); Total Bilirubin 0.3 mg/dL (0.15-1.2); Total Protein 6.6 g/dL (6.6-8.7)
--- NOTE | 2024-12-24 11:39 | ONCRAD EPV_ITS ---
Dr. NazarioRadiation Oncology Established Patient Visit Patient: José Luis Orozco [id number] : 1955> Age: 69> Sex: Female> Dictated by: Dr. Doc Ann Date of Service: 12/24/2024 Referring Physician(s) : Dr. 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 Radiotherapy to Date: Course: RT Lung 2023, Treatment Site: [facility] Lung, Ref. ID: PTV, Energy: 6X, Dose/Fx (cGy): 200, #Fx: 30 / 30, Dose Correction (cGy): 0, Total Dose Delivered (cGy): 6,000, Start Date: 02/15/2024, End Date: 03/28/2024, Elapsed Days: 42 Current History: Since completing treatment she feels tired and weak. She cannot hold solid foods down and thows it up. She tolerates liquids and supplements only. She has had weight loss from apporx 120 to 86 pounds. She is inactive at home and watches TV. She stopped smoking at time of diagnosis. She is scheduled to see GI next week to address EGD PET/CT 11/23/2024 Response seen at site of primary disease. Inferior and superior to this are new masses with ring of hypermetabolic uptake c/w bulky kiesha relapse with central necrosis. Right lateral hilar and pre-tracheal hypermetabolic uptake seen as well c/w additional sites of relapse. No distant metastatic disease seen. Vital Signs: Performed on 12/24/2024 9:47 AM BMI - 16.344 kg/m2 (low), Height - 61 in, Weight - 86.5 lbs, Temperature - 98.7 f, Pulse - 80 /min, Respiration - 17 /min, O2 Sat - 97 %, Pain - 6, Fatigue - 0 and BP - 135/ 75 mm(hg). Physical Exam: General: Alert and oriented x 3. No acute distress. Cachectic. No palpable adenopathy. No pedal edema. Performance Status: ECOG PS 2-3 Lab: None pending. Pathology: Primary, c34.91 - malignant neoplasm of unspecified part of right bronchus or lung, Diagnosed 01/25/2024 (active) . Imaging: See HPI Impression: Bulky mediastinal relapse inferior and superior to primary site. Ongoing post treatment esophageal dis function and weight loss likely due to post treatment stricture. Bulk of central mediastinal relapse and current esophageal symptoms are contra indications for additional mediastinal treatment. Agree that urgent GI evaluation is needed. She may need PEG tube placement for ongoing nutritional support. Dr. Nazario will pursue next generation sequencing to aid in targeted treatment choice. Discussed in detail with review of PET/CT with patient and spouse. Also discussed with Dr. Nazario Signed by: 12/24/2024 11:38:23 AM <<Signature on File>> Time spent with patient: 45 minutes CPT Code: * CPT Code: *
== END 2025-01-16 23:59 | disposition home or self-care (01) ==
PROVIDERS: Nurse Practitioner Family; PCP Family Medicine; Visit Provider Internal Medicine Medical Oncology
DX: C34.31 Malignant neoplasm of lower lobe, right bronchus or lung (principal); R03.0 Elevated blood-pressure reading, without diagnosis of hypertension; D50.9 Iron deficiency anemia, unspecified; Z95.828 Presence of other vascular implants and grafts; Z87.891 Personal history of nicotine dependence; R13.10 Dysphagia, unspecified; Z79.891 Long term (current) use of opiate analgesic; Z79.899 Other long term (current) drug therapy; Z92.21 Personal history of antineoplastic chemotherapy; Z92.3 Personal history of irradiation; R63.4 Abnormal weight loss; Z68.1 Body mass index [BMI] 19.9 or less, adult
CPT/HCPCS: 36591; 80053; 85025; 99213; 99214; 99215

== ENCOUNTER 2025-01-22 21:08 | Emergency (ER) | payer MEDICARE, SELFPAY ==
[2025-01-22] VITALS (7 sets, daily range): BP systolic 130–184; BP diastolic 56–100; PULSE 80–96; RESP 15–18; TEMP 36.8; O2SAT 95–100; BMI 15.8
--- NOTE | 2025-01-22 21:19 | XRR_ITS ---
PROCEDURE INFORMATION: Exam: XR Chest Exam date and time: 01/22/2025 9:21 PM Age: 69 years old Clinical indication: Pain; Chest pressure; Additional info: Chest pain TECHNIQUE: Imaging protocol: Radiologic exam of the chest. Views: 1 view. COMPARISON: CT chest kam w/*[id number] 12/28/2024 11:00 AM FINDINGS: Tubes, catheters and devices: Left-sided chest port catheter terminates over the area of the SVC. Lungs: Lungs are hyperinflated. No focal consolidation. Pleural spaces: No large pleural effusion. No distinct pneumothorax. Heart/Mediastinum: Cardiomediastinal silhouette is midline and normal in size. Bones/joints: Partially imaged lumbar fusion hardware. No distinct acute osseous findings. XR/XR chest 1V portable [id number] IMPRESSION: Lungs are hyperinflated. No focal consolidation.
--- NOTE | 2025-01-22 21:19 | ECG_ITS ---
[facility]: [facility]25[facility]22 Pat Name: Pam Ordonez Department: Room: Gender: Female Referral Management Liaison: : 1955 Requested By: Brandon Miles Order Number: [id number] Tena MD: Devan Walker M.D. Measurements Intervals [place] Rate: 92 P: 65 DE: 146 QRS: 56 QRSD: 82 T: 78 QT: 360 QTc: 445 Interpretive Statements SINUS RHYTHM Compared to ECG 12/07/2024 16:39:16 Left ventricular hypertrophy no longer present T-wave abnormality no longer present Electronically Signed On 01-23-2025 17:43:29 CDT by Devan Walker M.D. [id number]
--- NOTE | 2025-01-22 21:27 | W.ED.CHESTPA ---
HPI - Chest Pain General: Chief Complaint: Chest Pain Stated Complaint: cp, throat pain Time Seen by Provider: 01/22/25 21:13 History of Present Illness: Patient presents emergency department with complaint of nausea and vomiting. She states that she had a esophageal stent placed at [facility] in [place] today and has been vomiting since then. She states that she gets chest pain when she does vomit. She has been taking Zofran but states that she keeps throwing it up. She states they placed a stent because she has a history of lung cancer that is pushing on her esophagus causing esophageal stricture. She states that she has been throwing up quite a bit for the last several months because of this. States she has been vomiting since even before she left the hospital today. Related Data Home Medications ?Medication ?Instructions ?Recorded ?Confirmed biotin 2,500 mcg capsule 2,500 mcg PO QAM 01/11/23 01/18/25 diclofenac sodium 1 % topical gel 4 g topical QID PRN joint pain 11/15/24 01/18/25 (Voltaren Arthritis Pain) acetaminophen 325 mg tablet 650 mg PO QID PRN Fever Or Pain 12/07/24 01/18/25 (Tylenol) albuterol sulfate 90 mcg/actuation 1 puff inhalation QID PRN 12/07/24 01/18/25 aerosol inhaler Shortness Of Breath Or Wheezing budesonide 160 mcg-glycopyr 9 1 inh inhalation DAILY 12/07/24 01/18/25 mcg-formot 4.8 mcg/actuation HFA inhaler (Breztri Aerosphere) Previous Rx's ?Medication ?Instructions ?Recorded pantoprazole 40 mg tablet,delayed 40 mg PO DAILY #90 tabs 09/11/24 release nitroglycerin 0.4 mg sublingual 0.4 mg sublingual Q5M PRN Chest 10/05/24 tablet (Nitrostat) Pain #30 tabs ferrous gluconate 324 mg (37.5 mg 324 mg PO BID #60 tabs 11/27/24 iron) tablet lidocaine HCl 2 % mucosal solution 15 ml mucous membrane QID #100 mL 12/07/24 (Lidocaine Viscous) diclofenac sodium 50 mg 50 mg PO Q12H #60 tabs 12/10/24 tablet,delayed release cefuroxime axetil 500 mg tablet 500 mg PO BID 10 days #20 tabs 12/11/24 atorvastatin 80 mg tablet 80 mg PO BEDTIME #90 tabs 12/19/24 clopidogrel 75 mg tablet 75 mg PO DAILY #90 tabs 12/19/24 duloxetine 20 mg capsule,delayed 20 mg PO BID #180 caps 12/19/24 release (Cymbalta) Held on 01/18/25. Instructions: Home Medication placed on hold at Doctor's office fluoxetine 20 mg capsule 60 mg (3 x 20 mg) PO DAILY #90 caps 12/19/24 Held on 01/18/25. Instructions: Home Medication placed on hold at Doctor's office gabapentin 300 mg capsule 300 mg PO QID #60 caps 12/19/24 lisinopril 10 mg tablet 10 mg PO DAILY #90 tabs 12/19/24 famotidine 20 mg tablet 20 mg PO DAILY #90 tabs 01/04/25 promethazine 25 mg tablet 25 mg PO Q6H PRN nausea and 01/04/25 vomiting #20 tabs hydrocodone 5 mg-acetaminophen 325 1 tab PO Q6H PRN pain 30 days #120 01/14/25 mg tablet tabs megestrol 800 mg/20 mL (20 mL) 800 mg (20 mL) PO DAILY #600 mL 01/14/25 oral suspension ondansetron HCl 4 mg tablet 4 mg PO Q6H PRN nausea and 01/14/25 vomiting #30 tabs prochlorperazine maleate 10 mg 10 mg PO Q4H PRN mild nausea #30 01/14/25 tablet (Compazine) tabs ondansetron 4 mg disintegrating 4 mg PO Q8H 5 days #15 tabs 01/23/25 tablet promethazine 25 mg rectal 25 mg DE Q6H PRN nausea and 01/23/25 suppository vomiting #12 ea Allergies Allergy/AdvReac Type Severity Reaction Status Date / Time codeine Allergy Unknown Verified 01/22/25 21:19 hydrocodone Allergy ADR-Agitate Verified 01/22/25 21:19 d Sulfa (Sulfonamide Allergy ADR-Nausea Verified 01/22/25 21:19 Antibiotics) tramadol (From Ultram) Allergy ADR-Vomitin Verified 01/22/25 21:19 g PFSH ED PFSH: Medical History Non-small cell lung cancer Port-A-Cath in place COPD (chronic obstructive pulmonary disease) Chronic lower back pain CHF (congestive heart failure), NYHA class III Unstable angina pectoris CAD (coronary artery disease) Postoperative anemia due to acute blood loss Hx of chest pain Aortic heart valve narrowing with insufficiency DDD (degenerative disc disease), lumbosacral ASHD (arteriosclerotic heart disease) HTN (hypertension) Dyslipidemia Subclavian artery stenosis Carotid stenosis, non-symptomatic Surgical History History of Status post laminectomy History of cholecystectomy Family History Mother CAD (coronary artery disease) Sister Chronic kidney disease (CKD) Brother Chronic kidney disease (CKD) Other Hypertension Lung disease Denies family history of Hyperlipidemia Social History Smoking and tobacco/nicotine status: former use of tobacco/nicotine Quit status (tobacco/nicotine): has quit using Year quit tobacco: 2023 Former quit date comment: overall tobacco use 50+ years Second hand smoke exposure: No Alcohol intake: never Substance/Drug Use: never Lives independently: Yes Marital status: Number of children: 4 Current occupational status: disabled Current gender identity: Female Physical Exam Const: COMMON NORMALS: patient oriented x3 HENMT: COMMON NORMALS: normocephalic, atraumatic, hearing grossly normal bilaterally, external ears normal, EAC's normal, TM's normal bilaterally, Normal external nose present, Normal nasal mucous membranes and turbinates present, moist oral mucous membranes, oropharynx normal, dentition normal and gingiva normal HEAD & SCALP: normocephalic and atraumatic NOSE: Normal external nose present and Normal nasal mucous membranes and turbinates present EXTERNAL EAR: Yes external ears normal EXTERNAL AUDITORY CANAL: EAC's normal TYMPANIC MEMBRANE: TM's normal bilaterally Neck/C-Spine: COMMON NORMALS: no JVD Resp: COMMON NORMALS: normal respiratory effort, No retractions, No use of accessory muscles, clear to auscultation bilaterally and percussion normal AUSCULTATION: clear to auscultation bilaterally PERCUSSION: percussion normal Cardio: COMMON NORMALS: no JVD, regular rate, regular rhythm, S1 normal heart sound present, S2 normal heart sound present, No gallops present (Cardio), No clicks present (Cardio), No murmurs present (Cardio), No rub (Cardio) and Peripheral pulses 2+ throughout RATE: regular rate RHYTHM: regular rhythm HEART SOUNDS: S1 normal heart sound present and S2 normal heart sound present PERIPHERAL PULSES: Peripheral pulses 2+ throughout GI: COMMON NORMALS: Normal to inspection, nondistended, normoactive bowel sounds present, Soft to palpation, non-tender, No hepatosplenomegaly present, no masses and no bruits PALPATION: Yes Soft to palpation and Yes No hepatosplenomegaly present Neuro: COMMON NORMALS: patient oriented x3, CN's II-XII intact bilaterally, moves all extremities, no focal motor deficits, no sensory deficits noted, deep tendon reflexes 2+ bilaterally and gait normal Course Vital Signs: Vital signs: Vital Signs Temperature 98.2 F 01/22/25 21:11 Pulse Rate 90 01/23/25 01:30 Respiratory Rate 17 01/23/25 01:00 Blood Pressure 170/68 01/23/25 01:30 Pulse Oximetry 99 01/23/25 01:30 Oxygen Delivery Me thod Nasal Cannula 01/22/25 22:18 Oxygen Flow Rate 2 01/22/25 21:18 MDM - Chest Pain Medical Decision Making Patient presents emerged part with complaint of nausea and vomiting and chest pain. She had an esophageal stent placed earlier today due to history of cancer and compression of her esophagus. She states that she has been vomiting since she left the hospital. She actually states that she was vomiting before she had 1 in the hospital but this is what they did the stent. She states that she does take Zofran at home but she is unable to hold down because she keeps vomiting of the pills. She did receive fentanyl prior to arrival as well as Zofran prior to arrival by EMS. She received Compazine and Benadryl here which made her feel much better. Do not see any significant abnormality noted on labs or imaging. Patient's troponin is without any significant change or elevation. Patient is currently asymptomatic upon discharge. Will discharge home with Phenergan suppositories and Zofran ODT's. Lab Data 01/22/25 21:29 01/22/25 21:29 Radiology Impressions Chest X-Ray 01/22/25 21:19 IMPRESSION: Lungs are hyperinflated. No focal consolidation. Laboratory Results WBC 8.67 10^3/uL (3.29-11.43) 01/22/25: RBC 4.69 10^6/uL (3.85-5.65) 01/22/25 21: Hgb 10.90 g/dL (11.27-16.99) L 01/22/25 21: Hct 36.1 % (36-47) 01/22/25 21: MCV 77.0 fl (85-98) L 01/22/25 21: MCH 23.2 pg (27-33) L 01/22/25 21: MCHC 30.2 g/dL (30-55) 01/22/25: RDW 17.2 % (12.1-15.1) H 01/22/25 21: Plt Count 546 10^3/cmm (157-399) H 01/22/25 21: MPV 9.8 fL (7.4-10.4) 01/22/25: Neut % (Auto) 92.0 % 01/22/25: Lymph % (Auto) 6.1 % 01/22/25: [place] % (Auto) 1.4 % 01/22/25: Eos % (Auto) 0.0 % 01/22/25: Baso % (Auto) 0.2 % 01/22/25: Neut # (Auto) 7.97 10^3/uL (1.8-7.7) H 01/22/25: Lymph # (Auto) 0.5 10^3/uL (0.8-4.8) L 01/22/25: [place] # (Auto) 0.1 10^3/uL (0.2-0.9) L 01/22/25: Eos # (Auto) 0.0 10^3/uL (0.0-0.8) 01/22/25: Baso # (Auto) 0.0 10^3/uL (0.0-0.1) 01/22/25: Nucleated RBC % (auto) 0 % 01/22/25: Nucleated RBCs # 0.0 /100WBC 05/06/25 21:29 Sodium 134 mmol/L (136-145) L 01/22/25 21:29 Potassium 4.2 mmol/L (3.5-5.1) 01/22/25 21: Chloride 96 mmol/L (98-107) L 01/22/25 21:29 Carbon Dioxide 21 mmol/L (22-29) L 01/22/25 21:29 Anion Gap 21.2 (5-19) H 01/22/25 21:29 BUN 9 mg/dL (8-23) 01/22/25 21: Creatinine 0.4 mg/dL (0.5-0.9) L 01/22/25 21: GFR Calculation 159.2 mL/min (90-130) H 01/22/25 21: Glucose 105 mg/dL (65-115) 01/22/25 21: Calculated Osmolality 277 mOsm/kg (285-295) L 01/22/25 21: Calcium 8.9 mg/dL (8.5-10.5) 01/22/25 21: Total Bilirubin 0.3 mg/dL (0.15-1.2) 01/22/25 21: AST 14 U/L (0-32) 01/22/25 21: ALT 8 U/L (0-33) 01/22/25 21: Alkaline Phosphatase 96 U/L (35-105) 01/22/25 21:29 Troponin T Baseline 35 ng/L (0-10) H 01/22/25 21:29 Troponin T 120 Minute 35.37 ng/L (0-10) H 01/22/25 23:33 Delta Troponin T 0.37 ABS# (0-10) 01/22/25 23:33 Total Protein 6.5 g/dL (6.6-8.7) L 01/22/25 21:29 Albumin 3.5 g/dL (3.5-5.2) 01/22/25 21: Globulin 3.0 g/dL (1.3-4.6) 01/22/25 21: Lipase 9 U/L (13-60) L 01/22/25 21:29 Urine Color Yellow (Yellow) 01/22/25 21:40 Urine Appearance Clear (CLEAR) 01/22/25 21:40 Urine pH 5.5 (5-7) 01/22/25 21:40 Ur Specific [place] 1.020 (1.005-1.030) 01/22/25 21:40 Urine Protein Negative (Negative) 01/22/25 21:40 Urine Glucose (UA) Negative (Normal) 01/22/25 21:40 Urine Ketones 2+ (Negative) H 01/22/25 21:40 Urine Blood Negative (Negative) 01/22/25 21:40 Urine Nitrate Negative (Negative) 01/22/25 21:40 Urine Bilirubin Negative (Negative) 01/22/25 21:40 Urine Urobilinogen 1.0 mg/dL (Negative) 01/22/25 21:40 Ur Leukocyte Esterase Negative (Negative) 01/22/25 21:40 Urine RBC 0-2 /hpf (0-2) 01/22/25 21:40 Urine WBC 0-5 /hpf (0-5) 01/22/25 21:40 Ur Squamous Epith Cells 0-5 /hpf (0-5) 01/22/25 21:40 Amorphous Sediment Not Reportable 01/22/25 21:40 Urine Bacteria None seen /hpf (NONE) 01/22/25 21:40 Hyaline Casts 2.05 /lpf 01/22/25 21:40 All radiology interpretation(s) finalized by discharge Discharge Plan Discharge Patient Disposition: Home Clinical Impression: Vomiting Qualifiers: Vomiting type: unspecified Nausea presence: with nausea Qualified Code(s): R11.2 - Nausea with vomiting, unspecified Chest pain Qualifiers: Chest pain type: unspecified Qualified Code(s): R07.9 - Chest pain, unspecified Condition: Stable Prescriptions: New ondansetron 4 mg tablet,disintegrating 4 mg PO Q8H 5 Days Qty: 15 0RF promethazine 25 mg suppository 25 mg DE Q6H MDD 4 PRN (Reason: nausea and vomiting) Qty: 12 0RF No Action ferrous gluconate 324 mg (37.5 mg iron) tablet 324 mg PO BID Qty: 60 0RF cefuroxime axetil 500 mg tablet 500 mg PO BID 10 Days Qty: 20 0RF hydrocodone-acetaminophen 5-325 mg tablet 1 tab PO Q6H PRN (Reason: pain) 30 Days Qty: 120 0RF megestrol 800 mg/20 mL (20 mL) suspension 800 mg PO DAILY Qty: 600 0RF famotidine 20 mg tablet 20 mg PO DAILY Qty: 90 0RF promethazine 25 mg tablet 25 mg PO Q6H PRN (Reason: nausea and vomiting) Qty: 20 0RF pantoprazole 40 mg tablet,delayed release (DR/EC) 40 mg PO DAILY Qty: 90 1RF nitroglycerin [Nitrostat] 0.4 mg tablet, sublingual 0.4 mg SUBLINGUAL Q5M PRN (Reason: Chest Pain) Qty: 30 6RF Rx Instructions: do not exceed 3 doses per episode diclofenac sodium 50 mg tablet,delayed release (DR/EC) 50 mg PO Q12H Qty: 60 3RF fluoxetine 20 mg capsule 60 mg PO DAILY Qty: 90 1RF duloxetine [Cymbalta] 20 mg capsule,delayed release(DR/EC) 20 mg PO BID Qty: 180 0RF clopidogrel 75 mg tablet 75 mg PO DAILY Qty: 90 1RF lisinopril 10 mg tablet 10 mg PO DAILY Qty: 90 3RF gabapentin 300 mg capsule 300 mg PO QID Qty: 60 0RF atorvastatin 80 mg tablet 80 mg PO BEDTIME Qty: 90 3RF ondansetron HCl 4 mg tablet 4 mg PO Q6H PRN (Reason: nausea and vomiting) Qty: 30 3RF prochlorperazine maleate [Compazine] 10 mg tablet 10 mg PO Q4H PRN (Reason: mild nausea) Qty: 30 3RF biotin 2,500 mcg Capsule 2,500 mcg PO QAM diclofenac sodium [Voltaren Arthritis Pain] 1 % gel 4 g topical QID PRN (Reason: joint pain) acetaminophen [Tylenol] 325 mg Tablet 650 mg PO QID PRN (Reason: Fever Or Pain) lidocaine HCl [Lidocaine Viscous] 2 % solution 15 ml MUCOUS MEM QID Qty: 100 0RF Rx Instructions: Mix with water and swallow. 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
[2025-01-22 21:33] LABS: Basophils % 0.2 %; Hematocrit 36.1 % (36-47); Lymphocytes # 0.5 10^3/uL (0.8-4.8); Lymphocytes % 6.1 %; Mean Corpuscular HGB Conc 30.2 g/dL (30-55); Mean Corpuscular Hemoglobin 23.2 pg (27-33); Mean Platelet Volume 9.8 fL (7.4-10.4); Monocytes # 0.1 10^3/uL (0.2-0.9); Monocytes % 1.4 %; Neutrophils # 7.97 10^3/uL (1.8-7.7); Nucleated Red Blood Cells % 0 %; Platelet Count 546 10^3/cmm (157-399); Red Blood Count 4.69 10^6/uL (3.85-5.65); Red Cell Distribution Width 17.2 % (12.1-15.1); White Blood Count 8.67 10^3/uL (3.29-11.43)
[2025-01-22] MEDS: sodium chloride 0.9% 1,000 ML 999 ML IV (21:41)
[2025-01-22 21:48] LABS: Bilirubin Urine Negative (Negative); Blood Urine Negative (Negative); Glucose Urine UA Negative (Normal); Ketones Urine 2+ (Negative); Leukocyte Esterase Urine Negative (Negative); Nitrate Urine Negative (Negative); Protein Urine Negative (Negative); Urine Appearance Clear (CLEAR); Urine Color Yellow (Yellow); pH Urine 5.5 (5-7)
[2025-01-22 21:50] LABS: Add Urine Microscopic? YES; Bacteria Urine None Seen /hpf; Hyaline Casts Urine 2.05 /lpf; RBC Urine 0-2 /hpf (0-2); Squamous Epithelial Cell Urine 0-5 /hpf (0-5); WBC Urine 0-5 /hpf (0-5)
[2025-01-22 21:52] LABS: Troponin(5th) Baseline 35 ng/L (0-10)
[2025-01-22 21:57] LABS: Alanine Aminotransferase 8 U/L (0-33); Albumin Level 3.5 g/dL (3.5-5.2); Alkaline Phosphatase 96 U/L (35-105); Anion Gap 21.2 (5-19); Aspartate Amino Transferase 14 U/L (0-32); Blood Urea Nitrogen 9 mg/dL (8-23); Calcium 8.9 mg/dL (8.5-10.5); Carbon Dioxide 21 mmol/L (22-29); Chloride 96 mmol/L (98-107); Creatinine Clr Calc Pharmacy 41.0456; Glomerular Filtration Rate 159.2 mL/min (90-130); Glucose 105 mg/dL (65-115); Lipase 9 U/L (13-60); Osmolality Calculated 277 mOsm/kg (285-295); Potassium 4.2 mmol/L (3.5-5.1); Sodium 134 mmol/L (136-145); Total Bilirubin 0.3 mg/dL (0.15-1.2); Total Protein 6.5 g/dL (6.6-8.7)
[2025-01-22] MEDS: diphenhydrAMINE 50 mg/mL SDV 1mL 25 MG IVP (22:16)
[2025-01-22] MEDS: prochlorperazine 10 mg/2 mL Inj IVP (22:16)
--- NOTE | 2025-01-22 23:19 | ECG_ITS ---
[facility] Date: 2025-01-22 Pat Name: Pam Ordonez Department: Room: Gender: Female Clinical Cytogenetics Director: : [id number] Requested By: Brandon Miles Order Number: [id number] Tena MD: Devan Walker M.D. Measurements Intervals [place] Rate: 88 P: 73 RI: 146 QRS: 61 QRSD: 82 T: 78 QT: 383 QTc: 464 Interpretive Statements SINUS RHYTHM Compared to ECG 01/22/2025 21:14:28 No significant changes Electronically Signed On 01-23-2025 23:37:04 CDT by Devan Walker M.D. [email or web address]
[2025-01-23] VITALS: BP 174/73; PULSE 88; RESP 17; O2SAT 98
[2025-01-23] LABS: Troponin 5 2HR 35.37 ng/L (0-10); Troponin 5 2HR Delta 0.37 ABS# (0-10)
[2025-01-23 00:30] VITALS: BP 161/104; PULSE 93; O2SAT 97
[2025-01-23 01:00] VITALS: BP 152/74; PULSE 89; RESP 17; O2SAT 98
[2025-01-23 01:30] VITALS: BP 170/68; PULSE 90; O2SAT 99
[2025-01-23 02:00] VITALS: BP 163/59; PULSE 86; O2SAT 99
--- NOTE | 2025-01-23 02:02 | W.ED.CHESTPA ---
HPI - Chest Pain General: Chief Complaint: Chest Pain Stated Complaint: cp, throat pain Time Seen by Provider: 01/22/25 21:13 Related Data Home Medications ?Medication ?Instructions ?Recorded ?Confirmed biotin 2,500 mcg capsule 2,500 mcg PO QAM 01/11/23 01/18/25 diclofenac sodium 1 % topical gel 4 g topical QID PRN joint pain 11/15/24 01/18/25 (Voltaren Arthritis Pain) acetaminophen 325 mg tablet 650 mg PO QID PRN Fever Or Pain 12/07/24 01/18/25 (Tylenol) albuterol sulfate 90 mcg/actuation 1 puff inhalation QID PRN 12/07/24 01/18/25 aerosol inhaler Shortness Of Breath Or Wheezing budesonide 160 mcg-glycopyr 9 1 inh inhalation DAILY 12/07/24 01/18/25 mcg-formot 4.8 mcg/actuation HFA inhaler (Breztri Aerosphere) Previous Rx's ?Medication ?Instructions ?Recorded pantoprazole 40 mg tablet,delayed 40 mg PO DAILY #90 tabs 09/11/24 release nitroglycerin 0.4 mg sublingual 0.4 mg sublingual Q5M PRN Chest 10/05/24 tablet (Nitrostat) Pain #30 tabs ferrous gluconate 324 mg (37.5 mg 324 mg PO BID #60 tabs 11/27/24 iron) tablet lidocaine HCl 2 % mucosal solution 15 ml mucous membrane QID #100 mL 12/07/24 (Lidocaine Viscous) diclofenac sodium 50 mg 50 mg PO Q12H #60 tabs 12/10/24 tablet,delayed release cefuroxime axetil 500 mg tablet 500 mg PO BID 10 days #20 tabs 12/11/24 atorvastatin 80 mg tablet 80 mg PO BEDTIME #90 tabs 12/19/24 clopidogrel 75 mg tablet 75 mg PO DAILY #90 tabs 12/19/24 duloxetine 20 mg capsule,delayed 20 mg PO BID #180 caps 12/19/24 release (Cymbalta) Held on 01/18/25. Instructions: Home Medication placed on hold at Doctor's office fluoxetine 20 mg capsule 60 mg (3 x 20 mg) PO DAILY #90 caps 12/19/24 Held on 01/18/25. Instructions: Home Medication placed on hold at Doctor's office gabapentin 300 mg capsule 300 mg PO QID #60 caps 12/19/24 lisinopril 10 mg tablet 10 mg PO DAILY #90 tabs 12/19/24 famotidine 20 mg tablet 20 mg PO DAILY #90 tabs 01/04/25 promethazine 25 mg tablet 25 mg PO Q6H PRN nausea and 01/04/25 vomiting #20 tabs hydrocodone 5 mg-acetaminophen 325 1 tab PO Q6H PRN pain 30 days #120 01/14/25 mg tablet tabs megestrol 800 mg/20 mL (20 mL) 800 mg (20 mL) PO DAILY #600 mL 01/14/25 oral suspension ondansetron HCl 4 mg tablet 4 mg PO Q6H PRN nausea and 01/14/25 vomiting #30 tabs prochlorperazine maleate 10 mg 10 mg PO Q4H PRN mild nausea #30 01/14/25 tablet (Compazine) tabs ondansetron 4 mg disintegrating 4 mg PO Q8H 5 days #15 tabs 01/23/25 tablet oxycodone 5 mg capsule 5 mg PO Q8H PRN pain #14 caps 01/23/25 promethazine 25 mg rectal 25 mg HI Q6H PRN nausea and 01/23/25 suppository vomiting #12 ea Allergies Allergy/AdvReac Type Severity Reaction Status Date / Time codeine Allergy Unknown Verified 01/22/25 21:19 hydrocodone Allergy ADR-Agitate Verified 01/22/25 21:19 d Sulfa (Sulfonamide Allergy ADR-Nausea Verified 01/22/25 21:19 Antibiotics) tramadol (From [facility]) Allergy ADR-Vomitin Verified 01/22/25 21:19 g PFSH ED PFSH: Medical History Non-small cell lung cancer Port-A-Cath in place COPD (chronic obstructive pulmonary disease) Chronic lower back pain CHF (congestive heart failure), NYHA class III Unstable angina pectoris CAD (coronary artery disease) Postoperative anemia due to acute blood loss Hx of chest pain Aortic heart valve narrowing with insufficiency DDD (degenerative disc disease), lumbosacral ASHD (arteriosclerotic heart disease) HTN (hypertension) Dyslipidemia Subclavian artery stenosis Carotid stenosis, non-symptomatic Surgical History History of Status post laminectomy History of cholecystectomy Family History Mother CAD (coronary artery disease) Sister Chronic kidney disease (CKD) Brother Chronic kidney disease (CKD) Other Hypertension Lung disease Denies family history of Hyperlipidemia Social History Smoking and tobacco/nicotine status: former use of tobacco/nicotine Quit status (tobacco/nicotine): has quit using Year quit tobacco: 2023 Former quit date comment: overall tobacco use 50+ years Second hand smoke exposure: No Alcohol intake: never Substance/Drug Use: never Lives independently: Yes Marital status: Number of children: 4 Current occupational status: disabled Current gender identity: Female Course Vital Signs: Vital signs: Vital Signs Temperature 98.2 F 01/22/25 21:11 Pulse Rate 86 01/23/25 02:00 Respiratory Rate 17 01/23/25 01:00 Blood Pressure 163/59 01/23/25 02:00 Pulse Oximetry 99 01/23/25 02:00 Oxygen Delivery Me thod Nasal Cannula 01/22/25 22:18 Oxygen Flow Rate 2 01/22/25 21:18 MDM - Chest Pain Lab Data 01/22/25 21:29 01/22/25 21:29 Radiology Impressions Chest X-Ray 01/22/25 21:19 IMPRESSION: Lungs are hyperinflated. No focal consolidation. Laboratory Results WBC 8.67 10^3/uL (3.29-11.43) 01/22/25 21: RBC 4.69 10^6/uL (3.85-5.65) 01/22/25 21:29 Hgb 10.90 g/dL (11.27-16.99) L 01/22/25 21:29 Hct 36.1 % (36-47) 01/22/25 21: MCV 77.0 fl (85-98) L 01/22/25 21: MCH 23.2 pg (27-33) L 01/22/25 21: MCHC 30.2 g/dL (30-55) 01/22/25 21: RDW 17.2 % (12.1-15.1) H 01/22/25 21:29 Plt Count 546 10^3/cmm (157-399) H 01/22/25 21: MPV 9.8 fL (7.4-10.4) 01/22/25: Neut % (Auto) 92.0 % 01/22/25: Lymph % (Auto) 6.1 % 01/22/25: [place] % (Auto) 1.4 % 01/22/25: Eos % (Auto) 0.0 % 01/22/25: Baso % (Auto) 0.2 % 01/22/25: Neut # (Auto) 7.97 10^3/uL (1.8-7.7) H 01/22/25: Lymph # (Auto) 0.5 10^3/uL (0.8-4.8) L 01/22/25: [place] # (Auto) 0.1 10^3/uL (0.2-0.9) L 01/22/25: Eos # (Auto) 0.0 10^3/uL (0.0-0.8) 01/22/25: Baso # (Auto) 0.0 10^3/uL (0.0-0.1) 01/22/25: Nucleated RBC % (auto) 0 % 01/22/25: Nucleated RBCs # 0.0 /100WBC 01/22/25: Sodium 134 mmol/L (136-145) L 01/22/25: Potassium 4.2 mmol/L (3.5-5.1) 01/22/25: Chloride 96 mmol/L (98-107) L 01/22/25: Carbon Dioxide 21 mmol/L (22-29) L 01/22/25: Anion Gap 21.2 (5-19) H 01/22/25: BUN 9 mg/dL (8-23) 01/22/25: Creatinine 0.4 mg/dL (0.5-0.9) L 01/22/25: GFR Calculation 159.2 mL/min (90-130) H 01/22/25: Glucose 105 mg/dL (65-115) 01/22/25: Calculated Osmolality 277 mOsm/kg (285-295) L 01/22/25 21: Calcium 8.9 mg/dL (8.5-10.5) 01/22/25 21: Total Bilirubin 0.3 mg/dL (0.15-1.2) 01/22/25 21:29 AST 14 U/L (0-32) 01/22/25 21: ALT 8 U/L (0-33) 01/22/25 21: Alkaline Phosphatase 96 U/L (35-105) 01/22/25 21: Troponin T Baseline 35 ng/L (0-10) H 01/22/25 21: Troponin T 120 Minute 35.37 ng/L (0-10) H 01/22/25 23:33 Delta Troponin T 0.37 ABS# (0-10) 01/22/25 23:33 Total Protein 6.5 g/dL (6.6-8.7) L 01/22/25 21: Albumin 3.5 g/dL (3.5-5.2) 01/22/25 21: Globulin 3.0 g/dL (1.3-4.6) 01/22/25 21: Lipase 9 U/L (13-60) L 01/22/25 21: Urine Color Yellow (Yellow) 01/22/25 21:40 Urine Appearance Clear (CLEAR) 01/22/25 21:40 Urine pH 5.5 (5-7) 01/22/25 21:40 Ur Specific [place] 1.020 (1.005-1.030) 01/22/25 21:40 Urine Protein Negative (Negative) 01/22/25 21:40 Urine Glucose (UA) Negative (Normal) 01/22/25 21:40 Urine Ketones 2+ (Negative) H 01/22/25 21:40 Urine Blood Negative (Negative) 01/22/25 21:40 Urine Nitrate Negative (Negative) 01/22/25 21:40 Urine Bilirubin Negative (Negative) 01/22/25 21:40 Urine Urobilinogen 1.0 mg/dL (Negative) 01/22/25 21:40 Ur Leukocyte Esterase Negative (Negative) 01/22/25 21:40 Urine RBC 0-2 /hpf (0-2) 01/22/25 21:40 Urine WBC 0-5 /hpf (0-5) 01/22/25 21:40 Ur Squamous Epith Cells 0-5 /hpf (0-5) 01/22/25 21:40 Amorphous Sediment Not Reportable 01/22/25 21:40 Urine Bacteria None seen /hpf (NONE) 01/22/25 21:40 Hyaline Casts 2.05 /lpf 01/22/25 21:40 Discharge Plan Discharge Patient Disposition: Home Clinical Impression: Vomiting Qualifiers: Vomiting type: unspecified Nausea presence: with nausea Qualified Code(s): R11.2 - Nausea with vomiting, unspecified Chest pain Qualifiers: Chest pain type: unspecified Qualified Code(s): R07.9 - Chest pain, unspecified Condition: Stable Prescriptions: New ondansetron 4 mg tablet,disintegrating 4 mg PO Q8H 5 Days Qty: 15 0RF promethazine 25 mg suppository 25 mg HI Q6H MDD 4 PRN (Reason: nausea and vomiting) Qty: 12 0RF oxycodone 5 mg capsule 5 mg PO Q8H PRN (Reason: pain) Qty: 14 0RF No Action ferrous gluconate 324 mg (37.5 mg iron) tablet 324 mg PO BID Qty: 60 0RF cefuroxime axetil 500 mg tablet 500 mg PO BID 10 Days Qty: 20 0RF hydrocodone-acetaminophen 5-325 mg tablet 1 tab PO Q6H PRN (Reason: pain) 30 Days Qty: 120 0RF megestrol 800 mg/20 mL (20 mL) suspension 800 mg PO DAILY Qty: 600 0RF famotidine 20 mg tablet 20 mg PO DAILY Qty: 90 0RF promethazine 25 mg tablet 25 mg PO Q6H PRN (Reason: nausea and vomiting) Qty: 20 0RF pantoprazole 40 mg tablet,delayed release (DR/EC) 40 mg PO DAILY Qty: 90 1RF nitroglycerin [Nitrostat] 0.4 mg tablet, sublingual 0.4 mg SUBLINGUAL Q5M PRN (Reason: Chest Pain) Qty: 30 6RF Rx Instructions: do not exceed 3 doses per episode diclofenac sodium 50 mg tablet,delayed release (DR/EC) 50 mg PO Q12H Qty: 60 3RF fluoxetine 20 mg capsule 60 mg PO DAILY Qty: 90 1RF duloxetine [Cymbalta] 20 mg capsule,delayed release(DR/EC) 20 mg PO BID Qty: 180 0RF clopidogrel 75 mg tablet 75 mg PO DAILY Qty: 90 1RF lisinopril 10 mg tablet 10 mg PO DAILY Qty: 90 3RF gabapentin 300 mg capsule 300 mg PO QID Qty: 60 0RF atorvastatin 80 mg tablet 80 mg PO BEDTIME Qty: 90 3RF ondansetron HCl 4 mg tablet 4 mg PO Q6H PRN (Reason: nausea and vomiting) Qty: 30 3RF prochlorperazine maleate [Compazine] 10 mg tablet 10 mg PO Q4H PRN (Reason: mild nausea) Qty: 30 3RF biotin 2,500 mcg Capsule 2,500 mcg PO QAM diclofenac sodium [Voltaren Arthritis Pain] 1 % gel 4 g topical QID PRN (Reason: joint pain) acetaminophen [Tylenol] 325 mg Tablet 650 mg PO QID PRN (Reason: Fever Or Pain) lidocaine HCl [Lidocaine Viscous] 2 % solution 15 ml MUCOUS MEM QID Qty: 100 0RF Rx Instructions: Mix with water and swallow. 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
[2025-01-23 03:24] VITALS: BP 163/59; PULSE 89; O2SAT 98
== END 2025-01-23 02:15 | disposition home or self-care (01) ==
PROVIDERS: Emergency Provider Emergency Medicine; PCP Family Medicine
DX: R11.2 Nausea with vomiting, unspecified (principal); R07.9 Chest pain, unspecified; Z79.02 Long term (current) use of antithrombotics/antiplatelets; Z87.891 Personal history of nicotine dependence; J44.9 Chronic obstructive pulmonary disease, unspecified; I25.10 Atherosclerotic heart disease of native coronary artery without angina pectoris; E78.5 Hyperlipidemia, unspecified; I11.0 Hypertensive heart disease with heart failure; I50.9 Heart failure, unspecified
CPT/HCPCS: 36415; 71045; 80053; 81001; 83690; 84484; 85025; 93005; 96361; 96374; 96375; 99285; J0780; J1200; J7030

== ENCOUNTER 2025-02-01 07:44 | Oncology outpatient (recurring) (ONCR) | payer MEDICARE, SELFPAY ==
[2025-01-28 08:16] LABS: Basophils % 0.2 %; Eosinophils # 0.1 10^3/uL (0.0-0.8); Hematocrit 32.1 % (36-47); Lymphocytes # 1.2 10^3/uL (0.8-4.8); Lymphocytes % 8.9 %; Mean Corpuscular HGB Conc 31.2 g/dL (30-55); Mean Corpuscular Hemoglobin 23.3 pg (27-33); Mean Corpuscular Volume 74.7 fl (85-98); Mean Platelet Volume 10.1 fL (7.4-10.4); Monocytes % 7.5 %; Neutrophils # 10.68 10^3/uL (1.8-7.7); Neutrophils % 81.9 %; Nucleated Red Blood Cells % 0 %; Platelet Count 542 10^3/cmm (157-399); Red Cell Distribution Width 17.6 % (12.1-15.1); White Blood Count 13.04 10^3/uL (3.29-11.43)
[2025-01-28 08:49] LABS: Alanine Aminotransferase 7 U/L (0-33); Albumin Level 3.2 g/dL (3.5-5.2); Alkaline Phosphatase 77 U/L (35-105); Anion Gap 18.3 (5-19); Aspartate Amino Transferase 12 U/L (0-32); Blood Urea Nitrogen 15 mg/dL (8-23); Calcium 8.7 mg/dL (8.5-10.5); Carbon Dioxide 25 mmol/L (22-29); Chloride 93 mmol/L (98-107); Creatinine Clr Calc Pharmacy 39.0904; Ferritin 156 ng/mL (15-150); Globulin 2.9 g/dL (1.3-4.6); Glomerular Filtration Rate 159.2 mL/min (90-130); Glucose 97 mg/dL (65-115); Iron 14 ug/dL (37-145); Osmolality Calculated 277 mOsm/kg (285-295); Potassium 3.3 mmol/L (3.5-5.1); Sodium 133 mmol/L (136-145); Thyroid Stimulating Hormone 2.75 uIU/mL (0.27-4.20); Total Bilirubin 0.3 mg/dL (0.15-1.2); Total Iron Binding Capacity 200 mcg/dl; Total Protein 6.1 g/dL (6.6-8.7); Unsaturated Iron Binding 186 ug/dL (112-347)
[2025-01-28 09:09] LABS: Folate Level 8.1 ng/mL (4.8-37.3)
[2025-01-28] MEDS: sodium chlor 0.9% + KCl 20 mEq 20 MEQ/1,000 ML BAG 500 MEQ IV (09:48)
[2025-01-28] MEDS: ondansetron 2 mg/ML SDV 2 mL 8 MG IVP (11:35)
[2025-01-28] MEDS: sodium chloride 0.9% 250 ML 75 ML IV (11:36)
[2025-01-28] MEDS: GEMCITABINE IV (11:52)
[2025-01-28] MEDS: SODIUM CHLORIDE 0.9% IV (11:52)
[2025-01-28 12:31] VITALS: BP 122/51; PULSE 77; RESP 18; TEMP 36.4; O2SAT 99
[2025-01-29] MEDS: sodium chloride 0.9% 1,000 ML 999 ML IV (11:25)
[2025-01-29] MEDS: morphine 4 mg/mL SDV 1 mL 1 MG IVP (11:54)
[2025-01-30] MEDS: sodium chloride 0.9% 1,000 ML 999 ML IV (12:52)
[2025-01-31 12:44] LABS: Basophils # 0.1 10^3/uL (0.0-0.1); Basophils % 0.3 %; Eosinophils # 0.1 10^3/uL (0.0-0.8); Eosinophils % 0.9 %; Hematocrit 32.2 % (36-47); Lymphocytes # 0.8 10^3/uL (0.8-4.8); Lymphocytes % 5.4 %; Mean Corpuscular HGB Conc 30.4 g/dL (30-55); Mean Corpuscular Hemoglobin 23.1 pg (27-33); Mean Corpuscular Volume 75.9 fl (85-98); Mean Platelet Volume 10.1 fL (7.4-10.4); Monocytes # 0.1 10^3/uL (0.2-0.9); Monocytes % 0.5 %; Neutrophils # 13.47 10^3/uL (1.8-7.7); Neutrophils % 92.5 %; Nucleated Red Blood Cells % 0 %; Platelet Count 543 10^3/cmm (157-399); Red Blood Count 4.24 10^6/uL (3.85-5.65); Red Cell Distribution Width 17.7 % (12.1-15.1); White Blood Count 14.57 10^3/uL (3.29-11.43)
[2025-01-31 13:06] LABS: Alanine Aminotransferase 9 U/L (0-33); Albumin Level 2.9 g/dL (3.5-5.2); Alkaline Phosphatase 90 U/L (35-105); Anion Gap 18.6 (5-19); Aspartate Amino Transferase 13 U/L (0-32); Blood Urea Nitrogen 9 mg/dL (8-23); Calcium 8.6 mg/dL (8.5-10.5); Carbon Dioxide 20 mmol/L (22-29); Chloride 97 mmol/L (98-107); Creatinine Clr Calc Pharmacy 39.0904; Glomerular Filtration Rate 221.9 mL/min (90-130); Glucose 107 mg/dL (65-115); Osmolality Calculated 273 mOsm/kg (285-295); Potassium 3.6 mmol/L (3.5-5.1); Sodium 132 mmol/L (136-145); Total Bilirubin 0.4 mg/dL (0.15-1.2); Total Protein 5.9 g/dL (6.6-8.7)
[2025-01-31 13:38] LABS: Slide Review Slide Review Perform
[2025-01-31 14:22] VITALS: RESP 16
[2025-01-31] MEDS: sodium chloride 0.9% 1,000 ML 999 ML IV (14:22)
[2025-01-31] MEDS: morphine 4 mg/mL SDV 1 mL 2 MG IVP (14:22)
[2025-01-31] MEDS: famotidine 20 mg/2 mL INJ IVP (14:31)
[2025-01-31] MEDS: ondansetron 2 mg/ML SDV 2 mL 8 MG IVP (14:34)
[2025-01-31 16:25] VITALS: BP 113/54; PULSE 98; RESP 16; TEMP 36; O2SAT 96
[2025-02-01] MEDS: sodium chloride 0.9% 1,000 ML 999 ML IV (08:02)
[2025-02-01 08:22] VITALS: BP 155/74; PULSE 80; RESP 16; TEMP 37.1; O2SAT 99
== END 2025-02-04 23:59 | disposition home or self-care (01) ==
PROVIDERS: Nurse Practitioner Family; PCP Family Medicine; Visit Provider Internal Medicine Medical Oncology
DX: C34.31 Malignant neoplasm of lower lobe, right bronchus or lung (principal); Z79.899 Other long term (current) drug therapy
CPT/HCPCS: 80053; 82728; 82746; 83540; 83550; 84443; 85025; 96360; 96361; 96374; 96375; 96413; 99214; 99215; J1100; J2270; J2405; J3480; J3490; J7030; J7050; J9201

== ENCOUNTER 2025-02-03 15:04 | Emergency (ER) | payer MEDICARE, SELFPAY ==
[2025-02-03] VITALS (13 sets, daily range): BP systolic 103–154; BP diastolic 66–118; PULSE 84–140; RESP 11–21; TEMP 36.3; O2SAT 90–100; BMI 16.0
--- NOTE | 2025-02-03 15:13 | ECG_ITS ---
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 Measurements Intervals [place] Rate: 140 P: 0 [place]: 0 QRS: 77 QRSD: 92 T: 226 QT: 263 QTc: 402 Interpretive Statements ATRIAL FIBRILLATION WITH RAPID VENTRICULAR RESPONSE ST DEVIATION AND MODERATE T-WAVE ABNORMALITY, CONSIDER LATERAL ISCHEMIA [-0.1+ mV T-WAVE IN I/aVL/V5/V6] ST DEVIATION AND MODERATE T-WAVE ABNORMALITY, CONSIDER INFERIOR ISCHEMIA [-0.1+ mV T-WAVE IN II/aVF] Compared to ECG 01/22/2025 23:28:48 T-wave abnormality now present Possible ischemia now present Sinus rhythm no longer present Electronically Signed On 02-03-2025 19:54:21 CDT by Rishi Hurtado M.D. [email or web address]
--- NOTE | 2025-02-03 15:13 | XRR_ITS ---
PROCEDURE INFORMATION: Exam: XR Chest Exam date and time: 02/03/2025 3:30 PM Age: 69 years old Clinical indication: Pain; Chest pressure; Additional info: Cp TECHNIQUE: Imaging protocol: Radiologic exam of the chest. Views: 1 view. COMPARISON: CR (CHEST, ) 01/22/2025 9:21 PM FINDINGS: Tubes, catheters and devices: There is a left chest port with the line tip appropriately positioned in the lower SVC near the cavoatrial junction. Lungs: Extensive ill-defined reticular and ground-glass opacity throughout the left lung. Right lung is clear. Pleural spaces: There is no pleural effusion or pneumothorax. Heart/Mediastinum: Cardiomediastinal contours are unremarkable. Bones/joints: No acute osseous findings XR/XR chest 1V portable [id number] IMPRESSION: Extensive opacity in the left lung is progressive since 01/22/2025. Possible infection, aspiration or asymmetric pulmonary edema.
[2025-02-03] MEDS: dilTIAZem 100 MG in sodium chloride 0.9% (add-van) 100 ML IV (15:31)
[2025-02-03 16:01] LABS: Basophils % 0.3 %; Eosinophils # 0.1 10^3/uL (0.0-0.8); Eosinophils % 0.5 %; Hematocrit 30.5 % (36-47); Lymphocytes # 0.5 10^3/uL (0.8-4.8); Mean Corpuscular HGB Conc 29.5 g/dL (30-55); Mean Corpuscular Hemoglobin 23.2 pg (27-33); Mean Corpuscular Volume 78.6 fl (85-98); Mean Platelet Volume 9.6 fL (7.4-10.4); Monocytes # 0.6 10^3/uL (0.2-0.9); Neutrophils # 10.93 10^3/uL (1.8-7.7); Neutrophils % 89.1 %; Nucleated Red Blood Cells % 0.3 %; Platelet Count 274 10^3/cmm (157-399); Red Blood Count 3.88 10^6/uL (3.85-5.65); Red Cell Distribution Width 17.9 % (12.1-15.1); White Blood Count 12.26 10^3/uL (3.29-11.43)
[2025-02-03 16:13] LABS: INR 1.23 (0.8-1.2)
[2025-02-03 16:22] LABS: Alanine Aminotransferase 329 U/L (0-33); Albumin Level 3.3 g/dL (3.5-5.2); Alkaline Phosphatase 421 U/L (35-105); Anion Gap 22.8 (5-19); Aspartate Amino Transferase 697 U/L (0-32); Blood Urea Nitrogen 30 mg/dL (8-23); Carbon Dioxide 20 mmol/L (22-29); Chloride 94 mmol/L (98-107); Creatinine Clr Calc Pharmacy 27.6891; Globulin 2.6 g/dL (1.3-4.6); Glomerular Filtration Rate 44.8 mL/min (90-130); Glucose 107 mg/dL (65-115); Lipase 8 U/L (13-60); Osmolality Calculated 281 mOsm/kg (285-295); Potassium 4.8 mmol/L (3.5-5.1); Sodium 132 mmol/L (136-145); Total Bilirubin 0.8 mg/dL (0.15-1.2); Total Protein 5.9 g/dL (6.6-8.7)
[2025-02-03 16:25] LABS: Troponin(5th) Baseline 111 ng/L (0-10)
[2025-02-03] MEDS: aspirin 81 mg Chew Tablet 324 MG PO (16:38)
--- NOTE | 2025-02-03 17:13 | ECG_ITS ---
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 Measurements Intervals [place] Rate: 96 P: 62 [place]: 135 QRS: 64 QRSD: 86 T: 104 QT: 342 QTc: 433 Interpretive Statements SINUS RHYTHM NONSPECIFIC T-WAVE ABNORMALITY Compared to ECG 02/03/2025 15:13:42 Atrial flutter no longer present Possible ischemia no longer present T-wave abnormality still present Electronically Signed On 02-03-2025 19:58:30 CDT by Rishi Hurtado M.D. [email or web address]
--- NOTE | 2025-02-03 17:23 | W.ED.CHESTPA ---
HPI - Chest Pain General: Chief Complaint: Chest Pain Stated Complaint: chest pain Time Seen by Provider: 02/03/25 15:19 History of Present Illness: Pam Ordonez, a patient with a history of lung cancer, presents with chest pain and multiple recent healthcare interactions. She was recently hospitalized in [place] for a week due to complications related to her lung cancer. The patient reports chest pain that has been ongoing for an unspecified duration. She underwent a procedure where a stent was placed, likely related to her right lung cancer. Following the procedure, she experienced pain and vomiting. The patient states, I threw up when I walked out of the hospital and all the way home. She also mentions ongoing vomiting, stating she's throwing up most of the time. In addition to chest pain, the patient reports pain in her back. She has a history of an operation on the lower part of her back and describes feeling uncomfortable. The patient expresses significant fatigue, stating, I just want to get a good night's sleep. She also mentions feeling unsteady, saying, I feel like I could be walking across the floor and falling down. The patient's symptoms have significantly impacted her daily functioning. She reports weight loss, stating, I've already gone down to 75 pounds. She also expresses exhaustion and a desire for rest. Recent healthcare interactions include hospitalization in [place] where an X-ray was performed, a biopsy was done, and a stent was placed. The patient was then brought to the current facility by ambulance, where another X-ray was performed and pain medication was administered. She has an upcoming appointment on Tuesday to check the stent placement. Regarding treatment, the patient mentions receiving colchicine and fentanyl, which she reports did not provide significant relief. She has also undergone treatment at a cancer facility, though details of this treatment are not specified. Related Data Home Medications ?Medication ?Instructions ?Recorded ?Confirmed biotin 2,500 mcg capsule 2,500 mcg PO QAM 01/11/23 01/31/25 diclofenac sodium 1 % topical gel 4 g topical QID PRN joint pain 11/15/24 01/31/25 (Voltaren Arthritis Pain) acetaminophen 325 mg tablet 650 mg PO QID PRN Fever Or Pain 12/07/24 01/31/25 (Tylenol) albuterol sulfate 90 mcg/actuation 1 puff inhalation QID PRN 12/07/24 01/31/25 aerosol inhaler Shortness Of Breath Or Wheezing budesonide 160 mcg-glycopyr 9 1 inh inhalation DAILY 12/07/24 01/31/25 mcg-formot 4.8 mcg/actuation HFA inhaler (Breztri Aerosphere) Previous Rx's ?Medication ?Instructions ?Recorded pantoprazole 40 mg tablet,delayed 40 mg PO DAILY #90 tabs 09/11/24 release nitroglycerin 0.4 mg sublingual 0.4 mg sublingual Q5M PRN Chest 10/05/24 tablet (Nitrostat) Pain #30 tabs ferrous gluconate 324 mg (37.5 mg 324 mg PO BID #60 tabs 11/27/24 iron) tablet lidocaine HCl 2 % mucosal solution 15 ml mucous membrane QID #100 mL 12/07/24 (Lidocaine Viscous) diclofenac sodium 50 mg 50 mg PO Q12H #60 tabs 12/10/24 tablet,delayed release cefuroxime axetil 500 mg tablet 500 mg PO BID 10 days #20 tabs 12/11/24 atorvastatin 80 mg tablet 80 mg PO BEDTIME #90 tabs 12/19/24 clopidogrel 75 mg tablet 75 mg PO DAILY #90 tabs 12/19/24 duloxetine 20 mg capsule,delayed 20 mg PO BID #180 caps 12/19/24 release (Cymbalta) Held on 01/18/25. Instructions: Home Medication placed on hold at Doctor's office fluoxetine 20 mg capsule 60 mg (3 x 20 mg) PO DAILY #90 caps 12/19/24 Held on 01/18/25. Instructions: Home Medication placed on hold at Doctor's office gabapentin 300 mg capsule 300 mg PO QID #60 caps 12/19/24 lisinopril 10 mg tablet 10 mg PO DAILY #90 tabs 12/19/24 famotidine 20 mg tablet 20 mg PO DAILY #90 tabs 01/04/25 promethazine 25 mg tablet 25 mg PO Q6H PRN nausea and 01/04/25 vomiting #20 tabs hydrocodone 5 mg-acetaminophen 325 1 tab PO Q6H PRN pain 30 days #120 01/14/25 mg tablet tabs megestrol 800 mg/20 mL (20 mL) 800 mg (20 mL) PO DAILY #600 mL 01/14/25 oral suspension ondansetron HCl 4 mg tablet 4 mg PO Q6H PRN nausea and 01/14/25 vomiting #30 tabs prochlorperazine maleate 10 mg 10 mg PO Q4H PRN mild nausea #30 01/14/25 tablet (Compazine) tabs oxycodone 5 mg capsule 5 mg PO Q8H PRN pain #14 caps 01/23/25 promethazine 25 mg rectal 25 mg WA Q6H PRN nausea and 01/23/25 suppository vomiting #12 ea fentanyl 12 mcg/hr transdermal 1 patch transdermal Q72H 30 days 01/28/25 patch #10 ea oxygen #1 ea 01/28/25 fentanyl 25 mcg/hr transdermal 1 patch transdermal Q72H 30 days 01/31/25 patch #10 ea morphine 15 mg immediate release 15 - 30 mg (1 - 2 x 15 mg) PO Q4H 01/31/25 tablet PRN pain 5 days #60 tabs Allergies Allergy/AdvReac Type Severity Reaction Status Date / Time codeine Allergy Unknown Verified 01/31/25 13:17 hydrocodone Allergy ADR-Agitate Verified 01/31/25 13:17 d Sulfa (Sulfonamide Allergy ADR-Nausea Verified 01/31/25 13:17 Antibiotics) tramadol (From Ultram) Allergy ADR-Vomitin Verified 01/31/25 13:17 g Review of Systems General: Reports: 10 or more systems reviewed and unremarkable except in HPI and below PFSH ED PFSH: Medical History Non-small cell lung cancer Port-A-Cath in place COPD (chronic obstructive pulmonary disease) Chronic lower back pain CHF (congestive heart failure), NYHA class III Unstable angina pectoris CAD (coronary artery disease) Postoperative anemia due to acute blood loss Hx of chest pain Aortic heart valve narrowing with insufficiency DDD (degenerative disc disease), lumbosacral ASHD (arteriosclerotic heart disease) HTN (hypertension) Dyslipidemia Subclavian artery stenosis Carotid stenosis, non-symptomatic Surgical History History of Status post laminectomy History of cholecystectomy Family History Mother CAD (coronary artery disease) Sister Chronic kidney disease (CKD) Brother Chronic kidney disease (CKD) Other Hypertension Lung disease Denies family history of Hyperlipidemia Social History Smoking and tobacco/nicotine status: former use of tobacco/nicotine Quit status (tobacco/nicotine): has quit using Year quit tobacco: 2023 Former quit date comment: overall tobacco use 50+ years Second hand smoke exposure: No Alcohol intake: never Substance/Drug Use: never Lives independently: Yes Marital status: Number of children: 4 Current occupational status: disabled Current gender identity: Female Physical Exam Const: COMMON NORMALS: no acute distress, patient oriented x3, healthy appearing, alert and well nourished HENMT: COMMON NORMALS: normocephalic HEAD & SCALP: normocephalic Eye: COMMON NORMALS: EOMs intact bilaterally Neck/C-Spine: COMMON NORMALS: full ROM and supple Resp: COMMON NORMALS: normal respiratory effort and No retractions AUSCULTATION: crackles Laterality: left (base) Cardio: COMMON NORMALS: regular rate, regular rhythm, No gallops present (Cardio) and No murmurs present (Cardio) RATE: regular rate RHYTHM: regular rhythm GI: COMMON NORMALS: Soft to palpation and non-tender PALPATION: Yes Soft to palpation Extremity: GENERAL: Yes normal exam except as noted Neuro: COMMON NORMALS: patient oriented x3 SENSORIUM/ORIENTATION: Yes alert Skin: COMMON NORMALS: no rashes or lesions noted GENERAL SKIN EXAM: no rashes or lesions noted Course Vital Signs: Vital signs: Vital Signs Temperature 97.4 F L 02/03/25 15:11 Pulse Rate 91 02/04/25 00:15 Respiratory Rate 12 02/04/25 00:15 Blood Pressure 113/60 02/04/25 00:15 Pulse Oximetry 97 02/04/25 00:15 Oxygen Delivery Me thod Nasal Cannula 02/03/25 23:30 Oxygen Flow Rate 3 02/03/25 19:30 MDM - Chest Pain Medical Decision Making 69-year-old female presents to the emergency department for evaluation of chest pain. She is approximately 1 week from esophageal stent placement. She has not had chest pain since that stent was placed. She has also had frequent vomiting since the stent placement. She was told that the stent has been misplaced and she has an appointment next week for repair. Upon arrival in the emergency department she was in a flutter with rapid ventricular response. She was subsequently started on a Cardizem drip. For initial chest x-ray showed extensive opacities in the left lung consistent with either infection or asymmetric pulmonary edema. Follow-up CTA was negative for pulmonary embolism and the opacities were again seen. Additionally, there was near complete effacement of the right mediastinal mass. Her labs demonstrated a slight leukocytosis with an anemia down to 9. Hyponatremia with acute kidney injury. Her initial troponin was 111, 2-hour troponin down trended slightly by 4, but the 6-hour increase by 26. Patient was started on a heparin drip for concern with NSTEMI. She was started on Vanco and Zosyn for infection. She received sublingual nitro that completely resolved her chest pain. The chest pain did recur but again resolved with nitro. Patient did convert to sinus rhythm with her Cardizem drip and she was transition to p.o. Cardizem. Case initially discussed with Dr. Armstrong for admissions at this facility. However, because of the concern with the right mainstem bronchus the decision was mutually agreed upon that the patient needed to be somewhere with pulmonology coverage. Patient was subsequently accepted at [facility] by Dr. Santos. Patient was transferred via EMS Lab Data 02/03/25 15:55 02/03/25 15:55 Radiology Impressions Chest X-Ray 02/03/25 15:13 IMPRESSION: Extensive opacity in the left lung is progressive since 01/22/2025. Possible infection, aspiration or asymmetric pulmonary edema. Chest CTA 02/03/25 17:30 IMPRESSION: 1. No pulmonary embolism. 2. Confluent mediastinal mass and lymphadenopathy described above, similar to 12/28/2024 consistent with a malignant neoplasm. 3. Near complete effacement of the right mainstem bronchus as it traverses the mediastinal mass. Progressive since 12/28/2024. 4. Extensive opacity in the left lung. Asymmetric edema versus infection or acute lung injury. 5. Anasarca. 6. Small simple dependent right pleural effusion. Trace left pleural effusion. Laboratory Results WBC 12.26 10^3/uL (3.29-11.43) H 02/03/25 15:55 RBC 3.88 10^6/uL (3.85-5.65) 02/03/25 15:55 Hgb 9.00 g/dL (11.27-16.99) L 02/03/25 15:55 Hct 30.5 % (36-47) L 02/03/25 15:55 MCV 78.6 fl (85-98) L 02/03/25 15:55 MCH 23.2 pg (27-33) L 02/03/25 15:55 MCHC 29.5 g/dL (30-55) L 02/03/25 15:55 RDW 17.9 % (12.1-15.1) H 02/03/25 15:55 Plt Count 274 10^3/cmm (157-399) 02/03/25 15:55 MPV 9.6 fL (7.4-10.4) 02/03/25 15:55 Neut % (Auto) 89.1 % 02/03/25 15:55 Lymph % (Auto) 4.0 % 02/03/25 15:55 [place] % (Auto) 5.0 % 02/03/25 15:55 Eos % (Auto) 0.5 % 02/03/25 15:55 Baso % (Auto) 0.3 % 02/03/25 15:55 Neut # (Auto) 10.93 10^3/uL (1.8-7.7) H 02/03/25 15:55 Lymph # (Auto) 0.5 10^3/uL (0.8-4.8) L 02/03/25 15:55 [place] # (Auto) 0.6 10^3/uL (0.2-0.9) 02/03/25 15:55 Eos # (Auto) 0.1 10^3/uL (0.0-0.8) 02/03/25 15:55 Baso # (Auto) 0.0 10^3/uL (0.0-0.1) 02/03/25 15:55 Nucleated RBC % (auto) 0.3 % 02/03/25 15:55 Nucleated RBCs # 0.0 /100WBC 02/03/25 15:55 PT 16.30 SECONDS (12.1-14.9) H 02/03/25 15:55 INR 1.23 (0.8-1.2) H 02/03/25 15:55 Sodium 132 mmol/L (136-145) L 02/03/25 15:55 Potassium 4.8 mmol/L (3.5-5.1) 02/03/25 15:55 Chloride 94 mmol/L (98-107) L 02/03/25 15:55 Carbon Dioxide 20 mmol/L (22-29) L 02/03/25 15:55 Anion Gap 22.8 (5-19) H 02/03/25 15:55 BUN 30 mg/dL (8-23) H 02/03/25 15:55 Creatinine 1.2 mg/dL (0.5-0.9) H 02/03/25 15:55 GFR Calculation 44.8 mL/min (90-130) L 02/03/25 15:55 Glucose 107 mg/dL (65-115) 02/03/25 15:55 Calculated Osmolality 281 mOsm/kg (285-295) L 02/03/25 15:55 Calcium 9.0 mg/dL (8.5-10.5) 02/03/25 15:55 Total Bilirubin 0.8 mg/dL (0.15-1.2) 02/03/25 15:55 AST 697 U/L (0-32) H 02/03/25 15:55 ALT 329 U/L (0-33) H 02/03/25 15:55 Alkaline Phosphatase 421 U/L (35-105) H 02/03/25 15:55 Troponin T Baseline 111 ng/L (0-10) H* 02/03/25 15:55 Troponin T 120 Minute 106.6 ng/L (0-10) H 02/03/25 18:39 Delta Troponin T -4.4 ABS# (0-10) L 02/03/25 18:39 Troponin T Hi Sens 6Hr 137.3 ng/L (0-10) H 02/03/25 21:45 Troponin T Hi Sens 6Hr Delta 26.3 ng/L (0-12) H* 02/03/25 21:45 Total Protein 5.9 g/dL (6.6-8.7) L 02/03/25 15:55 Albumin 3.3 g/dL (3.5-5.2) L 02/03/25 15:55 Globulin 2.6 g/dL (1.3-4.6) 02/03/25 15:55 Lipase 8 U/L (13-60) L 02/03/25 15:55 All radiology interpretation(s) finalized by discharge EKG Data EKG 1: Interpretation: A flutter with rapid ventricular rate of 140, QRS 92, QTc 344, no ST segment elevation or depression. EKG 2: Interpretation: Normal sinus rhythm with a rate of 96, pr 135, QRS duration 86, QTc of 396 Discharge Plan Discharge Patient Disposition: Xfer Short-Term Hosp Clinical Impression: Respiratory infection, Stable angina, NSTEMI (non-ST elevation myocardial infarction), Atrial flutter with rapid ventricular response Condition: Stable Discharge Orders: Transfer Out of Facility (Order); Ordered 02/03/25 Ordered By: Aldo Law Referrals: Alejandro Child MD [Primary Care Provider, [facility]] Print Language: Swedish Coding Level of Care Code ED Integrated Specialist for Venancio Alex
[2025-02-03] MEDS: nitroglycerin 0.4 mg sublingual Tablet SUBLINGUAL ×2 (17:24→21:40)
--- NOTE | 2025-02-03 17:30 | CTR_ITS ---
PROCEDURE INFORMATION: Exam: CTA Chest With Contrast Exam date and time: 02/03/2025 5:51 PM Age: 69 years old Clinical indication: Shortness of breath; Chest pressure; Prior surgery; Surgery date: 6+ months; Surgery type: Chest port. Esophageal stent; C/O chest pain with SOB. History of lung cancer with copd and chf. ; Additional info: Unilateral signs of pulmonary congestion with history of CA TECHNIQUE: Imaging protocol: Computed tomographic angiography of the chest with contrast. Exam focused on the arteries. 3D rendering (Not supervised by radiologist): MIP and/or 3D reconstructed images were created by the technologist. Radiation optimization: All CT scans at this facility use at least one of these dose optimization techniques: automated exposure control; mA and/or kV adjustment per patient size (includes targeted exams where dose is matched to clinical indication); or iterative reconstruction. Contrast material: OMNI 350; Contrast volume: 61 ml; Contrast route: INTRAVENOUS (IV); COMPARISON: CT angio chest PE protcl [id number] 02/08/2023 12:16 PM RADIATION DOSE METRICS: Total DLP (mGy-cm): 168.75 FINDINGS: Tubes, catheters and devices: Esophageal stent noted. There is a left chest port with the line tip appropriately positioned in the lower SVC near the cavoatrial junction. Pulmonary arteries: The pulmonary arteries are adequately opacified for evaluation to the subsegmental level. There is no filling defect to suggest embolism. Aorta: There is moderate aortic atherosclerotic disease. Lungs: Extensive reticular and ground-glass opacity throughout the left lung, relatively sparing the apex. There is a noncalcified pulmonary nodule in the right upper lobe visible on series 7, image 122 measuring 4 mm. There is marked diffuse bronchial wall thickening and bronchial mucous plugging in the right lower lobe. There is marked narrowing of right mainstem bronchus with near complete effacement (axial series 7, image 193, progressive since 12/28/2024). Pleural spaces: Small simple dependent right pleural effusion. Trace left pleural effusion. No pneumothorax. Heart: Heart size is normal. There is trace pericardial effusion. Lymph nodes: 7.2 x 5.6 cm confluent central mediastinal mass with confluent lymphadenopathy extending into both suresh, and is confluent with a mass in the lower posterior mediastinum partially surrounding the esophageal stent. Intraperitoneal space: Visible structures in the upper abdomen are unremarkable. Bones/joints: Bones are unremarkable. Soft tissues: Diffuse subcutaneous edema in the chest wall. CT/CT angio chest PE protcl [id number] IMPRESSION: 1. No pulmonary embolism. 2. Confluent mediastinal mass and lymphadenopathy described above, similar to 12/28/2024 consistent with a malignant neoplasm. 3. Near complete effacement of the right mainstem bronchus as it traverses the mediastinal mass. Progressive since 12/28/2024. 4. Extensive opacity in the left lung. Asymmetric edema versus infection or acute lung injury. 5. Anasarca. 6. Small simple dependent right pleural effusion. Trace left pleural effusion.
[2025-02-03] MEDS: iohexol 350 mg/mL 500 mL Btl (per mL) IV (17:55)
--- NOTE | 2025-02-03 18:01 | PC.NURSE ---
Pt just returned from CT. Pt had 1 nitro SL. Pain level after 1 nitro is 0/10.
[2025-02-03 19:07] LABS: Troponin 5 2HR Delta -4.4 ABS# (0-10)
[2025-02-03 19:09] LABS: Troponin 5 2HR 106.6 ng/L (0-10)
[2025-02-03] MEDS: heparin 5,000 unit/mL INJ 1 mL IVP (21:26)
[2025-02-03] MEDS: heparin drip 25,000 UNIT/500 ML PREMIX 12 UNIT IV (21:27)
[2025-02-03] MEDS: piperacillin-tazobactam 3.375 GM in sodium chloride 0.9% (plus) 50 ML IV (21:41)
[2025-02-03] MEDS: dilTIAZem 100 MG in sodium chloride 0.9% (add-van) 100 ML 12.5 MG IV (21:59)
[2025-02-03 22:28] LABS: Troponin 5 6HR 137.3 ng/L (0-10); Troponin 5 6HR Delta 26.3 ng/L (0-12)
[2025-02-03] MEDS: VANCOMYCIN ADD-Vantage 1,000 MG in 0.9% NaCl ADD-Vantage 250 ML 250 MG IV (23:09)
[2025-02-04 00:15] VITALS: BP 113/60; PULSE 91; RESP 12; O2SAT 97
== END 2025-02-04 00:18 | disposition short-term general hospital (02) ==
PROVIDERS: Emergency Medicine; Emergency Provider General Practice; PCP Family Medicine
DX: J98.8 Other specified respiratory disorders (principal); I21.4 Non-ST elevation (NSTEMI) myocardial infarction; I48.20 Chronic atrial fibrillation, unspecified; Z87.891 Personal history of nicotine dependence; E78.5 Hyperlipidemia, unspecified; J44.9 Chronic obstructive pulmonary disease, unspecified; I25.10 Atherosclerotic heart disease of native coronary artery without angina pectoris; I11.0 Hypertensive heart disease with heart failure; I50.9 Heart failure, unspecified; R94.31 Abnormal electrocardiogram [ECG] [EKG]
CPT/HCPCS: 36415; 71045; 71275; 80053; 83690; 84484; 85025; 85610; 93005; 96365; 96366; 96375; 99291; J1644; J2543; J3370; J3490; J7050; J9999